=== PATIENT | male | born 1975 | race Native Hawaiian/Other Pacific Islander ===

== ENCOUNTER 2016-12-03 17:57 | Emergency (ER) | payer MEDICARE, OTHER, MEDICAID ==
[~2016-12-03] VITALS: Ht 180.3 cm; Wt 96.0 kg
[~2016-12-03 17:57] MED LIST: TRIL600T PO
[2016-12-03] MEDS ORDERED: METO25TA3 PO (18:08)
[2016-12-03 18:09] VITALS: BP 159/89; PULSE 93; RESP 19; TEMP 97.9; O2SAT 100
[2016-12-03] MEDS ORDERED: SODIUM CHLOR 0.9% 1000 ML INJ 1,000 ML IV ONE (18:21)
--- NOTE | 2016-12-03 18:22 | PD ---
HPI Chief Complaint: Seizure Time Seen by Provider: 18:22 Travel History International Travel<30 days: No Contact w/Intl Traveler<30days: No Traveled to known affect area: No History of Present Illness HPI 41-year-old male with history of seizure disorder, brought in by EMS status post seizure. Patient is currently postictal. Patient normally takes Trileptal for his seizures. Patient had similar seizure in the end of October. She also has a history of renal failure on dialysis. Patient had dialysis this morning. Patient is alert and oriented, and states he did bite his tongue, but denies any other injury. He is allergic to lisinopril. PFSH Past Medical History Heart Rhythm Problems: Yes (PT DENIES) Cancer: No Cardiovascular Problems: Yes (HYPERCHOLESTEROLEMIA) High Cholesterol: Yes Diabetes: No Dialysis: Yes (TUES, THURS, SAT) Diminished Hearing: No Endocrine: No Gastrointestinal Disorders: No Gout: Yes (PT DENIES) Genitourinary: Yes Hepatitis: No Hiatal Hernia: No Hypertension: Yes Immune Disorder: No Kidney Stones: Yes Medical other: Yes (GOUT) Musculoskeletal: No Neurologic: Yes (EPILEPSY) Psychiatric: No Reproductive: No Respiratory: No Renal Failure: Yes Seizures: Yes Thyroid Disease: No Tetanus Vaccination: Unknown Influenza Vaccination: No Past Surgical History Abdominal Surgery: No AICD: No Cardiac Surgery: No Ear Surgery: No Endocrine Surgery: No Eye Surgery: No Genitourinary Surgery: Yes (KIDNEY STONES REMOVAL, NEPHROSTOMY TUBE A CHILD) Gynecologic Surgery: No Joint Replacement: No Neurologic Surgery: Yes (EPILEPSY SPACE ON BRAIN CLOSED 2006) Oral Surgery: Yes (TONSILLECTOMY) Pacemaker: No Thoracic Surgery: No Tonsillectomy: Yes Other Surgery: Yes Social History Alcohol Use: No Tobacco Use: No Substance Use: No Allergies-Medications (Allergen,Severity, Reaction): Coded Allergies: Lisinopril (Verified Adverse Reaction, Severe, 12/03/16) Angioedema Reported Meds & Prescriptions Reported Meds & Active Scripts Active Reported Metoprolol Tartrate 25 Mg Tab 25 Mg PO DAILY Trileptal (Oxcarbazepine) 600 Mg Tab 600 Mg PO TID Review of Systems Except as stated in HPI: all other systems reviewed are Neg General / Constitutional: No: Fever Eyes: No: Visual changes HENT: Positive: Other (patient has superficial laceration to the right anterior tongue), No: Headaches Cardiovascular: No: Chest Pain or Discomfort Respiratory: No: Shortness of Breath Gastrointestinal: No: Abdominal Pain Genitourinary: No: Dysuria Musculoskeletal: No: Pain Skin: No Rash Neurologic: No: Weakness Psychiatric: No: Depression Endocrine: No: Polydipsia Hematologic/Lymphatic: No: Easy Bruising Physical Exam Narrative GENERAL: Patient appears in no acute distress. He appears postictal. SKIN: Warm and dry. Normal color. Normal turgor. HEAD: Atraumatic. Normocephalic. Nontender. EYES: Pupils equal and round. No scleral icterus. No injection or drainage. ENT: No nasal bleeding or discharge. Mucous membranes pink and moist. Patient has small superficial bite laceration to the right lateral anterior tongue. No significant bleeding. No other buccal membrane lacerations noted. No dental injury. Pharynx is clear. Airway is patent. NECK: Trachea midline. No JVD. Supple and nontender. CARDIOVASCULAR: Regular rate and rhythm. RESPIRATORY: No accessory muscle use. Clear to auscultation. Breath sounds equal bilaterally. GASTROINTESTINAL: Abdomen soft, non-tender, nondistended. Hepatic and splenic margins not palpable. MUSCULOSKELETAL: Extremities without clubbing, cyanosis, or edema. No obvious deformities. NEUROLOGICAL: Awake and alert. No obvious cranial nerve deficits. Motor grossly within normal limits. Five out of 5 muscle strength in the arms and legs. Normal speech. PSYCHIATRIC: Appropriate mood and affect; insight and judgment normal. Data Data Last Documented VS Vital Signs Date Time Temp Pulse Resp B/P Pulse Ox O2 Delivery O2 Flow Rate FiO2 12/03/16 19:33 88 12 150/78 99 Room Air 12/03/16 18:09 97.9 Orders Complete Blood Count With Diff (12/03/16 18:21) Basic Metabolic Panel (Bmp) (12/03/16 18:21) Carbamazepine (Tegretol) (12/03/16 18:21) Blood Glucose (12/03/16 18:21) Ecg Monitoring (12/03/16 18:21) Iv Access Insert/Monitor (12/03/16 18:21) Oximetry (12/03/16 18:21) Sodium Chlor 0.9% 1000 Ml Inj (Ns 1000 M (12/03/16 18:21) Sodium Chloride 0.9% Flush (Ns Flush) (12/03/16 18:30) Oxcarbazepine (Trileptal) (12/03/16 18:30) Labs Laboratory Tests Test 12/03/16 18:26 White Blood Count 4.1 TH/MM3 Red Blood Count 3.83 MIL/MM3 Hemoglobin 11.3 GM/DL Hematocrit 35.2 % Mean Corpuscular Volume 91.9 FL Mean Corpuscular Hemoglobin 29.4 PG Mean Corpuscular Hemoglobin 32.0 % Concent Red Cell Distribution Width 14.8 % Platelet Count 219 TH/MM3 Mean Platelet Volume 8.3 FL Neutrophils (%) (Auto) 63.4 % Lymphocytes (%) (Auto) 19.2 % Monocytes (%) (Auto) 13.6 % Eosinophils (%) (Auto) 2.9 % Basophils (%) (Auto) 0.9 % Neutrophils # (Auto) 2.6 TH/MM3 Lymphocytes # (Auto) 0.8 TH/MM3 Monocytes # (Auto) 0.6 TH/MM3 Eosinophils # (Auto) 0.1 TH/MM3 Basophils # (Auto) 0.0 TH/MM3 CBC Comment DIFF FINAL Differential Comment Sodium Level 140 MEQ/L Potassium Level 4.1 MEQ/L Chloride Level 102 MEQ/L Carbon Dioxide Level 29.5 MEQ/L Anion Gap 9 MEQ/L Blood Urea Nitrogen 16 MG/DL Creatinine 4.60 MG/DL Estimat Glomerular Filtration 14 ML/MIN Rate Random Glucose 85 MG/DL Calcium Level 7.7 MG/DL Carbamazepine (Tegretol) Level LESS THAN 0.5 MCG/ML MDM Medical Decision Making Medical Screen Exam Complete: Yes Emergency Medical Condition: Yes Differential Diagnosis Seizure disorder. Postictal. Tongue laceration. Narrative Course Patient is medically stable at time of exam. Labs ordered including CBC, BMP, and carbamazepine level. Patient is given Trileptal 600 mg by mouth. Patient is given 1000 and milligrams normal saline bolus. Patient is awaiting med bed placement from the ambulance [facility]. Patient is moved to [address] At 1935 hrs. the patient is reassessed. He states he is feeling improved. Patient's CBC is unremarkable except for some mild anemia. BMP is stable in terms of electrolytes with normal BUN to creatinine is 4.6 which is consistent with his renal disease. Patient is felt stable to go home. Patient will continue his Trileptal as previously prescribed. Patient is to follow-up with his primary care physician as discussed. Patient can return to emergency Department with worsening symptoms as needed. Diagnosis Primary Impression: Seizure disorder Referrals: Primary Care Physician call for appointment Patient Instructions: General Instructions Additional Instructions: Patient will continue his Trileptal as previously prescribed. Patient is to follow-up with his primary care physician as discussed. Patient can return to emergency Department with worsening symptoms as needed. Med/Other Pt SpecificInfo: No Change to Meds Disposition: 01 DISCHARGE HOME Condition: Stable David An Dec 03, 2016 18:22
[2016-12-03] MEDS ORDERED: SODIUM CHLORIDE 0.9% FLUSH 5 ML FLUSH IVF PRN (18:30)
[2016-12-03] MEDS ORDERED: OXcarbazepine 600 MG TAB PO ONE (18:30)
[2016-12-03 18:53] LABS: AUTOMATED NEUTROPHIL # 2.6 TH/MM3 (1.8-7.7); BASOPHIL % 0.9 % (0.0-2.0); EOSINOPHIL # 0.1 TH/MM3 (0-0.4); EOSINOPHIL % 2.9 % (0.0-4.0); HEMATOCRIT 35.2 % (39.0-51.0); HEMO FLAGS DIFF FINAL; LYMPH % 19.2 % (9.0-44.0); LYMPHOCYTE # 0.8 TH/MM3 (1.0-4.8); MEAN CELL VOLUME 91.9 FL (80.0-100.0); MEAN CORPUSCULAR HEMOGLOBIN 29.4 PG (27.0-34.0); MONO % 13.6 % (0.0-8.0); NEUT % 63.4 % (16.0-70.0); PLATELET COUNT 219 TH/MM3 (150-450); RED BLOOD COUNT 3.83 MIL/MM3 (4.50-5.90); RED CELL DISTRIBUTION WIDTH 14.8 % (11.6-17.2); WHITE BLOOD COUNT 4.1 TH/MM3 (4.0-11.0)
[2016-12-03 19:12] LABS: ANION GAP 9 MEQ/L (5-15); BICARBONATE 29.5 MEQ/L (21.0-32.0); BLOOD UREA NITROGEN 16 MG/DL (7-18); CHLORIDE 102 MEQ/L (98-107); GLOMERULAR FILTRATION RATE 14 ML/MIN (>89); POTASSIUM 4.1 MEQ/L (3.5-5.1); SODIUM (NA) 140 MEQ/L (136-145)
[2016-12-03 19:33] VITALS: BP 150/78; PULSE 88; RESP 11; RESP 12; O2SAT 99
== END 2016-12-03 20:19 | disposition home or self-care (01) ==
LOC: NEPE 17:57
DX: G40.909 Epilepsy, unspecified, not intractable, without status epilepticus (principal)
CPT/HCPCS: 80048; 80156; 85025; 96360; 99284; J7030

== ENCOUNTER 2017-08-21 11:26 | Observation (INO) | payer OTHER, MEDICARE, MEDICAID ==
[2017-08-21] VITALS (7 sets, daily range): BP systolic 111–140; BP diastolic 56–86; PULSE 71–90; RESP 16–20; TEMP 98.1–98.2; O2SAT 98–100
[~2017-08-21 11:26] MED LIST changes: +METO25TA3 PO
[2017-08-21] MEDS ORDERED: SODIUM CHLORIDE 0.9% FLUSH 10 ML FLUSH IVF PRN (11:45)
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
[2017-08-21] MEDS ORDERED: PROT40TA PO (11:58)
[2017-08-21 12:34] LABS: AUTOMATED NEUTROPHIL # 2.6 TH/MM3 (1.8-7.7); BASOPHIL % 0.5 % (0.0-2.0); EOSINOPHIL # 0.1 TH/MM3 (0-0.4); EOSINOPHIL % 1.5 % (0.0-4.0); HEMO FLAGS DIFF FINAL; LYMPH % 17.5 % (9.0-44.0); LYMPHOCYTE # 0.6 TH/MM3 (1.0-4.8); MEAN CELL VOLUME 92.4 FL (80.0-100.0); MEAN CORPUSCULAR HEMOGLOBIN 30.2 PG (27.0-34.0); MEAN CORPUSCULAR HGB CONC 32.7 % (32.0-36.0); MONO % 9.4 % (0.0-8.0); NEUT % 71.1 % (16.0-70.0); PLATELET COUNT 198 TH/MM3 (150-450); RED BLOOD COUNT 3.46 MIL/MM3 (4.50-5.90); RED CELL DISTRIBUTION WIDTH 14.2 % (11.6-17.2); WHITE BLOOD COUNT 3.6 TH/MM3 (4.0-11.0)
[2017-08-21 12:59] LABS: BICARBONATE 30.7 MEQ/L (21.0-32.0); POTASSIUM 3.3 MEQ/L (3.5-5.1); TOTAL BILIRUBIN ADULT 0.3 MG/DL (0.2-1.0)
[2017-08-21 13:01] LABS: CALCIUM-PROTEIN CORRECTED 7.2 MG/DL (8.5-10.1)
--- NOTE | 2017-08-21 13:48 | RADRPT ---
EXAM DATE/TIME: 08/21/2017 12:57 [facility] COMPARISON: CT BRAIN W/O CONTRAST, January 02, 2015, 12:04. INDICATIONS : Seizure today. RADIATION DOSE: 42.59 CTDIvol (mGy) MEDICAL HISTORY : Seizures. Renal failure, chronic. Hypertension. SURGICAL HISTORY : Craniotomy. ENCOUNTER: Initial ACUITY: 1 day PAIN SCALE: 0/10 LOCATION: cranial TECHNIQUE: Multiple contiguous axial images were obtained of the head. Using automated exposure control and adj ustment of the mA and/or kV according to patient size, radiation dose was kept as low as reasonably a chievable to obtain optimal diagnostic quality images. DICOM format image data is available electro nically for review and comparison. FINDINGS: CEREBRUM: The ventricles are normal for age. No evidence of midline shift, mass lesion, hemorrhage or acute in farction. No extra-axial fluid collections are seen. Stable area of encephalomalacia involving the l eft temporal lobe characteristic with a previous left-sided craniotomy. POSTERIOR FOSSA: The cerebellum and brainstem are intact. The 4th ventricle is midline. The cerebellopontine angle i s unremarkable. EXTRACRANIAL: The visualized portion of the orbits is intact. SKULL: The calvaria is intact. No evidence of skull fracture. Good position of a left-sided craniotomy flap . No new or significant changes compared to the previous study from 2014. CONCLUSION: 1. Stable CT scan of the brain compared to 2014. 2. No focal or acute intracranial hemorrhage. Francis Lagos MD on August 21, 2017 at 13:44 Board Certified Radiologist. This report was verified electronically.
[2017-08-21] MEDS ORDERED: CALCIUM GLUCONATE INJ 1 GM in SODIUM CHLORIDE 0.9% INJ 100 ML IV ONE (14:15)
[2017-08-21] MEDS ORDERED: LORazepam 2 MG/ML VIAL ONE (14:43)
[2017-08-21] MEDS ORDERED: LORazepam 2 MG/ML VIAL IV PUSH ONE (14:45)
[2017-08-21] MEDS ORDERED: OXcarbazepine 600 MG TAB PO ONE (14:45)
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
[2017-08-21] MEDS ORDERED: LORazepam 2 MG/ML VIAL IV PRN (18:30)
[2017-08-21] MEDS ORDERED: METOPROLOL TARTRATE 25 MG TAB PO SCH (21:00)
[2017-08-22] VITALS: BP 124/72; PULSE 65; RESP 17; TEMP 97.7; O2SAT 99
[2017-08-22 00:16] VITALS: PULSE 68
[2017-08-22 04:00] VITALS: BP 135/79; PULSE 63; PULSE 69; RESP 16; TEMP 97.5; O2SAT 100
[2017-08-22 08:00] VITALS: BP 138/81; PULSE 67; RESP 18; TEMP 97.7; O2SAT 100
--- NOTE | 2017-08-22 08:46 | HHI.DCPOC ---
Discharge Care Plan Diagnosis: (1) Seizure disorder (2) ESRD (end stage renal disease) on dialysis (3) HTN (hypertension) Goals to Promote Your Health Patient is to followup with Dr. Cassidy in 2 weeks, call for an appt Neurology has recommended that he take an extra dose of his Trileptal after dialysis to try to maintain therapeutic levels of the medication Patient is to followup for his normal dialysis schedule of , follows with Dr. Shin. Patient is to followup with his PCP, Dr. Schrader, in 1 week, call for an appt. Directions to Meet Your Goals Take your medications as prescribed Follow your dietary instruction Follow activity as directed Keep your appointments as scheduled Take your immunizations and boosters as scheduled If your symptoms worsen call your PCP, if no PCP go to Urgent Care Center or Emergency Room Smoking is Dangerous to Your Health. Avoid second hand smoke Call the 24-hour hour crisis hotline for domestic abuse at Bibiana Roberts Aug 22, 2017 08:45
--- NOTE | 2017-08-22 08:52 | HHI.PR ---
Subjective Remarks Pt awake and alert this morning He is anxious to go home because he wants to make it to prayer by 1400 today No further seizure activity since yesterday afternoon He reports that on the days he has dialysis he takes his Trileptal 4 times per day. He typically takes it at 0400, 1200, and 1800. On his dialysis days he takes an extra dose after dialysis around 0900. Objective Vitals Vital Signs Date Time Temp Pulse Resp B/P (MAP) Pulse Ox O2 Delivery O2 Flow Rate FiO2 08/22/17 04:00 63 08/22/17 04:00 97.5 69 16 135/79 (97) 100 08/22/17 00:16 68 08/22/17 00:00 97.7 65 17 124/72 (89) 99 08/21/17 20:59 72 08/21/17 20:36 98.2 71 18 131/76 (94) 08/21/17 18:20 98.1 78 20 140/86 (104) 100 08/21/17 17:18 80 18 140/76 (97) 98 Nasal Cannula 2.00 08/21/17 16:24 80 16 140/76 (97) 100 Nasal Cannula 2.00 08/21/17 14:39 98.1 73 18 111/56 (74) 99 Room Air 08/21/17 11:32 90 18 98 Room Air 08/21/17 11:31 90 18 138/72 (94) 99 Room Air Result Diagram: 08/21/17 1205 08/21/17 1205 Other Results Laboratory Tests Test 08/21/17 12:05 White Blood Count 3.6 TH/MM3 Red Blood Count 3.46 MIL/MM3 Hemoglobin 10.5 GM/DL Hematocrit 32.0 % Mean Corpuscular Volume 92.4 FL Mean Corpuscular Hemoglobin 30.2 PG Mean Corpuscular Hemoglobin Concent 32.7 % Red Cell Distribution Width 14.2 % Platelet Count 198 TH/MM3 Mean Platelet Volume 7.3 FL Neutrophils (%) (Auto) 71.1 % Lymphocytes (%) (Auto) 17.5 % Monocytes (%) (Auto) 9.4 % Eosinophils (%) (Auto) 1.5 % Basophils (%) (Auto) 0.5 % Neutrophils # (Auto) 2.6 TH/MM3 Lymphocytes # (Auto) 0.6 TH/MM3 Monocytes # (Auto) 0.3 TH/MM3 Eosinophils # (Auto) 0.1 TH/MM3 Basophils # (Auto) 0.0 TH/MM3 CBC Comment DIFF FINAL Differential Comment Blood Urea Nitrogen 17 MG/DL Creatinine 3.61 MG/DL Random Glucose 104 MG/DL Total Protein 7.6 GM/DL Albumin 3.4 GM/DL Calcium Level 7.4 MG/DL Alkaline Phosphatase 171 U/L Aspartate Amino Transf (AST/SGOT) 11 U/L Alanine Aminotransferase (ALT/SGPT) 19 U/L Total Bilirubin 0.3 MG/DL Sodium Level 135 MEQ/L Potassium Level 3.3 MEQ/L Chloride Level 98 MEQ/L Carbon Dioxide Level 30.7 MEQ/L Anion Gap 6 MEQ/L Estimat Glomerular Filtration Rate 19 ML/MIN Protein Corrected Calcium 7.2 MG/DL Magnesium Level 2.0 MG/DL Imaging Last Impressions Head CT 08/21/17 0000 Signed Impressions: Service Date/Time: August 12:57 - CONCLUSION: 1. Stable CT scan of the brain compared to 2014. 2. No focal or acute intracranial hemorrhage. Francis Lagos MD Objective Remarks General: NAD, AAox3 Chest: CTA Cardiac: Regular Abd: +BS, soft ND/NT Ext: No edema A/P Problem List: (1) Seizure disorder ICD Codes: G40.909 - Epilepsy, unspecified, not intractable, without status epilepticus Status: Acute Plan: 1. Recurrent breakthrough seizures. There is concern for his Trileptal being dialyzed off - Pt reportedly has been having 2-4 sz's per week. They say it worsened after starting HD and feel his medication is being dialyzed off. - He reports that on the days he has dialysis he takes his Trileptal 4 times per day. He typically takes it at 0400, 1200, and 1800. On his dialysis days he takes an extra dose after dialysis around 0900. - Await Neurology consultation - Await Oxcarbazepine level 2. Mild hypokalemia/hypocalcemia - Await repeat labs for today 3. hx obesity. s/p gastric sleeve. 4. 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 Shin - He has dialysis on 5. HTN - Home meds resumed Assessment and Plan Patient examined. Assessment and plan formulated with Bibiana Roberts PA-C. I agree with the above. recurrent sz's in pt with long hx. worsened after initiation of HD hopefully he can see the neurologist today before leaving to establish care on the outpt basis. plan for d/c home. Bibiana Roberts Aug 22, 2017 08:52 Navneet Fontana MD Aug 22, 2017 12:37
[2017-08-22] MEDS ORDERED: PANTOPRAZOLE SOD 40 MG DELAYED RELEASE TAB PO SCH (09:00)
[2017-08-22] MEDS: OXcarbazepine 600 MG TAB PO SCH ×2 (09:44→13:54)
[2017-08-22 11:35] LABS: POTASSIUM 3.7 MEQ/L (3.5-5.1)
[2017-08-22 12:11] VITALS: BP 144/83; PULSE 70; RESP 18; TEMP 98.2; O2SAT 100
--- NOTE | 2017-08-22 14:17 | MB ---
cc: LINCOLN CARBAJAL MD DATE OF CONSULTATION: 08/22/2017 REASON FOR CONSULTATION Seizures. HISTORY OF PRESENT ILLNESS Mr. Eduardo is a 32-year-old male with past medical history significant for nephropathy on hemodialysis and history of seizure disorder. The patient states that he had a brain defect since and he underwent surgical intervention at [facility]. The patient is uncertain what kind of surgery it was but he states that they made his defect smaller and his seizures were less frequent and intense. In 2014 he was diagnosed with nephropathy and he is on hemodialysis three times week. He is also on Trileptal 600 mg three times daily, but he had seizures after a hemodialysis session. The patient does not follow-up with a neurologist. It was reported that after hemodialysis on the way home he had a seizure. He received Ativan. Neurology is consulted for consulting on the antiseizure medication and his situation. REVIEW OF SYSTEMS A 12-point review of systems is negative except for what is stated in the HPI. PAST MEDICAL HISTORY 1. IgA nephropathy. 2. Hemodialysis. 3. Hypertension. 4. GERD. 5. Congenital defect, status post procedure at [facility]. 6. Hyperlipidemia. 7. Seizure disorder. PAST SURGICAL HISTORY 1. Left arm AVF. 2. Brain surgery. 3. Gastric sleeve MEDICATIONS 1. Metoprolol. 2. Trileptal 600 mg three times daily. 3. Protonix. ALLERGIES LISINOPRIL - ANGIOEDEMA. FAMILY HISTORY Noncontributory. SOCIAL HISTORY No ethanol, illicit drugs or smoking. PHYSICAL EXAMINATION GENERAL: Awake, alert, oriented to time, person and place. Good historian. HEENT: Atraumatic, normocephalic. Scar of craniotomy. Intact hearing. Intact vision. NECK: No carotid bruit. No signs of meningeal irritation. ABDOMEN: Abdomen: Soft, nontender. LUNGS: Clear to auscultation. No wheezes. NEUROLOGIC: Awake, alert, oriented. No dysarthria. No dysphagia. Cranial nerves are grossly intact. Upper and lower extremities have normal motor function. No abnormal movement. Intact sensation throughout. Normal cerebellar function. IMAGING Head CT scan: Stable CT scan. No focal acute intracranial hemorrhage. Stable area of encephalomalacia in the left temporal lobe with previous left-sided craniotomy. LABORATORY White blood cell count 3.6, hemoglobin 10.5. Sodium 134, chloride 97, BUN 29, creatinine 5.1, calcium 7.4, AST 11, alkaline phosphatase 171. DIAGNOSTIC IMPRESSION 1. Breakthrough seizures status post hemodialysis. 2. Nephropathy status post hemodialysis. 3. Hypertension. 4. Hyperlipidemia. CLINICAL ASSESSMENT AND PLAN The patient is on hemodialysis with seizure disorder secondary to brain defect. He is currently on Trileptal 600 mg three times daily. The recommendation is to give the patient an extra dose of Trileptal after hemodialysis to prevent subtherapeutic blood levels, and also may periodically obtain serum levels of the Trileptal. Another recommendation is the patient may change his timing of taking the medication to take it where it fits to after the hemodialysis, but this probably would be less convenient for the patient. Always maintain normal sodium level as Trileptal may cause hyponatremia. I discussed and explained the above recommendations with the patient. He understands well. Thank you for allowing me to participate in the care of your patient. MD REINALDO Fuentes/MARY ANNE /1:36 PM /1:53 PM ELAYNE
[2017-08-22] MEDS ORDERED: TRIL600T PO (14:38)
--- NOTE | 2017-08-22 22:03 | EKG ---
Date Performed: 08/21/2017 Time Performed: 12:05:34 PTAGE: 41 years EKG: Sinus rhythm MODERATE INTRAVENTRICULAR CONDUCTION DELAY BORDERLINE ECG PREVIOUS TRACING : 10/25/2016 16.30 Compared to prior tracing no significant change DOCTOR: Mikhail Stratton Interpretating Date/Time 08/22/2017 21:42:46
== END 2017-08-22 16:14 | disposition home or self-care (01) ==
LOC: NEPE 11:26 → NEDA 14:55 → NEPGCP 18:00
PROVIDERS: ADMIT Hospitalist; ATTEND Hospitalist
DX: G40.909 Epilepsy, unspecified, not intractable, without status epilepticus (principal); E83.51 Hypocalcemia; E87.6 Hypokalemia; N18.6 End stage renal disease; I12.0 Hypertensive chronic kidney disease with stage 5 chronic kidney disease or end stage renal disease; V43.52XA Car driver injured in collision with other type car in traffic accident, initial encounter; Y92.410 Unspecified street and highway as the place of occurrence of the external cause; Z99.2 Dependence on renal dialysis; E78.00 Pure hypercholesterolemia, unspecified; E78.5 Hyperlipidemia, unspecified; K21.9 Gastro-esophageal reflux disease without esophagitis; M10.9 Gout, unspecified; N02.8 Recurrent and persistent hematuria with other morphologic changes; Z98.84 Bariatric surgery status
CPT/HCPCS: 70450; 80048; 80053; 80183; 83735; 85025; 93005; 96365; 96375; 99285; G0378; J0610; J2060

== ENCOUNTER 2017-09-01 13:16 | Inpatient (IN) | payer OTHER, MEDICARE, MEDICAID ==
[~2017-09-01] VITALS: Ht 180.3 cm; Wt 107.5 kg
[~2017-09-01 13:16] MED LIST changes: +PANT20TA2 PO; +PROT40TA PO
[2017-09-01] MEDS ORDERED: SODIUM CHLOR 0.9% 1000 ML INJ 1,000 ML IV ONE (13:39)
[2017-09-01] MEDS ORDERED: SODIUM CHLOR 0.9% IV SCH ×3 (13:45→16:45)
[2017-09-01] MEDS ORDERED: ceFAZolin 2 GM PREMIX 50 ML IV SCH (13:45)
[2017-09-01] MEDS ORDERED: MYCOPHENOLATE MOFETIL 500 MG TAB PO SCH (13:45)
[2017-09-01] MEDS ORDERED: ANTITHYMOCYTE GLOB IV SCH ×3 (13:45→16:45)
[2017-09-01] MEDS ORDERED: methylPREDNISolone SO SUCC INJ 250 MG in SODIUM CHLORIDE 0.9% INJ 100 ML IV ONE (13:45)
--- NOTE | 2017-09-01 13:54 | HHI.HP ---
[facility] Non-Staff Admission Diagnosis Diagnoses: Chief Complaint: Patient with ESRD being admitted for Renal transplant. Travel History International Travel<30 Days: No Contact w/Intl Traveler <30 Da: No Traveled to Known Affected Are: No History of Present Illness Mr. 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 In January 2015, patient came to the hospital with lower extremity edema. Workup indicated IgA nephropathy. Patient was placed on outpatient dialysis after hospital discharge. He has been followed by Dr. Shin (nephrology) in the outpatient setting. At the time of this interview, patient denies any chest pain, shortness of breath, fever or chills. He denies any cough, abdominal pain, diarrhea or constipation. Review of Systems Except as stated in HPI: all other systems reviewed are Neg Past Family Social History Past Medical History Advanced sclerosing IgA nephropathy ESRD currently on dialysis Friday and Friday. History of hypertension, hyperlipidemia, gout - all resolved after losing 140 pounds. GERD Seizure disorder Past Surgical History Left-sided nephrectomy in childhood when patient was 4 years old likely due to congenital reasons. Gastric sleeve surgery June 2016 Fistula placement 2014 Surgery related to epilepsy in [place], [place] 2006 Reported Medications Trileptal 600 mg 3 times a day Omeprazole Metoprolol 25 mg daily at bedtime Allergies: Coded Allergies: lisinopril (Unverified Adverse Reaction, Severe, 08/21/17) Angioedema Family History No family history of heart disease, cancer, Alzheimer's dementia or Parkinson's. Social History Patient denies using tobacco, alcohol, illicit drugs Physical Exam Physical Exam GENERAL: This is a well-nourished, well-developed patient, in no apparent distress. SKIN: No rashes, ecchymoses or lesions. Warm and dry. HEAD: Atraumatic. Normocephalic. No temporal or scalp tenderness. EYES: Pupils equal round and reactive. No injection or drainage. ENT: Nose without bleeding, purulent drainage or septal hematoma. Airway patent. NECK: Trachea midline. No lymphadenopathy. Supple, nontender, no meningeal signs. CARDIOVASCULAR: Regular rate and rhythm without murmurs, gallops, or rubs. No JVD. Left arm fistula bruit appreciated. RESPIRATORY: Clear to auscultation. Breath sounds equal bilaterally. No wheezes , rales, or rhonchi. GASTROINTESTINAL: Abdomen soft, non-tender, nondistended. No guarding. Left abdominal wall scar noted (from nephrectomy). MUSCULOSKELETAL: Extremities without clubbing, cyanosis. Trace edema. NEUROLOGICAL: Awake and alert. Cranial nerves II through XII intact. No focal neurological deficits. Normal speech. Caprini VTE Risk Assessment Caprini VTE Risk Assessment: No/Low Risk (score <= 1) Caprini Risk Assessment Model Point Value = 1 Point Value = 2 Point Value = 3 Point Value = 5 Age 41-60 Minor surgery BMI > 25 kg/m2 Swollen legs Varicose veins or History of unexplained or recurrent spontaneous Oral contraceptives or hormone replacement Sepsis (< 1 month) Serious lung disease, including pneumonia (< 1 month) Abnormal pulmonary function Acute myocardial infarction Congestive heart failure (< 1 month) History of inflammatory bowel disease Medical patient at bed rest Age 61-74 Arthroscopic surgery Major open surgery (> 45 min) Laparoscopic surgery (> 45 min) Malignancy Confined to bed (> 72 hours) Immobilizing plaster cast Central venous access Age >= 75 History of VTE Family history of VTE Factor V Leiden Prothrombin [id number] Lupus anticoagulant Anticardiolipin antibodies Elevated serum homocysteine Heparin-induced thrombocytopenia Other congenital or acquired thrombophilia Stroke (< 1 month) Elective arthroplasty Hip, pelvis, or leg fracture Acute spinal cord injury (< 1 month) Prophylaxis Regimen Total Risk Factor Score Risk Level Prophylaxis Regimen 0-1 Low Early ambulation 2 Moderate Order ONE of the following: *Sequential Compression Device (SCD) *Heparin 5000 units SQ BID 3-4 Higher Order ONE of the following medications: *Heparin 5000 units SQ TID *Enoxaparin/Lovenox 40 mg SQ daily (WT < 150 kg, CrCl > 30 mL/min) *Enoxaparin/Lovenox 30 mg SQ daily (WT < 150 kg, CrCl > 10-29 mL/min) *Enoxaparin/Lovenox 30 mg SQ BID (WT < 150 kg, CrCl > 30 mL/min) AND/OR *Sequential Compression Device (SCD) 5 or more Highest Order ONE of the following medications: *Heparin 5000 units SQ TID (Preferred with Epidurals) *Enoxaparin/Lovenox 40 mg SQ daily (WT < 150 kg, CrCl > 30 mL/min) *Enoxaparin/Lovenox 30 mg SQ daily (WT < 150 kg, CrCl > 10-29 mL/min) *Enoxaparin/Lovenox 30 mg SQ BID (WT < 150 kg, CrCl > 30 mL/min) AND *Sequential Compression Device (SCD) Assessment and Plan Problem List: (1) IgA nephropathy determined by renal biopsy ICD Code: N02.8 - IgA nephropathy determined by renal biopsy Status: Acute (2) ESRD (end stage renal disease) on dialysis ICD Code: N18.6 - ESRD (end stage renal disease) on dialysis; Z99.2 - Dependence on renal dialysis Status: Acute (3) Seizure disorder ICD Code: G40.909 - Epilepsy, unspecified, not intractable, without status epilepticus Status: Acute Assessment and Plan Mr. Eduardo is a pleasant 42-year-old male with a history of IgA nephropathy, ESRD currently on dialysis on Friday and Friday, seizure disorder who presents to the hospital for elective admitted transplant scheduled for . - End-stage renal disease - Advanced sclerosing IgA nephropathy - Patient has been on dialysis since January 2015. - We'll obtain stat labs including CBC, CMP, PT, APTT. - We'll also obtain type and screen as well as 2 units of blood on standby - We'll administer mycophenolate (Cellcept) 1000 mg by mouth once. - Ordered Acute Care Nursing Assistant meds - antithymocyte globulin 1.5mg/kg. - Discussed with Pharmacy since the order set did not calculate dosage. Typical dosage is 1.5mg/kg. - Surgery team / pharmacy to do the final dosing. - Cefazolin and Solumedrol acquisitions editor ordered. - Seizure disorder - Patient takes Trileptal 600mg TID. Will continue. - GERD - Continue Protonix 20mg Qday starting 09/02/2017. - Hypertension - Patient is on Metoprolol tartrate 25mg QHS. Will continue this medication as well. Full code. Ambulation. Pharmacological DVT prophylaxis per surgery team. Discussed with Nephrology and Dr. Waqas Portillo (Surgery). Physician Certification 2 Midnight Certification Type: Admission for Inpatient Services Order for Inpatient Services The services are ordered in accordance with Medicare regulations or non- Medicare payer requirements, as applicable. In the case of services not specified as inpatient-only, they are appropriately provided as inpatient services in accordance with the 2-midnight benchmark. Estimated LOS (days): 3 days is the estimated time the patient will need to remain in the hospital, assuming treatment plan goals are met and no additional complications. Post-Hospital Plan: Home Lay Headley DO Sep 01, 2017 13:54
[2017-09-01 14:14] VITALS: BP 126/82; PULSE 79; RESP 16; TEMP 98; O2SAT 93
[2017-09-01 15:00] VITALS: BP 126/82; PULSE 79; RESP 16; TEMP 98; O2SAT 93
[2017-09-01 15:51] LABS: AUTOMATED NEUTROPHIL # 2.1 TH/MM3 (1.8-7.7); BASOPHIL % 0.7 % (0.0-2.0); EOSINOPHIL # 0.1 TH/MM3 (0-0.4); EOSINOPHIL % 1.8 % (0.0-4.0); HEMOGLOBIN 10.4 GM/DL (13.0-17.0); LYMPH % 26.6 % (9.0-44.0); LYMPHOCYTE # 0.9 TH/MM3 (1.0-4.8); MEAN CELL VOLUME 92.8 FL (80.0-100.0); MEAN CORPUSCULAR HGB CONC 32.4 % (32.0-36.0); MEAN PLATELET VOLUME 7.8 FL (7.0-11.0); MONO % 9.2 % (0.0-8.0); MONOCYTE # 0.3 TH/MM3 (0-0.9); NEUT % 61.7 % (16.0-70.0); PLATELET COUNT 212 TH/MM3 (150-450); RED BLOOD COUNT 3.45 MIL/MM3 (4.50-5.90); RED CELL DISTRIBUTION WIDTH 14.1 % (11.6-17.2); WHITE BLOOD COUNT 3.4 TH/MM3 (4.0-11.0)
[2017-09-01 16:04] LABS: INTERNATIONAL NORMALIZED RATIO 1.1 RATIO; PROTHROMBIN TIME - PATIENT 11.8 SEC (9.8-11.6)
[2017-09-01 16:14] LABS: ALBUMIN 3.5 GM/DL (3.4-5.0); BICARBONATE 26.8 MEQ/L (21.0-32.0); CALCIUM 7.4 MG/DL (8.5-10.1); CREATININE 6.94 MG/DL (0.60-1.30); TOTAL BILIRUBIN ADULT 0.3 MG/DL (0.2-1.0); TOTAL PROTEIN 7.6 GM/DL (6.4-8.2)
[2017-09-01 16:19] LABS: CALCIUM-PROTEIN CORRECTED 7.2 MG/DL (8.5-10.1)
--- NOTE | 2017-09-01 16:35 | RADRPT ---
EXAM DATE/TIME: 09/01/2017 15:20 [place] COMPARISON: No previous studies available for comparison. INDICATIONS : Evaluate for pneumothorax, pneumonia or communicable diseases. Pre-op for kidney transplant surgery. MEDICAL HISTORY : AV fistula. SURGICAL HISTORY : None. ENCOUNTER: Initial ACUITY: 1 day PAIN SCORE: 0/10 LOCATION: Bilateral chest FINDINGS: The cardiac silhouette is enlarged in transverse diameter. The lungs are free of acute parenchymal op acity. No effusions are identified. Osseous structures are intact. CONCLUSION: Cardiomegaly. No acute cardiopulmonary disease. Leonid Montemayor MD on September 01, 2017 at 16:33 Board Certified Radiologist. This report was verified electronically.
[2017-09-01] MEDS ORDERED: HEPARIN SODIUM - SQ 10,000 UNITS/ML VIAL ONE (16:44)
[2017-09-01] MEDS ORDERED: FUROSEMIDE 100 MG/10 ML VIAL ONE (16:44)
[2017-09-01] MEDS ORDERED: methylPREDNISolone SOD SUCC 1000 MG/16 ML VIAL ONE (16:44)
[2017-09-01] MEDS ORDERED: PAPAVERINE INJ 60 MG/2 ML VIAL ONE (16:45)
[2017-09-01] MEDS ORDERED: MANNITOL INJ 50 ML ONE (16:45)
[2017-09-01] MEDS ORDERED: GENTAMICIN SULFATE 80 MG/2 ML VIAL ONE (16:45)
--- NOTE | 2017-09-01 16:58 | PD.CONS ---
HPI Service Nephrology Consult Requested By Dr. Headley Reason for Consult End-stage renal disease Primary Care Physician Non-Staff History of Present Illness Patient is a 42-year-old male history of end-stage renal disease, seizure disorder, IgA nephropathy on hemodialysis on Friday, and Friday last hemodialysis was on Friday, he denies any chest pain shortness of breath or any cough any sputum production or any fever or chills, state that he was planning to go to [place] when he received a kidney transplant offer. Review of Systems Constitutional: DENIES: Diaphoretic episodes, Fatigue, Fever, Weight gain, Weight loss, Chills, Dizziness, Change in appetite, Night Sweats Endocrine: DENIES: Heat/cold intolerance, Polydipsia, Polyuria, Polyphagia Eyes: DENIES: Blurred vision, Diplopia, Eye inflammation, Eye pain, Vision loss , Photosensitivity, Double Vision Ears, nose, mouth, throat: DENIES: Tinnitus, Hearing loss, Vertigo, Nasal discharge, Oral lesions, Throat pain, Hoarseness, Ear Pain, Running Nose, Epistaxis, Sinus Pain, Toothache, Odynophagia Respiratory: DENIES: Apneas, Cough, Snoring, Wheezing, Hemoptysis, Sputum production, Shortness of breath Cardiovascular: DENIES: Chest pain, Palpitations, Syncope, Dyspnea on Exertion , PND, Lower Extremity Edema, Orthopnea, Claudication Gastrointestinal: DENIES: Abdominal pain, Black stools, Bloody stools, Constipation, Diarrhea, Nausea, Vomiting, Difficulty Swallowing, Anorexia Genitourinary: DENIES: Sexual dysfunction, Urinary frequency, Urinary incontinence, Urgency, Hematuria, Dysuria, Nocturia, Penile Discharge, Testicular Pain, Testicular Swelling Musculoskeletal: DENIES: Joint pain, Muscle aches, Stiffness, Joint Swelling, Back pain, Neck pain Integumentary: DENIES: Abnormal pigmentation, Nail changes, Pruritus, Rash Hematologic/lymphatic: DENIES: Bruising, Lymphadenopathy Immunologic/allergic: DENIES: Eczema, Urticaria Neurologic: DENIES: Abnormal gait, Headache, Localized weakness, Paresthesias, Seizures, Speech Problems, Tremor, Poor Balance Psychiatric: DENIES: Anxiety, Confusion, Mood changes, Depression, Hallucinations, Agitation, Suicidal Ideation, Homicidal Ideation, Delusions Past Family Social History Allergies: Coded Allergies: lisinopril (Unverified Adverse Reaction, Severe, 08/21/17) Angioedema Past Medical History Seizure disorder History of syncope Hypertension End-stage renal disease Mildly depressed WBC History of obesity status post gastric bypass surgery Past Surgical History Gastric bypass surgery Left kidney stone removal and nephrectomy History of brain surgery for seizures Reported Medications Reported Meds & Active Scripts Active Trileptal (Oxcarbazepine) 600 Mg Tab 600 Mg PO TID On dialysis days, pt is to take an extra dose after dialysis Reported Protonix (Pantoprazole Sodium) 40 Mg Tab 40 Mg PO DAILY Pantoprazole (Pantoprazole Sodium) 20 Mg Tab 20 Mg PO DAILY Trileptal (Oxcarbazepine) 600 Mg Tab 600 Mg PO TID Metoprolol Tartrate 25 Mg Tab 25 Mg PO HS Active Ordered Medications Current Medications Medications (Trade) Dose Ordered Sig/Gabriella Route Start Time Stop Time Status Last Admin Sodium Chloride 1,000 ml @ 40 mls/hr Q24H ONCE IV 09/01/17 13:39 09/02/17 13:38 Cefazolin Sodium/ Dextrose 50 ml @ 100 mls/hr BABY FORMUL[employer] WORKER IV 09/01/17 13:45 09/05/17 13:44 (Lopressor) 25 mg HS PO 09/01/17 21:00 (Trileptal) 600 mg TID PO 09/01/17 18:00 (Protonix) 20 mg DAILY PO 09/02/17 09:00 Anti-Thymocyte Globulin (Rabbit) 150 mg/Sodium Chloride 500 ml @ 41.667 mls/ hr BABY FOR[employer]UL[employer] WORKER IV 09/01/17 16:45 Family History Noncontributory Social History Denies smoking or alcohol use Physical Exam Vital Signs Vital Signs Date Time Temp Pulse Resp B/P (MAP) Pulse Ox O2 Delivery O2 Flow Rate FiO2 09/01/17 15:00 98.0 79 16 126/82 (97) 93 Physical Exam GENERAL: Well-nourished, well-developed patient. SKIN: Warm and dry. HEAD: Normocephalic. EYES: No scleral icterus. No injection or drainage. NECK: Supple, trachea midline. No JVD or lymphadenopathy. CARDIOVASCULAR: Regular rate and rhythm without murmurs, gallops, or rubs. RESPIRATORY: Breath sounds equal bilaterally. No accessory muscle use. GASTROINTESTINAL: Abdomen soft, non-tender, nondistended. EXTREMITIES: No cyanosis, or edema. AV fistula with positive thrill NEUROLOGICAL: Awake, alert, and oriented x 3. Non-focal. Laboratory Laboratory Tests Test 09/01/17 14:42 White Blood Count 3.4 Red Blood Count 3.45 Hemoglobin 10.4 Hematocrit 32.0 Mean Corpuscular Volume 92.8 Mean Corpuscular Hemoglobin 30.0 Mean Corpuscular Hemoglobin Concent 32.4 Red Cell Distribution Width 14.1 Platelet Count 212 Mean Platelet Volume 7.8 Neutrophils (%) (Auto) 61.7 Lymphocytes (%) (Auto) 26.6 Monocytes (%) (Auto) 9.2 Eosinophils (%) (Auto) 1.8 Basophils (%) (Auto) 0.7 Neutrophils # (Auto) 2.1 Lymphocytes # (Auto) 0.9 Monocytes # (Auto) 0.3 Eosinophils # (Auto) 0.1 Basophils # (Auto) 0.0 CBC Comment DIFF FINAL Differential Comment Prothrombin Time 11.8 Prothromb Time International Ratio 1.1 Activated Partial Thromboplast Time 28.7 Blood Urea Nitrogen 54 Creatinine 6.94 Random Glucose 82 Total Protein 7.6 Albumin 3.5 Calcium Level 7.4 Alkaline Phosphatase 171 Aspartate Amino Transf (AST/SGOT) 12 Alanine Aminotransferase (ALT/SGPT) 18 Total Bilirubin 0.3 Sodium Level 139 Potassium Level 4.4 Chloride Level 104 Carbon Dioxide Level 26.8 Anion Gap 8 Estimat Glomerular Filtration Rate 9 Protein Corrected Calcium 7.2 Result Diagram: 09/01/17 1442 09/01/17 1442 Imaging Last Impressions Chest X-Ray 09/01/17 0000 Signed Impressions: Service Date/Time: Friday, September 01, 2017 15:20 - CONCLUSION: Cardiomegaly. No acute cardiopulmonary disease. Leonid Montemayor MD Assessment and Plan Problem List: (1) ESRD (end stage renal disease) on dialysis ICD Codes: N18.6 - ESRD (end stage renal disease) on dialysis; Z99.2 - Dependence on renal dialysis Status: Acute Plan: I discussed the care with and Dr. Portillo He has been dialyzed on Friday Labs are stable WBC slightly depressed There is no absolute medical contraindication He will proceed with surgery this evening Thymoglobulin will be ordered by surgery (2) Seizure disorder ICD Codes: G40.909 - Epilepsy, unspecified, not intractable, without status epilepticus Status: Acute Plan: Trileptal continue to give it to him (3) HTN (hypertension) ICD Codes: I10 - HTN (hypertension) Status: Chronic Plan: Monitor blood pressure Problem Qualifiers (1) HTN (hypertension): Qualified Codes: I10 - Essential (primary) hypertension Jose Antonio Shin MD Sep 01, 2017 16:58
[2017-09-01] MEDS ORDERED: HEPARIN SODIUM - IV 10,000 UNITS/10 ML VIAL ONE (17:07)
[2017-09-01] MEDS ORDERED: DO NOT ADM ANY ANTICOAGULANT DRUGS PRN ×2 (20:00→21:15)
[2017-09-01] MEDS ORDERED: LABETALOL HCL 100 MG/20 ML VIAL IV PUSH PRN (20:15)
[2017-09-01] MEDS ORDERED: diphenhydrAMINE HCL 25 MG CAP PO PRN (20:15)
[2017-09-01] MEDS ORDERED: NALOXONE HCL 0.4 MG/ML AMP IV PUSH PRN (20:15)
[2017-09-01] MEDS ORDERED: MORPHINE SULFATE 30 MG/30 ML PCA IV SCH (20:15)
[2017-09-01] MEDS ORDERED: diphenhydrAMINE HCL 50 MG/ML VIAL IV PUSH PRN (20:15)
[2017-09-01] MEDS ORDERED: ONDANSETRON INJ 8 MG in DEXTROSE 5% IN WATER INJ 50 ML IV PRN ×2 (20:15)
[2017-09-01] MEDS ORDERED: RESP: ALBUTEROL 2.5 MG/IPRATROPIUM 0.5 MG NEB (PRN) INH (20:15)
[2017-09-01] MEDS ORDERED: ONDANSETRON HCL 4 MG/2 ML VIAL IV PUSH PRN (20:15)
--- NOTE | 2017-09-01 20:22 | PD.OP ---
Operative Report Date of Surgery: Sep 01, 2017 Preoperative Diagnosis: (1) ESRD (end stage renal disease) on dialysis Postoperative Diagnosis: (1) ESRD (end stage renal disease) on dialysis Procedure: 1) cadaveric kidney transplant with ureteroneosyctostomy over a 6.0 Fr dble J ureteral stent 2) backbench preparation of cadaveric kidney. Surgeon: Waqas Portillo Director Of Digital Platforms(s): Conner Barreto MD Operation and Findings: After informed consent was obtained from the patient prior to surgery and the ABO was reviewed via primary source times two for each the recipient and donor prior to surgery today, the recipient was brought into the OR and a surgical time out was performed, reviewing the patient, allergies, antibiotics, operation , immunosuppression medications and ABO of the donor and recipient. All agreed and we proceeded. The ABO verification form was in the room with the patient and the donor organ. The [employer] file was checked and the donor ABO verified X 2 and recorded onto the ABO form with the Candidate ABO verified X 2 and recorded on the ABO verification form. The candidate's name was seen on the match run in [employer]. The donor blood type was A1 and the recipient blood type A. After general anesthesia, a Meredith catheter was placed, the abdomen prepped and draped in the usual sterile fashion and a second debriefing was performed with all participants agreeing to proceed. A right lower quadrant transplant incision was made and carried down through the abdominal wall. The peritoneum was identified and mobilized medially to expose the iliac fossa and it's contents. The iliac vessels were isolated for placement of vascular clamps. After ABO, UNOS donor ID, and recipient verification, the kidney was prepared on the backtable by myself, which included removal of access tissue, preparation of the renal artery and vein for implantation. An IVC extension was created using a TA stapling device. The kidney was brought to the front table for implantation. 2,000 units of intravenous heparin was introduced. A side biting vascular clamp was placed across the iliac vein and an end to side venous anastomosis created using a running 6.0 Prolene suture. A second clamp was placed across the iliac artery and an end to side arterial anastomosis created using a running 6.0 Prolene suture. Vascular clamps were removed with good perfusion of the allograft. Hemostasis was obtained by the use of clips or ties as necessary. Mannitol and Lasix were given to encourage diuresis. Solumedrol and Thymoglobulin were given for immunosuppression. Attention was directed towards the bladder which was filled with irrigant solution. The detrusor muscle on the dome of the bladder was identified and divided to expose the mucosa. A small cystotomy was created. The ureter was cut to appropriate length and spatulated. A uretero-neocystostomy was created over a 6.0 Fr double J ureteral stent using running 5.0 PDS sutures. The detrusor muscle was reapproximated over this anastomosis using interrupted sutures of 5.0 PDS. The kidney [was/was not] making urine at this time. The wound was irrigated with saline solution. The fascia closed in two layers with running #1 PDS suture and the skin closed with surgical clips. DSD dressings applied. Instrument and sponge counts were correct times two. Our warm ischemia time was about approximately 19 minutes. The cold time was approximately 6 1/2 hours. The patient tolerated the procedure well, and was transferred to the PACU extubated and in stable condition. I was present for the entire operation. Waqas Portillo MD Sep 01, 2017 20:22
--- NOTE | 2017-09-01 20:31 | RADRPT ---
EXAM DATE/TIME: 09/01/2017 20:13 [facility] COMPARISON: CHEST SINGLE AP, August 05, 2017, 10:33. INDICATIONS : Evaluate central line placement MEDICAL HISTORY : AV fistula. SURGICAL HISTORY : None. ENCOUNTER: Initial ACUITY: 1 day PAIN SCORE: Non-responsive. LOCATION: chest FINDINGS: A single view of the chest demonstrates the lungs to be symmetrically aerated without evidence of mas s, infiltrate or effusion. The size remains enlarged with no perihilar edema. Osseous structures are intact. There is been interval placement of a right internal jugular central venous line with the ti p projected over the superior vena cava. There is no pneumothorax. The patient is mildly rotated to t he right. CONCLUSION: 1. Interval placement of right internal jugular central venous line with no pneumothorax. 2. Cardiomegaly again noted. Fritz Nagy MD on September 01, 2017 at 20:29 Board Certified Radiologist. This report was verified electronically.
[2017-09-01] MEDS: DEXT 5%-NACL 0.45% 1000 ML INJ 1,000 ML IV SCH ×2 (20:40→22:31)
[2017-09-01] MEDS ORDERED: SODIUM CHLORID 0.9% 500 ML INJ 500 ML IV SCH (20:40)
[2017-09-01] MEDS ORDERED: *morphine SULFATE 8 MG/ML PERIprocedure ONLY ONE (21:28)
[2017-09-01] MEDS: SODIUM CHLOR 0.45% 1000 ML INJ 1,000 ML IV SCH (21:34)
[2017-09-01] MEDS ORDERED: FUROSEMIDE 40 MG/4 ML VIAL IV PUSH SCH (21:40)
[2017-09-01 21:43] LABS: AUTOMATED NEUTROPHIL # 3.4 TH/MM3 (1.8-7.7); BASOPHIL % 0.3 % (0.0-2.0); EOSINOPHIL % 0.3 % (0.0-4.0); HEMATOCRIT 31.5 % (39.0-51.0); HEMOGLOBIN 10.3 GM/DL (13.0-17.0); LYMPH % 1.2 % (9.0-44.0); MEAN CELL VOLUME 93.4 FL (80.0-100.0); MEAN CORPUSCULAR HEMOGLOBIN 30.5 PG (27.0-34.0); MEAN CORPUSCULAR HGB CONC 32.7 % (32.0-36.0); MEAN PLATELET VOLUME 7.7 FL (7.0-11.0); MONO % 0.2 % (0.0-8.0); PLATELET COUNT 158 TH/MM3 (150-450); RED BLOOD COUNT 3.37 MIL/MM3 (4.50-5.90); RED CELL DISTRIBUTION WIDTH 14.3 % (11.6-17.2); WHITE BLOOD COUNT 3.5 TH/MM3 (4.0-11.0)
[2017-09-01] MEDS: PCA - TOTAL MG MORPHINE DELIVERED PER SHIFT SCH (22:00)
[2017-09-01 22:04] LABS: BICARBONATE 23.2 MEQ/L (21.0-32.0); CREATININE 6.82 MG/DL (0.60-1.30); MAGNESIUM 2.2 MG/DL (1.5-2.5); PHOSPHORUS 4.9 MG/DL (2.5-4.9)
[2017-09-01 22:10] VITALS: BP 130/63; PULSE 81; RESP 20; TEMP 98.1; O2SAT 95
[2017-09-01 22:15] VITALS: PULSE 81
--- NOTE | 2017-09-01 22:16 | RADRPT ---
EXAM DATE/TIME: 09/01/2017 21:18 [facility] COMPARISON: No previous studies available for comparison. INDICATIONS : Post renal transplant. MEDICAL HISTORY : Hypercholesterolemia. Hypertension. Gastroesophageal reflux disease. Kidney stones. Renal failure. Ep lilepsy. SURGICAL HISTORY : Tonsillectomy. Renal transplant. Gastric sleeve. ENCOUNTER: Initial ACUITY: 1 day PAIN SCORE: 10/10 LOCATION: Right lower quadrant MEASUREMENTS: TRANSPLANT KIDNEY: 9.5 x 5.5 x 5.0 cm LOCATION: Right lower quadrant. ARCUATE ARTERIES RESISTIVE INDEX: Upper - 0.6 Mid - 0.7 Lower - 0.5 MAIN RENAL ARTERY VELOCITY: (cm/sec): 219 MAIN RENAL VEIN: Patent EXTERNAL ILIAC ARTERY VELOCITY (cm/sec): 78 * NORMAL DOPPLER FINDINGS Arcuate arteries - RI = 0.6 - 0.8 Renal artery = under 200 cm/sec Renal vein = May be monophasic with continuous flow or demonstrate some pulsatility with cardiac cycl e FINDINGS: Visualization is suboptimal due to patient pain as well as postoperative changes in the lower abdomen . The patient terminated the study prematurely. TRANSPLANT KIDNEY: Normal cortical thickness and echotexture. No stone or mass. There is mild prominence of the collec ting system. No peritransplant fluid collection. URINARY BLADDER: Within normal limits given the degree of distension. CONCLUSION: 1. Suboptimal exam secondary to patient pain. The study was terminated prematurely. 2. Elevation of the renal artery velocity. 3. Slight prominence of the collecting system without definite hydronephrosis. Fritz Nagy MD on September 01, 2017 at 22:09 Board Certified Radiologist. This report was verified electronically.
[2017-09-01 22:18] LABS: TOTAL PROTEIN 6.8 GM/DL (6.4-8.2)
[2017-09-01 22:23] LABS: CALCIUM-PROTEIN CORRECTED 7.2 MG/DL (8.5-10.1)
[2017-09-01] MEDS ORDERED: FUROSEMIDE 40 MG/4 ML VIAL IV PUSH PRN (22:45)
[2017-09-01 23:00] VITALS: BP 139/71; PULSE 96
[2017-09-01] MEDS: METOPROLOL TARTRATE 25 MG TAB PO SCH (23:29)
[2017-09-01] MEDS: OXcarbazepine 600 MG TAB PO SCH (23:29)
[2017-09-01] MEDS: DOCUSATE SODIUM 100 MG CAP PO SCH (23:30)
[2017-09-01] MEDS: CLOTRIMAZOLE 10 MG TROCHE BUCCAL SCH (23:30)
[2017-09-01] MEDS ORDERED: CALCIUM CARBONATE 500 MG CHEWABLE TAB CHEW ONE (23:30)
[2017-09-02] VITALS (30 sets, daily range): BP systolic 114–153; BP diastolic 56–84; PULSE 70–104; RESP 16–18; TEMP 98.2–102.6; O2SAT 92–100
[2017-09-02] MEDS: SODIUM CHLOR 0.45% 1000 ML INJ 1,000 ML IV SCH ×3 (04:11→15:19)
[2017-09-02 05:23] LABS: AUTOMATED NEUTROPHIL # 6.5 TH/MM3 (1.8-7.7); BASOPHIL % 0.2 % (0.0-2.0); HEMATOCRIT 31.2 % (39.0-51.0); HEMOGLOBIN 10.2 GM/DL (13.0-17.0); LYMPH % 0.3 % (9.0-44.0); MEAN CELL VOLUME 93.3 FL (80.0-100.0); MEAN CORPUSCULAR HEMOGLOBIN 30.6 PG (27.0-34.0); MEAN CORPUSCULAR HGB CONC 32.7 % (32.0-36.0); MEAN PLATELET VOLUME 8.1 FL (7.0-11.0); MONO % 1.5 % (0.0-8.0); MONOCYTE # 0.1 TH/MM3 (0-0.9); PLATELET COUNT 149 TH/MM3 (150-450); RED BLOOD COUNT 3.34 MIL/MM3 (4.50-5.90); RED CELL DISTRIBUTION WIDTH 13.9 % (11.6-17.2); WHITE BLOOD COUNT 6.6 TH/MM3 (4.0-11.0)
[2017-09-02] MEDS ORDERED: MORPHINE SULFATE 4 MG/ML INJ IV PUSH ONE (05:30)
[2017-09-02] MEDS: MYCOPHENOLATE MOFETIL 500 MG TAB PO SCH ×2 (05:53→17:49)
[2017-09-02] MEDS: TACROLIMUS 1 MG CAP PO SCH ×2 (05:53→17:48)
[2017-09-02] MEDS: PCA - TOTAL MG MORPHINE DELIVERED PER SHIFT SCH ×3 (05:54→22:00)
[2017-09-02] MEDS: MYCOPHENOLATE MOFETIL INJ 1,000 MG in DEXTROSE 5% IN WATE 150 ML INJ 150 ML IV SCH ×4 (05:54→17:49)
[2017-09-02 06:02] LABS: BICARBONATE 21.6 MEQ/L (21.0-32.0); CREATININE 7.06 MG/DL (0.60-1.30); MAGNESIUM 2.1 MG/DL (1.5-2.5); PHOSPHORUS 5.9 MG/DL (2.5-4.9)
[2017-09-02 06:14] LABS: TOTAL PROTEIN 6.5 GM/DL (6.4-8.2)
[2017-09-02] MEDS ORDERED: ACETAMINOPHEN 325 MG TAB PO ONE (06:15)
[2017-09-02 06:18] LABS: CALCIUM-PROTEIN CORRECTED 7.3 MG/DL (8.5-10.1)
[2017-09-02] MEDS ORDERED: ACETAMINOPHEN 1000 MG/100 ML 100 ML IV ONE (07:30)
--- NOTE | 2017-09-02 07:34 | HHI.PR ---
Subjective Remarks doing well POD#! cad kidney transplant. temp overnight to 102. VSS. Good UO. Objective Vital Signs Date Time Temp Pulse Resp B/P (MAP) Pulse Ox O2 Delivery O2 Flow Rate FiO2 09/02/17 06:00 101.6 99 18 153/83 (106) 97 09/02/17 06:00 99 09/02/17 05:54 16 09/02/17 05:00 100.5 96 16 143/78 (99) 97 09/02/17 05:00 96 09/02/17 04:00 98 09/02/17 04:00 99.9 98 16 125/84 (98) 100 09/02/17 03:00 100.7 96 16 126/69 (88) 98 09/02/17 03:00 96 09/02/17 02:00 91 131/68 (89) 09/02/17 02:00 91 09/02/17 01:00 98.5 90 18 125/65 (85) 97 09/02/17 01:00 90 09/02/17 00:31 99 21 09/02/17 00:00 99.1 99 18 142/75 (97) 97 09/02/17 00:00 99 09/01/17 23:00 96 139/71 (93) 09/01/17 23:00 96 09/01/17 22:15 81 09/01/17 22:10 98.1 81 20 130/63 (85) 95 09/01/17 22:00 78 16 99 Room Air 09/01/17 22:00 20 09/01/17 21:45 78 22 145/73 (97) 100 Room Air 09/01/17 21:30 74 18 146/79 (101) 100 Room Air 09/01/17 21:15 70 18 137/73 (94) 100 Room Air 09/01/17 21:00 70 16 132/67 (88) 100 Room Air 09/01/17 20:45 68 14 143/74 (97) 100 Room Air 09/01/17 20:30 68 15 136/76 (96) 100 Room Air 09/01/17 20:15 75 14 127/67 (87) 99 Room Air 09/01/17 20:05 97.5 80 20 142/73 (96) 100 Room Air 09/01/17 17:24 99.5 77 16 136/81 (99) 100 09/01/17 15:00 98.0 79 16 126/82 (97) 93 I/O 09/01/17 09/01/17 09/01/17 09/02/17 09/02/17 09/02/17 07:00 15:00 23:00 07:00 15:00 23:00 Intake Total 2155 ml 2364 ml Output Total 334 ml 1645 ml Balance 1821 ml 719 ml Intake Oral 760 ml IV Total 755 ml 1604 ml Other 1400 ml Output Urine Total 284 ml 1645 ml Other 50 ml Result Diagram: 09/02/17 0415 09/02/17 0415 Imaging US dop with good flows. Objective Remarks Incision clean and dry. no SQ collections. Assessment and Plan Assessment and Plan doing well s/p kidney transplant. Lymphocyte % appropriately down, and with temp, will hold today's thymoglobulin dosing. Good UO, but creatinine and K+ still elevated. will repeat BMP at 2pm today. will decrease UO replacement to 1 /2:1 CC:CC hourly. encourage OOB and clears today. Continue Tac, MMF and Steroids per protocol. antiseizure meds continue. Waqas Portillo MD Sep 02, 2017 07:34
--- NOTE | 2017-09-02 08:39 | HHI.PR ---
Subjective Remarks Follow up for Cadaver kidney transplant. Patient is currently doing well. His urine output is excellent - he had total urine output about 1929 mL. He has been afebrile overnight with highest temperature 102.6F. He also had some pain from the surgical site but currently doing well. No nausea or vomiting. No chest pain or shortness of breath. Objective Vitals Vital Signs Date Time Temp Pulse Resp B/P (MAP) Pulse Ox O2 Delivery O2 Flow Rate FiO2 09/02/17 08:22 92 21 09/02/17 07:00 102.6 104 16 139/75 (96) 99 09/02/17 06:00 101.6 99 18 153/83 (106) 97 09/02/17 06:00 99 09/02/17 05:54 16 09/02/17 05:00 100.5 96 16 143/78 (99) 97 09/02/17 05:00 96 09/02/17 04:00 98 09/02/17 04:00 99.9 98 16 125/84 (98) 100 09/02/17 03:00 100.7 96 16 126/69 (88) 98 09/02/17 03:00 96 09/02/17 02:00 91 131/68 (89) 09/02/17 02:00 91 09/02/17 01:00 98.5 90 18 125/65 (85) 97 09/02/17 01:00 90 09/02/17 00:31 99 21 09/02/17 00:00 99.1 99 18 142/75 (97) 97 09/02/17 00:00 99 09/01/17 23:00 96 139/71 (93) 09/01/17 23:00 96 09/01/17 22:15 81 09/01/17 22:10 98.1 81 20 130/63 (85) 95 09/01/17 22:00 78 16 99 Room Air 09/01/17 22:00 20 09/01/17 21:45 78 22 145/73 (97) 100 Room Air 09/01/17 21:30 74 18 146/79 (101) 100 Room Air 09/01/17 21:15 70 18 137/73 (94) 100 Room Air 09/01/17 21:00 70 16 132/67 (88) 100 Room Air 09/01/17 20:45 68 14 143/74 (97) 100 Room Air 09/01/17 20:30 68 15 136/76 (96) 100 Room Air 09/01/17 20:15 75 14 127/67 (87) 99 Room Air 09/01/17 20:05 97.5 80 20 142/73 (96) 100 Room Air 09/01/17 17:24 99.5 77 16 136/81 (99) 100 09/01/17 15:00 98.0 79 16 126/82 (97) 93 I/O 09/01/17 09/01/17 09/01/17 09/02/17 09/02/17 09/02/17 07:00 15:00 23:00 07:00 15:00 23:00 Intake Total 2155 ml 2714 ml Output Total 334 ml 1965 ml Balance 1821 ml 749 ml Intake Oral 790 ml IV Total 755 ml 1924 ml Other 1400 ml Output Urine Total 284 ml 1965 ml Other 50 ml # Bowel Movements 0 Result Diagram: 09/02/17 0415 09/02/17 0415 Imaging Last Impressions Renal Ultrasound 09/01/17 0000 Signed Impressions: Service Date/Time: Friday, September 01, 2017 21:18 - CONCLUSION: 1. Suboptimal exam secondary to patient pain. The study was terminated prematurely. 2. Elevation of the renal artery velocity. 3. Slight prominence of the collecting system without definite hydronephrosis. Fritz Nagy MD Chest X-Ray 09/01/17 0000 Signed Impressions: Service Date/Time: Friday, September 01, 2017 20:13 - CONCLUSION: 1. Interval placement of right internal jugular central venous line with no pneumothorax. 2. Cardiomegaly again noted. Fritz Nagy MD Objective Remarks GENERAL: Alert, oriented 3, NAD. SKIN: Warm and dry. HEAD: Normocephalic. EYES: No scleral icterus. No injection or drainage. NECK: Supple, trachea midline. No JVD or lymphadenopathy. CARDIOVASCULAR: Regular rate and rhythm without murmurs, gallops, or rubs. RESPIRATORY: Breath sounds equal bilaterally. No accessory muscle use. GASTROINTESTINAL: Abdomen soft, non-tender, nondistended. Right-sided surgical site covered with dressing. MUSCULOSKELETAL: No cyanosis, or edema. BACK: Nontender without obvious deformity. No CVA tenderness. Procedures Cadaveric kidney transplant 09/01/2017. A/P Problem List: (1) IgA nephropathy determined by renal biopsy ICD Code: N02.8 - IgA nephropathy determined by renal biopsy Status: Acute (2) ESRD (end stage renal disease) on dialysis ICD Code: N18.6 - ESRD (end stage renal disease) on dialysis; Z99.2 - Dependence on renal dialysis Status: Acute (3) Seizure disorder ICD Code: G40.909 - Epilepsy, unspecified, not intractable, without status epilepticus Status: Acute Assessment and Plan Mr. Eduardo is a pleasant 42-year-old male with a history of IgA nephropathy, ESRD currently on dialysis on Friday and Friday, seizure disorder who presents to the hospital for elective admitted transplant scheduled for . - End-stage renal disease - Advanced sclerosing IgA nephropathy - Status post cadaveric kidney transplant on 09/01/2017. - Patient is currently on CellCept, Prograf - Also on Bactrim DS 1 tablet by mouth Friday - Antithymocyte globulin discontinued due to fever. May resume tomorrow. - Creatinine 7.06. - Hyperkalemia - Hypocalcemia - Nephrology on board. BMP pending at 2PM. - Seizure disorder - Continue Trileptal 600mg TID. - GERD - Continue Protonix 20mg Qday - Hypertension - continue Metoprolol tartrate 25mg QHS. Full code. Lovenox 30mg Qday. Discussed with Nephrology and Dr. Waqas Portillo (Surgery) and RN on 09/02/2017. Possible discharge on 08/04/2017. Lay Headley DO Sep 02, 2017 8:39 am
[2017-09-02] MEDS ORDERED: PANTOPRAZOLE SOD 20 MG DELAYED RELEASE TAB PO SCH (09:00)
[2017-09-02] MEDS: CLOTRIMAZOLE 10 MG TROCHE BUCCAL SCH ×4 (09:14→20:56)
[2017-09-02] MEDS: PANTOPRAZOLE SOD 40 MG DELAYED RELEASE TAB PO SCH (09:15)
[2017-09-02] MEDS: CALCIUM CARBONATE 500 MG CHEWABLE TAB CHEW SCH ×2 (09:15→17:08)
[2017-09-02] MEDS: OXcarbazepine 600 MG TAB PO SCH ×3 (09:15→17:48)
[2017-09-02] MEDS: DOCUSATE SODIUM 100 MG CAP PO SCH ×2 (09:16→20:56)
[2017-09-02] MEDS: oxyCODONE/ACETAMINOPHEN 5 MG/325 MG TAB PO PRN ×2 (09:21→22:32)
--- NOTE | 2017-09-02 10:47 | HHI.NPPN ---
Subjective History of Present Illness 42 year old male with ESRD received cadaveric kidney transplant yesterday Review of Systems General Constitutional: Fatigue Musculoskeletal MS: Pain/Stiffness Objective Data Data 09/02/17 09/03/17 19:00 07:00 Intake Total 665 ml Output Total 465 ml Balance 200 ml Intake Oral 200 ml IV Total 465 ml Output Urine Total 465 ml # Bowel Movements 0 Vital Signs Date Time Temp Pulse Resp B/P (MAP) Pulse Ox O2 Delivery O2 Flow Rate FiO2 09/02/17 10:00 98.8 99 18 121/60 (80) 98 09/02/17 09:00 99.6 98 18 129/58 (81) 98 09/02/17 09:00 98 09/02/17 08:22 92 21 09/02/17 08:00 09/02/17 08:00 102 16 119/56 (77) 97 09/02/17 08:00 99 09/02/17 07:00 102.6 104 16 139/75 (96) 99 09/02/17 06:00 101.6 99 18 153/83 (106) 97 09/02/17 06:00 99 09/02/17 05:54 16 09/02/17 05:00 100.5 96 16 143/78 (99) 97 09/02/17 05:00 96 09/02/17 04:00 98 09/02/17 04:00 99.9 98 16 125/84 (98) 100 09/02/17 03:00 100.7 96 16 126/69 (88) 98 09/02/17 03:00 96 09/02/17 02:00 91 131/68 (89) 09/02/17 02:00 91 09/02/17 01:00 98.5 90 18 125/65 (85) 97 09/02/17 01:00 90 09/02/17 00:31 99 21 09/02/17 00:00 99.1 99 18 142/75 (97) 97 09/02/17 00:00 99 09/01/17 23:00 96 139/71 (93) 09/01/17 23:00 96 09/01/17 22:15 81 09/01/17 22:10 98.1 81 20 130/63 (85) 95 09/01/17 22:00 78 16 99 Room Air 09/01/17 22:00 20 09/01/17 21:45 78 22 145/73 (97) 100 Room Air 09/01/17 21:30 74 18 146/79 (101) 100 Room Air 09/01/17 21:15 70 18 137/73 (94) 100 Room Air 09/01/17 21:00 70 16 132/67 (88) 100 Room Air 09/01/17 20:45 68 14 143/74 (97) 100 Room Air 09/01/17 20:30 68 15 136/76 (96) 100 Room Air 09/01/17 20:15 75 14 127/67 (87) 99 Room Air 09/01/17 20:05 97.5 80 20 142/73 (96) 100 Room Air 09/01/17 17:24 99.5 77 16 136/81 (99) 100 09/01/17 15:00 98.0 79 16 126/82 (97) 93 -: 09/02/17 0415 09/02/17 0415 Physical Exam General Appearance: Well Developed, Well Nourished Neck Neck Exam: Neck Supple Pulmonary Resp Exam: Clear Bilaterally, Breath Sounds Equal Cardiology CV Exam: Regular, Normal Sinus Rhythm Gastrointestinal/Abdomen GI Exam: Soft GI Remarks incision dressed rt lower abdomen Extremeties Extremities Exam: No Edema Neurologic Neuro Exam: Alert, Awake Assessment/Plan Problem List: (1) ESRD (end stage renal disease) on dialysis ICD Codes: N18.6 - ESRD (end stage renal disease) on dialysis; Z99.2 - Dependence on renal dialysis Status: Acute Plan: I discussed the care with and Dr. Portillo doing well post op day 1 seen by Transplant team on Prograf and Cellcept developed fever post Thymo plan to hold today dose he is otherwise stable passing more urine Cr stable K 5.2 follow CBC,BMP, Tacrolimus level (2) Seizure disorder ICD Codes: G40.909 - Epilepsy, unspecified, not intractable, without status epilepticus Status: Acute Plan: Trileptal continue to give it to him (3) HTN (hypertension) ICD Codes: I10 - HTN (hypertension) Status: Chronic Plan: Monitor blood pressure Problem Qualifiers (1) HTN (hypertension): Qualified Codes: I10 - Essential (primary) hypertension Jose Antonio Shin MD Sep 02, 2017 10:47
[2017-09-02] MEDS ORDERED: methylPREDNISolone SO SUCC INJ 250 MG in SODIUM CHLORIDE 0.9% INJ 100 ML IV ONE (11:00)
[2017-09-02] MEDS ORDERED: ANTITHYMOCYTE GLOB IV-CENTRAL ONE (12:00)
[2017-09-02] MEDS ORDERED: SODIUM CHLOR 0.9% IV-CENTRAL ONE (12:00)
[2017-09-02 15:06] LABS: BICARBONATE 22.1 MEQ/L (21.0-32.0); CREATININE 6.63 MG/DL (0.60-1.30)
[2017-09-02 16:38] LABS: TOTAL PROTEIN 6.8 GM/DL (6.4-8.2)
[2017-09-02] MEDS ORDERED: CALCIUM GLUCONATE INJ 2 GM in SODIUM CHLORIDE 0.9% INJ 100 ML IV ONE (16:45)
[2017-09-02] MEDS ORDERED: FUROSEMIDE 40 MG/4 ML VIAL IV PUSH ONE (16:45)
[2017-09-02 17:01] LABS: CALCIUM-PROTEIN CORRECTED 7.2 MG/DL (8.5-10.1)
--- NOTE | 2017-09-02 18:12 | EKG ---
Date Performed: 09/01/2017 Time Performed: 17:07:16 PTAGE: 42 years EKG: Sinus rhythm . Normal ECG Compared to prior tracing no significant change PREVIOUS TRACING : 08/21/2017 12.05 DOCTOR: Serina Gil Interpretating Date/Time 09/02/2017 18:11:08
[2017-09-02] MEDS: ENOXAPARIN SODIUM 30 MG/0.3 ML SYRINGE SQ SCH (18:37)
[2017-09-02] MEDS ORDERED: SODIUM CHLOR 0.9% 1000 ML INJ 1,000 ML IV SCH (20:03)
[2017-09-02] MEDS: METOPROLOL TARTRATE 25 MG TAB PO SCH (20:56)
[2017-09-02] MEDS: DEXT 5%-NACL 0.45% 1000 ML INJ 1,000 ML IV SCH (22:32)
[2017-09-03] VITALS (31 sets, daily range): BP systolic 97–143; BP diastolic 52–87; PULSE 65–96; RESP 16–18; TEMP 97.2–98.8; O2SAT 95–100
[2017-09-03 05:38] LABS: AUTOMATED NEUTROPHIL # 2.8 TH/MM3 (1.8-7.7); BASOPHIL % 0.2 % (0.0-2.0); EOSINOPHIL % 0.4 % (0.0-4.0); HEMATOCRIT 28.1 % (39.0-51.0); HEMOGLOBIN 9.1 GM/DL (13.0-17.0); LYMPH % 1.4 % (9.0-44.0); MEAN CELL VOLUME 92.9 FL (80.0-100.0); MEAN CORPUSCULAR HEMOGLOBIN 30.1 PG (27.0-34.0); MEAN CORPUSCULAR HGB CONC 32.4 % (32.0-36.0); MEAN PLATELET VOLUME 7.7 FL (7.0-11.0); MONO % 8.2 % (0.0-8.0); MONOCYTE # 0.3 TH/MM3 (0-0.9); NEUT % 89.8 % (16.0-70.0); PLATELET COUNT 142 TH/MM3 (150-450); RED BLOOD COUNT 3.02 MIL/MM3 (4.50-5.90); RED CELL DISTRIBUTION WIDTH 13.8 % (11.6-17.2); WHITE BLOOD COUNT 3.1 TH/MM3 (4.0-11.0)
[2017-09-03] MEDS ORDERED: HYDROCORTISONE SOD SUCCINATE 100 MG VIAL ONE (05:40)
[2017-09-03] MEDS ORDERED: EPINEPHrine HCL (1:10,000) 1 MG/10 ML SYRINGE ONE (05:46)
[2017-09-03 05:52] LABS: BICARBONATE 21.1 MEQ/L (21.0-32.0); CALCIUM 7.6 MG/DL (8.5-10.1); CREATININE 6.48 MG/DL (0.60-1.30); MAGNESIUM 2.1 MG/DL (1.5-2.5)
[2017-09-03 05:58] LABS: PHOSPHORUS 7.3 MG/DL (2.5-4.9)
[2017-09-03] MEDS: MYCOPHENOLATE MOFETIL 500 MG TAB PO SCH ×2 (05:59→18:19)
[2017-09-03] MEDS: TACROLIMUS 1 MG CAP PO SCH ×2 (05:59→18:13)
[2017-09-03] MEDS: PCA - TOTAL MG MORPHINE DELIVERED PER SHIFT SCH ×3 (06:00→22:00)
[2017-09-03] MEDS: MYCOPHENOLATE MOFETIL INJ 1,000 MG in DEXTROSE 5% IN WATE 150 ML INJ 150 ML IV SCH ×4 (06:00→18:00)
[2017-09-03] MEDS ORDERED: ACETAMINOPHEN 325 MG TAB PO ONE (06:30)
[2017-09-03] MEDS ORDERED: diphenhydrAMINE HCL 50 MG CAP PO ONE (06:30)
[2017-09-03] MEDS ORDERED: diphenhydrAMINE HCL 50 MG/ML VIAL IV PUSH ONE (06:30)
[2017-09-03] MEDS ORDERED: SODIUM CHLORID 0.9% 500 ML INJ 500 ML IV ONE (06:30)
[2017-09-03] MEDS ORDERED: methylPREDNISolone SOD SUCC 125 MG/2 ML VIAL IV PUSH ONE (07:00)
[2017-09-03] MEDS ORDERED: ANTITHYMOCYTE GLOB(RABBIT) INJ 100 MG in SODIUM CHLORID 0.9% 500 ML INJ 500 ML IV-CENTRAL ONE (07:30)
--- NOTE | 2017-09-03 07:47 | PD.VS.PN ---
Subjective POD #: 2 Procedure(s): Renal transplant Subjective/Hospital Course Pt c/o itching in incision but no nausea pain controlled Objective Vitals/I&O Date Time Temp Pulse Resp B/P (MAP) Pulse Ox O2 Delivery O2 Flow Rate FiO2 09/03/17 07:20 97.5 65 18 116/69 (85) 100 09/03/17 06:00 65 09/03/17 06:00 16 09/03/17 05:00 69 09/03/17 04:00 74 09/03/17 03:00 97.5 66 16 97/52 (67) 95 09/03/17 03:00 66 09/03/17 02:00 73 09/03/17 01:00 66 09/03/17 00:00 69 09/02/17 23:00 98.2 73 16 134/71 (92) 97 09/02/17 23:00 73 09/02/17 22:00 16 09/02/17 22:00 75 09/02/17 21:00 75 09/02/17 20:00 75 09/02/17 19:00 98.9 77 16 125/83 (97) 100 09/02/17 18:00 98.5 76 18 136/76 (96) 98 09/02/17 18:00 78 09/02/17 17:58 97 21 09/02/17 17:00 98.8 70 16 114/71 (85) 97 09/02/17 17:00 76 09/02/17 16:05 98.6 82 18 120/69 (86) 97 09/02/17 16:00 84 09/02/17 15:30 89 16 117/69 (85) 96 09/02/17 15:30 09/02/17 15:20 16 09/02/17 15:00 98.8 79 18 117/69 (85) 98 09/02/17 15:00 87 09/02/17 14:00 84 09/02/17 14:00 98.8 99 18 121/60 (80) 98 09/02/17 13:00 76 09/02/17 13:00 99.0 99 18 127/72 (90) 98 09/02/17 12:00 99.0 88 18 123/68 (86) 98 09/02/17 11:30 09/02/17 11:30 89 16 123/65 (84) 97 09/02/17 11:00 98.9 89 18 123/66 (85) 98 09/02/17 11:00 82 09/02/17 10:00 98.8 99 18 121/60 (80) 98 09/02/17 10:00 98 09/02/17 09:00 99.6 98 18 129/58 (81) 98 09/02/17 09:00 98 09/02/17 08:22 92 21 09/02/17 08:00 09/02/17 08:00 102 16 119/56 (77) 97 09/02/17 08:00 99 09/03/17 09/03/17 09/03/17 07:00 15:00 23:00 Intake Total 965 ml Output Total 560 ml Balance 405 ml Exam: incision c/d/i no fullness Laboratory Laboratory Tests Test 09/02/17 13:49 09/03/17 05:00 Blood Urea Nitrogen 57 60 Creatinine 6.63 6.48 Random Glucose 119 101 Total Protein 6.8 Calcium Level 7.0 7.6 Sodium Level 135 135 Potassium Level 5.0 4.3 Chloride Level 101 101 Carbon Dioxide Level 22.1 21.1 Anion Gap 12 13 Estimat Glomerular Filtration Rate 9 10 Protein Corrected Calcium 7.2 White Blood Count 3.1 Red Blood Count 3.02 Hemoglobin 9.1 Hematocrit 28.1 Mean Corpuscular Volume 92.9 Mean Corpuscular Hemoglobin 30.1 Mean Corpuscular Hemoglobin Concent 32.4 Red Cell Distribution Width 13.8 Platelet Count 142 Mean Platelet Volume 7.7 Neutrophils (%) (Auto) 89.8 Lymphocytes (%) (Auto) 1.4 Monocytes (%) (Auto) 8.2 Eosinophils (%) (Auto) 0.4 Basophils (%) (Auto) 0.2 Neutrophils # (Auto) 2.8 Lymphocytes # (Auto) 0.0 Monocytes # (Auto) 0.3 Eosinophils # (Auto) 0.0 Basophils # (Auto) 0.0 CBC Comment DIFF FINAL Differential Comment Phosphorus Level 7.3 Magnesium Level 2.1 Assessment and Plan Plan POD#2 s/p renal transplant Renal function stable Good UOP incision ok diet as tolerated Conner Barreto MD Sep 03, 2017 07:47
[2017-09-03] MEDS: OXcarbazepine 600 MG TAB PO SCH ×3 (09:44→18:13)
[2017-09-03] MEDS: DOCUSATE SODIUM 100 MG CAP PO SCH ×2 (09:44→21:05)
[2017-09-03] MEDS: CALCIUM CARBONATE 500 MG CHEWABLE TAB CHEW SCH ×2 (09:45→16:23)
[2017-09-03] MEDS: SULFAMETHOXAZOLE-TRIMETHOPRIM DS 800-160 MG TAB PO SCH (09:45)
[2017-09-03] MEDS: CLOTRIMAZOLE 10 MG TROCHE BUCCAL SCH ×4 (09:45→21:05)
[2017-09-03] MEDS: PANTOPRAZOLE SOD 40 MG DELAYED RELEASE TAB PO SCH (09:45)
--- NOTE | 2017-09-03 10:55 | HHI.PR ---
Subjective Remarks doing well POD#! cad kidney transplant. AVSS. Good UO. Objective Vital Signs Date Time Temp Pulse Resp B/P (MAP) Pulse Ox O2 Delivery O2 Flow Rate FiO2 09/03/17 10:00 75 09/03/17 09:25 18 09/03/17 09:02 70 09/03/17 08:00 97.2 78 16 121/76 (91) 99 09/03/17 08:00 78 09/03/17 07:20 97.5 65 18 116/69 (85) 100 09/03/17 07:00 66 09/03/17 06:00 65 09/03/17 06:00 16 09/03/17 05:00 69 09/03/17 04:00 74 09/03/17 03:00 97.5 66 16 97/52 (67) 95 09/03/17 03:00 66 09/03/17 02:00 73 09/03/17 01:00 66 09/03/17 00:00 69 09/02/17 23:00 98.2 73 16 134/71 (92) 97 09/02/17 23:00 73 09/02/17 22:00 16 09/02/17 22:00 75 09/02/17 21:00 75 09/02/17 20:00 75 09/02/17 19:00 98.9 77 16 125/83 (97) 100 09/02/17 18:00 98.5 76 18 136/76 (96) 98 09/02/17 18:00 78 09/02/17 17:58 97 21 09/02/17 17:00 98.8 70 16 114/71 (85) 97 09/02/17 17:00 76 09/02/17 16:05 98.6 82 18 120/69 (86) 97 09/02/17 16:00 84 09/02/17 15:30 89 16 117/69 (85) 96 09/02/17 15:30 09/02/17 15:20 16 09/02/17 15:00 98.8 79 18 117/69 (85) 98 09/02/17 15:00 87 09/02/17 14:00 84 09/02/17 14:00 98.8 99 18 121/60 (80) 98 09/02/17 13:00 76 09/02/17 13:00 99.0 99 18 127/72 (90) 98 09/02/17 12:00 99.0 88 18 123/68 (86) 98 09/02/17 11:30 09/02/17 11:30 89 16 123/65 (84) 97 09/02/17 11:00 98.9 89 18 123/66 (85) 98 09/02/17 11:00 82 I/O 09/02/17 09/02/17 09/02/17 09/03/17 09/03/17 09/03/17 07:00 15:00 23:00 07:00 15:00 23:00 Intake Total 2714 ml 2185 ml 1581 ml 965 ml Output Total 1965 ml 1160 ml 1260 ml 620 ml 157 ml Balance 749 ml 1025 ml 321 ml 345 ml -157 ml Intake Oral 790 ml 1025 ml 720 ml 480 ml IV Total 1924 ml 1160 ml 861 ml 485 ml Output Urine Total 1965 ml 1160 ml 1260 ml 620 ml 157 ml # Bowel Movements 0 0 0 Result Diagram: 09/03/17 0500 09/03/17 0500 Assessment and Plan Assessment and Plan Chart reviewed remotely, spoke with care nurse. Mr. Melo appears to be doing well s/p kidney transplant. Good UO, and creatinine slowly trending downward. K+ normal. Will encourage OOB and advance diet today. Plan on 2nd dose thymo today and repeat wed and thurs for toatl of 4.5mg.kg. Await Tac level today. Waqas Portillo MD Sep 03, 2017 10:55
[2017-09-03] MEDS ORDERED: THYMOGLOBULIN ANAPYLAXIS KIT MISC XX PRN ×2 (11:00)
--- NOTE | 2017-09-03 13:01 | HHI.PR ---
Subjective Remarks Follow up for Cadaver kidney transplant. Patient is currently doing well. Denies any chest pain, shortness of breath, fever or chills. Good urine output. Objective Vitals Vital Signs Date Time Temp Pulse Resp B/P (MAP) Pulse Ox O2 Delivery O2 Flow Rate FiO2 09/03/17 12:20 97.8 77 18 140/81 (100) 99 09/03/17 12:00 78 09/03/17 11:41 18 09/03/17 11:40 18 09/03/17 11:00 97.7 78 17 143/81 (101) 98 09/03/17 11:00 76 09/03/17 10:00 75 09/03/17 09:25 18 09/03/17 09:15 99 21 09/03/17 09:02 70 09/03/17 08:00 97.2 78 16 121/76 (91) 99 09/03/17 08:00 78 09/03/17 07:20 97.5 65 18 116/69 (85) 100 09/03/17 07:00 66 09/03/17 06:00 65 09/03/17 06:00 16 09/03/17 05:00 69 09/03/17 04:00 74 09/03/17 03:00 97.5 66 16 97/52 (67) 95 09/03/17 03:00 66 09/03/17 02:00 73 09/03/17 01:00 66 09/03/17 00:00 69 09/02/17 23:00 98.2 73 16 134/71 (92) 97 09/02/17 23:00 73 09/02/17 22:00 16 09/02/17 22:00 75 09/02/17 21:00 75 09/02/17 20:00 75 09/02/17 19:00 98.9 77 16 125/83 (97) 100 09/02/17 18:00 98.5 76 18 136/76 (96) 98 09/02/17 18:00 78 09/02/17 17:58 97 21 09/02/17 17:00 98.8 70 16 114/71 (85) 97 09/02/17 17:00 76 09/02/17 16:05 98.6 82 18 120/69 (86) 97 09/02/17 16:00 84 09/02/17 15:30 89 16 117/69 (85) 96 09/02/17 15:30 09/02/17 15:20 16 09/02/17 15:00 98.8 79 18 117/69 (85) 98 09/02/17 15:00 87 09/02/17 14:00 84 09/02/17 14:00 98.8 99 18 121/60 (80) 98 09/02/17 13:00 76 09/02/17 13:00 99.0 99 18 127/72 (90) 98 I/O 09/02/17 09/02/17 09/02/17 09/03/17 09/03/17 09/03/17 07:00 15:00 23:00 07:00 15:00 23:00 Intake Total 2714 ml 2185 ml 1581 ml 965 ml Output Total 1965 ml 1160 ml 1260 ml 620 ml 834 ml Balance 749 ml 1025 ml 321 ml 345 ml -834 ml Intake Oral 790 ml 1025 ml 720 ml 480 ml IV Total 1924 ml 1160 ml 861 ml 485 ml Output Urine Total 1965 ml 1160 ml 1260 ml 620 ml 834 ml # Bowel Movements 0 0 0 Result Diagram: 09/03/17 0500 09/03/17 0500 Imaging Last Impressions Renal Ultrasound 09/01/17 0000 Signed Impressions: Service Date/Time: Friday, September 01, 2017 21:18 - CONCLUSION: 1. Suboptimal exam secondary to patient pain. The study was terminated prematurely. 2. Elevation of the renal artery velocity. 3. Slight prominence of the collecting system without definite hydronephrosis. Fritz Nagy MD Chest X-Ray 09/01/17 0000 Signed Impressions: Service Date/Time: Friday, September 01, 2017 20:13 - CONCLUSION: 1. Interval placement of right internal jugular central venous line with no pneumothorax. 2. Cardiomegaly again noted. Fritz Nagy MD Objective Remarks GENERAL: Alert, oriented 3, NAD. SKIN: Warm and dry. HEAD: Normocephalic. EYES: No scleral icterus. No injection or drainage. NECK: Supple, trachea midline. No JVD or lymphadenopathy. CARDIOVASCULAR: Regular rate and rhythm without murmurs, gallops, or rubs. RESPIRATORY: Breath sounds equal bilaterally. No accessory muscle use. GASTROINTESTINAL: Abdomen soft, non-tender, nondistended. Right-sided surgical site covered with dressing. MUSCULOSKELETAL: No cyanosis, or edema. BACK: Nontender without obvious deformity. No CVA tenderness. Procedures Cadaveric kidney transplant 09/01/2017. A/P Problem List: (1) IgA nephropathy determined by renal biopsy ICD Code: N02.8 - IgA nephropathy determined by renal biopsy Status: Acute (2) ESRD (end stage renal disease) on dialysis ICD Code: N18.6 - ESRD (end stage renal disease) on dialysis; Z99.2 - Dependence on renal dialysis Status: Acute (3) Seizure disorder ICD Code: G40.909 - Epilepsy, unspecified, not intractable, without status epilepticus Status: Acute Assessment and Plan Mr. Eduardo is a pleasant 42-year-old male with a history of IgA nephropathy, ESRD currently on dialysis on Friday and Friday, seizure disorder who presents to the hospital for elective admitted transplant scheduled for . - End-stage renal disease - Advanced sclerosing IgA nephropathy - Status post cadaveric kidney transplant on 09/01/2017. - Patient is currently on CellCept, Prograf - Also on Bactrim DS 1 tablet by mouth Friday, clotrimazole 10 mg 4 times a day - Received antithymocyte globulin today. - Creatinine 7.06 --> 6.48 today (Trending down). - Hyperkalemia - Hypocalcemia -Potassium improved to 4.3, calcium also improved. Magnesium 2.1. - Seizure disorder - Continue Trileptal 600mg TID. - GERD - Continue Protonix 20mg Qday - Hypertension - continue Metoprolol tartrate 25mg QHS. Full code. Lovenox 30mg Qday. Discussed with Nephrology and Dr. Waqas Portillo (Surgery) and RN on 09/02/2017. Possible discharge in the next 1-2 days. Lay Headley DO Sep 03, 2017 1:01 pm
--- NOTE | 2017-09-03 14:30 | HHI.NPPN ---
Subjective History of Present Illness 42 year old male with ESRD received cadaveric kidney transplant yesterday Review of Systems General Constitutional: Fatigue Musculoskeletal MS: Pain/Stiffness Objective Data Data 09/03/17 09/04/17 19:00 07:00 Output Total 834 ml Balance -834 ml Output Urine Total 834 ml Vital Signs Date Time Temp Pulse Resp B/P (MAP) Pulse Ox O2 Delivery O2 Flow Rate FiO2 09/03/17 12:20 97.8 77 18 140/81 (100) 99 09/03/17 12:00 78 09/03/17 11:41 18 09/03/17 11:40 18 09/03/17 11:00 97.7 78 17 143/81 (101) 98 09/03/17 11:00 76 09/03/17 10:00 75 09/03/17 09:25 18 09/03/17 09:15 99 21 09/03/17 09:02 70 09/03/17 08:00 97.2 78 16 121/76 (91) 99 09/03/17 08:00 78 09/03/17 07:20 97.5 65 18 116/69 (85) 100 09/03/17 07:00 66 09/03/17 06:00 65 09/03/17 06:00 16 09/03/17 05:00 69 09/03/17 04:00 74 09/03/17 03:00 97.5 66 16 97/52 (67) 95 09/03/17 03:00 66 09/03/17 02:00 73 09/03/17 01:00 66 09/03/17 00:00 69 09/02/17 23:00 98.2 73 16 134/71 (92) 97 09/02/17 23:00 73 09/02/17 22:00 16 09/02/17 22:00 75 09/02/17 21:00 75 09/02/17 20:00 75 09/02/17 19:00 98.9 77 16 125/83 (97) 100 09/02/17 18:00 98.5 76 18 136/76 (96) 98 09/02/17 18:00 78 09/02/17 17:58 97 21 09/02/17 17:00 98.8 70 16 114/71 (85) 97 10/31/17 17:00 76 09/02/17 16:05 98.6 82 18 120/69 (86) 97 09/02/17 16:00 84 09/02/17 15:30 89 16 117/69 (85) 96 09/02/17 15:30 09/02/17 15:20 16 09/02/17 15:00 98.8 79 18 117/69 (85) 98 09/02/17 15:00 87 -: 09/03/17 0500 09/03/17 0500 Physical Exam General Appearance: Well Developed, Well Nourished Neck Neck Exam: Neck Supple Pulmonary Resp Exam: Clear Bilaterally, Breath Sounds Equal Cardiology CV Exam: Regular, Normal Sinus Rhythm Gastrointestinal/Abdomen GI Exam: Soft GI Remarks incision dressed rt lower abdomen Extremeties Extremities Exam: No Edema Neurologic Neuro Exam: Alert, Awake Assessment/Plan Problem List: (1) ESRD (end stage renal disease) on dialysis ICD Codes: N18.6 - ESRD (end stage renal disease) on dialysis; Z99.2 - Dependence on renal dialysis Status: Acute Plan: checked Tacrolimus 9.5 continue same dose 3 mg q 12 on Cellcept 1000 mg q 12, and get SoluMedrol Thymoglobulin 100 mg started follow CBC,BMP, Tacrolimus level continue with Prograf Cellcept wants to clean himself discuss with nurses, he can wrap central line (2) Seizure disorder ICD Codes: G40.909 - Epilepsy, unspecified, not intractable, without status epilepticus Status: Acute Plan: Trileptal continue to give it to him (3) HTN (hypertension) ICD Codes: I10 - HTN (hypertension) Status: Chronic Plan: Monitor blood pressure Problem Qualifiers (1) HTN (hypertension): Qualified Codes: I10 - Essential (primary) hypertension Jose Antonio Shin MD Sep 03, 2017 14:30
[2017-09-03] MEDS: ENOXAPARIN SODIUM 30 MG/0.3 ML SYRINGE SQ SCH (18:13)
[2017-09-03] MEDS: INSULIN ASPART SUPPLEMENTAL SCALE SQ SCH (21:00)
[2017-09-03] MEDS: METOPROLOL TARTRATE 25 MG TAB PO SCH (21:05)
[2017-09-03] MEDS: oxyCODONE/ACETAMINOPHEN 5 MG/325 MG TAB PO PRN (21:05)
[2017-09-04] VITALS (26 sets, daily range): BP systolic 115–148; BP diastolic 59–89; PULSE 64–82; RESP 12–18; TEMP 97.9–98.5; O2SAT 96–98
[2017-09-04] MEDS: DEXT 5%-NACL 0.45% 1000 ML INJ 1,000 ML IV SCH (01:24)
[2017-09-04] MEDS: oxyCODONE/ACETAMINOPHEN 5 MG/325 MG TAB PO PRN ×3 (03:20→18:19)
[2017-09-04] MEDS: PCA - TOTAL MG MORPHINE DELIVERED PER SHIFT SCH (05:26)
[2017-09-04 05:27] LABS: AUTOMATED NEUTROPHIL # 1.4 TH/MM3 (1.8-7.7); BASOPHIL % 0.4 % (0.0-2.0); EOSINOPHIL % 0.5 % (0.0-4.0); HEMATOCRIT 26.3 % (39.0-51.0); HEMOGLOBIN 8.5 GM/DL (13.0-17.0); LYMPH % 1.6 % (9.0-44.0); MEAN CELL VOLUME 92.8 FL (80.0-100.0); MEAN CORPUSCULAR HGB CONC 32.3 % (32.0-36.0); MEAN PLATELET VOLUME 8.3 FL (7.0-11.0); MONO % 10.6 % (0.0-8.0); MONOCYTE # 0.2 TH/MM3 (0-0.9); NEUT % 86.9 % (16.0-70.0); PLATELET COUNT 135 TH/MM3 (150-450); RED BLOOD COUNT 2.83 MIL/MM3 (4.50-5.90); RED CELL DISTRIBUTION WIDTH 13.7 % (11.6-17.2); WHITE BLOOD COUNT 1.6 TH/MM3 (4.0-11.0)
[2017-09-04] MEDS: MYCOPHENOLATE MOFETIL INJ 1,000 MG in DEXTROSE 5% IN WATE 150 ML INJ 150 ML IV SCH ×2 (05:28)
[2017-09-04 05:54] LABS: BICARBONATE 19.8 MEQ/L (21.0-32.0); CALCIUM 6.6 MG/DL (8.5-10.1); CREATININE 5.7 MG/DL (0.60-1.30); MAGNESIUM 2.1 MG/DL (1.5-2.5); PHOSPHORUS 6.4 MG/DL (2.5-4.9)
[2017-09-04] MEDS: TACROLIMUS 1 MG CAP PO SCH ×2 (06:04→18:19)
[2017-09-04] MEDS: MYCOPHENOLATE MOFETIL 500 MG TAB PO SCH ×2 (06:04→18:20)
[2017-09-04 06:08] LABS: TOTAL PROTEIN 6.1 GM/DL (6.4-8.2)
[2017-09-04 06:25] LABS: CALCIUM-PROTEIN CORRECTED 7.1 MG/DL (8.5-10.1)
[2017-09-04] MEDS ORDERED: ANTITHYMOCYTE GLOB(RABBIT) INJ 150 MG in SODIUM CHLORID 0.9% 500 ML INJ 500 ML IV-CENTRAL ONE (07:30)
[2017-09-04] MEDS: INSULIN ASPART SUPPLEMENTAL SCALE SQ SCH ×4 (07:32→20:39)
[2017-09-04] MEDS ORDERED: methylPREDNISolone SOD SUCC 125 MG/2 ML VIAL IV ONE (07:45)
[2017-09-04] MEDS ORDERED: diphenhydrAMINE HCL 50 MG/ML VIAL IV PUSH ONE (07:45)
[2017-09-04] MEDS ORDERED: ACETAMINOPHEN 325 MG TAB PO ONE (07:45)
[2017-09-04] MEDS ORDERED: CALCIUM GLUCONATE INJ 2 GM in SODIUM CHLORIDE 0.9% INJ 100 ML IV ONE (08:00)
[2017-09-04 08:03] LABS: LYMPHOCYTES 4 % (9-44); MONOCYTES 3 % (0-8); NEUTROPHIL # MANUAL DIFF 1.5 TH/MM3 (1.8-7.7); OVALOCYTES 1+ (NORMAL); POLYS (SEG NEUTROPHILS) 93 % (16-70)
[2017-09-04] MEDS: DOCUSATE SODIUM 100 MG CAP PO SCH (08:30)
[2017-09-04] MEDS: CALCIUM CARBONATE 500 MG CHEWABLE TAB CHEW SCH ×3 (08:30→16:50)
[2017-09-04] MEDS: PANTOPRAZOLE SOD 40 MG DELAYED RELEASE TAB PO SCH (08:31)
[2017-09-04] MEDS: CLOTRIMAZOLE 10 MG TROCHE BUCCAL SCH ×4 (08:31→20:39)
[2017-09-04] MEDS: OXcarbazepine 600 MG TAB PO SCH ×3 (08:31→18:18)
--- NOTE | 2017-09-04 10:26 | PD.VS.PN ---
Subjective POD #: 3 Procedure(s): Renal transplant Subjective/Hospital Course Looks great overall Marlin po Objective Vitals/I&O Date Time Temp Pulse Resp B/P (MAP) Pulse Ox O2 Delivery O2 Flow Rate FiO2 09/04/17 10:00 74 09/04/17 09:00 71 09/04/17 08:41 97 09/04/17 08:00 98.1 69 18 118/62 (80) 97 09/04/17 08:00 68 09/04/17 07:00 69 09/04/17 06:00 70 09/04/17 05:26 16 09/04/17 05:00 68 09/04/17 04:00 68 09/04/17 03:00 69 09/04/17 03:00 98.0 66 12 115/59 (77) 96 09/04/17 02:00 66 09/04/17 01:00 70 09/04/17 00:00 64 09/03/17 23:00 68 09/03/17 23:00 98.0 70 16 132/75 (94) 98 09/03/17 22:00 74 09/03/17 22:00 20 09/03/17 21:00 78 09/03/17 20:00 82 09/03/17 19:15 98.8 75 16 133/84 (100) 98 09/03/17 19:00 90 09/03/17 18:00 78 09/03/17 17:00 96 09/03/17 16:00 76 09/03/17 15:00 78 09/03/17 15:00 97.8 82 16 133/87 (102) 97 09/03/17 14:00 78 09/03/17 14:00 18 09/03/17 13:00 73 09/03/17 12:20 97.8 77 18 140/81 (100) 99 09/03/17 12:00 78 09/03/17 11:41 18 09/03/17 11:40 18 09/03/17 11:00 97.7 78 17 143/81 (101) 98 09/03/17 11:00 76 09/04/17 09/04/17 09/04/17 07:00 15:00 23:00 Intake Total 1751 ml 120 ml Output Total 600 ml 0 ml Balance 1151 ml 120 ml Exam: incision with fran in place mild TTP laterally no fullness Laboratory Laboratory Tests Test 09/04/17 05:00 White Blood Count 1.6 Red Blood Count 2.83 Hemoglobin 8.5 Hematocrit 26.3 Mean Corpuscular Volume 92.8 Mean Corpuscular Hemoglobin 30.0 Mean Corpuscular Hemoglobin Concent 32.3 Red Cell Distribution Width 13.7 Platelet Count 135 Mean Platelet Volume 8.3 Neutrophils (%) (Auto) 86.9 Lymphocytes (%) (Auto) 1.6 Monocytes (%) (Auto) 10.6 Eosinophils (%) (Auto) 0.5 Basophils (%) (Auto) 0.4 Neutrophils # (Auto) 1.4 Lymphocytes # (Auto) 0.0 Monocytes # (Auto) 0.2 Eosinophils # (Auto) 0.0 Basophils # (Auto) 0.0 CBC Comment AUTO DIFF Differential Total Cells Counted 100 Neutrophils % (Manual) 93 Lymphocytes % 4 Monocytes % 3 Neutrophils # (Manual) 1.5 Differential Comment FINAL DIFF MANUAL Platelet Estimate LOW Platelet Morphology Comment NORMAL Ovalocytes 1+ Blood Urea Nitrogen 63 Creatinine 5.70 Random Glucose 97 Total Protein 6.1 Calcium Level 6.6 Phosphorus Level 6.4 Magnesium Level 2.1 Sodium Level 135 Potassium Level 4.3 Chloride Level 103 Carbon Dioxide Level 19.8 Anion Gap 12 Estimat Glomerular Filtration Rate 11 Protein Corrected Calcium 7.1 Assessment and Plan Plan POD#3 s/p renal transplant; Hct drifting down but suspect dilution/drug related , not bleeding as clinically looks great Renal function stable Good UOP incision ok Recheck labs Conner Goodson MD Sep 04, 2017 10:26
[2017-09-04] MEDS ORDERED: predniSONE 20 MG TAB PO ONE (11:00)
--- NOTE | 2017-09-04 12:49 | HHI.NPPN ---
Subjective History of Present Illness 42 year old male with ESRD received cadaveric kidney transplant Review of Systems General Constitutional: Fatigue Musculoskeletal MS: Pain/Stiffness Objective Data Data 09/04/17 09/05/17 19:00 07:00 Intake Total 120 ml Output Total 0 ml Balance 120 ml Intake Oral 0 ml IV Total 120 ml Output Urine Total 0 ml Bladder Scan Volume Amount 256 ml 256 ml # Bowel Movements 0 Vital Signs Date Time Temp Pulse Resp B/P (MAP) Pulse Ox O2 Delivery O2 Flow Rate FiO2 09/04/17 12:00 76 09/04/17 11:51 98.2 69 18 121/64 (83) 97 09/04/17 11:00 79 09/04/17 10:00 74 09/04/17 09:00 71 09/04/17 08:41 97 09/04/17 08:00 98.1 69 18 118/62 (80) 97 09/04/17 08:00 68 09/04/17 07:00 69 09/04/17 06:00 70 09/04/17 05:26 16 09/04/17 05:00 68 09/04/17 04:00 68 09/04/17 03:00 69 09/04/17 03:00 98.0 66 12 115/59 (77) 96 09/04/17 02:00 66 09/04/17 01:00 70 09/04/17 00:00 64 09/03/17 23:00 68 09/03/17 23:00 98.0 70 16 132/75 (94) 98 09/03/17 22:00 74 09/03/17 22:00 20 09/03/17 21:00 78 09/03/17 20:00 82 09/03/17 19:15 98.8 75 16 133/84 (100) 98 09/03/17 19:00 90 09/03/17 18:00 78 09/03/17 17:00 96 09/03/17 16:00 76 09/03/17 15:00 78 09/03/17 15:00 97.8 82 16 133/87 (102) 97 09/03/17 14:00 78 09/03/17 14:00 18 09/03/17 13:00 73 -: 09/04/17 0500 09/04/17 0500 Physical Exam General Appearance: Well Developed, Well Nourished Neck Neck Exam: Neck Supple Pulmonary Resp Exam: Clear Bilaterally, Breath Sounds Equal Cardiology CV Exam: Regular, Normal Sinus Rhythm Gastrointestinal/Abdomen GI Exam: Soft GI Remarks incision dressed rt lower abdomen Extremeties Extremities Exam: No Edema Neurologic Neuro Exam: Alert, Awake Assessment/Plan Problem List: (1) ESRD (end stage renal disease) on dialysis ICD Codes: N18.6 - ESRD (end stage renal disease) on dialysis; Z99.2 - Dependence on renal dialysis Status: Acute Plan: checked Tacrolimus 8 continue same dose 3 mg q 12 on Cellcept 1000 mg q 12, and Prednisone 80 mg today WBC low 1.6 Thymo held for today follow CBC,BMP, Tacrolimus level continue with Prograf Cellcept wants to go home doing well pain control on Percocet d/w Dr. Portillo (2) Seizure disorder ICD Codes: G40.909 - Epilepsy, unspecified, not intractable, without status epilepticus Status: Acute Plan: Trileptal continue to give it to him (3) HTN (hypertension) ICD Codes: I10 - HTN (hypertension) Status: Chronic Plan: Monitor blood pressure decrease Metoprolol 12.5 mg q HS as BP was on lower side Problem Qualifiers (1) HTN (hypertension): Qualified Codes: I10 - Essential (primary) hypertension Jose Antonio Shin MD Sep 04, 2017 12:49
[2017-09-04] MEDS ORDERED: PILL SPLITTER OTHER PRN (13:00)
--- NOTE | 2017-09-04 13:34 | PHATRASOAP ---
Date/Time: 09/04/17 1331 Pharmacist daily assessment of kidney transplant patient: S: Kidney transplant Post op day #3 09/04/17 O: Ht: 5 ft 11in Wt:107.5 kg Allergies: LISINOPRIL A: Vitals: BP =130s/80s, HR = 60s Electrolytes: Na= 135, K=4.3, Ca=6.6, albumin =3.5, Phosphorus=6.4, Mg=2.1 SCR= 8.6 (trending down from 12.86 on 07/09) WBC=1.6 H/H=8.5/26.3 CLKU=801 BG=97 [id number] BM = None Tacrolimus level 09/03=9.5 Hospital Medications: Thymoglobulin 100mg IV on 09/01 AND 09/02 total received = 200mg = 2mg/kg) Cellcept 1000 mg po bid Insulin scale Accuchecks ACHS Clotrimazole 10mg qid Bactrim 800/160 mg TIW Tacrolimus 3mg PO BID Prednisone 80mg PO x 1 on 09/04 and 60 mg on 09/05 Morphine FIELD UNDERWRITER for pain control Docusate 100mg po bid Calcium carbonate 500mg po bid Home medication: Tripletail 600 mg 3 times a day Protonix 40mg daily Metoprolol 25 mg daily at bedtime -Patient had received 2 doses of Thymoglobulin with total dose to date 2mg/kg, might consider a third dose of thymoglobulin to complete the induction phase when WBC adequately recover - Tacrolimus level appropriate -Serum creatinine is adequately trending down -Blood pressure is on low side might consider decreasing Lopressor dose -Patient tolerating po, consider switching morphine FIELD UNDERWRITER to Percocet PO -BG is low might consider discontinue accuchecks - No BM, consider switching docusate to pericolace -Ambulating will assist better graft function and improved UOP P: -Continue induction phase with Thymoglobulin - Continue Tacrolimus at current dose -Consider changing Lopressor to 12.5mg po hs -Consider discontinuing morphine FIELD UNDERWRITER and starting Percocet 5/325mg q6h PRN -Consider discontinue accuchecks. -Consider switching docusate to pericolace -Encourage ambulating Pharmacist: Segun WrightD Signature on file
--- NOTE | 2017-09-04 13:34 | PHATRASOAP ---
Date/Time: 09/04/17 1331 Pharmacist daily assessment of kidney transplant patient: S: Kidney transplant Post op day #3 09/04/17 O: Ht: 5 ft 11in Wt:107.5 kg Allergies: LISINOPRIL A: Vitals: BP =130s/80s, HR = 60s Electrolytes: Na= 135, K=4.3, Ca=6.6, albumin =3.5, Phosphorus=6.4, Mg=2.1 SCR= 8.6 (trending down from 12.86 on 07/09) WBC=1.6 H/H=8.5/26.3 EAQG=434 BG=97 [id number] BM = None Tacrolimus level 09/03=9.5 Hospital Medications: Thymoglobulin 100mg IV on 09/01 AND 09/02 total received = 200mg = 2mg/kg) Cellcept 1000 mg po bid Insulin scale Accuchecks ACHS Clotrimazole 10mg qid Bactrim 800/160 mg TIW Tacrolimus 3mg PO BID Prednisone 80mg PO x 1 on 09/04 and 60 mg on 09/05 Morphine [employer]GER [employer] for pain control Docusate 100mg po bid Calcium carbonate 500mg po bid Home medication: Tripletail 600 mg 3 times a day Protonix 40mg daily Metoprolol 25 mg daily at bedtime -Patient had received 2 doses of Thymoglobulin with total dose to date 2mg/kg, might consider a third dose of thymoglobulin to complete the induction phase when WBC adequately recover - Tacrolimus level appropriate -Serum creatinine is adequately trending down -Blood pressure is on low side might consider decreasing Lopressor dose -Patient tolerating po, consider switching morphine [employer] to Percocet PO -BG is low might consider discontinue accuchecks - No BM, consider switching docusate to pericolace -Ambulating will assist better graft function and improved UOP P: -Continue induction phase with Thymoglobulin - Continue Tacrolimus at current dose -Consider changing Lopressor to 12.5mg po hs -Consider discontinuing morphine [employer] and starting Percocet 5/325mg q6h PRN -Consider discontinue accuchecks. -Consider switching docusate to pericolace -Encourage ambulating Pharmacist: Segun WrightD Signature on file
--- NOTE | 2017-09-04 13:34 | PHATRASOAP ---
Date/Time: 09/04/17 1331 Pharmacist daily assessment of kidney transplant patient: S: Kidney transplant Post op day #3 09/04/17 O: Ht: 5 ft 11in Wt:107.5 kg Allergies: LISINOPRIL A: Vitals: BP =130s/80s, HR = 60s Electrolytes: Na= 135, K=4.3, Ca=6.6, albumin =3.5, Phosphorus=6.4, Mg=2.1 SCR= 8.6 (trending down from 12.86 on 07/09) WBC=1.6 H/H=8.5/26.3 [id number] BG=97 [id number] BM = None Tacrolimus level 09/03=9.5 Hospital Medications: Thymoglobulin 100mg IV on 09/01 AND 09/02 total received = 200mg = 2mg/kg) Cellcept 1000 mg po bid Insulin scale Accuchecks ACHS Clotrimazole 10mg qid Bactrim 800/160 mg TIW Tacrolimus 3mg PO BID Prednisone 80mg PO x 1 on 09/04 and 60 mg on 09/05 Morphine [employer] for pain control Docusate 100mg po bid Calcium carbonate 500mg po bid Home medication: Tripletail 600 mg 3 times a day Protonix 40mg daily Metoprolol 25 mg daily at bedtime -Patient had received 2 doses of Thymoglobulin with total dose to date 2mg/kg, might consider a third dose of thymoglobulin to complete the induction phase when WBC adequately recover - Tacrolimus level appropriate -Serum creatinine is adequately trending down -Blood pressure is on low side might consider decreasing Lopressor dose -Patient tolerating po, consider switching morphine [employer] to Percocet PO -BG is low might consider discontinue accuchecks - No BM, consider switching docusate to pericolace -Ambulating will assist better graft function and improved UOP P: -Continue induction phase with Thymoglobulin - Continue Tacrolimus at current dose -Consider changing Lopressor to 12.5mg po hs -Consider discontinuing morphine [employer] and starting Percocet 5/325mg q6h PRN -Consider discontinue accuchecks. -Consider switching docusate to pericolace -Encourage ambulating Pharmacist: Segun WrightD Signature on file
--- NOTE | 2017-09-04 13:55 | RADRPT ---
EXAM DATE/TIME: 09/04/2017 10:37 [facility] COMPARISON: US KIDNEY / TRANSPLANT, September 01, 2017, 21:18. INDICATIONS : Increased lab values. MEDICAL HISTORY : Hypercholesterolemia. Hypertension. Gastroesophageal reflux disease. Renal failure. Renal calculi. SURGICAL HISTORY : Tonsillectomy. Renal transplant. Gastric sleeve. ENCOUNTER: Subsequent ACUITY: 3 days PAIN SCORE: 3/10 LOCATION: Right lower quadrant MEASUREMENTS: TRANSPLANT KIDNEY: 9.9 x 5.8 x 6.3 cm LOCATION: Right lower quadrant. PREVIOUS ULTRASOUND: Sep 01 2017 RA/EIA Ratio: 2.8Values over 1.8 indicate transplant renal artery stenosis. PREVIOUS ARCUATE ARTERIES INDEX: Upper - 0.6 Mid - 0.7 Lower - 0.5 ARCUATE ARTERIES RESISTIVE INDEX: Upper - 0.6 Mid - 0.6 Lower - 0.6 RA/EIA Ratio: 0.4 MAIN RENAL ARTERY VELOCITY: (cm/sec): 68 MAIN RENAL VEIN: Patent EXTERNAL ILIAC ARTERY VELOCITY (cm/sec): 180 * NORMAL DOPPLER FINDINGS Arcuate arteries - RI = 0.6 - 0.8 Renal artery = under 200 cm/sec Renal vein = May be monophasic with continuous flow or demonstrate some pulsatility with cardiac cycl e FINDINGS: TRANSPLANT KIDNEY: Normal cortical thickness and echotexture. No hydronephrosis, stone, or mass. No peritransplant flu id collection. A stent is in place with minimal hydronephrosis URINARY BLADDER: Within normal limits given the degree of distension. CONCLUSION: 1. Normalization of renal artery velocity without evidence of venous thrombosis Leonid Montemayor MD on September 04, 2017 at 13:50 Board Certified Radiologist. This report was verified electronically.
[2017-09-04] MEDS ORDERED: TAMSULOSIN HCL 0.4 MG CAP PO ONE (15:30)
--- NOTE | 2017-09-04 17:59 | HHI.PR ---
Subjective Remarks Overall pain control. No other concerns at this time. No bowel movement at this time however has passed gas. He is urinating after Meredith removed. Objective Vitals Vital Signs Date Time Temp Pulse Resp B/P (MAP) Pulse Ox O2 Delivery O2 Flow Rate FiO2 09/04/17 17:00 72 09/04/17 16:00 78 09/04/17 15:40 97.9 70 18 116/65 (82) 97 09/04/17 15:00 80 09/04/17 14:00 72 09/04/17 13:28 20 09/04/17 13:00 74 09/04/17 12:00 76 09/04/17 11:51 98.2 69 18 121/64 (83) 97 09/04/17 11:00 79 09/04/17 10:00 74 09/04/17 09:00 71 09/04/17 08:41 97 09/04/17 08:00 98.1 69 18 118/62 (80) 97 09/04/17 08:00 68 09/04/17 07:00 69 09/04/17 06:00 70 09/04/17 05:26 16 09/04/17 05:00 68 09/04/17 04:00 68 09/04/17 03:00 69 09/04/17 03:00 98.0 66 12 115/59 (77) 96 09/04/17 02:00 66 09/04/17 01:00 70 09/04/17 00:00 64 09/03/17 23:00 68 09/03/17 23:00 98.0 70 16 132/75 (94) 98 09/03/17 22:00 74 09/03/17 22:00 20 09/03/17 21:00 78 09/03/17 20:00 82 09/03/17 19:15 98.8 75 16 133/84 (100) 98 09/03/17 19:00 90 09/03/17 18:00 78 I/O 09/03/17 09/03/17 09/03/17 09/04/17 09/04/17 09/04/17 07:00 15:00 23:00 07:00 15:00 23:00 Intake Total 965 ml 2 ml 3105 ml 1751 ml 120 ml 1075 ml Output Total 620 ml 1227 ml 1755 ml 600 ml 0 ml 1280 ml Balance 345 ml -1225 ml 1350 ml 1151 ml 120 ml -205 ml Intake Oral 480 ml 400 ml 600 ml 0 ml 875 ml IV Total 485 ml 2 ml 2705 ml 1151 ml 120 ml 200 ml Output Urine Total 620 ml 1227 ml 1755 ml 600 ml 0 ml 1280 ml Bladder Scan Volume Amount 256 ml 169 ml 256 ml 26 ml 217 ml # Bowel Movements 0 0 0 0 Result Diagram: 09/04/1749909/04/17499 Objective Remarks GENERAL: This is a well-nourished, well-developed patient, in no apparent distress. CARDIOVASCULAR: Regular rate and rhythm RESPIRATORY: Clear to auscultation. Breath sounds equal bilaterally. No wheezes , rales, or rhonchi. GASTROINTESTINAL: Abdomen soft, mild tenderness of the right lower abdomen area , nondistended. Normal active bowel sounds, bandage clean dry intact MUSCULOSKELETAL: Extremities without clubbing, cyanosis, or edema. NEURO: Alert & Oriented x4 to person, place, time, situation. Moves all ext x4 Procedures Cadaveric kidney transplant 09/01/2017. A/P Problem List: (1) IgA nephropathy determined by renal biopsy ICD Code: N02.8 - IgA nephropathy determined by renal biopsy Status: Acute (2) ESRD (end stage renal disease) on dialysis ICD Code: N18.6 - ESRD (end stage renal disease) on dialysis; Z99.2 - Dependence on renal dialysis Status: Acute (3) Seizure disorder ICD Code: G40.909 - Epilepsy, unspecified, not intractable, without status epilepticus Status: Acute Assessment and Plan Mr. Eduardo is a pleasant 42-year-old male with a history of IgA nephropathy, ESRD currently on dialysis on Friday and Friday, seizure disorder who presents to the hospital for elective admitted transplant scheduled for . - End-stage renal disease status post operative day #3 elective renal transplant , continue postoperative care. Continue post op bowel regimen. - Advanced sclerosing IgA nephropathy - Status post cadaveric kidney transplant on 09/01/2017. - Patient is currently on CellCept, Prograf - Also on Bactrim DS 1 tablet by mouth Friday, clotrimazole 10 mg 4 times a day - Received antithymocyte globulin induction dosing 2,- third dose held due to neutropenia, pharmacy note and nephrology note reviewed.. - Creatinine 7.06 --> 6.48 today (Trending down). - Hyperkalemia- resolved Neutropenia, monitor likely due to antithymocyte globulin -third dose held today , monitor levels in the morning. - Seizure disorder - Continue Trileptal 600mg TID. - GERD - Continue Protonix 20mg Qday - Hypertension - continue Metoprolol tartrate 25mg QHS. Overall blood pressure control. Full code. Lovenox 30mg Qday. Discharge Planning Home when stable and cleared by nephrology and renal transplant surgeon, Macy Nava MD Sep 04, 2017 17:58
[2017-09-04] MEDS ORDERED: SENNOSIDES 8.6 MG TAB PO PRN (18:00)
[2017-09-04] MEDS ORDERED: BISACODYL 10 MG SUPP RECTAL PRN ×2 (18:00→20:15)
[2017-09-04] MEDS ORDERED: MAGNESIUM HYDROXIDE SUSP 30 ML CUP PO PRN (18:00)
[2017-09-04] MEDS ORDERED: LACTULOSE SYRUP 20 GM/30 ML CUP PO PRN (18:00)
[2017-09-04] MEDS: ENOXAPARIN SODIUM 30 MG/0.3 ML SYRINGE SQ SCH (18:18)
[2017-09-04] MEDS ORDERED: BISACODYL EC 5 MG TABEC PO PRN (20:15)
[2017-09-04] MEDS: DOCUSATE SODIUM 50 MG/SENNA 8.6 MG TAB PO SCH (20:40)
[2017-09-04] MEDS ORDERED: METOPROLOL TARTRATE 25 MG TAB PO SCH (21:00)
[2017-09-05] VITALS (19 sets, daily range): BP systolic 132–156; BP diastolic 60–86; PULSE 69–93; RESP 16; TEMP 97.4–98.4; O2SAT 98–100
[2017-09-05] MEDS: oxyCODONE/ACETAMINOPHEN 5 MG/325 MG TAB PO PRN ×3 (03:24→18:02)
[2017-09-05 05:06] LABS: AUTOMATED NEUTROPHIL # 1.3 TH/MM3 (1.8-7.7); BASOPHIL % 0.4 % (0.0-2.0); EOSINOPHIL % 0.7 % (0.0-4.0); HEMOGLOBIN 8.8 GM/DL (13.0-17.0); LYMPH % 2.2 % (9.0-44.0); MEAN CELL VOLUME 91.9 FL (80.0-100.0); MEAN CORPUSCULAR HEMOGLOBIN 31.1 PG (27.0-34.0); MEAN CORPUSCULAR HGB CONC 33.8 % (32.0-36.0); MEAN PLATELET VOLUME 8.3 FL (7.0-11.0); MONO % 13.1 % (0.0-8.0); MONOCYTE # 0.2 TH/MM3 (0-0.9); NEUT % 83.6 % (16.0-70.0); PLATELET COUNT 132 TH/MM3 (150-450); RED BLOOD COUNT 2.83 MIL/MM3 (4.50-5.90); RED CELL DISTRIBUTION WIDTH 13.7 % (11.6-17.2); WHITE BLOOD COUNT 1.6 TH/MM3 (4.0-11.0)
[2017-09-05 05:34] LABS: BICARBONATE 21.1 MEQ/L (21.0-32.0); CREATININE 4.96 MG/DL (0.60-1.30); MAGNESIUM 2.4 MG/DL (1.5-2.5); PHOSPHORUS 4.9 MG/DL (2.5-4.9)
[2017-09-05 05:46] LABS: TOTAL PROTEIN 6.5 GM/DL (6.4-8.2)
[2017-09-05 05:50] LABS: CALCIUM-PROTEIN CORRECTED 7.3 MG/DL (8.5-10.1)
[2017-09-05] MEDS: MYCOPHENOLATE MOFETIL 500 MG TAB PO SCH ×2 (06:10→18:02)
[2017-09-05] MEDS: TACROLIMUS 1 MG CAP PO SCH ×2 (06:10→18:03)
[2017-09-05 06:59] LABS: LYMPHOCYTES 1 % (9-44); MONOCYTES 8 % (0-8); NEUTROPHIL # MANUAL DIFF 1.4 TH/MM3 (1.8-7.7); POLYS (SEG NEUTROPHILS) 87 % (16-70)
--- NOTE | 2017-09-05 07:12 | HHI.PR ---
Subjective Remarks doing well POD#4 cad kidney transplant. AVSS. Good UO. voiding on own after Meredith removed. US doppler 11 within normal. HCT stable after Thymo. Tac level low normal 09-04-17. Today's pending. Objective Vital Signs Date Time Temp Pulse Resp B/P (MAP) Pulse Ox O2 Delivery O2 Flow Rate FiO2 09/05/17 06:00 76 09/05/17 05:00 75 09/05/17 04:00 73 09/05/17 03:00 79 09/05/17 03:00 97.8 79 16 147/84 (105) 100 09/05/17 02:00 69 09/05/17 01:00 72 09/05/17 00:00 72 09/04/17 23:00 75 09/04/17 23:00 98.4 75 16 132/68 (89) 98 09/04/17 22:00 81 09/04/17 21:00 82 09/04/17 20:00 80 09/04/17 20:00 98.5 78 16 148/89 (108) 98 09/04/17 19:00 82 09/04/17 17:00 72 09/04/17 16:00 78 09/04/17 15:40 97.9 70 18 116/65 (82) 97 09/04/17 15:00 80 09/04/17 14:00 72 09/04/17 13:28 20 09/04/17 13:00 74 09/04/17 12:00 76 09/04/17 11:51 98.2 69 18 121/64 (83) 97 09/04/17 11:00 79 09/04/17 10:00 74 09/04/17 09:00 71 09/04/17 08:41 97 09/04/17 08:00 98.1 69 18 118/62 (80) 97 09/04/17 08:00 68 I/O 09/04/17 09/04/17 09/04/17 09/05/17 09/05/17 09/05/17 07:00 15:00 23:00 07:00 15:00 23:00 Intake Total 1751 ml 120 ml 1075 ml 480 ml Output Total 600 ml 0 ml 1280 ml 1500 ml Balance 1151 ml 120 ml -205 ml -1020 ml Intake Oral 600 ml 0 ml 875 ml 480 ml IV Total 1151 ml 120 ml 200 ml Output Urine Total 600 ml 0 ml 1280 ml 1500 ml Bladder Scan Volume Amount 256 ml 169 ml 256 ml 26 ml 217 ml # Bowel Movements 0 0 0 0 Result Diagram: 09/05/1744409/05/17444 Assessment and Plan Assessment and Plan Chart reviewed remotely. Mr. Melo appears to be doing well s/p kidney transplant. Good UO, and creatinine slowly trending downward. Plan on discharge today if Nephrology agrees. Follow up in Transplant Clinic next week. Labs Friday. Await Tac level today. Waqas Portillo MD Sep 05, 2017 07:12
[2017-09-05] MEDS ORDERED: CALCIUM GLUCONATE INJ 2 GM in SODIUM CHLORIDE 0.9% INJ 100 ML IV ONE (07:45)
[2017-09-05] MEDS: INSULIN ASPART SUPPLEMENTAL SCALE SQ SCH ×3 (08:00→16:51)
[2017-09-05] MEDS: CALCIUM CARBONATE 500 MG CHEWABLE TAB CHEW SCH ×2 (08:20→16:51)
[2017-09-05] MEDS: CLOTRIMAZOLE 10 MG TROCHE BUCCAL SCH ×3 (08:20→18:02)
[2017-09-05] MEDS: SULFAMETHOXAZOLE-TRIMETHOPRIM DS 800-160 MG TAB PO SCH (08:20)
[2017-09-05] MEDS: OXcarbazepine 600 MG TAB PO SCH ×3 (08:20→18:03)
[2017-09-05] MEDS: DOCUSATE SODIUM 50 MG/SENNA 8.6 MG TAB PO SCH (08:21)
[2017-09-05] MEDS: PANTOPRAZOLE SOD 40 MG DELAYED RELEASE TAB PO SCH (08:21)
[2017-09-05] MEDS ORDERED: OXYC1TAB63 PO (08:54)
[2017-09-05] MEDS ORDERED: TAMSULOSIN HCL 0.4 MG CAP PO SCH (09:00)
[2017-09-05] MEDS ORDERED: predniSONE 20 MG TAB PO ONE (11:00)
--- NOTE | 2017-09-05 11:22 | HHI.NPPN ---
Subjective History of Present Illness 42 year old male with ESRD received cadaveric kidney transplant Review of Systems General Constitutional: Fatigue Musculoskeletal MS: Pain/Stiffness Objective Data Data Vital Signs Date Time Temp Pulse Resp B/P (MAP) Pulse Ox O2 Delivery O2 Flow Rate FiO2 09/05/17 11:00 98.4 72 16 148/86 (106) 100 09/05/17 10:00 77 09/05/17 09:00 76 09/05/17 08:00 98.4 72 16 148/86 (106) 100 09/05/17 08:00 72 09/05/17 07:00 93 09/05/17 06:00 76 09/05/17 05:00 75 09/05/17 04:00 73 09/05/17 03:00 79 09/05/17 03:00 97.8 79 16 147/84 (105) 100 09/05/17 02:00 69 09/05/17 01:00 72 09/05/17 00:00 72 09/04/17 23:00 75 09/04/17 23:00 98.4 75 16 132/68 (89) 98 09/04/17 22:00 81 09/04/17 21:00 82 09/04/17 20:00 80 09/04/17 20:00 98.5 78 16 148/89 (108) 98 09/04/17 19:00 82 09/04/17 17:00 72 09/04/17 16:00 78 09/04/17 15:40 97.9 70 18 116/65 (82) 97 09/04/17 15:00 80 09/04/17 14:00 72 09/04/17 13:28 20 09/04/17 13:00 74 09/04/17 12:00 76 09/04/17 11:51 98.2 69 18 121/64 (83) 97 -: 09/05/17 0445 09/05/17444 Physical Exam General Appearance: Well Developed, Well Nourished Neck Neck Exam: Neck Supple Pulmonary Resp Exam: Clear Bilaterally, Breath Sounds Equal Cardiology CV Exam: Regular, Normal Sinus Rhythm Gastrointestinal/Abdomen GI Exam: Soft GI Remarks incision dressed rt lower abdomen Extremeties Extremities Exam: No Edema Neurologic Neuro Exam: Alert, Awake Assessment/Plan Problem List: (1) ESRD (end stage renal disease) on dialysis ICD Codes: N18.6 - ESRD (end stage renal disease) on dialysis; Z99.2 - Dependence on renal dialysis Status: Acute Plan: last Tacrolimus level 8 continue same dose 3 mg q 12 on Cellcept 1000 mg q 12, and Prednisone 60 mg today WBC low 1.6 Thymo held for today as well, he received 2 doses total and is sensitive to Prograf/MMF ANC 1.3 d/w pt universal precaution low wbc stay home wash hands follow CBC,BMP, Tacrolimus level continue with Prograf Cellcept wants to go home doing well pain control on Percocet no BM needs to take Metamucil d/w Dr. Portillo (2) Seizure disorder ICD Codes: G40.909 - Epilepsy, unspecified, not intractable, without status epilepticus Status: Acute Plan: Trileptal continue to give it to him (3) HTN (hypertension) ICD Codes: I10 - HTN (hypertension) Status: Chronic Plan: Monitor blood pressure Metoprolol 12.5 mg q HS as BP stable Problem Qualifiers (1) HTN (hypertension): Qualified Codes: I10 - Essential (primary) hypertension Jose Antonio Shin MD Sep 05, 2017 11:22
--- NOTE | 2017-09-05 13:01 | HHI.DCPOC ---
Discharge Care Plan Diagnosis: (1) Renal transplant, status post Goals to Promote Your Health * To prevent worsening of your condition and complications * To maintain your health at the optimal level Directions to Meet Your Goals Take your medications as prescribed Follow your dietary instruction Follow activity as directed Stay home post discharge until seen again by Dr. Portillo. Wash hands and use universal precautions to prevent infections. Keep your appointments as scheduled Take your immunizations and boosters as scheduled If your symptoms worsen call your PCP, if no PCP go to Urgent Care Center or Emergency Room Smoking is Dangerous to Your Health. Avoid second hand smoke Call the 24-hour hour crisis hotline for domestic abuse at Macy Barahona MD Sep 05, 2017 13:01
--- NOTE | 2017-09-05 13:01 | HHI.DCPOC ---
Discharge Care Plan Diagnosis: (1) Renal transplant, status post Goals to Promote Your Health * To prevent worsening of your condition and complications * To maintain your health at the optimal level Directions to Meet Your Goals Take your medications as prescribed Follow your dietary instruction Follow activity as directed Stay home post discharge until seen again by Dr. Portillo. Wash hands and use universal precautions to prevent infections. Keep your appointments as scheduled Take your immunizations and boosters as scheduled If your symptoms worsen call your PCP, if no PCP go to Urgent Care Center or Emergency Room Smoking is Dangerous to Your Health. Avoid second hand smoke Call the 24-hour hour crisis hotline for domestic abuse at Macy Barahona MD Sep 05, 2017 13:01
--- NOTE | 2017-09-05 13:01 | HHI.DCPOC ---
Discharge Care Plan Diagnosis: (1) Renal transplant, status post Goals to Promote Your Health * To prevent worsening of your condition and complications * To maintain your health at the optimal level Directions to Meet Your Goals Take your medications as prescribed Follow your dietary instruction Follow activity as directed Stay home post discharge until seen again by Dr. Portillo. Wash hands and use universal precautions to prevent infections. Keep your appointments as scheduled Take your immunizations and boosters as scheduled If your symptoms worsen call your PCP, if no PCP go to Urgent Care Center or Emergency Room Smoking is Dangerous to Your Health. Avoid second hand smoke Call the 24-hour hour crisis hotline for domestic abuse at Macy Barahona MD Sep 05, 2017 13:01
--- NOTE | 2017-09-05 13:16 | HHI.PR ---
Subjective Remarks Pain control. Urinating well. Passing gas very tolerating diet. Wants to go home. Objective Vitals Vital Signs Date Time Temp Pulse Resp B/P (MAP) Pulse Ox O2 Delivery O2 Flow Rate FiO2 09/05/17 11:00 97.4 73 16 132/76 (94) 98 09/05/17 10:30 16 09/05/17 10:00 77 09/05/17 09:00 76 09/05/17 08:00 98.4 72 16 148/86 (106) 100 09/05/17 08:00 72 09/05/17 07:00 93 09/05/17 06:00 76 09/05/17 05:00 75 09/05/17 04:00 73 09/05/17 03:00 79 09/05/17 03:00 97.8 79 16 147/84 (105) 100 09/05/17 02:00 69 09/05/17 01:00 72 09/05/17 00:00 72 09/04/17 23:00 75 09/04/17 23:00 98.4 75 16 132/68 (89) 98 09/04/17 22:00 81 09/04/17 21:00 82 09/04/17 20:00 80 09/04/17 20:00 98.5 78 16 148/89 (108) 98 09/04/17 19:00 82 09/04/17 17:00 72 09/04/17 16:00 78 09/04/17 15:40 97.9 70 18 116/65 (82) 97 09/04/17 15:00 80 09/04/17 14:00 72 I/O 09/04/17 09/04/17 09/04/17 09/05/17 09/05/17 09/05/17 07:00 15:00 23:00 07:00 15:00 23:00 Intake Total 1751 ml 120 ml 1075 ml 480 ml Output Total 600 ml 0 ml 1280 ml 1500 ml Balance 1151 ml 120 ml -205 ml -1020 ml Intake Oral 600 ml 0 ml 875 ml 480 ml IV Total 1151 ml 120 ml 200 ml Output Urine Total 600 ml 0 ml 1280 ml 1500 ml Bladder Scan Volume Amount 256 ml 169 ml 256 ml 26 ml 217 ml # Bowel Movements 0 0 0 0 Result Diagram: 09/05/17 0445 09/05/17 0445 Objective Remarks GENERAL: This is a well-nourished, well-developed patient, in no apparent distress. CARDIOVASCULAR: Regular rate and rhythm RESPIRATORY: Clear to auscultation. Breath sounds equal bilaterally. No wheezes , rales, or rhonchi. GASTROINTESTINAL: Abdomen soft, mild tenderness of the right lower abdomen area , nondistended. Normal active bowel sounds, bandage clean dry intact MUSCULOSKELETAL: Extremities without clubbing, cyanosis, or edema. NEURO: Alert & Oriented x4 to person, place, time, situation. Moves all ext x4 Procedures Cadaveric kidney transplant 09/01/2017. A/P Problem List: (1) IgA nephropathy determined by renal biopsy ICD Code: N02.8 - IgA nephropathy determined by renal biopsy Status: Acute (2) ESRD (end stage renal disease) on dialysis ICD Code: N18.6 - ESRD (end stage renal disease) on dialysis; Z99.2 - Dependence on renal dialysis Status: Acute (3) Seizure disorder ICD Code: G40.909 - Epilepsy, unspecified, not intractable, without status epilepticus Status: Acute Assessment and Plan Mr. Eduardo is a pleasant 42-year-old male with a history of IgA nephropathy, ESRD currently on dialysis on Friday and Friday, seizure disorder who presents to the hospital for elective admitted transplant scheduled for . - End-stage renal disease status post operative day #4 elective renal transplant , continue postoperative care. Continue post op bowel regimen. - Advanced sclerosing IgA nephropathy - Status post cadaveric kidney transplant on 09/01/2017. - Patient is currently on CellCept, Prograf - Also on Bactrim DS 1 tablet by mouth Friday, clotrimazole 10 mg 4 times a day - Received antithymocyte globulin induction dosing 2,- third dose held due to neutropenia, pharmacy note and nephrology note reviewed.. - Creatinine 7.06 --> 6.48 today (Trending down). - Hyperkalemia- resolved Neutropenia, monitor likely due to antithymocyte globulin -third dose held again today, levels are not worse. [place] precautions when going home. Patient counseled by Dr. Shin to stay home until seen by transplant surgeon in 1 week and repeat CBC. - Seizure disorder - Continue Trileptal 600mg TID. - GERD - Continue Protonix 20mg Qday - Hypertension - continue Metoprolol tartrate 25mg QHS. Overall blood pressure control. Full code. Lovenox 30mg Qday. Discharge Planning Discharge to home Home today in follow-up with renal transplant surgeon, Macy Nava MD Sep 05, 2017 13:16
--- NOTE | 2017-09-05 15:09 | PHATRANEDU ---
Date/Time: 09/05/17 3002 Pharmacist Patient education: * Education on medication compliance: Counseled patient on the crucial importance of compliance with all his medication especially his anti-rejection medication. Educated patient on the different frequency of his different medication and how to take his medication in regards to meals to minimize side effects and maximize benefits. * Education on medication side effects: Counseled on various side effects of his anti rejection and anti infective medications: Educated patient on the tendency of anti rejection medications to increase his blood pressure and blood sugars, educated patient to continue to monitor blood pressure and notify physician if he noticed increase in blood pressure above his normal value. Educated patients on side effects associated with Tacrolimus, Mycophenolate Mofetil and Prednisone. Moreover educated patient of side effects of Bactrim, and clotrimazole. Educated patient on the action plan needed when any side effects occurs. * Education on signs and symptoms of rejection: Educated patient on different signs and symptoms of rejection that include: -Decreased urine output. -A temperature above 100* F (37.8* C). -Tenderness in the area of your new kidney. -Bloody or foul smelling urine. -Flu-like feelings. -Weight gain (more than 5 pounds in two days). Educated patient on signs and symptoms of infection that include: -A fever above 100* F (37.8* C). -Drainage or bad odor of drainage from your surgical scar. -Burning when you pass your urine. -A cold or cough that will not go away. -Flu-like feelings. * Action plan needed in situation of rejection, infection or medications side effects: Educated patient on need to contact his physician if he noticed any of the above symptoms. Educated patient to follow with his physician on time for labs and follow ups. Pharmacist: Segun Smith PharmD Signature on file
[2017-09-05] MEDS ORDERED: MYCO250 PO (15:38)
[2017-09-05] MEDS ORDERED: TACR1 PO (15:38)
[2017-09-05] MEDS ORDERED: PRED20 PO (15:39)
[2017-09-05] MEDS ORDERED: BACT800T5 PO (15:40)
[2017-09-05] MEDS ORDERED: NYST1000 SWISH-SWAL (15:41)
[2017-09-05] MEDS ORDERED: TUMS500C CHEW (15:42)
--- NOTE | 2017-09-08 11:26 | HHI.NPPN ---
Subjective History of Present Illness 42 year old male with ESRD received cadaveric kidney transplant Additional Remarks no BM but not eating well Review of Systems General Constitutional: Fatigue Musculoskeletal MS: Pain/Stiffness Objective Data Data BP 158/98 P 78 T 98.2 WT 102.7 KG BMI 31.6 -: 09/05/1744409/05/17444 Physical Exam General Appearance: Well Developed, Well Nourished Neck Neck Exam: Neck Supple Pulmonary Resp Exam: Clear Bilaterally, Breath Sounds Equal Cardiology CV Exam: Regular, Normal Sinus Rhythm Gastrointestinal/Abdomen GI Exam: Soft GI Remarks incision rt lower abdomen Extremeties Extremities Exam: No Edema Neurologic Neuro Exam: Alert, Awake Assessment/Plan Problem List: (1) ESRD (end stage renal disease) on dialysis ICD Codes: N18.6 - ESRD (end stage renal disease) on dialysis; Z99.2 - Dependence on renal dialysis Status: Acute Plan: last Tacrolimus level 3.7 continue TO ADJUST DOSE 35 mg q 12 on Cellcept 1000 mg q 12, and Prednisone 20 mg today WBC low 3.4 d/w pt universal precaution low wbc stay home wash hands follow CBC,BMP, Tacrolimus level continue with Prograf Cellcept (2) Seizure disorder ICD Codes: G40.909 - Epilepsy, unspecified, not intractable, without status epilepticus Status: Acute Plan: Trileptal continue to give it to him (3) HTN (hypertension) ICD Codes: I10 - HTN (hypertension) Status: Chronic Plan: Monitor blood pressure Metoprolol 12.5 mg q HS as BP stable Problem Qualifiers (1) HTN (hypertension): Qualified Codes: I10 - Essential (primary) hypertension Jose Antonio Shin MD Sep 08, 2017 11:26
== END 2017-09-05 19:00 | disposition home or self-care (01) | DRG 652 ==
LOC: HCPC 13:16
PROVIDERS: ADMIT Family Medicine; ATTEND Family Medicine
PROC: 0T160ZB Bypass Right Ureter to Bladder, Open Approach (ICD-10-PCS; 2017-09-01)
PROC: 0TY00Z0 Transplantation of Right Kidney, Allogeneic, Open Approach (ICD-10-PCS; principal; 2017-09-01 18:00)
DX: N18.6 End stage renal disease (principal); D70.9 Neutropenia, unspecified; E83.51 Hypocalcemia; E87.5 Hyperkalemia; I10 Essential (primary) hypertension; N02.8 Recurrent and persistent hematuria with other morphologic changes; Z99.2 Dependence on renal dialysis; Z90.5 Acquired absence of kidney; G40.909 Epilepsy, unspecified, not intractable, without status epilepticus; K21.9 Gastro-esophageal reflux disease without esophagitis; Z98.84 Bariatric surgery status
CPT/HCPCS: 71010; 71020; 76776; 80048; 80053; 80197; 82948; 83735; 84100; 84155; 85007; 85025; 85027; 85610; 85730; 86850; 86900; 86901; 86920; 93005; 94150; J0131; J0171; J0610; J0690; J1580; J1644; J1650; J1720; J1940; J2150; J2270; J2440; J2930; J7030; J7040; J7050; J7507; J7511; J7512; J7517; Q0163

== ENCOUNTER 2017-09-11 22:21 | Emergency (ER) | payer OTHER, MEDICARE, MEDICAID ==
[~2017-09-11] VITALS: Ht 180.3 cm; Wt 100.0 kg
[~2017-09-11 22:21] MED LIST changes: +BACT800T5 PO; +MYCO250 PO; +NYST1000 SWISH-SWAL; +OXYC1TAB63 PO; +PRED20 PO; -PROT40TA PO; +TACR1 PO; +TUMS500C CHEW
[2017-09-11 22:23] VITALS: BP 175/85; PULSE 79; RESP 16; TEMP 98.4; O2SAT 100
[2017-09-11] MEDS ORDERED: TAMS5CAP PO (22:39)
[2017-09-11] MEDS ORDERED: COLA100C5 PO (22:39)
[2017-09-11] MEDS ORDERED: METO25TA3 PO (22:39)
[2017-09-11] MEDS ORDERED: MULTIVITAMIN PO (22:39)
--- NOTE | 2017-09-11 23:33 | PD ---
HPI Chief Complaint: Wound/Suture/Staple Re-Check Time Seen by Provider: 22:52 Travel History International Travel<30 days: No Contact w/Intl Traveler<30days: No Traveled to known affect area: No History of Present Illness HPI Patient had a renal transplant 4 days ago done here and he was followed postoperatively on Friday as well as labs wound inspection all seems to be fine patient is on Prograf CellCept and other immunosuppressants due to the transplant he had lost a kidney as a 4-year-old and then his other kidney slowly over time became more less and less functional due to hypertension he had morbidly obese he had a gastric sleeve help reduce his weight brought his pressure down but his kidney felt he had a transplant on Friday 4 days ago now he is coming into the ER worried that he has having sanguinous colored fluid on the paper there was oozing from the wound comes in mainly for the oozing not for any new pain or change no fever no nausea no vomit he did not take anything there is no new pain he put a paper towel which he has there which has minimal amount of serous sanguinous fluid no purulence PFSH Past Medical History Anemia: Yes Blood Disorders: No Heart Rhythm Problems: Yes (PT DENIES) Cancer: No Cardiovascular Problems: Yes (HYPERCHOLESTEROLEMIA) High Cholesterol: Yes Diabetes: No Dialysis: Yes (, , [facility]) Diminished Hearing: No Endocrine: No Gastrointestinal Disorders: No GERD: Yes Gout: Yes (PT DENIES) Genitourinary: Yes Hepatitis: No Hiatal Hernia: No Hypertension: Yes Immune Disorder: No Kidney Stones: Yes Medical other: Yes (GOUT) Musculoskeletal: No Neurologic: Yes (EPILEPSY) Psychiatric: No Reproductive: No Respiratory: No Immunizations Current: Yes Renal Failure: Yes Seizures: Yes Thyroid Disease: No Past Surgical History Abdominal Surgery: Yes (GASTRIC SLEEVE ) AICD: No Cardiac Surgery: No Ear Surgery: No Endocrine Surgery: No Eye Surgery: No Genitourinary Surgery: Yes (KIDNEY STONES REMOVAL, NEPHROSTOMY TUBE A CHILD , KIDNEY TRANSPLANT) Gynecologic Surgery: No Joint Replacement: No Neurologic Surgery: Yes (EPILEPSY SPACE ON BRAIN CLOSED 2006) Oral Surgery: Yes (TONSILLECTOMY) Pacemaker: No Thoracic Surgery: No Tonsillectomy: Yes Other Surgery: Yes (gastric sleeve, fistula) Social History Alcohol Use: No Tobacco Use: No Substance Use: No Allergies-Medications (Allergen,Severity, Reaction): Coded Allergies: lisinopril (Unverified Adverse Reaction, Severe, 09/11/17) Angioedema Reported Meds & Prescriptions Reported Meds & Active Scripts Active Oxycodone-Acetaminophen 5-325 mg Tab 1 Tab PO Q6H PRN Trileptal (Oxcarbazepine) 600 Mg Tab 600 Mg PO TID On dialysis days, pt is to take an extra dose after dialysis Reported Colace (Docusate Sodium) 100 Mg Capsule 100 Mg PO DAILY Flomax (Tamsulosin HCl) 0.4 Mg Cap 0.4 Mg PO DAILY [Multivitamin] Unknown Dose PO DAILY Metoprolol Tartrate 25 Mg Tab 12.5 Mg PO DAILY Tums (Calcium Carbonate (Antacid)) 500 Mg Chew 500 Mg CHEW BID take it at 9am and 4pm Nystatin Liq 100,000 unit/ml Susp 5 Ml SWISH-SWAL TID Bactrim DS (Sulfamethoxazole-Trimethoprim) 800-160 Mg Tab 1 Tab PO MOWEFR Prednisone 20 Mg Tab 20 Mg PO DAILY Cellcept (Mycophenolate Mofetil) 250 Mg Cap 1,000 Mg PO BID Prograf (Tacrolimus) 1 Mg Cap 3 Mg PO BID Pantoprazole (Pantoprazole Sodium) 20 Mg Tab 20 Mg PO DAILY Physical Exam Narrative GENERAL: Patient is nontoxic appearing no apparent distress stress wearing a reverse isolation mask SKIN: Warm and dry. HEAD: Atraumatic. Normocephalic. EYES: Pupils equal and round. No scleral icterus. No injection or drainage. ENT: No nasal bleeding or discharge. Mucous membranes pink and moist. NECK: Trachea midline. No JVD. CARDIOVASCULAR: Regular rate and rhythm. RESPIRATORY: No accessory muscle use. Clear to auscultation. Breath sounds equal bilaterally. GASTROINTESTINAL: Abdomen soft, there are 20 fran along a right lower quadrant incision which is clean no purulence no dishesion ...non-tender, nondistended. Hepatic and splenic margins not palpable. MUSCULOSKELETAL: Extremities without clubbing, cyanosis, or edema. No obvious deformities. NEUROLOGICAL: Awake and alert. No obvious cranial nerve deficits. Motor grossly within normal limits. Five out of 5 muscle strength in the arms and legs. Normal speech. PSYCHIATRIC: Appropriate mood and affect; insight and judgment normal. Data Data Last Documented VS Vital Signs Date Time Temp Pulse Resp B/P (MAP) Pulse Ox O2 Delivery O2 Flow Rate FiO2 09/11/17 23:49 09/11/17 22:23 98.4 79 16 100 Room Air Orders Orders Ed Discharge Order (09/11/17 23:38) MDM Medical Decision Making Medical Screen Exam Complete: Yes Emergency Medical Condition: Yes Differential Diagnosis Wound infection versus suture decision versus normal serosanguineous postoperative leakage Narrative Course Physical exam there is minimal serosanguineous fluid on the paper towel over a wound that is intact fran are in place no decision of wound there is no smell of purulence or pus at all from the site I try to express fluid there is no expression of any fluid from the wound safety discharged for close follow-up tomorrow a beef had been tapered over the injury and discharged home Diagnosis Primary Impression: Encounter for postoperative wound check Patient Instructions: General Instructions, Postoperative Bleeding (ED) Additional Instructions: : Follow up with the transplant Center tomorrow. Follow-up with them. Keep the pad over the wound until they can inspect any drainage into the pad . If you develop a fever severe pain bleeding from the wound return to the ER otherwise follow up tomorrow Disposition: 01 DISCHARGE HOME Condition: Good Yvon Abdi MD Sep 11, 2017 23:33
== END 2017-09-11 23:51 | disposition home or self-care (01) ==
LOC: NEPC 22:21
DX: Z48.22 Encounter for aftercare following kidney transplant (principal); I10 Essential (primary) hypertension; E66.01 Morbid (severe) obesity due to excess calories; D64.9 Anemia, unspecified; E78.00 Pure hypercholesterolemia, unspecified; K21.9 Gastro-esophageal reflux disease without esophagitis; M10.9 Gout, unspecified; G40.909 Epilepsy, unspecified, not intractable, without status epilepticus; Z94.0 Kidney transplant status
CPT/HCPCS: 99281

== ENCOUNTER 2017-09-12 09:50 | Inpatient (IN) | payer OTHER, MEDICARE, MEDICAID ==
[2017-09-12] VITALS (11 sets, daily range): BP systolic 140–159; BP diastolic 85–93; PULSE 60–82; RESP 16–18; TEMP 98–98.7; O2SAT 96–100
[~2017-09-12 09:50] MED LIST changes: +COLA100C5 PO; +MULTIVITAMIN PO; +TAMS5CAP PO
[2017-09-12] MEDS ORDERED: ACETAMINOPHEN 325 MG TAB PO PRN (13:45)
[2017-09-12] MEDS ORDERED: HEPARIN SODIUM - SQ 10,000 UNITS/ML VIAL SQ SCH (13:45)
[2017-09-12] MEDS ORDERED: SODIUM CHLORIDE 0.9% FLUSH 10 ML FLUSH IV FLUSH PRN (13:45)
[2017-09-12] MEDS ORDERED: ONDANSETRON HCL 4 MG/2 ML VIAL IVP PRN (13:45)
[2017-09-12] MEDS ORDERED: NALOXONE HCL 0.4 MG/ML AMP IV PUSH PRN (13:45)
[2017-09-12] MEDS ORDERED: BISACODYL 10 MG SUPP RECTAL PRN (13:45)
[2017-09-12] MEDS ORDERED: MAGNESIUM HYDROXIDE SUSP 30 ML CUP PO PRN (13:45)
[2017-09-12] MEDS ORDERED: SODIUM CHLOR 0.9% 1000 ML INJ 1,000 ML IV SCH (14:00)
--- NOTE | 2017-09-12 14:02 | HHI.HP ---
HPI Service Transplant Medicine Primary Care Physician Non-Staff Admission Diagnosis [facility] Post Kidney transplant Diagnoses: (1) Acute renal failure Diagnosis: Principal (2) Renal transplant, status post Diagnosis: Principal (3) Epilepsy Diagnosis: Secondary (4) HTN (hypertension) Chief Complaint: came for blood work noted elevated creatinine International Travel<30 Days: No Contact w/Intl Traveler<30days: No Known Affected Area: No History of Present Illness Patient is a 42-year-old male who has received cadaveric kidney transplant on 09/01/17, postoperative course was unremarkable and he made recovery he was discharged over the weekend was doing well however he had constipation and took magnesium citrate, he stated that he did a lot of training passed stools creatinine yesterday went up to 3.7 and draped to 4.26, he has to come to emergency last night as he notices blood stained secretions on his shirt and he placed a dressing over his surgical wound and it got soaked , in the emergency he was examined by the ER physician and he notices little serosanguineous secretion and stated to follow up with the transplant team in the morning, he denies any abdominal pain he is still passing urine, he has BK virus in the urine. Tacrolimus levels were decreasing to 6.5 from 7.7 yesterday. Review of Systems Constitutional: COMPLAINS OF: Fatigue Gastrointestinal: COMPLAINS OF: Abdominal pain (physical pain of surgery) Psychiatric: COMPLAINS OF: Anxiety Past Family Social History Past Medical History Seizure disorder Hypertension IgA nephropathy ESRD Kidney History of previous nephrolithotomy? left kidney stone removal Arthritis ?gout Past Surgical History Gastric bypass surgery Left kidney stone removal and nephrolithotomy? History of brain surgery for seizures Tonsillectomy Reported Medications Reported Meds & Active Scripts Active Oxycodone-Acetaminophen 5-325 mg Tab 1 Tab PO Q6H PRN Trileptal (Oxcarbazepine) 600 Mg Tab 600 Mg PO TID On dialysis days, pt is to take an extra dose after dialysis Reported Colace (Docusate Sodium) 100 Mg Capsule 100 Mg PO DAILY Flomax (Tamsulosin HCl) 0.4 Mg Cap 0.4 Mg PO DAILY [Multivitamin] Unknown Dose PO DAILY Metoprolol Tartrate 25 Mg Tab 12.5 Mg PO DAILY Tums (Calcium Carbonate (Antacid)) 500 Mg Chew 500 Mg CHEW BID take it at 9am and 4pm Nystatin Liq 100,000 unit/ml Susp 5 Ml SWISH-SWAL TID Bactrim DS (Sulfamethoxazole-Trimethoprim) 800-160 Mg Tab 1 Tab PO MOWEFR Prednisone 20 Mg Tab 20 Mg PO DAILY Cellcept (Mycophenolate Mofetil) 250 Mg Cap 1,000 Mg PO BID Prograf (Tacrolimus) 1 Mg Cap 3 Mg PO BID Pantoprazole (Pantoprazole Sodium) 20 Mg Tab 20 Mg PO DAILY Allergies: Coded Allergies: lisinopril (Unverified Adverse Reaction, Severe, 09/11/17) Angioedema Active Ordered Medications Current Medications Medications (Trade) Dose Ordered Sig/Gabriella Route Start Time Stop Time Status Last Admin Sodium Chloride 1,000 ml @ 30 mls/hr Q24H IV 09/12/17 14:00 (Tums Chew) 500 mg BID CHEW 09/12/17 21:00 UNV (Colace) 100 mg DAILY PO 09/13/17 09:00 UNV (Lopressor) 12.5 mg DAILY PO 09/13/17 09:00 UNV (Cellcept) 1,000 mg BID PO 09/12/17 21:00 UNV (Mycostatin Liq) 5 ml TID SWISH-SWAL 09/12/17 18:00 UNV (Trileptal) 600 mg TID PO 09/12/17 18:00 UNV (Percocet 5-325 Mg) 1 tab Q6H PRN PO 09/12/17 13:45 UNV (Protonix) 20 mg DAILY PO 09/13/17 09:00 UNV (Deltasone) 20 mg DAILY PO 09/13/17 09:00 UNV (Bactrim Ds 800-160 Mg) 1 tab MoWeFr PO 09/12/17 13:45 UNV (Prograf) 3 mg BID PO 09/12/17 21:00 UNV (Flomax) 0.4 mg DAILY PO 09/13/17 09:00 UNV Sodium Chloride 1,000 ml @ 100 mls/hr Q10H IV 09/12/17 13:44 UNV (NS Flush) 2 ml UNSCH PRN IV FLUSH 09/12/17 13:45 UNV (NS Flush) 2 ml BID IV FLUSH 09/12/17 21:00 UNV (Tylenol) 650 mg Q4H PRN PO 09/12/17 13:45 UNV (Zofran Inj) 4 mg Q6H PRN IVP 09/12/17 13:45 UNV (Ambien) 5 mg HS PRN PO 09/12/17 13:45 UNV (Heparin Inj) 5,000 units Q12H SQ 09/12/17 13:45 UNV (Narcan Inj) 0.4 mg UNSCH PRN IV PUSH 09/12/17 13:45 UNV (Ruth-Colace) 1 tab BID PO 09/12/17 21:00 UNV (Milk Of Magnesia Liq) 30 ml Q12H PRN PO 09/12/17 13:45 UNV (Dulcolax Supp) 10 mg DAILY PRN RECTAL 09/12/17 13:45 UNV Family History Noncontributory Social History Denies smoking or alcohol use Physical Exam Vital Signs Vital Signs Date Time Temp Pulse Resp B/P (MAP) Pulse Ox O2 Delivery O2 Flow Rate FiO2 09/12/17 13:39 98.2 72 18 142/88 (106) 100 Physical Exam GENERAL: This is a well-nourished, well-developed patient, in no apparent distress. SKIN: No rashes, ecchymoses or lesions. Cool and dry. HEAD: Atraumatic. Normocephalic. No temporal or scalp tenderness. EYES: Pupils equal round and reactive. Extraocular motions intact. No scleral icterus. No injection or drainage. ENT: Nose without bleeding, purulent drainage or septal hematoma. Throat without erythema, tonsillar hypertrophy or exudate. Uvula midline. Airway patent. NECK: Trachea midline. No JVD or lymphadenopathy. Supple, nontender, no meningeal signs. CARDIOVASCULAR: Regular rate and rhythm without murmurs, gallops, or rubs. RESPIRATORY: Clear to auscultation. Breath sounds equal bilaterally. No wheezes , rales, or rhonchi. GASTROINTESTINAL: Abdomen soft, non-tender, nondistended. No hepato-splenomegaly , or palpable masses. No guarding. Incision looked clean on the right lower abdominal MUSCULOSKELETAL: Extremities without clubbing, cyanosis, or edema. No joint tenderness, effusion, or edema noted. No calf tenderness. Negative Homans sign bilaterally. NEUROLOGICAL: Awake and alert. Cranial nerves II through XII intact. Motor and sensory grossly within normal limits. Five out of 5 muscle strength in all muscle groups. Normal speech. Caprini VTE Risk Assessment Caprini VTE Risk Assessment: No/Low Risk (score <= 1) Caprini Risk Assessment Model Point Value = 1 Point Value = 2 Point Value = 3 Point Value = 5 Age 41-60 Minor surgery BMI > 25 kg/m2 Swollen legs Varicose veins or History of unexplained or recurrent spontaneous Oral contraceptives or hormone replacement Sepsis (< 1 month) Serious lung disease, including pneumonia (< 1 month) Abnormal pulmonary function Acute myocardial infarction Congestive heart failure (< 1 month) History of inflammatory bowel disease Medical patient at bed rest Age 61-74 Arthroscopic surgery Major open surgery (> 45 min) Laparoscopic surgery (> 45 min) Malignancy Confined to bed (> 72 hours) Immobilizing plaster cast Central venous access Age >= 75 History of VTE Family history of VTE Factor V Leiden Prothrombin 56194H Lupus anticoagulant Anticardiolipin antibodies Elevated serum homocysteine Heparin-induced thrombocytopenia Other congenital or acquired thrombophilia Stroke (< 1 month) Elective arthroplasty Hip, pelvis, or leg fracture Acute spinal cord injury (< 1 month) Prophylaxis Regimen Total Risk Factor Score Risk Level Prophylaxis Regimen 0-1 Low Early ambulation 2 Moderate Order ONE of the following: *Sequential Compression Device (SCD) *Heparin 5000 units SQ BID 3-4 Higher Order ONE of the following medications: *Heparin 5000 units SQ TID *Enoxaparin/Lovenox 40 mg SQ daily (WT < 150 kg, CrCl > 30 mL/min) *Enoxaparin/Lovenox 30 mg SQ daily (WT < 150 kg, CrCl > 10-29 mL/min) *Enoxaparin/Lovenox 30 mg SQ BID (WT < 150 kg, CrCl > 30 mL/min) AND/OR *Sequential Compression Device (SCD) 5 or more Highest Order ONE of the following medications: *Heparin 5000 units SQ TID (Preferred with Epidurals) *Enoxaparin/Lovenox 40 mg SQ daily (WT < 150 kg, CrCl > 30 mL/min) *Enoxaparin/Lovenox 30 mg SQ daily (WT < 150 kg, CrCl > 10-29 mL/min) *Enoxaparin/Lovenox 30 mg SQ BID (WT < 150 kg, CrCl > 30 mL/min) AND *Sequential Compression Device (SCD) Assessment and Plan Problem List: (1) Acute renal failure ICD Codes: N17.9 - Acute renal failure Status: Acute Plan: To get kidney ultrasound, hydration, BK virus PCR, consult surgery And kidney biopsy planned for tomorrow Patient explaining the procedure Continue to hydrate Continue with Prograf, prednisone and CellCept Discussed with Dr. Portillo give Solu-Medrol 250 mg IV 1 Adjust tacrolimus 2 mg every 12 HR (2) Renal transplant, status post ICD Codes: Z94.0 - Kidney transplant status Plan: Ultrasound and kidney biopsy requested (3) HTN (hypertension) ICD Codes: I10 - HTN (hypertension) Status: Chronic Plan: Continue to monitor Physician Certification 2 Midnight Certification Type: Admission for Inpatient Services Order for Inpatient Services The services are ordered in accordance with Medicare regulations or non- Medicare payer requirements, as applicable. In the case of services not specified as inpatient-only, they are appropriately provided as inpatient services in accordance with the 2-midnight benchmark. Estimated LOS (days): 5 5 days is the estimated time the patient will need to remain in the hospital, assuming treatment plan goals are met and no additional complications. Post-Hospital Plan: Home Problem Qualifiers (1) Acute renal failure: Qualified Codes: N17.9 - Acute kidney failure, unspecified (2) HTN (hypertension): Qualified Codes: I10 - Essential (primary) hypertension Jose Antonio Shin MD Sep 12, 2017 14:02
[2017-09-12] MEDS ORDERED: PILL SPLITTER OTHER PRN (14:15)
[2017-09-12 14:20] LABS: APTT (PATIENT) 30.9 SEC (24.3-30.1)
[2017-09-12] MEDS ORDERED: methylPREDNISolone SOD SUCC 125 MG/2 ML VIAL IV ONE (15:00)
--- NOTE | 2017-09-12 15:21 | RADRPT ---
EXAM DATE/TIME: 09/12/2017 14:44 [facility] COMPARISON: US KIDNEY / TRANSPLANT, September 04, 2017, 10:37. INDICATIONS : Elevated labs. MEDICAL HISTORY : Hypercholesterolemia. Hypertension. Gastroesophageal reflux disease. Epilepsy. Chronic remal failure. Dialysis. Kidney stone removal. Gout. Anemia. SURGICAL HISTORY : Tonsillectomy. Gastric sleeve. Transplant kidney. Fistula surgery. ENCOUNTER: Subsequent ACUITY: 1 day PAIN SCORE: 0/10 LOCATION: Right lower quadrant MEASUREMENTS: TRANSPLANT KIDNEY: 9.7 x 7.3 x 5.6 cm LOCATION: Right lower quadrant. PREVIOUS ULTRASOUND: Sep 04 2017 RA/EIA Ratio: 2.8Values over 1.8 indicate transplant renal artery stenosis. PREVIOUS ARCUATE ARTERIES INDEX: Upper - 0.6 Mid - 0.7 Lower - 0.5 ARCUATE ARTERIES RESISTIVE INDEX: Upper - 0.6 Mid - 0.6 Lower - 0.6 RA/EIA Ratio: 0.5 MAIN RENAL ARTERY VELOCITY: (cm/sec): 88 MAIN RENAL VEIN: Patent EXTERNAL ILIAC ARTERY VELOCITY (cm/sec): 172 * NORMAL DOPPLER FINDINGS Arcuate arteries - RI = 0.6 - 0.8 Renal artery = under 200 cm/sec Renal vein = May be monophasic with continuous flow or demonstrate some pulsatility with cardiac cycl e FINDINGS: TRANSPLANT KIDNEY: Normal cortical thickness and echotexture. No hydronephrosis, stone, or mass. No peritransplant flu id collection. URINARY BLADDER: Within normal limits given the degree of distension. CONCLUSION: 1. Unremarkable transplant renal ultrasound examination. Normal renal artery velocities with patent r enal vein. Sarabjit Perez MD on September 12, 2017 at 15:17 Board Certified Radiologist. This report was verified electronically.
[2017-09-12 16:28] LABS: BLOOD, URINE MOD (NEG); COMMENT (UR) CULTURE INDICATED; CULTURE IF INDICATED CULTURE INDICATED; GLUCOSE,URINE NEG (NEG); KETONE, URINE NEG (NEG); NITRITE,URINE NEG (NEG); PH, URINE 5.5 (5.0-8.5); SQUAMOUS EPITHELIAL CELL URINE <1 /hpf (0-5); URINE COLOR LIGHT-YELLOW (YELLW/STRAW)
[2017-09-12] MEDS: NYSTATIN SUSP 500,000 U/5 ML CUP SWISH-SWAL SCH (18:01)
[2017-09-12] MEDS: TACROLIMUS 1 MG CAP PO SCH (18:02)
[2017-09-12] MEDS: SULFAMETHOXAZOLE-TRIMETHOPRIM DS 800-160 MG TAB PO SCH (18:03)
[2017-09-12] MEDS: OXcarbazepine 600 MG TAB PO SCH (18:03)
[2017-09-12] MEDS: SODIUM CHLOR 0.9% 1000 ML INJ 1,000 ML IV SCH (18:04)
[2017-09-12] MEDS ORDERED: ZOLPIDEM TARTRATE 5 MG TAB PO PRN (21:00)
[2017-09-12] MEDS: SODIUM CHLORIDE 0.9% FLUSH 10 ML FLUSH IV FLUSH SCH (21:00)
[2017-09-12] MEDS ORDERED: TACROLIMUS 1 MG CAP PO SCH (21:00)
[2017-09-12] MEDS: MYCOPHENOLATE MOFETIL 250 MG CAP PO SCH (21:27)
[2017-09-12] MEDS: CALCIUM CARBONATE 500 MG CHEWABLE TAB CHEW SCH (21:27)
[2017-09-12] MEDS: DOCUSATE SODIUM 50 MG/SENNA 8.6 MG TAB PO SCH (21:27)
[2017-09-12] MEDS: oxyCODONE/ACETAMINOPHEN 5 MG/325 MG TAB PO PRN (23:32)
[2017-09-13] VITALS (28 sets, daily range): BP systolic 132–146; BP diastolic 62–91; PULSE 61–88; RESP 16–18; TEMP 97.1–98.2; O2SAT 96–100
[2017-09-13 05:01] LABS: AUTOMATED NEUTROPHIL # 4.4 TH/MM3 (1.8-7.7); BASOPHIL % 0.9 % (0.0-2.0); EOSINOPHIL % 0.3 % (0.0-4.0); HEMATOCRIT 25.8 % (39.0-51.0); HEMO FLAGS DIFF FINAL; LYMPHOCYTE # 0.1 TH/MM3 (1.0-4.8); MEAN CELL VOLUME 91.5 FL (80.0-100.0); MEAN CORPUSCULAR HEMOGLOBIN 30.7 PG (27.0-34.0); MEAN CORPUSCULAR HGB CONC 33.6 % (32.0-36.0); MONO % 5.5 % (0.0-8.0); NEUT % 90.3 % (16.0-70.0); PLATELET COUNT 266 TH/MM3 (150-450); RED BLOOD COUNT 2.82 MIL/MM3 (4.50-5.90); RED CELL DISTRIBUTION WIDTH 13.2 % (11.6-17.2); WHITE BLOOD COUNT 4.9 TH/MM3 (4.0-11.0)
[2017-09-13 05:17] LABS: ALKALINE PHOSPHATASE 151 U/L (45-117); ALT (GPT) 19 U/L (12-78); ANION GAP 10 MEQ/L (5-15); AST (GOT) 9 U/L (15-37); BICARBONATE 21.5 MEQ/L (21.0-32.0); BLOOD UREA NITROGEN 65 MG/DL (7-18); CHLORIDE 108 MEQ/L (98-107); GLOMERULAR FILTRATION RATE 16 ML/MIN (>89); MAGNESIUM 3.1 MG/DL (1.5-2.5); POTASSIUM 5.3 MEQ/L (3.5-5.1); SODIUM (NA) 139 MEQ/L (136-145); TOTAL BILIRUBIN ADULT 0.2 MG/DL (0.2-1.0)
[2017-09-13] MEDS: TACROLIMUS 1 MG CAP PO SCH (06:04)
[2017-09-13] MEDS: MYCOPHENOLATE MOFETIL 250 MG CAP PO SCH ×2 (06:04→18:20)
[2017-09-13] MEDS: SODIUM CHLORIDE 0.9% FLUSH 10 ML FLUSH IV FLUSH SCH ×2 (09:00→21:00)
[2017-09-13] MEDS ORDERED: DOCUSATE SODIUM 100 MG CAP PO SCH (09:00)
[2017-09-13] MEDS: OXcarbazepine 600 MG TAB PO SCH ×3 (09:02→18:12)
[2017-09-13] MEDS: DOCUSATE SODIUM 50 MG/SENNA 8.6 MG TAB PO SCH ×2 (09:02→21:34)
[2017-09-13] MEDS: predniSONE 20 MG TAB PO SCH (09:03)
[2017-09-13] MEDS: PANTOPRAZOLE SOD 20 MG DELAYED RELEASE TAB PO SCH (09:03)
[2017-09-13] MEDS: TAMSULOSIN HCL 0.4 MG CAP PO SCH (09:03)
[2017-09-13] MEDS: NYSTATIN SUSP 500,000 U/5 ML CUP SWISH-SWAL SCH ×3 (09:03→18:12)
[2017-09-13] MEDS: METOPROLOL TARTRATE 25 MG TAB PO SCH (09:03)
[2017-09-13] MEDS: CALCIUM CARBONATE 500 MG CHEWABLE TAB CHEW SCH ×2 (09:03→21:34)
--- NOTE | 2017-09-13 09:39 | HHI.NPPN ---
Subjective History of Present Illness Hx of Cadaveric Kidney Transplant on 09/01/17 Additional Remarks passing urine denies complaints Objective Data Data Vital Signs Date Time Temp Pulse Resp B/P (MAP) Pulse Ox O2 Delivery O2 Flow Rate FiO2 09/13/17 08:51 97.1 67 16 146/91 (109) 100 09/13/17 06:00 62 09/13/17 05:00 64 09/13/17 04:00 66 09/13/17 03:00 98.0 69 16 133/77 (95) 97 09/13/17 03:00 69 09/13/17 02:00 68 09/13/17 01:00 66 09/13/17 00:00 68 09/12/17 23:00 98.4 70 18 149/85 (106) 96 09/12/17 23:00 70 09/12/17 22:00 82 09/12/17 21:00 76 09/12/17 20:00 74 09/12/17 19:00 78 09/12/17 19:00 98.7 74 16 159/93 (115) 98 09/12/17 18:00 78 09/12/17 17:00 68 09/12/17 16:00 98.0 60 18 140/86 (104) 100 09/12/17 16:00 74 09/12/17 15:00 68 09/12/17 13:39 98.2 72 18 142/88 (106) 100 09/12/17 13:15 98.2 72 18 142/88 (106) 100 -: 09/13/17 0425 09/13/17 0425 Microbiology 09/12/17 Urine Culture, Received Pending Physical Exam General Appearance: Well Developed, Well Nourished Neck Neck Exam: Neck Supple Pulmonary Resp Exam: Clear Bilaterally, Breath Sounds Equal Cardiology CV Exam: Regular, Normal Sinus Rhythm Gastrointestinal/Abdomen GI Exam: Soft, Bowel Sounds Present GI Remarks incision clean Extremeties Extremities Exam: No Edema Neurologic Neuro Exam: Alert, Awake Assessment/Plan Problem List: (1) Renal transplant, status post ICD Codes: Z94.0 - Kidney transplant status Plan: doing well cr declined slightly, possible prolong ATN/rejection or BK virus infection suspected had a Kidney Biopsy continue to hydrate give 2nd dose of SoluMedrol monitor I/O BMP follow FK levels 1339 FK low 2.5 ? dropped despite getting higher dose, his Tacrolimus level are not following any pattern he may be high some days and then drops low with out a reason, no diarrhea he has increased dose of Tacrolimus will up it to 5 mg q 12. suspect drug to drug interaction between Trileptal and Tacrolimus (2) HTN (hypertension) ICD Codes: I10 - HTN (hypertension) Status: Chronic Plan: stable (3) Seizure disorder ICD Codes: G40.909 - Epilepsy, unspecified, not intractable, without status epilepticus Status: Acute Plan: on Trileptal Problem Qualifiers (1) HTN (hypertension): Qualified Codes: I10 - Essential (primary) hypertension Jose Antonio Shin MD Sep 13, 2017 09:39
[2017-09-13] MEDS: SODIUM CHLOR 0.9% 1000 ML INJ 1,000 ML IV SCH ×2 (10:49→21:33)
[2017-09-13] MEDS ORDERED: MIDAZOLAM HCL 2 MG/2 ML VIAL ONE (11:15)
[2017-09-13] MEDS ORDERED: SODIUM BICARBONATE 8.4% INJ 50 ML ONE (12:21)
[2017-09-13] MEDS ORDERED: LIDOCAINE HCL 1% PF 30 ML VIAL ONE (12:21)
--- NOTE | 2017-09-13 12:55 | RADRPT ---
EXAM DATE/TIME: 09/13/2017 11:02 [facility] COMPARISON: No previous studies available for comparison. INDICATIONS : Increased labs. Renal transplant rejection. Vancomycin within 2 hrs of procedure, Ancef (or alternative) within 1 hr of procedure start. MEDICAL HISTORY : Hypertension. Gastroesophageal reflux disease. Hypercholesterolemia. Epilepsy. Chronic remal failure. Dialysis. Kidney stone removal. Gout. Anemia. SURGICAL HISTORY : Tonsillectomy. Gastric sleeve. Transplant kidney. Fistula surgery. ENCOUNTER: Initial ACUITY: 2 days PAIN SCORE: 0/10 LOCATION: Right lower quadrant ORGAN: Right transplanted kidney lower quadrant. SPECIMENS: Two core specimen(s) submitted for pathologic evaluation. DEVICE: 18 gauge Temno needle Post procedure scanning reveals no hematoma or other complication. The possibility does exist that the tissue obtained will be non-diagnostic. If the sample is non-wilder gnostic a repeat biopsy or surgical biopsy may need to be performed. TECHNIQUE: 1. Ultrasound guidance for needle biopsy. 2. Needle biopsy. The risks, benefits and alternatives to the procedure were explained and verbal and written consent w as obtained. The site was prepped in sterile fashion. Full sterile technique was used, including ca p, mask, sterile gloves and gown and a large sterile sheet. Hand hygiene and 2% chlorhexidine and/or betadine/alcohol prep was utilized per protocol for cutaneous antisepsis. The skin and subcutaneous tissues were infiltrated with local anesthetic solution. Sterile gel and sterile probe cover were u tilized for ultrasound guidance. With the patient on the ultrasound table, images were obtained. A needle was advanced into the identified target and the number of specimens as above obtained and stout bmitted for pathologic evaluation. The patient tolerated the procedure well and left the ultrasound suite in stable condition. CONCLUSION: Uncomplicated ultrasound guided needle biopsy. Jose Ramon Aguilar MD on September 13, 2017 at 12:53 Board Certified Radiologist. This report was verified electronically.
[2017-09-13] MEDS ORDERED: methylPREDNISolone SOD SUCC 125 MG/2 ML VIAL IV PUSH ONE (15:30)
[2017-09-13] MEDS: oxyCODONE/ACETAMINOPHEN 5 MG/325 MG TAB PO PRN ×2 (15:40→22:53)
[2017-09-13] MEDS: TACROLIMUS 5 MG CAP PO SCH (18:13)
[2017-09-14] VITALS (26 sets, daily range): BP systolic 131–148; BP diastolic 81–91; PULSE 62–82; RESP 14–16; TEMP 97.4–97.9; O2SAT 99–100
[2017-09-14] MEDS: TACROLIMUS 5 MG CAP PO SCH ×2 (06:04→17:54)
[2017-09-14] MEDS: MYCOPHENOLATE MOFETIL 250 MG CAP PO SCH ×2 (06:05→17:54)
[2017-09-14] MEDS: SODIUM CHLOR 0.9% 1000 ML INJ 1,000 ML IV SCH ×2 (07:28→16:30)
[2017-09-14 07:53] LABS: AUTOMATED NEUTROPHIL # 5.4 TH/MM3 (1.8-7.7); BASOPHIL % 0.5 % (0.0-2.0); EOSINOPHIL % 0.3 % (0.0-4.0); HEMATOCRIT 28.1 % (39.0-51.0); HEMO FLAGS DIFF FINAL; LYMPH % 3.1 % (9.0-44.0); LYMPHOCYTE # 0.2 TH/MM3 (1.0-4.8); MEAN CELL VOLUME 92.2 FL (80.0-100.0); MEAN CORPUSCULAR HGB CONC 32.5 % (32.0-36.0); MONO % 5.2 % (0.0-8.0); NEUT % 90.9 % (16.0-70.0); PLATELET COUNT 311 TH/MM3 (150-450); RED BLOOD COUNT 3.05 MIL/MM3 (4.50-5.90); RED CELL DISTRIBUTION WIDTH 13.5 % (11.6-17.2); WHITE BLOOD COUNT 5.9 TH/MM3 (4.0-11.0)
[2017-09-14 08:16] LABS: ALT (GPT) 20 U/L (12-78); ANION GAP 10 MEQ/L (5-15); AST (GOT) 7 U/L (15-37); BICARBONATE 19.5 MEQ/L (21.0-32.0); BLOOD UREA NITROGEN 63 MG/DL (7-18); CHLORIDE 110 MEQ/L (98-107); GLOMERULAR FILTRATION RATE 16 ML/MIN (>89); POTASSIUM 4.9 MEQ/L (3.5-5.1); SODIUM (NA) 139 MEQ/L (136-145)
[2017-09-14 08:18] LABS: ALKALINE PHOSPHATASE 157 U/L (45-117); TOTAL BILIRUBIN ADULT 0.2 MG/DL (0.2-1.0)
[2017-09-14] MEDS: SODIUM CHLORIDE 0.9% FLUSH 10 ML FLUSH IV FLUSH SCH ×2 (09:00→21:00)
[2017-09-14] MEDS: NYSTATIN SUSP 500,000 U/5 ML CUP SWISH-SWAL SCH ×3 (09:43→17:54)
[2017-09-14] MEDS: CALCIUM CARBONATE 500 MG CHEWABLE TAB CHEW SCH ×2 (09:43→21:12)
[2017-09-14] MEDS: TAMSULOSIN HCL 0.4 MG CAP PO SCH (09:43)
[2017-09-14] MEDS: PANTOPRAZOLE SOD 20 MG DELAYED RELEASE TAB PO SCH (09:44)
[2017-09-14] MEDS: OXcarbazepine 600 MG TAB PO SCH ×3 (09:44→17:54)
[2017-09-14] MEDS: DOCUSATE SODIUM 50 MG/SENNA 8.6 MG TAB PO SCH ×2 (09:44→21:12)
[2017-09-14] MEDS: predniSONE 20 MG TAB PO SCH (09:44)
[2017-09-14] MEDS: METOPROLOL TARTRATE 25 MG TAB PO SCH (09:44)
--- NOTE | 2017-09-14 16:06 | HHI.NPPN ---
Subjective History of Present Illness Hx of Cadaveric Kidney Transplant on 09/01/17 Additional Remarks passing urine denies complaints Objective Data Data Vital Signs Date Time Temp Pulse Resp B/P (MAP) Pulse Ox O2 Delivery O2 Flow Rate FiO2 09/14/17 15:25 97.7 72 16 144/81 (102) 100 09/14/17 14:00 66 09/14/17 13:00 82 09/14/17 12:00 66 09/14/17 11:42 97.7 66 16 131/81 (98) 100 09/14/17 11:21 62 09/14/17 10:00 74 09/14/17 09:00 76 09/14/17 08:00 64 09/14/17 07:29 97.7 65 16 148/91 (110) 100 09/14/17 07:00 66 09/14/17 06:00 64 09/14/17 05:00 66 09/14/17 04:00 68 09/14/17 03:00 97.8 62 14 134/81 (98) 99 09/14/17 03:00 70 09/14/17 02:00 78 09/14/17 01:00 68 09/14/17 00:00 72 09/13/17 23:09 73 09/13/17 23:00 98.1 78 18 145/81 (102) 96 09/13/17 22:00 78 09/13/17 21:00 86 09/13/17 20:00 74 09/13/17 19:10 66 09/13/17 19:00 98.2 70 143/84 (103) 98 09/13/17 18:03 66 09/13/17 17:01 70 -: 09/14/17 0625 09/14/17 0625 Physical Exam General Appearance: Well Developed, Well Nourished Neck Neck Exam: Neck Supple Pulmonary Resp Exam: Clear Bilaterally, Breath Sounds Equal Cardiology CV Exam: Regular, Normal Sinus Rhythm Gastrointestinal/Abdomen GI Exam: Soft, Bowel Sounds Present GI Remarks incision clean Extremeties Extremities Exam: No Edema Neurologic Neuro Exam: Alert, Awake Assessment/Plan Problem List: (1) Renal transplant, status post ICD Codes: Z94.0 - Kidney transplant status Plan: doing well cr declined slightly, possible prolong ATN/rejection or BK virus infection suspected Kidney Biopsy done continue to hydrate monitor I/O BMP follow FK levels FK low 5.5 ? dropped despite getting higher dose, his Tacrolimus level are not following any pattern he may be high some days and then drops low with out a reason, no diarrhea he has increased dose of Tacrolimus will up it to 6 mg q 12. suspect drug to drug interaction between Trileptal and Tacrolimus need Neurology consult to get him off Trileptal (2) HTN (hypertension) ICD Codes: I10 - HTN (hypertension) Status: Chronic Plan: stable (3) Seizure disorder ICD Codes: G40.909 - Epilepsy, unspecified, not intractable, without status epilepticus Status: Acute Plan: on Trileptal Problem Qualifiers (1) HTN (hypertension): Qualified Codes: I10 - Essential (primary) hypertension Jose Antonio Shin MD Sep 14, 2017 16:06
[2017-09-14] MEDS: TACROLIMUS 1 MG CAP PO SCH (17:54)
[2017-09-14] MEDS: oxyCODONE/ACETAMINOPHEN 5 MG/325 MG TAB PO PRN (21:16)
[2017-09-15] VITALS (28 sets, daily range): BP systolic 144–158; BP diastolic 81–91; PULSE 58–80; RESP 16–18; TEMP 97.4–98.2; O2SAT 97–100
[2017-09-15] MEDS: SODIUM CHLOR 0.9% 1000 ML INJ 1,000 ML IV SCH (02:30)
[2017-09-15] MEDS: oxyCODONE/ACETAMINOPHEN 5 MG/325 MG TAB PO PRN ×2 (03:35→22:36)
[2017-09-15] MEDS: TACROLIMUS 1 MG CAP PO SCH ×2 (05:51→17:31)
[2017-09-15] MEDS: TACROLIMUS 5 MG CAP PO SCH ×2 (05:51→17:32)
[2017-09-15] MEDS: MYCOPHENOLATE MOFETIL 250 MG CAP PO SCH ×2 (05:52→17:33)
[2017-09-15 06:40] LABS: AUTOMATED NEUTROPHIL # 4.1 TH/MM3 (1.8-7.7); BASOPHIL # 0.1 TH/MM3 (0-0.2); BASOPHIL % 1.5 % (0.0-2.0); EOSINOPHIL # 0.1 TH/MM3 (0-0.4); HEMATOCRIT 30.3 % (39.0-51.0); HEMO FLAGS DIFF FINAL; LYMPH % 5.3 % (9.0-44.0); LYMPHOCYTE # 0.3 TH/MM3 (1.0-4.8); MEAN CELL VOLUME 93.2 FL (80.0-100.0); MEAN CORPUSCULAR HEMOGLOBIN 29.9 PG (27.0-34.0); MONO % 8.6 % (0.0-8.0); NEUT % 81.6 % (16.0-70.0); PLATELET COUNT 290 TH/MM3 (150-450); RED BLOOD COUNT 3.25 MIL/MM3 (4.50-5.90); RED CELL DISTRIBUTION WIDTH 13.6 % (11.6-17.2)
[2017-09-15 07:01] LABS: ANION GAP 10 MEQ/L (5-15); AST (GOT) 5 U/L (15-37); BICARBONATE 22.2 MEQ/L (21.0-32.0); BLOOD UREA NITROGEN 66 MG/DL (7-18); CHLORIDE 109 MEQ/L (98-107); GLOMERULAR FILTRATION RATE 16 ML/MIN (>89); MAGNESIUM 2.9 MG/DL (1.5-2.5); POTASSIUM 4.3 MEQ/L (3.5-5.1); SODIUM (NA) 141 MEQ/L (136-145)
[2017-09-15 07:02] LABS: ALT (GPT) 19 U/L (12-78)
[2017-09-15 07:04] LABS: ALKALINE PHOSPHATASE 158 U/L (45-117); TOTAL BILIRUBIN ADULT 0.3 MG/DL (0.2-1.0)
--- NOTE | 2017-09-15 08:38 | MB ---
cc: BROOKE JOLLEY DATE OF CONSULTATION: 09/15/2017 REASON FOR CONSULTATION Alternative anticonvulsant therapy. HISTORY OF PRESENT ILLNESS Mr. Eduardo is a very nice 42-year-old man who has a history of generalized seizure disorder since age 14. He states he had some type of neurosurgical procedure to close a "gap" in his brain. In the past he was on Depakote, Tegretol and Keppra but these apparently did not control his seizures. He more recently has been on Trileptal with good control. He states that if he misses a dose, however, he will have a breakthrough seizure. The patient also has a cadaveric kidney transplant which was done September 01, 2017. He has been on tacrolimus and the levels have been fluctuating without reason and there is concern of interaction between the Trileptal and tacrolimus and alternative anticonvulsants are being sought. NEUROLOGIC EXAMINATION He is alert, oriented, no asymmetries, on motor examination, no cranial nerve deficits. IMPRESSION Seizure disorder. I would recommend tapering off of the Trileptal. Alternative agents which could be considered include Lamictal or Vimpat, neither of which have any known interactions with tacrolimus. Starting the patient on Vimpat and will adjust the dose accordingly for renal impairment. With the maximum dose being 300 mg daily and will follow levels. MD AFTAB Cornell/DOTTIEL /8:18 AM /8:26 AM
[2017-09-15] MEDS: predniSONE 20 MG TAB PO SCH (08:41)
[2017-09-15] MEDS: CALCIUM CARBONATE 500 MG CHEWABLE TAB CHEW SCH ×2 (08:41→20:58)
[2017-09-15] MEDS: OXcarbazepine 600 MG TAB PO SCH ×3 (08:41→17:32)
[2017-09-15] MEDS: METOPROLOL TARTRATE 25 MG TAB PO SCH (08:41)
[2017-09-15] MEDS: DOCUSATE SODIUM 50 MG/SENNA 8.6 MG TAB PO SCH ×2 (08:41→20:58)
[2017-09-15] MEDS: TAMSULOSIN HCL 0.4 MG CAP PO SCH (08:41)
[2017-09-15] MEDS: PANTOPRAZOLE SOD 20 MG DELAYED RELEASE TAB PO SCH (08:41)
[2017-09-15] MEDS: SODIUM CHLORIDE 0.9% FLUSH 10 ML FLUSH IV FLUSH SCH ×2 (08:42→20:57)
[2017-09-15] MEDS: NYSTATIN SUSP 500,000 U/5 ML CUP SWISH-SWAL SCH ×3 (08:42→17:32)
[2017-09-15] MEDS: LACOSAMIDE 100 MG TAB PO SCH ×2 (10:10→20:58)
--- NOTE | 2017-09-15 11:16 | HHI.NPPN ---
Subjective History of Present Illness Hx of Cadaveric Kidney Transplant on 09/01/17 Additional Remarks passing urine denies complaints Objective Data Data Vital Signs Date Time Temp Pulse Resp B/P (MAP) Pulse Ox O2 Delivery O2 Flow Rate FiO2 09/15/17 08:30 97.8 63 18 158/91 (113) 100 09/15/17 07:01 59 09/15/17 06:00 62 09/15/17 05:00 80 09/15/17 04:26 66 09/15/17 04:00 64 09/15/17 03:00 97.4 62 144/87 (106) 99 09/15/17 03:00 64 09/15/17 02:00 58 09/15/17 01:00 58 09/15/17 00:00 58 09/14/17 23:00 63 09/14/17 23:00 97.4 63 16 135/81 (99) 99 09/14/17 22:00 62 09/14/17 21:00 64 09/14/17 19:00 97.9 66 16 142/86 (104) 99 09/14/17 19:00 64 09/14/17 18:00 68 09/14/17 17:00 66 09/14/17 16:00 69 09/14/17 15:25 97.7 72 16 144/81 (102) 100 09/14/17 15:00 70 09/14/17 14:00 66 09/14/17 13:00 82 09/14/17 12:00 66 09/14/17 11:42 97.7 66 16 131/81 (98) 100 09/14/17 11:21 62 -: 09/15/17 0527 09/15/17 0527 Physical Exam General Appearance: Well Developed, Well Nourished Neck Neck Exam: Neck Supple Pulmonary Resp Exam: Clear Bilaterally, Breath Sounds Equal Cardiology CV Exam: Regular, Normal Sinus Rhythm Gastrointestinal/Abdomen GI Exam: Soft, Bowel Sounds Present GI Remarks incision clean Extremeties Extremities Exam: No Edema Neurologic Neuro Exam: Alert, Awake Assessment/Plan Problem List: (1) Renal transplant, status post ICD Codes: Z94.0 - Kidney transplant status Plan: doing well cr declined slightly, possible prolong ATN/rejection or BK virus infection suspected had a Kidney Biopsy doing well Cr declined slightly monitor I/O BMP follow FK 3.5 adjust Tacrolimus 7 mg q 12 appreciate Neurology help suspect drug to drug interaction between Trileptal and Tacrolimus on Vimpat taper off Trileptal (2) HTN (hypertension) ICD Codes: I10 - HTN (hypertension) Status: Chronic Plan: stable (3) Seizure disorder ICD Codes: G40.909 - Epilepsy, unspecified, not intractable, without status epilepticus Status: Acute Plan: on Trileptal Problem Qualifiers (1) HTN (hypertension): Qualified Codes: I10 - Essential (primary) hypertension Jose Antonio Shin MD Sep 15, 2017 11:16
[2017-09-15] MEDS: SULFAMETHOXAZOLE-TRIMETHOPRIM DS 800-160 MG TAB PO SCH (16:25)
[2017-09-15] MEDS ORDERED: TACROLIMUS 1 MG CAP PO ONE (21:45)
[2017-09-16] VITALS (23 sets, daily range): BP systolic 130–144; BP diastolic 74–90; PULSE 62–89; RESP 16–18; TEMP 97.4–98.9; O2SAT 95–99
[2017-09-16] MEDS: TACROLIMUS 5 MG CAP PO SCH ×2 (06:13→18:26)
[2017-09-16] MEDS: MYCOPHENOLATE MOFETIL 250 MG CAP PO SCH ×2 (06:13→18:29)
[2017-09-16] MEDS: TACROLIMUS 1 MG CAP PO SCH ×2 (06:13→18:26)
[2017-09-16 07:03] LABS: AUTOMATED NEUTROPHIL # 2.8 TH/MM3 (1.8-7.7); BASOPHIL # 0.1 TH/MM3 (0-0.2); EOSINOPHIL # 0.1 TH/MM3 (0-0.4); EOSINOPHIL % 3.9 % (0.0-4.0); HEMATOCRIT 26.9 % (39.0-51.0); HEMO FLAGS DIFF FINAL; LYMPH % 7.6 % (9.0-44.0); LYMPHOCYTE # 0.3 TH/MM3 (1.0-4.8); MEAN CELL VOLUME 91.9 FL (80.0-100.0); MEAN CORPUSCULAR HEMOGLOBIN 29.7 PG (27.0-34.0); MEAN CORPUSCULAR HGB CONC 32.3 % (32.0-36.0); MONO % 12.2 % (0.0-8.0); NEUT % 73.3 % (16.0-70.0); PLATELET COUNT 247 TH/MM3 (150-450); RED BLOOD COUNT 2.92 MIL/MM3 (4.50-5.90); RED CELL DISTRIBUTION WIDTH 13.6 % (11.6-17.2); WHITE BLOOD COUNT 3.8 TH/MM3 (4.0-11.0)
[2017-09-16 07:17] LABS: BICARBONATE 20.5 MEQ/L (21.0-32.0); MAGNESIUM 2.6 MG/DL (1.5-2.5); POTASSIUM 4.7 MEQ/L (3.5-5.1)
[2017-09-16] MEDS: LACOSAMIDE 100 MG TAB PO SCH ×2 (09:51→21:21)
[2017-09-16] MEDS: TAMSULOSIN HCL 0.4 MG CAP PO SCH (09:51)
[2017-09-16] MEDS: CALCIUM CARBONATE 500 MG CHEWABLE TAB CHEW SCH ×2 (09:51→21:21)
[2017-09-16] MEDS: DOCUSATE SODIUM 50 MG/SENNA 8.6 MG TAB PO SCH ×2 (09:51→21:21)
[2017-09-16] MEDS: OXcarbazepine 600 MG TAB PO SCH ×3 (09:51→18:25)
[2017-09-16] MEDS: PANTOPRAZOLE SOD 20 MG DELAYED RELEASE TAB PO SCH (09:51)
[2017-09-16] MEDS: predniSONE 20 MG TAB PO SCH (09:52)
[2017-09-16] MEDS: NYSTATIN SUSP 500,000 U/5 ML CUP SWISH-SWAL SCH ×3 (09:52→18:25)
[2017-09-16] MEDS: METOPROLOL TARTRATE 25 MG TAB PO SCH (09:52)
[2017-09-16] MEDS: SODIUM CHLORIDE 0.9% FLUSH 10 ML FLUSH IV FLUSH SCH ×2 (09:53→21:22)
--- NOTE | 2017-09-16 11:39 | HHI.NPPN ---
Subjective History of Present Illness Hx of Cadaveric Kidney Transplant on 09/01/17 Additional Remarks passing urine denies complaints Objective Data Data Vital Signs Date Time Temp Pulse Resp B/P (MAP) Pulse Ox O2 Delivery O2 Flow Rate FiO2 09/16/17 10:00 84 09/16/17 09:00 77 09/16/17 08:00 79 09/16/17 07:00 70 09/16/17 07:00 98.4 82 16 143/85 (104) 98 09/16/17 06:04 84 09/16/17 05:00 68 09/16/17 04:00 65 09/16/17 03:00 65 09/16/17 03:00 97.6 75 16 144/90 (108) 99 09/16/17 02:13 68 09/16/17 01:00 68 09/16/17 00:00 64 09/15/17 23:59 16 09/15/17 23:00 98.1 65 16 154/86 (108) 97 09/15/17 23:00 60 09/15/17 22:00 66 09/15/17 21:00 68 09/15/17 20:00 70 09/15/17 19:00 98.0 73 18 146/83 (104) 100 09/15/17 19:00 80 09/15/17 18:01 72 09/15/17 17:00 70 09/15/17 16:01 70 09/15/17 15:01 98.2 74 18 152/84 (106) 100 09/15/17 15:00 73 09/15/17 14:00 76 09/15/17 13:01 70 09/15/17 12:00 68 -: 09/16/17 0502 09/16/17 0502 Physical Exam General Appearance: Well Developed, Well Nourished Neck Neck Exam: Neck Supple Pulmonary Resp Exam: Clear Bilaterally, Breath Sounds Equal Cardiology CV Exam: Regular, Normal Sinus Rhythm Gastrointestinal/Abdomen GI Exam: Soft, Bowel Sounds Present GI Remarks incision clean Extremeties Extremities Exam: No Edema Neurologic Neuro Exam: Alert, Awake Assessment/Plan Problem List: (1) Renal transplant, status post ICD Codes: Z94.0 - Kidney transplant status Plan: doing well cr declined slightly, possible prolong ATN/rejection or BK virus infection suspected had a Kidney Biopsy doing well Cr declined slightly monitor I/O BMP follow FK levels appreciate Neurology help suspect drug to drug interaction between Trileptal and Tacrolimus on Vimpat taper off Trileptal Neuro to follow 315 pm biopsy showed borderline Acute rejection/ATN SoluMedrol ordered D/w team Dr. Portillo await Dr. Albright to address stopping Trileptal we are having difficulty in maintaining Tacrolimus in therapeutic range (2) HTN (hypertension) ICD Codes: I10 - HTN (hypertension) Status: Chronic Plan: stable (3) Seizure disorder ICD Codes: G40.909 - Epilepsy, unspecified, not intractable, without status epilepticus Status: Acute Plan: on Trileptal Problem Qualifiers (1) HTN (hypertension): Qualified Codes: I10 - Essential (primary) hypertension Jose Antonio Shin MD Sep 16, 2017 11:39
[2017-09-16] MEDS ORDERED: methylPREDNISolone SOD SUCC 125 MG/2 ML VIAL IV PUSH ONE (15:30)
[2017-09-16] MEDS ORDERED: methylPREDNISolone SO SUCC INJ 500 MG in DEXTROSE 5% IN WATER 100ML INJ 100 ML IV ONE ×2 (16:00)
[2017-09-16] MEDS: oxyCODONE/ACETAMINOPHEN 5 MG/325 MG TAB PO PRN (21:37)
[2017-09-17] VITALS (24 sets, daily range): BP systolic 131–149; BP diastolic 79–86; PULSE 61–83; RESP 14–18; TEMP 97.3–98; O2SAT 98–100
[2017-09-17] MEDS: MYCOPHENOLATE MOFETIL 250 MG CAP PO SCH ×2 (06:19→17:37)
[2017-09-17] MEDS: TACROLIMUS 5 MG CAP PO SCH ×2 (06:19→17:30)
[2017-09-17] MEDS: TACROLIMUS 1 MG CAP PO SCH ×2 (06:20→17:30)
[2017-09-17 06:25] LABS: AUTOMATED NEUTROPHIL # 2.8 TH/MM3 (1.8-7.7); BASOPHIL % 0.7 % (0.0-2.0); HEMATOCRIT 28.1 % (39.0-51.0); HEMO FLAGS DIFF FINAL; LYMPH % 3.2 % (9.0-44.0); LYMPHOCYTE # 0.1 TH/MM3 (1.0-4.8); MEAN CELL VOLUME 91.9 FL (80.0-100.0); MEAN CORPUSCULAR HEMOGLOBIN 29.5 PG (27.0-34.0); MEAN CORPUSCULAR HGB CONC 32.1 % (32.0-36.0); MONO % 3.7 % (0.0-8.0); NEUT % 92.4 % (16.0-70.0); PLATELET COUNT 274 TH/MM3 (150-450); RED BLOOD COUNT 3.06 MIL/MM3 (4.50-5.90); RED CELL DISTRIBUTION WIDTH 13.5 % (11.6-17.2)
[2017-09-17 06:53] LABS: ANION GAP 9 MEQ/L (5-15); AST (GOT) 9 U/L (15-37); BLOOD UREA NITROGEN 71 MG/DL (7-18); CHLORIDE 109 MEQ/L (98-107); GLOMERULAR FILTRATION RATE 16 ML/MIN (>89); MAGNESIUM 2.6 MG/DL (1.5-2.5); POTASSIUM 5.5 MEQ/L (3.5-5.1); SODIUM (NA) 138 MEQ/L (136-145)
[2017-09-17 07:09] LABS: ALKALINE PHOSPHATASE 164 U/L (45-117); ALT (GPT) 20 U/L (12-78); TOTAL BILIRUBIN ADULT 0.4 MG/DL (0.2-1.0)
[2017-09-17] MEDS: METOPROLOL TARTRATE 25 MG TAB PO SCH (08:40)
[2017-09-17] MEDS: LACOSAMIDE 100 MG TAB PO SCH ×2 (08:40→17:30)
[2017-09-17] MEDS: NYSTATIN SUSP 500,000 U/5 ML CUP SWISH-SWAL SCH ×3 (08:40→17:31)
[2017-09-17] MEDS: predniSONE 20 MG TAB PO SCH (08:40)
[2017-09-17] MEDS: CALCIUM CARBONATE 500 MG CHEWABLE TAB CHEW SCH ×2 (08:40→22:05)
[2017-09-17] MEDS: TAMSULOSIN HCL 0.4 MG CAP PO SCH (08:40)
[2017-09-17] MEDS: PANTOPRAZOLE SOD 20 MG DELAYED RELEASE TAB PO SCH (08:41)
[2017-09-17] MEDS: OXcarbazepine 600 MG TAB PO SCH ×3 (08:41→22:05)
[2017-09-17] MEDS: DOCUSATE SODIUM 50 MG/SENNA 8.6 MG TAB PO SCH ×2 (08:41→22:05)
[2017-09-17] MEDS: SODIUM CHLORIDE 0.9% FLUSH 10 ML FLUSH IV FLUSH SCH ×2 (08:43→21:00)
[2017-09-17] MEDS ORDERED: LACTATED RINGER'S 1000 ML INJ 1,000 ML IV SCH (10:00)
--- NOTE | 2017-09-17 13:22 | HHI.PR ---
Review/Management Diagnosis history of sz---stable Plan start to taper the trileptal---600 mg bid for one week, then 600 mg daily for one week then stop increase vimpat to 100 mg tid. Diagnosis/Plan: Subjective Subjective Comments No acute events reported tolerating vimpat well Active Medications Current Medications Medications (Trade) Dose Ordered Sig/Gabriella Route Start Time Stop Time Status Last Admin (Tums Chew) 500 mg BID CHEW 09/12/17 21:00 09/17/17 08:40 (Lopressor) 12.5 mg DAILY PO 09/13/17 09:00 09/17/17 08:40 (Cellcept) 1,000 mg BID@0600,1800 PO 09/12/17 18:00 09/17/17 06:19 (Mycostatin Liq) 5 ml TID SWISH-SWAL 09/12/17 18:00 09/17/17 13:00 (Trileptal) 600 mg TID PO 09/12/17 18:00 09/17/17 13:00 (Percocet 5-325 Mg) 1 tab Q6H PRN PO 09/12/17 13:45 09/16/17 21:37 (Protonix) 20 mg DAILY PO 09/13/17 09:00 09/17/17 08:41 (Deltasone) 20 mg DAILY PO 09/13/17 09:00 09/17/17 08:40 (Bactrim Ds 800-160 Mg) 1 tab MoWeFr PO 09/12/17 15:00 09/15/17 16:25 (Flomax) 0.4 mg DAILY PO 09/13/17 09:00 09/17/17 08:40 (NS Flush) 2 ml UNSCH PRN IV FLUSH 09/12/17 13:45 (NS Flush) 2 ml BID IV FLUSH 09/12/17 21:00 09/17/17 08:43 (Tylenol) 650 mg Q4H PRN PO 09/12/17 13:45 (Zofran Inj) 4 mg Q6H PRN IVP 09/12/17 13:45 (Ambien) 5 mg HS PRN PO 09/12/17 21:00 (Narcan Inj) 0.4 mg UNSCH PRN IV PUSH 09/12/17 13:45 (Ruth-Colace) 1 tab BID PO 09/12/17 21:00 09/17/17 08:41 (Dulcolax Supp) 10 mg DAILY PRN RECTAL 09/12/17 13:45 (Pill Splitter) 1 ea UNSCH PRN OTHER 09/12/17 14:15 (Prograf) 5 mg DAILY@06,18 PO 09/14/17 18:00 09/17/17 06:19 (Vimpat) 100 mg BID PO 09/15/17 09:00 09/17/17 08:40 (Prograf) 3 mg DAILY@06,18 PO 09/17/17 06:00 09/17/17 06:20 Lactated Ringer's 1,000 ml @ 100 mls/hr Q10H IV 09/17/17 10:00 09/17/17 10:00 Allergies Allergies Coded Allergies lisinopril (Unverified Adverse Reaction, Severe, 09/11/17) Exam I&O / VS Vital Signs Date Time Temp Pulse Resp B/P (MAP) Pulse Ox O2 Delivery O2 Flow Rate FiO2 09/17/17 12:00 75 09/17/17 11:00 97.3 61 18 131/79 (96) 100 09/17/17 11:00 66 09/17/17 10:00 68 09/17/17 09:00 66 09/17/17 08:00 68 09/17/17 07:00 97.7 71 18 138/82 (100) 100 09/17/17 07:00 71 09/17/17 06:00 79 09/17/17 05:00 80 09/17/17 04:00 80 09/17/17 03:00 66 09/17/17 03:00 97.8 83 14 138/81 (100) 98 09/17/17 02:00 66 09/17/17 01:00 72 09/17/17 00:00 68 09/16/17 23:02 16 09/16/17 23:00 64 09/16/17 23:00 97.8 64 16 141/80 (100) 95 09/16/17 22:00 66 09/16/17 21:00 72 09/16/17 20:00 82 09/16/17 19:00 70 09/16/17 19:00 97.8 66 18 130/80 (97) 97 09/16/17 18:35 78 09/16/17 16:00 89 09/16/17 15:00 98.9 74 16 138/74 (95) 96 09/16/17 15:00 77 09/16/17 14:00 76 Exam Comments alert speech normal cn intact motor--5/5 BUE and BLE Objective Micro and Labs Laboratory Tests Test 09/17/17 04:53 White Blood Count 3.0 Red Blood Count 3.06 Hemoglobin 9.0 Hematocrit 28.1 Mean Corpuscular Volume 91.9 Mean Corpuscular Hemoglobin 29.5 Mean Corpuscular Hemoglobin Concent 32.1 Red Cell Distribution Width 13.5 Platelet Count 274 Mean Platelet Volume 7.6 Neutrophils (%) (Auto) 92.4 Lymphocytes (%) (Auto) 3.2 Monocytes (%) (Auto) 3.7 Eosinophils (%) (Auto) 0.0 Basophils (%) (Auto) 0.7 Neutrophils # (Auto) 2.8 Lymphocytes # (Auto) 0.1 Monocytes # (Auto) 0.1 Eosinophils # (Auto) 0.0 Basophils # (Auto) 0.0 CBC Comment DIFF FINAL Differential Comment Blood Urea Nitrogen 71 Creatinine 4.20 Random Glucose 102 Total Protein 7.1 Albumin 3.3 Calcium Level 8.5 Phosphorus Level 5.4 Magnesium Level 2.6 Alkaline Phosphatase 164 Aspartate Amino Transf (AST/SGOT) 9 Alanine Aminotransferase (ALT/SGPT) 20 Total Bilirubin 0.4 Sodium Level 138 Potassium Level 5.5 Chloride Level 109 Carbon Dioxide Level 20.0 Anion Gap 9 Estimat Glomerular Filtration Rate 16 Tacrolimus (Prograf) Level 6.3 Date/Time Source Procedure Growth Status 09/12/17 15:48 Urine Clean Catch Urine Culture - Final NO GROWTH IN 48 HOURS. Complete Bhavesh Albright PhD MD Sep 17, 2017 13:22
--- NOTE | 2017-09-17 13:57 | HHI.NPPN ---
Subjective History of Present Illness Hx of Cadaveric Kidney Transplant on 09/01/17 Additional Remarks passing urine denies complaints Objective Data Data Vital Signs Date Time Temp Pulse Resp B/P (MAP) Pulse Ox O2 Delivery O2 Flow Rate FiO2 09/17/17 12:00 75 09/17/17 11:00 97.3 61 18 131/79 (96) 100 09/17/17 11:00 66 09/17/17 10:00 68 09/17/17 09:00 66 09/17/17 08:00 68 09/17/17 07:00 97.7 71 18 138/82 (100) 100 09/17/17 07:00 71 09/17/17 06:00 79 09/17/17 05:00 80 09/17/17 04:00 80 09/17/17 03:00 66 09/17/17 03:00 97.8 83 14 138/81 (100) 98 09/17/17 02:00 66 09/17/17 01:00 72 09/17/17 00:00 68 09/16/17 23:02 16 09/16/17 23:00 64 09/16/17 23:00 97.8 64 16 141/80 (100) 95 09/16/17 22:00 66 09/16/17 21:00 72 09/16/17 20:00 82 09/16/17 19:00 70 09/16/17 19:00 97.8 66 18 130/80 (97) 97 09/16/17 18:35 78 09/16/17 16:00 89 09/16/17 15:00 98.9 74 16 138/74 (95) 96 09/16/17 15:00 77 09/16/17 14:00 76 -: 09/17/17 0453 09/17/17 0453 Physical Exam General Appearance: Well Developed, Well Nourished Neck Neck Exam: Neck Supple Pulmonary Resp Exam: Clear Bilaterally, Breath Sounds Equal Cardiology CV Exam: Regular, Normal Sinus Rhythm Gastrointestinal/Abdomen GI Exam: Soft, Bowel Sounds Present GI Remarks incision clean Extremeties Extremities Exam: No Edema Neurologic Neuro Exam: Alert, Awake Assessment/Plan Problem List: (1) Renal transplant, status post ICD Codes: Z94.0 - Kidney transplant status Plan: Discussed with Dr. Portillo Creatinine went up possible dehydration as he has lost weight and increased urine output I will switch to NS at 100 cc/hr Follow BMP follow FK levels 6.3 appreciate Neurology help suspect drug to drug interaction between Trileptal and Tacrolimus on Vimpat taper off Trileptal Neuro to follow, discussed with Dr. Albright he has lowered Trileptal 600 mg twice a day biopsy showed borderline Acute rejection/ATN SoluMedrol given yesterday 3 pulse Patient is maintained on prednisone 20 mg, Prograf 8 mg twice a day and CellCept 1000 mg twice a day (2) HTN (hypertension) ICD Codes: I10 - HTN (hypertension) Status: Chronic Plan: stable (3) Seizure disorder ICD Codes: G40.909 - Epilepsy, unspecified, not intractable, without status epilepticus Status: Acute Plan: on Trileptal taper Vimpat added Problem Qualifiers (1) HTN (hypertension): Qualified Codes: I10 - Essential (primary) hypertension Jose Antonio Shin MD Sep 17, 2017 13:56
[2017-09-17] MEDS: SODIUM CHLOR 0.9% 1000 ML INJ 1,000 ML IV SCH (14:00)
[2017-09-17] MEDS: SULFAMETHOXAZOLE-TRIMETHOPRIM DS 800-160 MG TAB PO SCH (15:00)
[2017-09-17] MEDS: oxyCODONE/ACETAMINOPHEN 5 MG/325 MG TAB PO PRN (22:09)
[2017-09-18] VITALS (15 sets, daily range): BP systolic 127–152; BP diastolic 74–91; PULSE 57–73; RESP 16–18; TEMP 97.8–98; O2SAT 98–100
[2017-09-18] MEDS: TACROLIMUS 1 MG CAP PO SCH (06:27)
[2017-09-18] MEDS: TACROLIMUS 5 MG CAP PO SCH (06:27)
[2017-09-18] MEDS: MYCOPHENOLATE MOFETIL 250 MG CAP PO SCH (06:28)
[2017-09-18 07:10] LABS: AUTOMATED NEUTROPHIL # 2.2 TH/MM3 (1.8-7.7); BASOPHIL # 0.1 TH/MM3 (0-0.2); BASOPHIL % 3.1 % (0.0-2.0); EOSINOPHIL # 0.1 TH/MM3 (0-0.4); EOSINOPHIL % 3.2 % (0.0-4.0); HEMATOCRIT 26.9 % (39.0-51.0); HEMO FLAGS DIFF FINAL; LYMPH % 8.8 % (9.0-44.0); LYMPHOCYTE # 0.3 TH/MM3 (1.0-4.8); MEAN CELL VOLUME 91.1 FL (80.0-100.0); MEAN CORPUSCULAR HEMOGLOBIN 30.1 PG (27.0-34.0); MONO % 13.2 % (0.0-8.0); NEUT % 71.7 % (16.0-70.0); PLATELET COUNT 239 TH/MM3 (150-450); RED BLOOD COUNT 2.96 MIL/MM3 (4.50-5.90); RED CELL DISTRIBUTION WIDTH 13.4 % (11.6-17.2)
[2017-09-18 07:39] LABS: BICARBONATE 20.3 MEQ/L (21.0-32.0); MAGNESIUM 2.5 MG/DL (1.5-2.5); POTASSIUM 4.6 MEQ/L (3.5-5.1)
[2017-09-18] MEDS: CALCIUM CARBONATE 500 MG CHEWABLE TAB CHEW SCH (08:51)
[2017-09-18] MEDS: METOPROLOL TARTRATE 25 MG TAB PO SCH (08:51)
[2017-09-18] MEDS: DOCUSATE SODIUM 50 MG/SENNA 8.6 MG TAB PO SCH (08:52)
[2017-09-18] MEDS: LACOSAMIDE 100 MG TAB PO SCH ×2 (08:52→13:26)
[2017-09-18] MEDS: OXcarbazepine 600 MG TAB PO SCH (08:52)
[2017-09-18] MEDS: TAMSULOSIN HCL 0.4 MG CAP PO SCH (08:52)
[2017-09-18] MEDS: predniSONE 20 MG TAB PO SCH (08:52)
[2017-09-18] MEDS: NYSTATIN SUSP 500,000 U/5 ML CUP SWISH-SWAL SCH ×2 (08:52→13:26)
[2017-09-18] MEDS: SODIUM CHLORIDE 0.9% FLUSH 10 ML FLUSH IV FLUSH SCH (08:55)
[2017-09-18] MEDS: PANTOPRAZOLE SOD 20 MG DELAYED RELEASE TAB PO SCH (08:58)
[2017-09-18] MEDS: SODIUM CHLOR 0.9% 1000 ML INJ 1,000 ML IV SCH ×2 (10:47)
--- NOTE | 2017-09-18 14:48 | HHI.DS ---
Discharge Summary Admission Date Sep 12, 2017 at 12:53 Admitting Diagnosis ARF Post Kidney transplant (1) Acute renal failure Plan: To get kidney ultrasound, hydration, BK virus PCR, consult surgery And kidney biopsy planned for tomorrow Patient explaining the procedure Continue to hydrate Continue with Prograf, prednisone and CellCept Discussed with Dr. Portillo give Solu-Medrol 250 mg IV 1 Adjust tacrolimus 2 mg every 12 HR ICD Codes: N17.9 - Acute renal failure Status: Acute (2) Renal transplant, status post Plan: Ultrasound and kidney biopsy requested ICD Codes: Z94.0 - Kidney transplant status (3) HTN (hypertension) Plan: Continue to monitor ICD Codes: I10 - HTN (hypertension) Status: Chronic Brief History Patient is a 42-year-old male who has received cadaveric kidney transplant on 09/01/17, postoperative course was unremarkable and he made recovery he was discharged over the weekend was doing well however he had constipation and took magnesium citrate, he stated that he did a lot of training passed stools creatinine yesterday went up to 3.7 and draped to 4.26, he has to come to emergency last night as he notices blood stained secretions on his shirt and he placed a dressing over his surgical wound and it got soaked , in the emergency he was examined by the ER physician and he notices little serosanguineous secretion and stated to follow up with the transplant team in the morning, he denies any abdominal pain he is still passing urine, he has BK virus in the urine. Tacrolimus levels were decreasing to 6.5 from 7.7 yesterday. CBC/BMP: 09/18/17 0523 09/18/17 0523 Significant Findings Laboratory Tests Test 09/16/17 05:02 09/17/17 04:53 09/18/17 05:23 White Blood Count 3.8 TH/MM3 (4.0-11.0) 3.0 TH/MM3 (4.0-11.0) 3.0 TH/MM3 (4.0-11.0) Red Blood Count 2.92 MIL/MM3 (4.50-5.90) 3.06 MIL/MM3 (4.50-5.90) 2.96 MIL/MM3 (4.50-5.90) Hemoglobin 8.7 GM/DL (13.0-17.0) 9.0 GM/DL (13.0-17.0) 8.9 GM/DL (13.0-17.0) Hematocrit 26.9 % (39.0-51.0) 28.1 % (39.0-51.0) 26.9 % (39.0-51.0) Neutrophils (%) (Auto) 73.3 % (16.0-70.0) 92.4 % (16.0-70.0) 71.7 % (16.0-70.0) Lymphocytes (%) (Auto) 7.6 % (9.0-44.0) 3.2 % (9.0-44.0) 8.8 % (9.0-44.0) Monocytes (%) (Auto) 12.2 % (0.0-8.0) 13.2 % (0.0-8.0) Basophils (%) (Auto) 3.0 % (0.0-2.0) 3.1 % (0.0-2.0) Lymphocytes # (Auto) 0.3 TH/MM3 (1.0-4.8) 0.1 TH/MM3 (1.0-4.8) 0.3 TH/MM3 (1.0-4.8) Blood Urea Nitrogen 65 MG/DL (7-18) 71 MG/DL (7-18) 67 MG/DL (7-18) Creatinine 3.96 MG/DL (0.60-1.30) 4.20 MG/DL (0.60-1.30) 3.96 MG/DL (0.60-1.30) Calcium Level 8.4 MG/DL (8.5-10.1) 8.2 MG/DL (8.5-10.1) Magnesium Level 2.6 MG/DL (1.5-2.5) 2.6 MG/DL (1.5-2.5) Chloride Level 111 MEQ/L (98-107) 109 MEQ/L (98-107) 110 MEQ/L (98-107) Carbon Dioxide Level 20.5 MEQ/L (21.0-32.0) 20.0 MEQ/L (21.0-32.0) 20.3 MEQ/L (21.0-32.0) Estimat Glomerular Filtration Rate 17 ML/MIN (>89) 16 ML/MIN (>89) 17 ML/MIN (>89) Tacrolimus (Prograf) Level 4.7 NG/ML (5.0-20.0) Albumin 3.3 GM/DL (3.4-5.0) Phosphorus Level 5.4 MG/DL (2.5-4.9) Alkaline Phosphatase 164 U/L (45-117) Aspartate Amino Transf (AST/SGOT) 9 U/L (15-37) Potassium Level 5.5 MEQ/L (3.5-5.1) PE at Discharge GENERAL: Well-nourished, well-developed patient. SKIN: Warm and dry. HEAD: Normocephalic. EYES: No scleral icterus. No injection or drainage. NECK: Supple, trachea midline. No JVD or lymphadenopathy. CARDIOVASCULAR: Regular rate and rhythm without murmurs, gallops, or rubs. RESPIRATORY: Breath sounds equal bilaterally. No accessory muscle use. GASTROINTESTINAL: Abdomen soft, non-tender, nondistended. Staple in place right lower abdomen incision EXTREMITIES: No cyanosis, or edema. NEUROLOGICAL: Awake, alert, and oriented x 3. Non-focal. Hospital Course Patient had a kidney biopsy and given hydration and his creatinine was fluctuating the biopsy results showed borderline cellular rejection, ATN, patient did receive Solu-Medrol to 50 mg 2 doses and 500 mg final dose he was maintained on Prograf which was increased to 9 mg twice a day, prednisone 20 mg daily, mycophenolate 1000 twice a day, he did have dehydration and that he was given IV fluids his creatinine remained stable at 3.9 he was instructed to drink water and do blood tests in the morning Pt Condition on Discharge: Good Discharge Disposition: Discharge Home Discharge Instructions DIET: Follow Instructions for: As Tolerated, No Restrictions Activities you can perform: Regular-No Restrictions, Shower Only-No Bath Jose Antonio Shin MD Sep 18, 2017 14:48
--- NOTE | 2017-09-18 14:55 | PHATRASOAP ---
Date/Time: 09/18/17 5962 Pharmacist assessment of kidney transplant patient: Reviewed patient active medication list and noted no drug interaction. Pharmacist: Segun Smith PharmD Signature on file
[2017-09-18] MEDS ORDERED: TACR1 PO (15:02)
[2017-09-18] MEDS ORDERED: TACR5 PO (15:02)
[2017-09-18] MEDS ORDERED: LACO100 PO (15:02)
[2017-09-18] MEDS ORDERED: OXCA600T PO (15:02)
[2017-09-18] MEDS ORDERED: TACROLIMUS 1 MG CAP PO SCH (18:00)
== END 2017-09-18 15:33 | disposition home or self-care (01) | DRG 683 ==
LOC: HCIS 12:53
PROVIDERS: ADMIT Internal Medicine Nephrology; ATTEND Internal Medicine Nephrology
PROC: 0TB03ZX Excision of Right Kidney, Percutaneous Approach, Diagnostic (ICD-10-PCS; principal; 2017-09-13)
DX: N17.0 Acute kidney failure with tubular necrosis (principal); I12.0 Hypertensive chronic kidney disease with stage 5 chronic kidney disease or end stage renal disease; Z94.0 Kidney transplant status; N18.6 End stage renal disease; E86.0 Dehydration; M10.9 Gout, unspecified; G40.409 Other generalized epilepsy and epileptic syndromes, not intractable, without status epilepticus; K59.00 Constipation, unspecified; Z79.52 Long term (current) use of systemic steroids; Z87.442 Personal history of urinary calculi; Z98.84 Bariatric surgery status
CPT/HCPCS: 50200; 76776; 76937; 76942; 80048; 80053; 80197; 81001; 83735; 84100; 85025; 85610; 85730; 87086; 99152; 99153; J2250; J2930; J3010; J7030; J7120; J7507; J7512; J7517

== ENCOUNTER 2017-11-10 12:26 | Inpatient (IN) | payer MEDICARE, MEDICAID ==
[2017-11-10] VITALS (11 sets, daily range): BP systolic 116–135; BP diastolic 70–82; PULSE 55–76; RESP 16–18; TEMP 98.4–98.5; O2SAT 100
[~2017-11-10 12:26] MED LIST changes: +LACO100 PO; -NYST1000 SWISH-SWAL; -OXYC1TAB63 PO; +TACR5 PO; -TRIL600T PO
[2017-11-10] MEDS ORDERED: MULT-65 PO (13:50)
[2017-11-10] MEDS ORDERED: REGL5TAB PO (13:50)
[2017-11-10] MEDS ORDERED: MIRA3350 PO (13:50)
[2017-11-10] MEDS ORDERED: METOCLOPRAMIDE HCL 10 MG/2 ML VIAL IV PUSH PRN (14:00)
[2017-11-10] MEDS ORDERED: BISACODYL 10 MG SUPP RECTAL PRN (14:00)
[2017-11-10] MEDS: SODIUM CHLORIDE 0.9% FLUSH 10 ML FLUSH IV FLUSH SCH ×2 (14:00→21:00)
[2017-11-10] MEDS ORDERED: LACTULOSE SYRUP 20 GM/30 ML CUP PO PRN (14:00)
[2017-11-10] MEDS ORDERED: NALOXONE HCL 0.4 MG/ML AMP IV PUSH PRN (14:00)
[2017-11-10] MEDS ORDERED: SODIUM CHLORIDE 0.9% FLUSH 10 ML FLUSH IV FLUSH PRN (14:00)
[2017-11-10] MEDS ORDERED: SENNOSIDES 8.6 MG TAB PO PRN (14:00)
[2017-11-10] MEDS ORDERED: ACETAMINOPHEN 325 MG TAB PO PRN (14:00)
[2017-11-10] MEDS ORDERED: PILL SPLITTER OTHER PRN (14:30)
[2017-11-10] MEDS: SODIUM CHLOR 0.9% 1000 ML INJ 1,000 ML IV SCH (14:30)
--- NOTE | 2017-11-10 14:31 | HHI.HP ---
HPI Service Family Medicine Primary Care Physician Non-Staff Admission Diagnosis Acute renal failure Diagnoses: (1) Kidney transplant status, cadaveric Diagnosis: Principal (2) Acute renal failure Diagnosis: Principal Chief Complaint: Had elevated creatinine in the office International Travel<30 Days: No Contact w/Intl Traveler<30days: No Known Affected Area: No History of Present Illness Patient is a 42-year-old male with history of cadaveric kidney transplant 2 months ago at [facility] who was coming in for routine visit he has been working long hours keeping up with fluids he states that his appetite is not too good status post gastric bypass surgery and his creatinine gradually climbing up is 3.3, his BK titers were positive CellCept will decrease remains on prednisone 5 mg and Prograf 9 mg twice a day, he denies any other complaints he said he has been passing urine in did not notice any pain is any dysuria burning any fever or chills. He has history of ARF Biopsy showed mild early Rejection and ATN. Review of Systems Constitutional: COMPLAINS OF: Fatigue Gastrointestinal: COMPLAINS OF: Constipation 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 titer Gastric bypass seizure disorder Past Surgical History Cadaveric kidney transplant and 32,017 'Seizures brain surgery procedures Kidney stone surgery Kidney biopsy Reported Medications Reported Meds & Active Scripts Active Vimpat (Lacosamide) 100 Mg Tab 100 Mg PO TID 30 Days Prograf (Tacrolimus) 5 Mg Cap 5 Mg PO DAILY@06,18 30 Days Prograf (Tacrolimus) 1 Mg Cap 4 Mg PO DAILY@06,18 30 Days Reported Multi-Vitamin Daily (Multiple Vitamin) 1 Tab Tab 1 Tab PO DAILY Miralax Powder (Polyethylene Glycol 3350 Powder) 17 Gm Powd 17 Gm PO BID Mix and dissolve one measuring cap-ful (17 grams) in water or juice. Reglan (Metoclopramide HCl) 5 Mg Tab 5 Mg PO TIDAC Colace (Docusate Sodium) 100 Mg Capsule 100 Mg PO BID Flomax (Tamsulosin HCl) 0.4 Mg Cap 0.4 Mg PO DAILY Metoprolol Tartrate 25 Mg Tab 12.5 Mg PO DAILY 2000 Tums (Calcium Carbonate (Antacid)) 500 Mg Chew 500 Mg CHEW BID take at 1300 and 1800 Bactrim DS (Sulfamethoxazole-Trimethoprim) 800-160 Mg Tab 1 Tab PO MOWEFR Prednisone 20 Mg Tab 5 Mg PO DAILY Cellcept (Mycophenolate Mofetil) 250 Mg Cap 500 Mg PO BID 0500 and 1800 Pantoprazole (Pantoprazole Sodium) 20 Mg Tab 20 Mg PO DAILY Allergies: Coded Allergies: lisinopril (Unverified Adverse Reaction, Severe, 10/16/17) Angioedema Active Ordered Medications Current Medications Medications (Trade) Dose Ordered Sig/Gabriella Route Start Time Stop Time Status Last Admin Sodium Chloride 1,000 ml @ 100 mls/hr Q10H IV 11/10/17 14:30 (NS Flush) 2 ml UNSCH PRN IV FLUSH 11/10/17 14:00 (NS Flush) 2 ml BID IV FLUSH 11/10/17 14:00 11/10/17 14:00 (Tylenol) 650 mg Q4H PRN PO 11/10/17 14:00 (Reglan Inj) 5 mg Q6H PRN IV PUSH 11/10/17 14:00 UNV (Ambien) 5 mg HS PRN PO 11/10/17 21:00 (Narcan Inj) 0.4 mg UNSCH PRN IV PUSH 11/10/17 14:00 (Ruth-Colace) 1 tab BID PO 11/10/17 21:00 (Senokot) 17.2 mg Q12H PRN PO 11/10/17 14:00 (Dulcolax Supp) 10 mg DAILY PRN RECTAL 11/10/17 14:00 (Lactulose Liq) 30 ml DAILY PRN PO 11/10/17 14:00 (Tums Chew) 500 mg BID CHEW 11/10/17 21:00 (Vimpat) 100 mg TID PO 11/10/17 18:00 (Lopressor) 12.5 mg DAILY PO 11/11/17 09:00 (Cellcept) 500 mg BID PO 11/10/17 21:00 UNV (Protonix) 20 mg DAILY PO 11/11/17 09:00 (Deltasone) 5 mg DAILY PO 11/11/17 09:00 (Bactrim Ds 800-160 Mg) 1 tab MoWeFr PO 11/10/17 15:00 (Prograf) 4 mg DAILY@,18 PO 11/10/17 18:00 UNV (Prograf) 5 mg DAILY@,18 PO 11/10/17 18:00 UNV (Flomax) 0.4 mg DAILY PO 11/11/17 09:00 (Reglan) 5 mg TIDAC PO 11/10/17 17:00 (Theragran) 1 tab DAILY PO 11/11/17 09:00 (Pill Splitter) 1 ea UNSCH PRN OTHER 11/10/17 14:30 Family History Noncontributory Social History Denies smoking or alcohol Physical Exam Vital Signs GENERAL: Well-nourished, well-developed patient. SKIN: Warm and dry. HEAD: Normocephalic. EYES: No scleral icterus. No injection or drainage. NECK: Supple, trachea midline. No JVD or lymphadenopathy. CARDIOVASCULAR: Regular rate and rhythm without murmurs, gallops, or rubs. RESPIRATORY: Breath sounds equal bilaterally. No accessory muscle use. GASTROINTESTINAL: Abdomen soft, non-tender, nondistended. Incision is well- healed on the right lower abdominal EXTREMITIES: No cyanosis, or edema. NEUROLOGICAL: Awake, alert, and oriented x 3. Non-focal. Physical Exam GENERAL: This is a well-nourished, well-developed patient, in no apparent distress. SKIN: No rashes, ecchymoses or lesions. Cool and dry. HEAD: Atraumatic. Normocephalic. No temporal or scalp tenderness. EYES: Pupils equal round and reactive. Extraocular motions intact. No scleral icterus. No injection or drainage. ENT: Nose without bleeding, purulent drainage or septal hematoma. Throat without erythema, tonsillar hypertrophy or exudate. Uvula midline. Airway patent. NECK: Trachea midline. No JVD or lymphadenopathy. Supple, nontender, no meningeal signs. CARDIOVASCULAR: Regular rate and rhythm without murmurs, gallops, or rubs. RESPIRATORY: Clear to auscultation. Breath sounds equal bilaterally. No wheezes , rales, or rhonchi. GASTROINTESTINAL: Abdomen soft, non-tender, nondistended. No hepato-splenomegaly , or palpable masses. No guarding. MUSCULOSKELETAL: Extremities without clubbing, cyanosis, or edema. No joint tenderness, effusion, or edema noted. No calf tenderness. Negative Homans sign bilaterally. NEUROLOGICAL: Awake and alert. Cranial nerves II through XII intact. Motor and sensory grossly within normal limits. Five out of 5 muscle strength in all muscle groups. Normal speech. Caprini VTE Risk Assessment Caprini VTE Risk Assessment: No/Low Risk (score <= 1) Caprini Risk Assessment Model Point Value = 1 Point Value = 2 Point Value = 3 Point Value = 5 Age 41-60 Minor surgery BMI > 25 kg/m2 Swollen legs Varicose veins or History of unexplained or recurrent spontaneous Oral contraceptives or hormone replacement Sepsis (< 1 month) Serious lung disease, including pneumonia (< 1 month) Abnormal pulmonary function Acute myocardial infarction Congestive heart failure (< 1 month) History of inflammatory bowel disease Medical patient at bed rest Age 61-74 Arthroscopic surgery Major open surgery (> 45 min) Laparoscopic surgery (> 45 min) Malignancy Confined to bed (> 72 hours) Immobilizing plaster cast Central venous access Age >= 75 History of VTE Family history of VTE Factor V Leiden Prothrombin [id number] Lupus anticoagulant Anticardiolipin antibodies Elevated serum homocysteine Heparin-induced thrombocytopenia Other congenital or acquired thrombophilia Stroke (< 1 month) Elective arthroplasty Hip, pelvis, or leg fracture Acute spinal cord injury (< 1 month) Prophylaxis Regimen Total Risk Factor Score Risk Level Prophylaxis Regimen 0-1 Low Early ambulation 2 Moderate Order ONE of the following: *Sequential Compression Device (SCD) *Heparin 5000 units SQ BID 3-4 Higher Order ONE of the following medications: *Heparin 5000 units SQ TID *Enoxaparin/Lovenox 40 mg SQ daily (WT < 150 kg, CrCl > 30 mL/min) *Enoxaparin/Lovenox 30 mg SQ daily (WT < 150 kg, CrCl > 10-29 mL/min) *Enoxaparin/Lovenox 30 mg SQ BID (WT < 150 kg, CrCl > 30 mL/min) AND/OR *Sequential Compression Device (SCD) 5 or more Highest Order ONE of the following medications: *Heparin 5000 units SQ TID (Preferred with Epidurals) *Enoxaparin/Lovenox 40 mg SQ daily (WT < 150 kg, CrCl > 30 mL/min) *Enoxaparin/Lovenox 30 mg SQ daily (WT < 150 kg, CrCl > 10-29 mL/min) *Enoxaparin/Lovenox 30 mg SQ BID (WT < 150 kg, CrCl > 30 mL/min) AND *Sequential Compression Device (SCD) Assessment and Plan Problem List: (1) Acute renal failure ICD Codes: N17.9 - Acute renal failure Status: Acute Plan: I will hydrate him and repeat labs in the morning and continue with Prograf and prednisone and CellCept Differential includes acute renal failure due to rejection versus BK virus versus acute tubular necrosis rule out mechanical obstruction Follow ultrasound of the kidney results (2) Kidney transplant status, cadaveric ICD Codes: Z94.0 - Kidney transplant status Status: Acute Plan: Ultrasound of the kidney ordered biopsy ordered for tomorrow Physician Certification 2 Midnight Certification Type: Admission for Inpatient Services Order for Inpatient Services The services are ordered in accordance with Medicare regulations or non- Medicare payer requirements, as applicable. In the case of services not specified as inpatient-only, they are appropriately provided as inpatient services in accordance with the 2-midnight benchmark. Estimated LOS (days): 5 5 days is the estimated time the patient will need to remain in the hospital, assuming treatment plan goals are met and no additional complications. Post-Hospital Plan: Home Jose Antonio Shin MD Nov 10, 2017 14:31
[2017-11-10] MEDS: SULFAMETHOXAZOLE-TRIMETHOPRIM DS 800-160 MG TAB PO SCH (15:00)
--- NOTE | 2017-11-10 15:33 | RADRPT ---
EXAM DATE/TIME: 11/10/2017 14:04 [facility] COMPARISON: No previous studies available for comparison. INDICATIONS : Rejection, abnormal labs. MEDICAL HISTORY : Hypercholesterolemia. Hypertension. Gastroesophageal reflux disease. Epilepsy. Chronic remal failure . Dialysis. Kidney stone removal. Gout. Anemia. SURGICAL HISTORY : Tonsillectomy. Gastric sleeve. Transplant kidney. Fistula surgery. ENCOUNTER: Subsequent ACUITY: 2 months PAIN SCORE: 0/10 LOCATION: Right lower quadrant MEASUREMENTS: TRANSPLANT KIDNEY: 10.5 x 4.7 x 4.8 cm LOCATION: Right lower quadrant. PREVIOUS ULTRASOUND: Sep 12 2017 PREVIOUS ARCUATE ARTERIES INDEX: Upper - 0.6 Mid - 0.6 Lower - 0.6 ARCUATE ARTERIES RESISTIVE INDEX: Upper - 0.7 Mid - 0.6 Lower - 0.6 RA/EIA Ratio: 0.68 MAIN RENAL ARTERY VELOCITY: (cm/sec): 94.2 MAIN RENAL VEIN: Patent EXTERNAL ILIAC ARTERY VELOCITY (cm/sec): 88.7 * NORMAL DOPPLER FINDINGS Arcuate arteries - RI = 0.6 - 0.8 Renal artery = under 200 cm/sec Renal vein = May be monophasic with continuous flow or demonstrate some pulsatility with cardiac cycl e FINDINGS: Mild hydronephrosis in the transplant kidney in the right lower quadrant. Resistive indices are withi n normal limits. CONCLUSION: 1. Mild right hydronephrosis. Resistive indices are unchanged and within normal limits. Eugene Lewis MD on November 10, 2017 at 15:31 Board Certified Radiologist. This report was verified electronically.
[2017-11-10] MEDS: METOCLOPRAMIDE HCL 10 MG TAB PO SCH (16:30)
[2017-11-10] MEDS: METOPROLOL TARTRATE 25 MG TAB PO SCH (17:44)
[2017-11-10 17:48] LABS: BILIRUBIN, URINE NEG (NEG); BLOOD, URINE NEG (NEG); GLUCOSE,URINE NEG (NEG); KETONE, URINE NEG (NEG); MUCUS URINE FEW /lpf (OCC); NITRITE,URINE NEG (NEG); PH, URINE 5.5 (5.0-8.5); URINE COLOR YELLOW (YELLW/STRAW); URINE LEUKOCYTE ESTERASE LARGE (NEG)
[2017-11-10] MEDS: TACROLIMUS 1 MG CAP PO SCH (20:32)
[2017-11-10] MEDS: LACOSAMIDE 100 MG TAB PO SCH (20:58)
[2017-11-10] MEDS: TACROLIMUS 5 MG CAP PO SCH (20:58)
[2017-11-10] MEDS ORDERED: ZOLPIDEM TARTRATE 5 MG TAB PO PRN (21:00)
[2017-11-10] MEDS: DOCUSATE SODIUM 50 MG/SENNA 8.6 MG TAB PO SCH (21:00)
[2017-11-10] MEDS: MYCOPHENOLATE MOFETIL 250 MG CAP PO SCH (21:11)
[2017-11-10] MEDS: ONDANSETRON HCL 4 MG/2 ML VIAL IV PUSH PRN (21:43)
[2017-11-10] MEDS: CALCIUM CARBONATE 500 MG CHEWABLE TAB CHEW SCH (23:08)
[2017-11-11] VITALS (26 sets, daily range): BP systolic 124–144; BP diastolic 65–77; PULSE 54–86; RESP 16–18; TEMP 97.7–98.4; O2SAT 97–100
[2017-11-11] MEDS: SODIUM CHLOR 0.9% 1000 ML INJ 1,000 ML IV SCH ×2 (01:06→20:30)
[2017-11-11 05:06] LABS: AUTOMATED NEUTROPHIL # 2.1 TH/MM3 (1.8-7.7); BASOPHIL % 1.1 % (0.0-2.0); EOSINOPHIL # 0.2 TH/MM3 (0-0.4); HEMOGLOBIN 9.3 GM/DL (13.0-17.0); LYMPH % 14.4 % (9.0-44.0); LYMPHOCYTE # 0.5 TH/MM3 (1.0-4.8); MEAN CELL VOLUME 85.4 FL (80.0-100.0); MEAN CORPUSCULAR HEMOGLOBIN 27.5 PG (27.0-34.0); MEAN CORPUSCULAR HGB CONC 32.2 % (32.0-36.0); MEAN PLATELET VOLUME 8.6 FL (7.0-11.0); MONO % 12.4 % (0.0-8.0); MONOCYTE # 0.4 TH/MM3 (0-0.9); NEUT % 67.1 % (16.0-70.0); PLATELET COUNT 232 TH/MM3 (150-450); RED CELL DISTRIBUTION WIDTH 13.4 % (11.6-17.2); WHITE BLOOD COUNT 3.2 TH/MM3 (4.0-11.0)
[2017-11-11 05:13] LABS: INTERNATIONAL NORMALIZED RATIO 1.1 RATIO; PROTHROMBIN TIME - PATIENT 11.1 SEC (9.8-11.6)
[2017-11-11 05:23] LABS: ALBUMIN 3.2 GM/DL (3.4-5.0); ALT (GPT) 17 U/L (12-78); AST (GOT) 6 U/L (15-37); BICARBONATE 22.3 MEQ/L (21.0-32.0); BLOOD UREA NITROGEN 33 MG/DL (7-18); CALCIUM 8.9 MG/DL (8.5-10.1); CHLORIDE 112 MEQ/L (98-107); CREATININE 2.99 MG/DL (0.60-1.30); GLOMERULAR FILTRATION RATE 23 ML/MIN (>89); GLUCOSE,RANDOM 82 MG/DL (74-106); LIPASE 234 U/L (73-393); MAGNESIUM 2.2 MG/DL (1.5-2.5); PHOSPHORUS 3.6 MG/DL (2.5-4.9); SODIUM (NA) 142 MEQ/L (136-145)
[2017-11-11 05:25] LABS: ALKALINE PHOSPHATASE 129 U/L (45-117); TOTAL BILIRUBIN ADULT 0.3 MG/DL (0.2-1.0); TOTAL PROTEIN 6.3 GM/DL (6.4-8.2)
[2017-11-11] MEDS: LACOSAMIDE 100 MG TAB PO SCH ×3 (06:33→20:50)
[2017-11-11] MEDS: TAMSULOSIN HCL 0.4 MG CAP PO SCH (08:11)
[2017-11-11] MEDS: SODIUM CHLORIDE 0.9% FLUSH 10 ML FLUSH IV FLUSH SCH ×2 (08:11→20:43)
[2017-11-11] MEDS: MULTIVITAMIN TAB PO SCH (08:11)
[2017-11-11] MEDS: CALCIUM CARBONATE 500 MG CHEWABLE TAB CHEW SCH ×2 (08:11→20:38)
[2017-11-11] MEDS: DOCUSATE SODIUM 50 MG/SENNA 8.6 MG TAB PO SCH ×2 (08:12→20:43)
[2017-11-11] MEDS: PANTOPRAZOLE SOD 20 MG DELAYED RELEASE TAB PO SCH (08:12)
[2017-11-11] MEDS: MYCOPHENOLATE MOFETIL 250 MG CAP PO SCH ×2 (08:12→20:38)
[2017-11-11] MEDS: METOCLOPRAMIDE HCL 10 MG TAB PO SCH ×3 (08:12→17:43)
[2017-11-11] MEDS: TACROLIMUS 5 MG CAP PO SCH ×2 (08:15→20:38)
[2017-11-11] MEDS: TACROLIMUS 1 MG CAP PO SCH ×2 (08:17→20:38)
[2017-11-11] MEDS: predniSONE 5 MG TAB PO SCH (09:23)
--- NOTE | 2017-11-11 10:05 | PD.CONS ---
History of Present Illness Service Transplant Surgery Consult Requested By Dr Shin Reason for Consult Elevated creatinine post transplant Primary Care Physician Non-Staff Diagnoses: (1) Kidney transplant status, cadaveric (2) Acute renal failure History of Present Illness 42 yom s/p cadaveric renal transplant to [facility] approx 2 months ago. Has had persistent elevation of creatinine post transplant. Had a renal biopsy a few weeks ago. No rejection noted. Then had acute increase in creatinine noted yesterday. in speaking with patient, he admitted that he has had persistent issues with emesis even with small quantities fo food. Says that ths has been going on "since his surgery", althoughh in speaking with him, it seems that it has at least been going on for a few months. He last saw the bariatric group that did his sleeve procedure, about February or March of last year. He also admits to having trouble drinking water (even less than 64 ounces due to the above mentioned issue, including saying that he is not "thirsty"). Review of Systems Constitutional: COMPLAINS OF: Fatigue (Current energy level is about 8/10, compared to his usual energy level), Change in appetite (Not usually very hungry ) Gastrointestinal: COMPLAINS OF: Vomiting (When he eats. it makes him "full" , then he vomits. Water makes him full, but he doesn't vomit.) Except as stated in HPI: all other systems reviewed are Neg Past Family Social History Allergies: Coded Allergies: lisinopril (Unverified Adverse Reaction, Severe, 10/16/17) Angioedema Past Medical History Includes: advance sclerosing IgA nephropathy, ESRD (CKD-5), epilepsy, hypercholesterolemia, gout, hypertension, GERD Past Surgical History Includes: right cadaveric renal transplant 09/01/2017, left open nephrectomy at age 4 for renolithiiasis, tonsillectomy, LUE fistula 2014, epilepsy surgery 2004 (? cerebral biopsy) Reported Medications As per med list. reviewed Active Ordered Medications As per med list. reviewed Family History No history of renal disease Social History Denies etoh, tobacco, illicit drugs Physical Exam Vital Signs Vital Signs Date Time Temp Pulse Resp B/P (MAP) Pulse Ox O2 Delivery O2 Flow Rate FiO2 11/11/17 08:00 60 11/11/17 08:00 97.7 59 18 135/69 (91) 100 11/11/17 07:00 58 11/11/17 06:00 61 11/11/17 05:00 54 11/11/17 04:00 98.4 70 18 124/69 (87) 100 11/11/17 04:00 61 11/11/17 02:00 63 11/11/17 01:03 57 11/11/17 00:00 62 11/10/17 23:09 98.4 59 18 135/82 (99) 100 11/10/17 23:00 58 11/10/17 22:00 64 11/10/17 21:00 76 11/10/17 20:00 60 11/10/17 20:00 98.5 69 18 134/78 (96) 100 11/10/17 19:00 62 11/10/17 18:00 55 11/10/17 17:00 66 11/10/17 16:00 67 11/10/17 16:00 98.4 69 16 116/70 (85) 100 11/10/17 15:00 62 11/10/17 14:00 70 Physical Exam GENERAL: This is a well-nourished, well-developed patient, in no apparent distress. SKIN: No rashes, ecchymoses or lesions. Cool and dry. HEAD: Atraumatic. Normocephalic. No temporal or scalp tenderness. EYES: Pupils equal round and reactive. Extraocular motions intact. No scleral icterus. No injection or drainage. ENT: Nose without bleeding, purulent drainage or septal hematoma. Throat without erythema, tonsillar hypertrophy or exudate. Uvula midline. Airway patent. NECK: Trachea midline. No JVD or lymphadenopathy. Supple, nontender, no meningeal signs. CARDIOVASCULAR: Regular rate and rhythm without murmurs, gallops, or rubs. RESPIRATORY: Clear to auscultation. Breath sounds equal bilaterally. No wheezes , rales, or rhonchi. GASTROINTESTINAL: Abdomen soft, non-tender, nondistended. No hepato-splenomegaly , or palpable masses. No guarding.. RLQ scar well healed. No obvious incisional hernia noted. No bruit noted at graft site. MUSCULOSKELETAL: Extremities without clubbing, cyanosis, or edema. No joint tenderness, effusion, or edema noted. No calf tenderness. Negative Homans sign bilaterally. NEUROLOGICAL: Awake and alert. Cranial nerves II through XII intact. Motor and sensory grossly within normal limits. Five out of 5 muscle strength in all muscle groups. Normal speech. Laboratory Laboratory Tests Test 11/10/17 16:40 11/11/17 04:24 Urine Color YELLOW Urine Turbidity CLEAR Urine pH 5.5 Urine Specific [place] 1.012 Urine Protein 30 Urine Glucose (UA) NEG Urine Ketones NEG Urine Occult Blood NEG Urine Nitrite NEG Urine Bilirubin NEG Urine Urobilinogen LESS THAN 2.0 Urine Leukocyte Esterase LARGE Urine RBC 1 Urine WBC 16 Urine Mucus FEW Microscopic Urinalysis Comment CULTURE INDICATED White Blood Count 3.2 Red Blood Count 3.40 Hemoglobin 9.3 Hematocrit 29.0 Mean Corpuscular Volume 85.4 Mean Corpuscular Hemoglobin 27.5 Mean Corpuscular Hemoglobin Concent 32.2 Red Cell Distribution Width 13.4 Platelet Count 232 Mean Platelet Volume 8.6 Neutrophils (%) (Auto) 67.1 Lymphocytes (%) (Auto) 14.4 Monocytes (%) (Auto) 12.4 Eosinophils (%) (Auto) 5.0 Basophils (%) (Auto) 1.1 Neutrophils # (Auto) 2.1 Lymphocytes # (Auto) 0.5 Monocytes # (Auto) 0.4 Eosinophils # (Auto) 0.2 Basophils # (Auto) 0.0 CBC Comment DIFF FINAL Differential Comment Prothrombin Time 11.1 Prothromb Time International Ratio 1.1 Blood Urea Nitrogen 33 Creatinine 2.99 Random Glucose 82 Total Protein 6.3 Albumin 3.2 Calcium Level 8.9 Phosphorus Level 3.6 Magnesium Level 2.2 Alkaline Phosphatase 129 Aspartate Amino Transf (AST/SGOT) 6 Alanine Aminotransferase (ALT/SGPT) 17 Total Bilirubin 0.3 Sodium Level 142 Potassium Level 4.8 Chloride Level 112 Carbon Dioxide Level 22.3 Anion Gap 8 Estimat Glomerular Filtration Rate 23 Lipase 234 Date/Time Source Procedure Growth Status 11/10/17 16:40 Urine Clean Catch Urine Culture Pending Received Result Diagram: 11/11/17 0424 11/11/17 0424 Assessment and Plan Assessment and Plan Patient s/p RLQ cadaveric renal transplant 09/01/2017. Underwent renal biopsy due to elevated creatinine on 09/15/2017- was C4D negative, but with some tubulitis, inflammation and other changes noted, deemed borderline for acute cellular rejection. 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 Has had persistent issues with elevated creatinine, readmitted with same issue. In speaking with him today, he admits to not drinking or eating much, in part, because the water fills him up and he ususally isn't thirsty. In addition, he admits to have frequent episodes of emesis after each meal, even with small meals. Will have bariatric surgery assess him to see if they think imaging or endoscopy is warranted. His creatinine is slightly improved with overnight hydration, making me wonder if his kidney function is at least in part due to ongoing poor hydration post renal transplant. Is scheduled for biopsy today. Will await result of biopsy, to determine if treatment warranted. Will also check for donor specific antibody (DSA). US reviewed and no obvious anatomic issue identified. Alvaro Villavicencio Jr., MD Nov 11, 2017 10:05
[2017-11-11] MEDS ORDERED: LIDOCAINE HCL 1% 20 ML VIAL ONE (12:07)
--- NOTE | 2017-11-11 12:13 | PD.RAD ---
Post US Procedure Prog Note Pre Procedure Diagnosis: (1) Acute renal failure (2) Renal transplant, status post Post Procedure Diagnosis: (1) Acute renal failure (2) Renal transplant, status post Procedure Date: Nov 11, 2017 Supervising Radiologist: Howard Escamilla Proceduralist/Assist: Serina Castillo RDMS Anesthesia: Local Plan of Activity Patient to Unit: ROPU Patient Condition: Good See PACS Report for procedural detail/treatment Biopsy Imaging Guidance: Ultrasound Side: Right Biopsy Procedure: Kidney Site: pelvic transplant kidney Additional Detail: 18 Ga core x2 Howard Escamilla MD Nov 11, 2017 12:13
--- NOTE | 2017-11-11 13:24 | HHI.HP ---
HPI Service Family Medicine Primary Care Physician Non-Staff Admission Diagnosis Acute renal failure Diagnoses: (1) Acute renal failure (2) Kidney transplant status, cadaveric International Travel<30 Days: No Contact w/Intl Traveler<30days: No Known Affected Area: No History of Present Illness Patient is a 42-year-old male with history of cadaveric kidney transplant 2 months ago at [facility] who was covering for routine visit the he has been working long hours keeping up with fluids he states the appetite is not too good status post gastric bypass surgery and his creatinine gradually climbing up is 3.3, his BK titers were positive CellCept will decrease remains on prednisone 5 mg and Prograf 9 mg twice a day, he denies any other complaints he said he has been passing urine mary did not notice any pain is any dysuria burning any fever or chills. 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 titer Gastric bypass seizure disorder Past Surgical History Cadaveric kidney transplant and 32,017 'Seizures brain surgery procedures Kidney stone surgery Kidney biopsy Allergies: Coded Allergies: lisinopril (Unverified Adverse Reaction, Severe, 10/16/17) Angioedema Family History Noncontributory Social History Denies smoking or alcohol Physical Exam Vital Signs Vital Signs Date Time Temp Pulse Resp B/P (MAP) Pulse Ox O2 Delivery O2 Flow Rate FiO2 11/11/17 12:30 98.0 66 18 144/74 (97) 100 11/11/17 12:30 64 11/11/17 11:17 97.7 62 18 136/77 (96) 97 11/11/17 11:00 97.9 66 18 128/68 (88) 100 11/11/17 11:00 66 11/11/17 10:00 61 11/11/17 09:00 63 11/11/17 08:00 60 11/11/17 08:00 97.7 59 18 135/69 (91) 100 11/11/17 07:00 58 11/11/17 06:00 61 11/11/17 05:00 54 11/11/17 04:00 98.4 70 18 124/69 (87) 100 11/11/17 04:00 61 11/11/17 02:00 63 11/11/17 01:03 57 11/11/17 00:00 62 11/10/17 23:09 98.4 59 18 135/82 (99) 100 11/10/17 23:00 58 11/10/17 22:00 64 11/10/17 21:00 76 11/10/17 20:00 60 11/10/17 20:00 98.5 69 18 134/78 (96) 100 11/10/17 19:00 62 11/10/17 18:00 55 11/10/17 17:00 66 11/10/17 16:00 67 11/10/17 16:00 98.4 69 16 116/70 (85) 100 11/10/17 15:00 62 11/10/17 14:00 70 Physical Exam GENERAL: This is a well-nourished, well-developed patient, in no apparent distress. SKIN: No rashes, ecchymoses or lesions. Cool and dry. HEAD: Atraumatic. Normocephalic. No temporal or scalp tenderness. EYES: Pupils equal round and reactive. Extraocular motions intact. No scleral icterus. No injection or drainage. ENT: Nose without bleeding, purulent drainage or septal hematoma. Throat without erythema, tonsillar hypertrophy or exudate. Uvula midline. Airway patent. NECK: Trachea midline. No JVD or lymphadenopathy. Supple, nontender, no meningeal signs. CARDIOVASCULAR: Regular rate and rhythm without murmurs, gallops, or rubs. RESPIRATORY: Clear to auscultation. Breath sounds equal bilaterally. No wheezes , rales, or rhonchi. GASTROINTESTINAL: Abdomen soft, non-tender, nondistended. No hepato-splenomegaly , or palpable masses. No guarding. MUSCULOSKELETAL: Extremities without clubbing, cyanosis, or edema. No joint tenderness, effusion, or edema noted. No calf tenderness. Negative Homans sign bilaterally. NEUROLOGICAL: Awake and alert. Cranial nerves II through XII intact. Motor and sensory grossly within normal limits. Five out of 5 muscle strength in all muscle groups. Normal speech. Laboratory Laboratory Tests Test 11/10/17 16:40 11/11/17 04:24 11/11/17 12:38 Urine Color YELLOW Urine Turbidity CLEAR Urine pH 5.5 Urine Specific [place] 1.012 Urine Protein 30 Urine Glucose (UA) NEG Urine Ketones NEG Urine Occult Blood NEG Urine Nitrite NEG Urine Bilirubin NEG Urine Urobilinogen LESS THAN 2.0 Urine Leukocyte Esterase LARGE Urine RBC 1 Urine WBC 16 Urine Mucus FEW Microscopic Urinalysis Comment CULTURE INDICATED White Blood Count 3.2 Red Blood Count 3.40 Hemoglobin 9.3 Hematocrit 29.0 Mean Corpuscular Volume 85.4 Mean Corpuscular Hemoglobin 27.5 Mean Corpuscular Hemoglobin Concent 32.2 Red Cell Distribution Width 13.4 Platelet Count 232 Mean Platelet Volume 8.6 Neutrophils (%) (Auto) 67.1 Lymphocytes (%) (Auto) 14.4 Monocytes (%) (Auto) 12.4 Eosinophils (%) (Auto) 5.0 Basophils (%) (Auto) 1.1 Neutrophils # (Auto) 2.1 Lymphocytes # (Auto) 0.5 Monocytes # (Auto) 0.4 Eosinophils # (Auto) 0.2 Basophils # (Auto) 0.0 CBC Comment DIFF FINAL Differential Comment Prothrombin Time 11.1 Prothromb Time International Ratio 1.1 Blood Urea Nitrogen 33 Creatinine 2.99 Random Glucose 82 Total Protein 6.3 Albumin 3.2 Calcium Level 8.9 Phosphorus Level 3.6 Magnesium Level 2.2 Alkaline Phosphatase 129 Aspartate Amino Transf (AST/SGOT) 6 Alanine Aminotransferase (ALT/SGPT) 17 Total Bilirubin 0.3 Sodium Level 142 Potassium Level 4.8 Chloride Level 112 Carbon Dioxide Level 22.3 Anion Gap 8 Estimat Glomerular Filtration Rate 23 Lipase 234 Tacrolimus (Prograf) Level 8.5 Date/Time Source Procedure Growth Status 11/10/17 16:40 Urine Clean Catch Urine Culture Pending Received Result Diagram: 11/11/17 0424 11/11/17 0424 Caprini VTE Risk Assessment Caprini VTE Risk Assessment: No/Low Risk (score <= 1) Caprini Risk Assessment Model Point Value = 1 Point Value = 2 Point Value = 3 Point Value = 5 Age 41-60 Minor surgery BMI > 25 kg/m2 Swollen legs Varicose veins or History of unexplained or recurrent spontaneous Oral contraceptives or hormone replacement Sepsis (< 1 month) Serious lung disease, including pneumonia (< 1 month) Abnormal pulmonary function Acute myocardial infarction Congestive heart failure (< 1 month) History of inflammatory bowel disease Medical patient at bed rest Age 61-74 Arthroscopic surgery Major open surgery (> 45 min) Laparoscopic surgery (> 45 min) Malignancy Confined to bed (> 72 hours) Immobilizing plaster cast Central venous access Age >= 75 History of VTE Family history of VTE Factor V Leiden Prothrombin [id number] Lupus anticoagulant Anticardiolipin antibodies Elevated serum homocysteine Heparin-induced thrombocytopenia Other congenital or acquired thrombophilia Stroke (< 1 month) Elective arthroplasty Hip, pelvis, or leg fracture Acute spinal cord injury (< 1 month) Prophylaxis Regimen Total Risk Factor Score Risk Level Prophylaxis Regimen 0-1 Low Early ambulation 2 Moderate Order ONE of the following: *Sequential Compression Device (SCD) *Heparin 5000 units SQ BID 3-4 Higher Order ONE of the following medications: *Heparin 5000 units SQ TID *Enoxaparin/Lovenox 40 mg SQ daily (WT < 150 kg, CrCl > 30 mL/min) *Enoxaparin/Lovenox 30 mg SQ daily (WT < 150 kg, CrCl > 10-29 mL/min) *Enoxaparin/Lovenox 30 mg SQ BID (WT < 150 kg, CrCl > 30 mL/min) AND/OR *Sequential Compression Device (SCD) 5 or more Highest Order ONE of the following medications: *Heparin 5000 units SQ TID (Preferred with Epidurals) *Enoxaparin/Lovenox 40 mg SQ daily (WT < 150 kg, CrCl > 30 mL/min) *Enoxaparin/Lovenox 30 mg SQ daily (WT < 150 kg, CrCl > 10-29 mL/min) *Enoxaparin/Lovenox 30 mg SQ BID (WT < 150 kg, CrCl > 30 mL/min) AND *Sequential Compression Device (SCD) Assessment and Plan Problem List: (1) Acute renal failure ICD Codes: N17.9 - Acute renal failure Status: Acute Plan: I will hydrate him and repeat labs in the morning and continue with Prograf and prednisone and CellCept Differential includes acute renal failure due to rejection versus BK virus versus acute tubular necrosis rule out mechanical obstruction Follow ultrasound of the kidney results (2) Kidney transplant status, cadaveric ICD Codes: Z94.0 - Kidney transplant status Status: Acute Plan: Ultrasound of the kidney ordered biopsy ordered for tomorrow Physician Certification Order for Inpatient Services The services are ordered in accordance with Medicare regulations or non- Medicare payer requirements, as applicable. In the case of services not specified as inpatient-only, they are appropriately provided as inpatient services in accordance with the 2-midnight benchmark. days is the estimated time the patient will need to remain in the hospital, assuming treatment plan goals are met and no additional complications. Kip,Sajid MD Nov 11, 2017 13:24
--- NOTE | 2017-11-11 13:30 | HHI.NPPN ---
Subjective History of Present Illness 42 year old with kidney transplant with ARF it did improve with hydration Cr 2.99 s/p kidney biopsy Additional Remarks had nausea/vomiting yesterday Review of Systems General Constitutional: Fatigue Gastrointestinal Gastrointestinal: Nausea & Vomiting Objective Data Data Vital Signs Date Time Temp Pulse Resp B/P (MAP) Pulse Ox O2 Delivery O2 Flow Rate FiO2 11/11/17 12:30 98.0 66 18 144/74 (97) 100 11/11/17 12:30 64 11/11/17 11:17 97.7 62 18 136/77 (96) 97 11/11/17 11:00 97.9 66 18 128/68 (88) 100 11/11/17 11:00 66 11/11/17 10:00 61 11/11/17 09:00 63 11/11/17 08:00 60 11/11/17 08:00 97.7 59 18 135/69 (91) 100 11/11/17 07:00 58 11/11/17 06:00 61 11/11/17 05:00 54 11/11/17 04:00 98.4 70 18 124/69 (87) 100 11/11/17 04:00 61 11/11/17 02:00 63 11/11/17 01:03 57 11/11/17 00:00 62 11/10/17 23:09 98.4 59 18 135/82 (99) 100 11/10/17 23:00 58 11/10/17 22:00 64 11/10/17 21:00 76 11/10/17 20:00 60 11/10/17 20:00 98.5 69 18 134/78 (96) 100 11/10/17 19:00 62 11/10/17 18:00 55 11/10/17 17:00 66 11/10/17 16:00 67 11/10/17 16:00 98.4 69 16 116/70 (85) 100 11/10/17 15:00 62 11/10/17 14:00 70 -: 11/11/17 0424 11/11/17 0424 Microbiology 11/10/17 Urine Culture, Received Pending Physical Exam General Appearance: Well Developed, Well Nourished Neck Neck Exam: Neck Supple Pulmonary Resp Exam: Clear Bilaterally, Breath Sounds Equal Cardiology CV Exam: Regular, Normal Sinus Rhythm Gastrointestinal/Abdomen GI Exam: Soft, Non-Tender, Bowel Sounds Present Extremeties Extremities Exam: No Edema Neurologic Neuro Exam: Alert, Awake Assessment/Plan Problem List: (1) Kidney transplant status, cadaveric ICD Codes: Z94.0 - Kidney transplant status Status: Acute Plan: await kidney biopsy result pending cr declined with hydration he is unable to eat need GI consult for N/V, feels full early with water only can take protein bars may need EGD Jose Antonio Shin MD Nov 11, 2017 13:30
--- NOTE | 2017-11-11 13:48 | RADRPT ---
EXAM DATE/TIME: 11/11/2017 10:27 [facility] COMPARISON: No previous studies available for comparison. EXTERNAL COMPARISON: [facility], MRI ABDOMEN WITHOUT CONTRAST, Aug 11 2017. INDICATIONS : Right transplant kidney rejection. MEDICAL HISTORY : Hypercholesterolemia. Renal calculi. Epilepsy. Hyperlipidemia. HTN. GERD. Chronic renal failure. Gou t. Anemia. SURGICAL HISTORY : Tonsillectomy. Epilepsy space on brain closed. Gastric sleeve. Dialysis. Lithrotripsy. Nephreostomy tube as a child. Kidney transplant. Fistula. ENCOUNTER: Initial ACUITY: 1 day PAIN SCORE: 0/10 LOCATION: Right lower quadrant ORGAN: Right transplanted kidney SPECIMENS: Two core specimen(s) submitted for pathologic evaluation. DEVICE: 18 gauge Temno needle Post procedure scanning reveals no hematoma or other complication. The possibility does exist that the tissue obtained will be non-diagnostic. If the sample is non-wilder gnostic a repeat biopsy or surgical biopsy may need to be performed. TECHNIQUE: 1. Ultrasound guidance for needle biopsy. 2. Needle biopsy. The risks, benefits and alternatives to the procedure were explained and verbal and written consent w as obtained. The site was prepped in sterile fashion. Full sterile technique was used, including ca p, mask, sterile gloves and gown and a large sterile sheet. Hand hygiene and 2% chlorhexidine and/or betadine/alcohol prep was utilized per protocol for cutaneous antisepsis. The skin and subcutaneous tissues were infiltrated with local anesthetic solution. Sterile gel and sterile probe cover were u tilized for ultrasound guidance. With the patient on the ultrasound table, images were obtained. A needle was advanced into the identified target and the number of specimens as above obtained and stout bmitted for pathologic evaluation. The patient tolerated the procedure well and left the ultrasound suite in stable condition. CONCLUSION: Uncomplicated ultrasound guided needle biopsy. Howard Escamilla MD on November 11, 2017 at 13:45 Board Certified Radiologist. This report was verified electronically.
--- NOTE | 2017-11-11 15:37 | PD.CONS ---
HPI History of Present Illness This is a 42 year old male s/p gastric sleeve 06/2017, kidney transplant 2 months ago, who was sent to hospital by his machine rebuilder for elevated creatinine. GI has been consulted for n/v. He has had n/v after meals and early satiety since his gastric sleeve procedure but it has been worse in the last 2 months since his kidney transplant. He has been subsiding on protein bars. Denies blood in emesis, blood in stool or black tarry stool. he has preprocedure EGD 06/[address] Ornelas and findings were "I was ok to have the surgery." Pt is reluctant historian. (Zuleima Boykin) PFSH Past Medical History ESRD obesity epilepsy Past Surgical History vertical sleeve kidney transplant craniotomy? for epilepsy (Zuleima Boykin) Coded Allergies: lisinopril (Unverified Adverse Reaction, Severe, 10/16/17) Angioedema Family History denies Social History denies toxic habits (Zuleima Boykin) Review of Systems Constitutional: DENIES: Fever Endocrine: DENIES: Polydipsia Eyes: DENIES: Blurred vision Ears, nose, mouth, throat: DENIES: Hearing loss Respiratory: DENIES: Cough Cardiovascular: DENIES: Chest pain Gastrointestinal: COMPLAINS OF: Nausea, Vomiting, DENIES: Abdominal pain, Black stools, Bloody stools, Constipation, Diarrhea Genitourinary: DENIES: Hematuria Musculoskeletal: DENIES: Joint Swelling Integumentary: DENIES: Pruritus Hematologic/lymphatic: DENIES: Bruising Neurologic: DENIES: Abnormal gait Psychiatric: DENIES: Confusion (Zuleima Boykin) GI Exam Vitals I&O Vital Signs Date Time Temp Pulse Resp B/P (MAP) Pulse Ox O2 Delivery O2 Flow Rate FiO2 11/11/17 14:00 136/72 (93) 11/11/17 14:00 64 11/11/17 13:30 133/70 (91) 11/11/17 13:00 63 11/11/17 13:00 138/70 (92) 11/11/17 12:30 98.0 66 18 144/74 (97) 100 11/11/17 12:30 64 11/11/17 11:17 97.7 62 18 136/77 (96) 97 1/9/18 11:00 97.9 66 18 128/68 (88) 100 11/11/17 11:00 66 11/11/17 10:00 61 11/11/17 09:00 63 11/11/17 08:00 60 11/11/17 08:00 97.7 59 18 135/69 (91) 100 11/11/17 07:00 58 11/11/17 06:00 61 11/11/17 05:00 54 11/11/17 04:00 98.4 70 18 124/69 (87) 100 11/11/17 04:00 61 11/11/17 02:00 63 11/11/17 01:03 57 11/11/17 00:00 62 11/10/17 23:09 98.4 59 18 135/82 (99) 100 11/10/17 23:00 58 11/10/17 22:00 64 11/10/17 21:00 76 11/10/17 20:00 60 11/10/17 20:00 98.5 69 18 134/78 (96) 100 11/10/17 19:00 62 11/10/17 18:00 55 11/10/17 17:00 66 11/10/17 16:00 67 11/10/17 16:00 98.4 69 16 116/70 (85) 100 I/O 11/10/17 11/10/17 11/10/17 11/11/17 11/11/17 11/11/17 06:59 14:59 22:59 06:59 14:59 22:59 Intake Total 920 ml 1920 ml Output Total 500 ml 950 ml Balance 420 ml 970 ml Intake Oral 620 ml 720 ml IV Total 300 ml 1200 ml Output Urine Total 500 ml 950 ml # Voids 3 # Bowel Movements 0 Imaging Last Impressions Renal Biopsy Ultrasound 11/11/17 0600 Signed Impressions: Service Date/Time: Saturday, November 11, 2017 10:27 - CONCLUSION: Uncomplicated ultrasound guided needle biopsy. Howard Escamilla MD Renal Ultrasound 11/10/17 0000 Signed Impressions: Service Date/Time: Friday, November 10, 2017 14:04 - CONCLUSION: 1. Mild right hydronephrosis. Resistive indices are unchanged and within normal limits. Eugene Lewis MD Laboratory Test 11/10/17 16:40 11/11/17 04:24 11/11/17 12:38 Urine Color YELLOW Urine Turbidity CLEAR Urine pH 5.5 Urine Specific [place] 1.012 Urine Protein 30 mg/dL Urine Glucose (UA) NEG mg/dL Urine Ketones NEG mg/dL Urine Occult Blood NEG Urine Nitrite NEG Urine Bilirubin NEG Urine Urobilinogen LESS THAN 2.0 MG/DL Urine Leukocyte Esterase LARGE Urine RBC 1 /hpf Urine WBC 16 /hpf Urine Mucus FEW /lpf Microscopic Urinalysis Comment CULTURE INDICATED White Blood Count 3.2 TH/MM3 Red Blood Count 3.40 MIL/MM3 Hemoglobin 9.3 GM/DL Hematocrit 29.0 % Mean Corpuscular Volume 85.4 FL Mean Corpuscular Hemoglobin 27.5 PG Mean Corpuscular Hemoglobin Concent 32.2 % Red Cell Distribution Width 13.4 % Platelet Count 232 TH/MM3 Mean Platelet Volume 8.6 FL Neutrophils (%) (Auto) 67.1 % Lymphocytes (%) (Auto) 14.4 % Monocytes (%) (Auto) 12.4 % Eosinophils (%) (Auto) 5.0 % Basophils (%) (Auto) 1.1 % Neutrophils # (Auto) 2.1 TH/MM3 Lymphocytes # (Auto) 0.5 TH/MM3 Monocytes # (Auto) 0.4 TH/MM3 Eosinophils # (Auto) 0.2 TH/MM3 Basophils # (Auto) 0.0 TH/MM3 CBC Comment DIFF FINAL Differential Comment Prothrombin Time 11.1 SEC Prothromb Time International Ratio 1.1 RATIO Blood Urea Nitrogen 33 MG/DL Creatinine 2.99 MG/DL Random Glucose 82 MG/DL Total Protein 6.3 GM/DL Albumin 3.2 GM/DL Calcium Level 8.9 MG/DL Phosphorus Level 3.6 MG/DL Magnesium Level 2.2 MG/DL Alkaline Phosphatase 129 U/L Aspartate Amino Transf (AST/SGOT) 6 U/L Alanine Aminotransferase (ALT/SGPT) 17 U/L Total Bilirubin 0.3 MG/DL Sodium Level 142 MEQ/L Potassium Level 4.8 MEQ/L Chloride Level 112 MEQ/L Carbon Dioxide Level 22.3 MEQ/L Anion Gap 8 MEQ/L Estimat Glomerular Filtration Rate 23 ML/MIN Lipase 234 U/L Tacrolimus (Prograf) Level 8.5 NG/ML Date/Time Source Procedure Growth Status 11/10/17 16:40 Urine Clean Catch Urine Culture - Preliminary NO GROWTH IN 24 HOURS. Resulted Physical Examination HEENT: PERRL; normocephalic; atraumatic; no jaundice. CHEST: CTA CARDIAC: RRR ABDOMEN: Soft, nondistended, nontender; no hepatosplenomegaly; bowel sounds are present in all four quadrants. EXTREMITIES: No clubbing, cyanosis, or edema. SKIN: Normal; no rash; no jaundice. 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 (Zuleima Boykin) Assessment and Plan Plan ASSESSMENT - n/v, early satiety - unk etiology. hx vertical sleeve procedure 06/2017. EGD 06/2017 recalls no abn findings. n/v after every meal. GS is seeing and has ordered imaging studies, EGD tomorrow - elevated creatinine, s/p renal transplant- nephrology, transplant surgery following PLAN - already orders in for EGD tomorrow with Dr Rivera - Dr Howell following - further mgmt per surgery - GI will sign off please reconsult if needed Pt seen by Dr Billy and myself and this note is written on her behalf (Zuleima Boykin) Physician Comments seen, examined agree with above patient had endoscopy in 2016-egd showed gastritis- h.pylori positive-not sure if he took medications or not - we will ask to do biopsy during egd , also biopsy from esophagus showed esophagitis secondary reflux, goblet cells present -will need rebiopsy also old ct report showed calcified gallstone -we will check ruq us , if no cause for nausea , consider hida scan elevated ALP-most likely secondary fatty liver, renal insufficiency patients states he is not drinking fluids , does not feel thirsty , also eats only protein bars duefollowing for both to severe nausea, possible the above contributing factors to his elevated bun/cr dr Rivera following call gi as needed we will sign off for now (Viv Billy MD) Zuleima Boykin Nov 11, 2017 15:37 Viv Billy MD Nov 11, 2017 18:19
[2017-11-11 16:04] LABS: HEMATOCRIT 31.2 % (39.0-51.0); HEMOGLOBIN 9.7 GM/DL (13.0-17.0)
[2017-11-11] MEDS ORDERED: DIATRIZOATE MEGLUM/DIATRIZOATE SOD 120 ML BTL (for RAD DIAG) PO ONE (16:15)
--- NOTE | 2017-11-11 16:47 | PD.CONS ---
HPI Consult Requested By Dr. Villavicencio Reason for Consult Persistent nausea and vomiting, s/p sleeve gastrectomy June 2016 Primary Care Physician Non-Staff History of Present Illness This is a 42 year old male s/p gastric sleeve 06/2016, kidney transplant 2 months ago, who was sent to hospital by his comber tender for elevated creatinine. Dr Howell was consulted because of persistent nausea and vomiting revolving around meals. The patient is somewhat of a poor historian but states he has early satiety that quickly turns into nausea with small amounts of emesis with every meal. He states this has been getting worse over the last 2 months. He originally stated it happens when he eats and drinks at the same time. Later in the interview he stated he is not eating and drinking together. Denies eating too fast or taking too large of a bite. States he has been eating protein bars Review of Systems Constitutional: DENIES: Diaphoretic episodes, Fatigue, Fever, Weight gain, Weight loss, Chills, Dizziness, Change in appetite, Night Sweats Respiratory: DENIES: Apneas, Cough, Snoring, Wheezing, Hemoptysis, Sputum production, Shortness of breath Cardiovascular: DENIES: Chest pain, Palpitations, Syncope, Dyspnea on Exertion , PND, Lower Extremity Edema, Orthopnea, Claudication Gastrointestinal: COMPLAINS OF: Nausea, Vomiting, DENIES: Abdominal pain, Black stools, Bloody stools, Constipation, Diarrhea, Difficulty Swallowing, Anorexia Musculoskeletal: DENIES: Joint pain, Muscle aches, Stiffness, Joint Swelling, Back pain, Neck pain Neurologic: DENIES: Abnormal gait, Headache, Localized weakness, Paresthesias, Seizures, Speech Problems, Tremor, Poor Balance Past Family Social History Past Medical History ESRD obesity epilepsy Past Surgical History vertical sleeve kidney transplant craniotomy Reported Medications Current Medications Medications (Trade) Dose Ordered Sig/Gabriella Route PRN Reason Start Time Stop Time Status Last Admin Dose Admin Sodium Chloride 1,000 ml @ 100 mls/hr Q10H IV 11/10/17 14:30 11/11/17 01:06 Sodium Chloride (NS Flush) 2 ml UNSCH PRN IV FLUSH FLUSH AFTER USING IV ACCESS 11/10/17 14:00 Sodium Chloride (NS Flush) 2 ml BID IV FLUSH 11/10/17 14:00 11/11/17 08:11 Acetaminophen (Tylenol) 650 mg Q4H PRN PO TEMP > 100.4 11/10/17 14:00 Metoclopramide HCl (Reglan Inj) 5 mg Q6H PRN IV PUSH NAUSEA OR VOMITING 11/10/17 14:00 Zolpidem Tartrate (Ambien) 5 mg HS PRN PO INSOMNIA 11/10/17 21:00 Naloxone HCl (Narcan Inj) 0.4 mg UNSCH PRN IV PUSH SEE LABEL COMMENTS 11/10/17 14:00 Senna/Docusate Sodium (Ruth-Colace) 1 tab BID PO 11/10/17 21:00 Sennosides (Senokot) 17.2 mg Q12H PRN PO Moderate constipation 11/10/17 14:00 Bisacodyl (Dulcolax Supp) 10 mg DAILY PRN RECTAL SEVERE CONSITIPATION 11/10/17 14:00 Lactulose (Lactulose Liq) 30 ml DAILY PRN PO SEVERE CONSITIPATION 11/10/17 14:00 Calcium Carbonate (Tums Chew) 500 mg BID CHEW 11/10/17 21:00 11/11/17 08:11 Lacosamide (Vimpat) 100 mg TID@0600,1400,2100 PO 11/10/17 21:00 11/11/17 14:36 Metoprolol Tartrate (Lopressor) 12.5 mg DAILY@1800 PO 11/10/17 18:00 11/10/17 17:44 Mycophenolate Mofetil (Cellcept) 500 mg BID PO 11/10/17 21:00 11/11/17 08:12 Pantoprazole Sodium (Protonix) 20 mg DAILY PO 11/11/17 09:00 11/11/17 08:12 Prednisone (Deltasone) 5 mg DAILY PO 11/11/17 09:00 11/11/17 09:23 Trimethoprim/ Sulfamethoxazole (Bactrim Ds 800-160 Mg) 1 tab MoWeFr PO 11/10/17 15:00 Tacrolimus (Prograf) 4 mg BID@0800,2000 PO 11/10/17 20:00 11/11/17 08:17 Tacrolimus (Prograf) 5 mg BID@0800,2000 PO 11/10/17 20:00 11/11/17 08:15 Tamsulosin HCl (Flomax) 0.4 mg DAILY PO 11/11/17 09:00 11/11/17 08:11 Metoclopramide HCl (Reglan) 5 mg TIDAC PO 11/10/17 17:00 11/11/17 08:12 Multivitamins (Theragran) 1 tab DAILY PO 11/11/17 09:00 11/11/17 08:11 Miscellaneous (Pill Splitter) 1 ea UNSCH PRN OTHER SEE LABEL COMMENTS 11/10/17 14:30 Ondansetron HCl (Zofran Inj) 4 mg Q6HR PRN IV PUSH NAUSEA OR VOMITING 11/10/17 21:45 11/10/17 21:43 Allergies: Coded Allergies: lisinopril (Unverified Adverse Reaction, Severe, 10/16/17) Angioedema Active Ordered Medications Current Medications Medications (Trade) Dose Ordered Sig/Gabriella Route Start Time Stop Time Status Last Admin Sodium Chloride 1,000 ml @ 100 mls/hr Q10H IV 11/10/17 14:30 11/11/17 01:06 (NS Flush) 2 ml UNSCH PRN IV FLUSH 11/10/17 14:00 (NS Flush) 2 ml BID IV FLUSH 11/10/17 14:00 11/11/17 08:11 (Tylenol) 650 mg Q4H PRN PO 11/10/17 14:00 (Reglan Inj) 5 mg Q6H PRN IV PUSH 11/10/17 14:00 (Ambien) 5 mg HS PRN PO 11/10/17 21:00 (Narcan Inj) 0.4 mg UNSCH PRN IV PUSH 11/10/17 14:00 (Ruth-Colace) 1 tab BID PO 11/10/17 21:00 (Senokot) 17.2 mg Q12H PRN PO 11/10/17 14:00 (Dulcolax Supp) 10 mg DAILY PRN RECTAL 11/10/17 14:00 (Lactulose Liq) 30 ml DAILY PRN PO 11/10/17 14:00 (Tums Chew) 500 mg BID CHEW 11/10/17 21:00 11/11/17 08:11 (Vimpat) 100 mg TID@0600,1400,2100 PO 11/10/17 21:00 11/11/17 14:36 (Lopressor) 12.5 mg DAILY@1800 PO 11/10/17 18:00 11/10/17 17:44 (Cellcept) 500 mg BID PO 11/10/17 21:00 11/11/17 08:12 (Protonix) 20 mg DAILY PO 11/11/17 09:00 11/11/17 08:12 (Deltasone) 5 mg DAILY PO 11/11/17 09:00 11/11/17 09:23 (Bactrim Ds 800-160 Mg) 1 tab MoWeFr PO 11/10/17 15:00 (Prograf) 4 mg BID@08,1999 PO 11/10/17 20:00 11/11/17 08:17 (Prograf) 5 mg BID@0800,1999 PO 11/10/17 20:00 11/11/17 08:15 (Flomax) 0.4 mg DAILY PO 11/11/17 09:00 11/11/17 08:11 (Reglan) 5 mg TIDAC PO 11/10/17 17:00 11/11/17 08:12 (Theragran) 1 tab DAILY PO 11/11/17 09:00 11/11/17 08:11 (Pill Splitter) 1 ea UNSCH PRN OTHER 11/10/17 14:30 (Zofran Inj) 4 mg Q6HR PRN IV PUSH 11/10/17 21:45 11/10/17 21:43 Physical Exam Vital Signs Vital Signs Date Time Temp Pulse Resp B/P (MAP) Pulse Ox O2 Delivery O2 Flow Rate FiO2 11/11/17 15:00 66 11/11/17 14:00 136/72 (93) 11/11/17 14:00 64 11/11/17 13:30 133/70 (91) 11/11/17 13:00 63 11/11/17 13:00 138/70 (92) 11/11/17 12:30 98.0 66 18 144/74 (97) 100 11/11/17 12:30 64 11/11/17 11:17 97.7 62 18 136/77 (96) 97 11/11/17 11:00 97.9 66 18 128/68 (88) 100 11/11/17 11:00 66 11/11/17 10:00 61 11/11/17 09:00 63 11/11/17 08:00 60 11/11/17 08:00 97.7 59 18 135/69 (91) 100 11/11/17 07:00 58 11/11/17 06:00 61 11/11/17 05:00 54 11/11/17 04:00 98.4 70 18 124/69 (87) 100 11/11/17 04:00 61 11/11/17 02:00 63 11/11/17 01:03 57 11/11/17 00:00 62 11/10/17 23:09 98.4 59 18 135/82 (99) 100 11/10/17 23:00 58 11/10/17 22:00 64 11/10/17 21:00 76 11/10/17 20:00 60 11/10/17 20:00 98.5 69 18 134/78 (96) 100 11/10/17 19:00 62 11/10/17 18:00 55 11/10/17 17:00 66 Physical Exam SKIN: Warm and dry. CARDIOVASCULAR: Regular rate and rhythm without murmurs, gallops, or rubs. RESPIRATORY: Breath sounds equal bilaterally. No accessory muscle use. GASTROINTESTINAL: Abdomen soft, non-tender, nondistended. MUSCULOSKELETAL: No cyanosis, or edema. Laboratory Laboratory Tests Test 11/10/17 16:40 11/11/17 04:24 11/11/17 12:38 11/11/17 15:46 Urine Color YELLOW Urine Turbidity CLEAR Urine pH 5.5 Urine Specific [place] 1.012 Urine Protein 30 Urine Glucose (UA) NEG Urine Ketones NEG Urine Occult Blood NEG Urine Nitrite NEG Urine Bilirubin NEG Urine Urobilinogen LESS THAN 2.0 Urine Leukocyte Esterase LARGE Urine RBC 1 Urine WBC 16 Urine Mucus FEW Microscopic Urinalysis Comment CULTURE INDICATED White Blood Count 3.2 Red Blood Count 3.40 Hemoglobin 9.3 9.7 Hematocrit 29.0 31.2 Mean Corpuscular Volume 85.4 Mean Corpuscular Hemoglobin 27.5 Mean Corpuscular Hemoglobin Concent 32.2 Red Cell Distribution Width 13.4 Platelet Count 232 Mean Platelet Volume 8.6 Neutrophils (%) (Auto) 67.1 Lymphocytes (%) (Auto) 14.4 Monocytes (%) (Auto) 12.4 Eosinophils (%) (Auto) 5.0 Basophils (%) (Auto) 1.1 Neutrophils # (Auto) 2.1 Lymphocytes # (Auto) 0.5 Monocytes # (Auto) 0.4 Eosinophils # (Auto) 0.2 Basophils # (Auto) 0.0 CBC Comment DIFF FINAL Differential Comment Prothrombin Time 11.1 Prothromb Time International Ratio 1.1 Blood Urea Nitrogen 33 Creatinine 2.99 Random Glucose 82 Total Protein 6.3 Albumin 3.2 Calcium Level 8.9 Phosphorus Level 3.6 Magnesium Level 2.2 Alkaline Phosphatase 129 Aspartate Amino Transf (AST/SGOT) 6 Alanine Aminotransferase (ALT/SGPT) 17 Total Bilirubin 0.3 Sodium Level 142 Potassium Level 4.8 Chloride Level 112 Carbon Dioxide Level 22.3 Anion Gap 8 Estimat Glomerular Filtration Rate 23 Lipase 234 Tacrolimus (Prograf) Level 8.5 Date/Time Source Procedure Growth Status 11/10/17 16:40 Urine Clean Catch Urine Culture - Preliminary NO GROWTH IN 24 HOURS. Resulted Result Diagram: 11/11/17 1546 11/11/17 0424 Imaging Last Impressions Renal Biopsy Ultrasound 11/11/17 0600 Signed Impressions: Service Date/Time: Saturday, November 11, 2017 10:27 - CONCLUSION: Uncomplicated ultrasound guided needle biopsy. Howard Escamilla MD Renal Ultrasound 11/10/17 0000 Signed Impressions: Service Date/Time: Friday, November 10, 2017 14:04 - CONCLUSION: 1. Mild right hydronephrosis. Resistive indices are unchanged and within normal limits. Eugene Lewis MD Assessment and Plan Assessment and Plan 42yo M with persistent nausea and vomiting with hx of renal transplant and sleeve gastrectomy Will get UGI and abd u/s Possible EGD with Dr. Rivera Further recommendations will be made following results This patient was seen by Dr. Howell and myself and this note was written on his behalf Code Status Full Naida Garcia Nov 11, 2017 16:47
--- NOTE | 2017-11-11 16:51 | RADRPT ---
EXAM DATE/TIME: 11/11/2017 15:43 [facility] COMPARISON: GASTROGRAFIN GI SERIES, June 27, 2016, 9:54. INDICATIONS : Vomiting when eating since sleeve gastrectomy. FLUORO TIME: 1.12 minutes IMAGE COUNT: 12 CONTRAST: 1. MD Tapia MEDICAL HISTORY : Hypertension. Gastroesophageal reflux disease. Hypercholesterolemia. Epilepsy. Chronic remal failure. Dialysis. Kidney stone removal. Gout. Anemia. SURGICAL HISTORY : Tonsillectomy. Gastric sleeve. Transplant kidney. Fistula surgery ENCOUNTER: Initial ACUITY: 1 day PAIN SCORE: 0/10 LOCATION: Bilateral Abdomen FINDINGS: The preliminary cook helper preserves film demonstrates an unremarkable bowel gas pattern. There is mild to moderate scoliosis of the thoracic and lumbar spine with degenerative change. Examination of the swallowing f unction demonstrates no evidence of aspiration. The body of the esophagus is grossly unremarkable. No reflux or hiatal hernia is identified. Examination of the stomach demonstrates post surgical changes status post gastric sleeve procedure. There is residual food in the stomach. There is no evidence of leakage or obstruction. There is no ev idence of ulceration. The mucosal pattern appears normal. There is prompt passage of contrast into t he small bowel. CONCLUSION: Postsurgical changes status post gastric sleeve procedure with no evidence of obstruc tion or leakage. Fritz Nagy MD on November 11, 2017 at 16:40 Board Certified Radiologist. This report was verified electronically.
[2017-11-11] MEDS: METOPROLOL TARTRATE 25 MG TAB PO SCH (17:43)
[2017-11-11] MEDS: oxyCODONE/ACETAMINOPHEN 5 MG/325 MG TAB PO PRN (22:29)
[2017-11-12] VITALS (27 sets, daily range): BP systolic 116–143; BP diastolic 58–79; PULSE 54–92; RESP 16–18; TEMP 97.7–98.6; O2SAT 99–100
[2017-11-12] MEDS: LACOSAMIDE 100 MG TAB PO SCH ×3 (05:49→21:26)
[2017-11-12] MEDS: SODIUM CHLOR 0.9% 1000 ML INJ 1,000 ML IV SCH ×2 (05:51→21:30)
--- NOTE | 2017-11-12 08:26 | RADRPT ---
EXAM DATE/TIME: 11/12/2017 07:55 [facility] COMPARISON: CT ABDOMEN & PELVIS W CONTRAST, July 03, 2017, 14:14. [facility], MRI ABDOMEN W/O CONTRAST, August 11, 2017 INDICATIONS : Vomiting. MEDICAL HISTORY : Hypercholesterolemia. Dialysis. Renal calculi. Epilepsy. Hyperlipidemia. HTN. GERD. Chronic renal viktor lure. Gout. Anemia. SURGICAL HISTORY : Tonsillectomy. Epilepsy space on brain closed. Gastric sleeve. Lithrotripsy. Nephreostomy tube as a c hild. Kidney transplant. Fistula. ENCOUNTER: Initial ACUITY: 1 day PAIN SCORE: 2/10 LOCATION: Right upper quadrant MEASUREMENTS: LIVER: 22.0 cm length COMMON DUCT: 4 mm RIGHT KIDNEY: 10.5 x 6.6 x 7.0 cm FINDINGS: LIVER: Normal echotexture without focal lesion or ductal dilatation. COMMON DUCT: No intraluminal mass or stone visualized. GALLBLADDER: Contains several gallstones including non-mobile stone in the neck, demonstrates no wall thickening o r pericholecystic fluid. PANCREAS: The visualized portions are within normal limits. RIGHT KIDNEY: Atrophic [place] right kidney hypoechoic lesion in the mid region measuring 3.3 x 3.3 x 3.1 cm.. Patie nt has a transplanted kidney in the right lower quadrant CONCLUSION: 1. Cholelithiasis including non-mobile stone in the gallbladder neck. No gallbladder wall thickening or pericholecystic fluid. HIDA scan may be warranted. 2. Hypoechoic lesion in the right mid kidney is nonspecific but found to be a cyst on previous outpat ient MRI from August of 2017. Aric Harry MD on November 12, 2017 at 8:16 Board Certified Radiologist. This report was verified electronically.
[2017-11-12] MEDS: DOCUSATE SODIUM 50 MG/SENNA 8.6 MG TAB PO SCH ×2 (09:00→21:00)
[2017-11-12] MEDS: SODIUM CHLORIDE 0.9% FLUSH 10 ML FLUSH IV FLUSH SCH ×2 (09:00→21:00)
--- NOTE | 2017-11-12 09:15 | HHI.PR ---
Subjective Subjective Notes no acute issues, npo Objective Vitals/I&O Vital Signs Date Time Temp Pulse Resp B/P (MAP) Pulse Ox O2 Delivery O2 Flow Rate FiO2 11/12/17 08:30 98.6 61 18 143/79 (100) 100 Labs Laboratory Tests Test 11/11/17 12:38 11/11/17 15:46 Hemoglobin 9.7 Hematocrit 31.2 Date/Time Source Procedure Growth Status 11/10/17 16:40 Urine Clean Catch Urine Culture - Preliminary NO GROWTH IN 24 HOURS. Resulted Radiology Last Impressions Renal Biopsy Ultrasound 11/11/17 0600 Signed Impressions: Service Date/Time: Saturday, November 11, 2017 10:27 - CONCLUSION: Uncomplicated ultrasound guided needle biopsy. Howard Escamilla MD Renal Ultrasound 11/10/17 0000 Signed Impressions: Service Date/Time: Friday, November 10, 2017 14:04 - CONCLUSION: 1. Mild right hydronephrosis. Resistive indices are unchanged and within normal limits. Eugene Lewis MD Abdomen: Other (soft nd) A/P Assessment and Plan hx of sleeve gastrectomy, multiple vomiting episodes PLAN GBUS reviewed: multiple large gb stones, ugi sleeve patent, no obstruction of flow will plan for lap chase, discussed with patient risks, benefits. Gio Rivera MD Nov 12, 2017 09:15
[2017-11-12] MEDS: TACROLIMUS 1 MG CAP PO SCH ×2 (09:24→21:26)
[2017-11-12] MEDS: predniSONE 5 MG TAB PO SCH (09:25)
[2017-11-12] MEDS: TACROLIMUS 5 MG CAP PO SCH ×2 (09:25→21:26)
[2017-11-12] MEDS: MYCOPHENOLATE MOFETIL 250 MG CAP PO SCH ×2 (09:25→21:26)
[2017-11-12] MEDS: CALCIUM CARBONATE 500 MG CHEWABLE TAB CHEW SCH ×2 (09:25→21:26)
[2017-11-12] MEDS: MULTIVITAMIN TAB PO SCH (09:25)
[2017-11-12] MEDS: TAMSULOSIN HCL 0.4 MG CAP PO SCH (09:25)
[2017-11-12] MEDS: METOCLOPRAMIDE HCL 10 MG TAB PO SCH ×3 (09:25→17:44)
[2017-11-12] MEDS: PANTOPRAZOLE SOD 20 MG DELAYED RELEASE TAB PO SCH (09:25)
--- NOTE | 2017-11-12 09:42 | HHI.PR ---
Subjective Remarks No new c/o. Objective Vital Signs Date Time Temp Pulse Resp B/P (MAP) Pulse Ox O2 Delivery O2 Flow Rate FiO2 11/12/17 08:30 98.6 61 18 143/79 (100) 100 11/12/17 07:01 61 11/12/17 06:19 60 11/12/17 05:08 61 11/12/17 05:07 64 11/12/17 04:15 54 11/12/17 03:56 98.0 66 17 126/72 (90) 99 11/12/17 03:05 57 11/12/17 02:02 58 11/12/17 01:00 63 11/12/17 00:28 62 11/12/17 00:05 62 11/11/17 23:52 97.7 63 16 130/77 (94) 100 11/11/17 23:50 16 11/11/17 23:10 59 11/11/17 22:00 59 11/11/17 21:00 61 11/11/17 20:06 73 11/11/17 19:57 98.0 76 18 144/65 (91) 100 11/11/17 19:00 59 11/11/17 18:00 64 11/11/17 16:00 98.2 66 18 138/72 (94) 100 11/11/17 15:00 66 11/11/17 14:00 136/72 (93) 11/11/17 14:00 64 11/11/17 13:30 133/70 (91) 11/11/17 13:00 63 11/11/17 13:00 138/70 (92) 11/11/17 12:30 98.0 66 18 144/74 (97) 100 11/11/17 12:30 64 11/11/17 11:17 97.7 62 18 136/77 (96) 97 11/11/17 11:00 97.9 66 18 128/68 (88) 100 11/11/17 11:00 66 11/11/17 10:00 61 I/O 11/11/17 11/11/17 11/11/17 11/12/17 11/12/17 11/12/17 06:59 14:59 22:59 06:59 14:59 22:59 Intake Total 1920 ml 1950 ml 480 ml Output Total 950 ml 700 ml Balance 970 ml 1250 ml 480 ml Intake Oral 720 ml 875 ml 480 ml IV Total 1200 ml 1075 ml Output Urine Total 950 ml 700 ml # Voids 3 2 # Bowel Movements 0 Result Diagram: 11/11/17 1546 11/11/17 0424 Imaging Abd US and UGI reviewed Objective Remarks Resp- CTAB [id number] Abd- + bs, soft, nontender, nondistended Ext- Calves, soft, nontender bilaterally. No palpable cords Assessment and Plan Problem List: (1) Kidney transplant status, cadaveric ICD Codes: Z94.0 - Kidney transplant status Status: Acute (2) Acute renal failure ICD Codes: N17.9 - Acute renal failure Status: Acute Assessment and Plan Patient s/p RLQ cadaveric renal transplant 09/01/2017. Transplant renal biopsy pending. Appreciate Bariatric surgery input. patient for lap chase today. AM labs ordered. Will start monitoring prograf again tomorrow AM. Alvaro Villavicencio Jr., MD Nov 12, 2017 09:42
[2017-11-12] MEDS ORDERED: BUPIVACAINE/EPINEPHRINE 0.25% 50 ML VIAL ONE (09:59)
[2017-11-12] MEDS ORDERED: ACETAMINOPHEN 1000 MG/100 ML 100 ML IV ONE (10:15)
[2017-11-12] MEDS ORDERED: FAMOTIDINE 20 MG/2 ML VIAL ONE (10:15)
[2017-11-12] MEDS ORDERED: methylPREDNISolone SOD SUCC 125 MG/2 ML VIAL ONE (10:15)
[2017-11-12] MEDS ORDERED: MIDAZOLAM HCL 2 MG/2 ML VIAL ONE (10:15)
--- NOTE | 2017-11-12 10:37 | HHI.PR ---
Immediate Post Op Note Procedure Date: Nov 12, 2017 Pre Op Diagnosis: symptomatic cholelithiasis Post Op Diagnosis: same Surgeon: Gio Rivera MD Bag Press Operator(s): see or sheet Procedure: lap chase Findings: gallbladder with multiple gallstones Complications: none Specimen(s) removed: gallbladder Estimated blood loss: 5cc Anesthesia: General Drains: None Patient to: PACU Patient Condition: Good Gio Rivera MD Nov 12, 2017 10:36
--- NOTE | 2017-11-12 10:49 | MB ---
cc: DARCIE DUFF MD DATE OF CONSULTATION: 11/12/2017 REASON FOR CONSULTATION Nausea, vomiting, history of sleeve gastrectomy. HISTORY OF PRESENT ILLNESS The patient is a 42-year-old male with history of sleeve gastrectomy 06/2016. The patient did relatively well following surgery. However, developed nausea, vomiting, and states has been going on for a prolonged period. He has also history of renal transplant several months ago and developed worsening and persistence of his nausea and vomiting initially following meals including solids and soft solids. The patient does state he is able to tolerate protein bars and typically tolerates protein shakes. The patient has had a 160-pound weight loss. He does state he is taking his vitamins and has been following up in bariatric surgery clinic. He denies significant pain but does confirm that he has had multiple bouts of nausea, vomiting following certain foods. He also states he does not drink fast and separates fluids and solids when eating. He was admitted to the hospital initially undergoing renal workup including ultrasound showing some hydronephrosis and he is pending biopsy of his kidney. PAST MEDICAL HISTORY 1. End-stage renal disease. 2. Morbid obesity. 3. Epilepsy. PAST SURGICAL HISTORY 1. Vertical sleeve gastrectomy 06/2016. 2. Kidney transplant x2. 3. Craniotomy. MEDICATIONS See EMR. ALLERGIES LISINOPRIL. SOCIAL HISTORY Denies smoking, ETOH or IVDA. FAMILY HISTORY Denies diabetes or hypertension. REVIEW OF SYSTEMS GENERAL: Denies fevers and chills. HEENT: Denies eye pain, ear pain. NECK: Denies swelling or pain. LUNGS: Denies cough, wheeze. HEART: Denies palpitations or chest pain. ABDOMEN: Complains of nausea, vomiting. : Denies dysuria, hematuria. ENDOCRINE: Denies polyuria, polydipsia. NEUROLOGIC: Denies numbness or tingling. INTEGUMENT: Denies any new masses or lesions. PHYSICAL EXAMINATION GENERAL: The patient is in no acute distress. VITAL SIGNS: Temperature 98.6. Pulse 66, respirations 17, blood pressure 126/72, saturation 99% on room air. HEENT: Pupils equal, round and reactive. NECK: Supple. Trachea midline. LUNGS: Clear to auscultation bilateral. Bilateral expansion. HEART: S1-S2, regular. ABDOMEN: Soft and nontender. Healed surgical scars. Dressing over biopsy site. EXTREMITIES: Warm, well-perfused. NEUROLOGIC: GCS 15, 5/5 motor all extremities. INTEGUMENT: No obvious masses or lesions. PSYCHE: Appropriate mood and appropriate insight. LABORATORY DIAGNOSTIC DATA WBC 3.2, hemoglobin 9.3, hematocrit 29, platelets 232. Sodium of 142, potassium 4.8, BUN 33, creatinine 2.9, AST 6, AST 17, alkaline phosphatase 129, lipase 234. INR is 1.1. IMAGING STUDIES Reviewed by myself. Upper GI series showing a patent nonobstructive gastric sleeve. Gallbladder ultrasound obtained showing multiple gallstones with gallstones stuck in the gallbladder neck. ASSESSMENT The patient is a 42-year-old male, morbid obesity, history of sleeve gastrectomy, multiple episodes of nausea, vomiting. Ultrasound with multiple impacted gallstones in gallbladder. The patient with end-stage renal disease status post kidney transplant on immunosuppression. PLAN After full clinical and radiologic laboratory workup the patient with above-named issues includin. The patient to undergo workup for possible transplant rejection, is on appropriate medication for this. 2. The patient needs workup for his sleeve gastrectomy and vomiting. At this point my concern leans toward an issue with his gallbladder and multiple impacted gallstones contributing to his nausea, vomiting, upper GI shows a patent sleeve with a little bit of residual food debris. We will plan to do operative intervention including laparoscopic cholecystectomy. This was discussed with the patient. Also would consider EGD if warranted. MD BERTIN Lawler/YI /10:05 AM /10:17 AM
[2017-11-12] MEDS ORDERED: ceFAZolin 2 GM PREMIX 50 ML ONE (10:57)
[2017-11-12] MEDS ORDERED: LIDOCAINE HCL 1% PF 5 ML SYRINGE OTHER ONE (12:00)
[2017-11-12] MEDS ORDERED: PROPOFOL 200 MG/20 ML AMP IV ONE (12:00)
[2017-11-12] MEDS ORDERED: GLYCOPYRROLATE 1 MG/5 ML SYRINGE IV PUSH ONE (12:00)
[2017-11-12] MEDS ORDERED: ROCURONIUM INJ 50 MG/5 ML SYRINGE IV PUSH ONE (12:00)
[2017-11-12] MEDS ORDERED: NEOSTIGMINE 5 MG/5 ML SYRINGE IV PUSH ONE (12:00)
[2017-11-12] MEDS ORDERED: ONDANSETRON HCL 4 MG/2 ML VIAL IV ONE (12:00)
[2017-11-12] MEDS ORDERED: PHENYLEPH/NS 1000 MCG/10 ML SYR IV ONE (12:00)
[2017-11-12] MEDS ORDERED: DO NOT ADM ANY ANTICOAGULANT DRUGS PRN (12:02)
[2017-11-12] MEDS ORDERED: MORPHINE SULFATE 4 MG/ML INJ ONE (12:13)
[2017-11-12] MEDS ORDERED: *morphine SULFATE 10 MG/ML PERIprocedure ONLY ONE (12:21)
[2017-11-12] MEDS ORDERED: *HYDROmorphone PF 1 MG VIAL PERIprocedural Use ONLY ONE (13:05)
[2017-11-12] MEDS: ONDANSETRON HCL 4 MG/2 ML VIAL IV PUSH PRN (13:34)
--- NOTE | 2017-11-12 14:09 | HHI.NPPN ---
Subjective History of Present Illness 42 year old with kidney transplant with ARF it did improve with hydration Cr 2.99 s/p kidney biopsy Additional Remarks had Lap cholecystectomy Review of Systems Gastrointestinal Gastrointestinal: Abdominal Pain, Nausea & Vomiting Objective Data Data 11/12/17 11/13/17 19:00 07:00 Intake Total 50 ml Balance 50 ml IV Total 50 ml Vital Signs Date Time Temp Pulse Resp B/P (MAP) Pulse Ox O2 Delivery O2 Flow Rate FiO2 11/12/17 09:00 66 11/12/17 08:30 98.6 61 18 143/79 (100) 100 11/12/17 08:00 60 11/12/17 07:01 61 11/12/17 06:19 60 11/12/17 05:08 61 11/12/17 05:07 64 11/12/17 04:15 54 11/12/17 03:56 98.0 66 17 126/72 (90) 99 11/12/17 03:05 57 11/12/17 02:02 58 11/12/17 01:00 63 11/12/17 00:28 62 11/12/17 00:05 62 11/11/17 23:52 97.7 63 16 130/77 (94) 100 11/11/17 23:50 16 11/11/17 23:10 59 11/11/17 22:00 59 11/11/17 21:00 61 11/11/17 20:06 73 11/11/17 19:57 98.0 76 18 144/65 (91) 100 11/11/17 19:00 59 11/11/17 18:00 64 11/11/17 16:00 98.2 66 18 138/72 (94) 100 11/11/17 15:00 66 -: 11/11/17 1546 11/11/17 0424 Physical Exam General Appearance: Well Developed, Well Nourished Neck Neck Exam: Neck Supple Pulmonary Resp Exam: Clear Bilaterally, Breath Sounds Equal Cardiology CV Exam: Regular, Normal Sinus Rhythm Gastrointestinal/Abdomen GI Exam: Bowel Sounds Present GI Remarks post surgical Extremeties Extremities Exam: No Edema Neurologic Neuro Exam: Alert, Awake Assessment/Plan Problem List: (1) Kidney transplant status, cadaveric ICD Codes: Z94.0 - Kidney transplant status Status: Acute Plan: await kidney biopsy result pending had Lap cholecystectomy continue to monitor his progress follow labs cr on oral medications resume this evening 1730PM Discussed with Dr. Villavicencio trial of Leflunomide, Kidney biopsy improved no BK virus, Mild ATN Jose Antonio Shin MD Nov 12, 2017 14:09
[2017-11-12] MEDS: SULFAMETHOXAZOLE-TRIMETHOPRIM DS 800-160 MG TAB PO SCH (15:08)
[2017-11-12] MEDS: MORPHINE SULFATE 2 MG/ML INJ IV PUSH PRN ×2 (15:09→22:17)
[2017-11-12 16:27] LABS: AUTOMATED NEUTROPHIL # 6.5 TH/MM3 (1.8-7.7); BASOPHIL % 0.3 % (0.0-2.0); EOSINOPHIL % 0.1 % (0.0-4.0); HEMOGLOBIN 10.7 GM/DL (13.0-17.0); LYMPH % 1.6 % (9.0-44.0); LYMPHOCYTE # 0.1 TH/MM3 (1.0-4.8); MEAN CELL VOLUME 86.6 FL (80.0-100.0); MEAN CORPUSCULAR HEMOGLOBIN 27.2 PG (27.0-34.0); MEAN CORPUSCULAR HGB CONC 31.4 % (32.0-36.0); MEAN PLATELET VOLUME 8.7 FL (7.0-11.0); MONO % 1.3 % (0.0-8.0); MONOCYTE # 0.1 TH/MM3 (0-0.9); NEUT % 96.7 % (16.0-70.0); PLATELET COUNT 218 TH/MM3 (150-450); RED BLOOD COUNT 3.93 MIL/MM3 (4.50-5.90); RED CELL DISTRIBUTION WIDTH 13.7 % (11.6-17.2); WHITE BLOOD COUNT 6.8 TH/MM3 (4.0-11.0)
[2017-11-12 16:41] LABS: BICARBONATE 22.1 MEQ/L (21.0-32.0); CALCIUM 8.8 MG/DL (8.5-10.1); CREATININE 2.96 MG/DL (0.60-1.30)
[2017-11-12] MEDS: METOPROLOL TARTRATE 25 MG TAB PO SCH (17:44)
[2017-11-12] MEDS: LEFLUNOMIDE 20 MG TAB PO SCH (18:00)
[2017-11-13] VITALS (28 sets, daily range): BP systolic 145–155; BP diastolic 68–86; PULSE 59–97; RESP 16–18; TEMP 97.6–98.3; O2SAT 100
[2017-11-13] MEDS: SODIUM CHLOR 0.9% 1000 ML INJ 1,000 ML IV SCH ×2 (02:30→20:19)
[2017-11-13] MEDS: MORPHINE SULFATE 2 MG/ML INJ IV PUSH PRN ×2 (03:40→21:00)
[2017-11-13] MEDS: LACOSAMIDE 100 MG TAB PO SCH ×3 (05:52→21:59)
--- NOTE | 2017-11-13 07:57 | MP ---
cc: DARCIE RIVERA MD DATE OF SURGERY 11/12/2017 PREOPERATIVE DIAGNOSIS Symptomatic cholelithiasis. POSTOPERATIVE DIAGNOSIS Symptomatic cholelithiasis. PROCEDURE PERFORMED Laparoscopic cholecystectomy. SURGEON Dr. Darcie Rivera [employer] See OR sheet. ANESTHESIA GETA. IV FLUIDS See anesthesia sheet. Abdominal 5 cc. DRAINS None. COMPLICATIONS None. WOUND CLASSIFICATION clean/contaminated. SPECIMENS Gallbladder. FINDINGS Distended gallbladder and multiple gallstones. Minimal adhesions to the lower abdomen. INDICATION The patient is 42-year-old male who presents with nausea, vomiting and concern for kidney rejection. He had further workup including upper GI series because the patient had a history of sleeve gastrectomy showing a patent sleeve gastrectomy with no evidence of obstruction. Gallbladder ultrasound further workup shows multiple gallstones including gallbladder stone stuck in the neck. Therefore decision was made for laparoscopic cholecystectomy. DETAILS OF PROCEDURE The patient was taken to the operating suite, placed in supine position, prepped and draped in the usual sterile fashion after induction of general endotracheal anesthesia. A brief time-out was done stating the correct patient, procedure, surgical site. We were all in agreement with this. Due to the patient's history of kidney surgeries and concern for adhesions, a stab-finn incision made and left upper quadrant, local anesthetic injected. Veress needle placed, intraabdominal placement confirmed with saline drop test. The abdomen was insufflated to 15 mm pneumoperitoneum. A 5-mm Visiport with a 5-mm scope entered. On entrance there was no evidence of injury. There was noted be several scattered adhesions in the lower abdomen. A local anesthetic was injected at four other ports, one infraumbilical port a 5-mm trocar placed, a 12-mm placed in the epigastric area and two right subcostal 5-mm ports also placed. The patient was placed in reverse Trendelenburg, airplaned to the left. The gallbladder was grasped to the fundus and retracted cephalad. The [place] dissector was used to dissect the cystic duct and cystic artery in the usual fashion, as noted the only structures going to the gallbladder. Two clips were placed proximal and one distal on both the cystic duct and cystic artery. Small other cystic artery noted where two clips were placed proximal and one distal, again noted to be only structures going to the gallbladder. Endoshears were used to transect the structures. The gallbladder was removed and with a hook electro Bovie cautery. Hemostasis was obtained and a hook electro Bovie cautery. The gallbladder was placed in the EndoCatch bag and removed from the epigastric port. Hemostasis was obtained with electro Bovie cautery. Next the abdomen was desufflated, the ports removed under direct visualization. 0 Vicryl was used to close the fascia of the epigastric port. All ports were closed with a 4-0 Monocryl subcuticular suture. Sterile dressings including Mastisol and Steri-Strips were placed. The patient tolerated the procedure well. There was no intraoperative complication. All lap and instrument counts were correct at the end of the procedure. The patient was extubated and taken in stable condition to the PACU. MD BERTIN Lawler/CARL[place] /3:38 PM /7:41 AM
[2017-11-13] MEDS: MYCOPHENOLATE MOFETIL 250 MG CAP PO SCH ×2 (08:20→21:57)
[2017-11-13] MEDS: predniSONE 5 MG TAB PO SCH (08:21)
[2017-11-13] MEDS: TAMSULOSIN HCL 0.4 MG CAP PO SCH (08:21)
[2017-11-13] MEDS: PANTOPRAZOLE SOD 20 MG DELAYED RELEASE TAB PO SCH (08:21)
[2017-11-13] MEDS: METOCLOPRAMIDE HCL 10 MG TAB PO SCH ×3 (08:21→15:54)
[2017-11-13] MEDS: MULTIVITAMIN TAB PO SCH (08:21)
[2017-11-13] MEDS: DOCUSATE SODIUM 50 MG/SENNA 8.6 MG TAB PO SCH ×2 (08:22→21:57)
[2017-11-13] MEDS: CALCIUM CARBONATE 500 MG CHEWABLE TAB CHEW SCH (08:22)
[2017-11-13] MEDS: LEFLUNOMIDE 20 MG TAB PO SCH (08:22)
[2017-11-13] MEDS: SODIUM CHLORIDE 0.9% FLUSH 10 ML FLUSH IV FLUSH SCH ×2 (09:00→21:01)
--- NOTE | 2017-11-13 09:25 | HHI.PR ---
Subjective Remarks Transplant Surgery Progress Note: No new c/o. Postop pain well controlled. No current nausea. Marlin clears Objective Vital Signs Date Time Temp Pulse Resp B/P (MAP) Pulse Ox O2 Delivery O2 Flow Rate FiO2 11/13/17 08:30 97.6 66 18 145/80 (101) 100 11/13/17 07:01 72 11/13/17 06:04 74 11/13/17 05:20 59 11/13/17 04:01 74 11/13/17 03:53 98.2 69 16 148/86 (106) 100 11/13/17 03:53 60 11/13/17 02:14 97 11/13/17 01:22 68 11/13/17 00:33 80 11/12/17 23:42 65 11/12/17 23:25 98.0 69 17 130/61 (84) 99 11/12/17 22:15 90 11/12/17 21:15 71 11/12/17 20:15 82 11/12/17 19:25 97.9 64 16 133/74 (93) 100 11/12/17 19:25 73 11/12/17 18:01 92 11/12/17 17:00 82 11/12/17 16:01 69 11/12/17 15:01 97.7 71 18 130/68 (88) 100 11/12/17 15:00 70 11/12/17 14:01 69 11/12/17 13:45 98.2 56 18 116/58 (77) 100 11/12/17 13:00 56 12 116/56 (76) 99 Room Air 11/12/17 12:45 59 12 113/55 (74) 99 Room Air 11/12/17 12:30 54 13 113/56 (75) 99 Room Air 11/12/17 12:15 59 12 118/58 (78) 100 Room Air 11/12/17 12:02 97.7 66 14 128/66 (86) 100 I/O 11/12/17 11/12/17 11/12/17 11/13/17 11/13/17 11/13/17 07:00 15:00 23:00 07:00 15:00 23:00 Intake Total 480 ml 50 ml 480 ml 480 ml Output Total 300 ml Balance 480 ml 50 ml 480 ml 180 ml Intake Oral 480 ml 480 ml 480 ml IV Total 50 ml Output Urine Total 300 ml # Voids 2 4 2 # Bowel Movements 0 0 Result Diagram: 11/12/17 1548 11/12/17 1548 Objective Remarks Resp- CTAB CV-S1S2 Abd- + bs, soft, nontender, nondistended. Wounds without drainage or signs of infection. Renal transplant biopsy site without obvious hematoma or signs of infection Ext- Calves, soft, nontender bilaterally. No palpable cords Assessment and Plan Problem List: (1) Kidney transplant status, cadaveric ICD Codes: Z94.0 - Kidney transplant status Status: Acute (2) Acute renal failure ICD Codes: N17.9 - Acute renal failure Status: Acute Assessment and Plan Patient s/p RLQ cadaveric renal transplant 09/01/2017. Transplant renal biopsy official report pending , but reportedly showed improved, with no acute rejection or BK virus changes noted. pending. Appreciate Bariatric surgery input. patient POD#1 s/p lap chase. AM labs not yet done due to patient reportedly being a difficult "stick". Vascular access team consult placed for mid line placement. Await lab results. Meds adjusted (Arava started last night. Prograf reduced to 7 mg bid. Will stop cellcept tomorrow). Alvaro Villavicencio Jr., MD Nov 13, 2017 09:25
[2017-11-13] MEDS: TACROLIMUS 1 MG CAP PO SCH ×2 (09:27→20:17)
[2017-11-13] MEDS: TACROLIMUS 5 MG CAP PO SCH ×2 (09:28→20:17)
[2017-11-13 09:50] LABS: AUTOMATED NEUTROPHIL # 5.6 TH/MM3 (1.8-7.7); BASOPHIL % 0.5 % (0.0-2.0); EOSINOPHIL % 0.6 % (0.0-4.0); HEMATOCRIT 33.6 % (39.0-51.0); HEMOGLOBIN 10.6 GM/DL (13.0-17.0); LYMPH % 6.8 % (9.0-44.0); LYMPHOCYTE # 0.5 TH/MM3 (1.0-4.8); MEAN CORPUSCULAR HEMOGLOBIN 26.9 PG (27.0-34.0); MEAN CORPUSCULAR HGB CONC 31.6 % (32.0-36.0); MEAN PLATELET VOLUME 8.2 FL (7.0-11.0); MONO % 9.4 % (0.0-8.0); MONOCYTE # 0.6 TH/MM3 (0-0.9); NEUT % 82.7 % (16.0-70.0); PLATELET COUNT 236 TH/MM3 (150-450); RED BLOOD COUNT 3.95 MIL/MM3 (4.50-5.90); WHITE BLOOD COUNT 6.7 TH/MM3 (4.0-11.0)
[2017-11-13 10:09] LABS: BICARBONATE 22.3 MEQ/L (21.0-32.0); CALCIUM 9.1 MG/DL (8.5-10.1); CREATININE 2.92 MG/DL (0.60-1.30)
[2017-11-13] MEDS: oxyCODONE/ACETAMINOPHEN 5 MG/325 MG TAB PO PRN ×3 (11:26→21:57)
--- NOTE | 2017-11-13 15:00 | HHI.NPPN ---
Subjective History of Present Illness 42 year old with kidney transplant with ARF it did improve with hydration Cr 2.99 s/p kidney biopsy Additional Remarks had Lap cholecystectomy doing better Review of Systems Gastrointestinal Gastrointestinal: Abdominal Pain, Nausea & Vomiting Objective Data Data Vital Signs Date Time Temp Pulse Resp B/P (MAP) Pulse Ox O2 Delivery O2 Flow Rate FiO2 11/13/17 14:00 66 11/13/17 13:00 70 11/13/17 12:01 84 11/13/17 11:30 98.3 89 18 155/68 (97) 100 11/13/17 11:00 75 11/13/17 10:01 76 11/13/17 09:00 66 11/13/17 08:30 97.6 66 18 145/80 (101) 100 11/13/17 08:00 80 11/13/17 07:01 72 11/13/17 06:04 74 11/13/17 05:20 59 11/13/17 04:01 74 11/13/17 03:53 98.2 69 16 148/86 (106) 100 11/13/17 03:53 60 11/13/17 02:14 97 11/13/17 01:22 68 11/13/17 00:33 80 11/12/17 23:42 65 11/12/17 23:25 98.0 69 17 130/61 (84) 99 11/12/17 22:15 90 11/12/17 21:15 71 11/12/17 20:15 82 11/12/17 19:25 97.9 64 16 133/74 (93) 100 11/12/17 19:25 73 11/12/17 18:01 92 11/12/17 17:00 82 11/12/17 16:01 69 11/12/17 15:01 97.7 71 18 130/68 (88) 100 11/12/17 15:00 70 -: 11/13/17 0925 11/13/17 09 Physical Exam General Appearance: Well Developed, Well Nourished Neck Neck Exam: Neck Supple Pulmonary Resp Exam: Clear Bilaterally, Breath Sounds Equal Cardiology CV Exam: Regular, Normal Sinus Rhythm Gastrointestinal/Abdomen GI Exam: Bowel Sounds Present GI Remarks post surgical Extremeties Extremities Exam: No Edema Neurologic Neuro Exam: Alert, Awake Assessment/Plan Problem List: (1) Kidney transplant status, cadaveric ICD Codes: Z94.0 - Kidney transplant status Status: Acute Plan: await kidney biopsy result pending post Lap cholecystectomy continue to monitor his progress follow labs cr 2.92 Kidney biopsy negative for rejection, improved follow BMP Jose Antonio Shin MD Nov 13, 2017 15:00
[2017-11-13] MEDS: METOPROLOL TARTRATE 25 MG TAB PO SCH (18:45)
[2017-11-13] MEDS ORDERED: CALCIUM CARBONATE 500 MG CHEWABLE TAB CHEW SCH (23:00)
[2017-11-14] VITALS (12 sets, daily range): BP systolic 139–148; BP diastolic 70–77; PULSE 62–82; RESP 18; TEMP 98–98.1; O2SAT 99–100
[2017-11-14] MEDS: MORPHINE SULFATE 2 MG/ML INJ IV PUSH PRN ×2 (01:33→05:35)
[2017-11-14] MEDS: LACOSAMIDE 100 MG TAB PO SCH (06:00)
[2017-11-14 07:47] LABS: AUTOMATED NEUTROPHIL # 2.1 TH/MM3 (1.8-7.7); BASOPHIL % 1.4 % (0.0-2.0); EOSINOPHIL # 0.1 TH/MM3 (0-0.4); EOSINOPHIL % 2.3 % (0.0-4.0); HEMATOCRIT 29.2 % (39.0-51.0); HEMOGLOBIN 9.4 GM/DL (13.0-17.0); LYMPH % 13.2 % (9.0-44.0); LYMPHOCYTE # 0.4 TH/MM3 (1.0-4.8); MEAN CELL VOLUME 85.6 FL (80.0-100.0); MEAN CORPUSCULAR HEMOGLOBIN 27.4 PG (27.0-34.0); MEAN PLATELET VOLUME 8.4 FL (7.0-11.0); MONOCYTE # 0.4 TH/MM3 (0-0.9); NEUT % 70.1 % (16.0-70.0); PLATELET COUNT 195 TH/MM3 (150-450); RED BLOOD COUNT 3.41 MIL/MM3 (4.50-5.90); RED CELL DISTRIBUTION WIDTH 13.6 % (11.6-17.2)
[2017-11-14] MEDS: METOCLOPRAMIDE HCL 10 MG TAB PO SCH (08:00)
[2017-11-14] MEDS: TACROLIMUS 1 MG CAP PO SCH (08:33)
[2017-11-14] MEDS: TAMSULOSIN HCL 0.4 MG CAP PO SCH (08:33)
[2017-11-14] MEDS: MULTIVITAMIN TAB PO SCH (08:33)
[2017-11-14] MEDS: LEFLUNOMIDE 20 MG TAB PO SCH (08:33)
[2017-11-14] MEDS: TACROLIMUS 5 MG CAP PO SCH (08:33)
[2017-11-14] MEDS: predniSONE 5 MG TAB PO SCH (08:33)
[2017-11-14] MEDS: PANTOPRAZOLE SOD 20 MG DELAYED RELEASE TAB PO SCH (08:33)
[2017-11-14] MEDS: MYCOPHENOLATE MOFETIL 250 MG CAP PO SCH (08:33)
[2017-11-14] MEDS: SODIUM CHLORIDE 0.9% FLUSH 10 ML FLUSH IV FLUSH SCH (08:34)
[2017-11-14] MEDS: DOCUSATE SODIUM 50 MG/SENNA 8.6 MG TAB PO SCH (09:00)
--- NOTE | 2017-11-14 09:34 | HHI.PR ---
Subjective Remarks Transplant Surgery Progress Note: No new c/o. Postop pain well controlled. No nausea. Marlin po Objective Vital Signs Date Time Temp Pulse Resp B/P (MAP) Pulse Ox O2 Delivery O2 Flow Rate FiO2 11/14/17 08:30 98.0 77 18 139/74 (95) 99 11/14/17 07:01 82 11/14/17 06:00 68 11/14/17 05:00 76 11/14/17 04:00 98.1 65 18 148/77 (100) 99 11/14/17 04:00 62 11/14/17 03:00 65 11/14/17 02:00 72 11/14/17 01:00 70 11/14/17 00:00 98.0 79 18 140/70 (93) 100 11/14/17 00:00 68 11/13/17 23:00 59 11/13/17 22:00 64 11/13/17 21:00 62 11/13/17 20:15 98.0 72 18 155/82 (106) 100 11/13/17 20:00 66 11/13/17 19:00 75 11/13/17 18:01 65 11/13/17 17:00 68 11/13/17 16:01 62 11/13/17 15:30 97.9 69 18 153/70 (97) 100 11/13/17 15:00 68 11/13/17 14:00 66 11/13/17 13:00 70 11/13/17 12:01 84 11/13/17 11:30 98.3 89 18 155/68 (97) 100 11/13/17 11:00 75 11/13/17 10:01 76 I/O 11/13/17 11/13/17 11/13/17 11/14/17 11/14/17 11/14/17 07:00 15:00 23:00 07:00 15:00 23:00 Intake Total 480 ml 840 ml 480 ml Output Total 300 ml Balance 180 ml 840 ml 480 ml Intake Oral 480 ml 840 ml 480 ml Output Urine Total 300 ml # Voids 2 6 3 # Bowel Movements 0 0 0 Result Diagram: 11/14/17 0727 11/13/17 0925 Objective Remarks Resp- CTAB CV-S1S2 Abd- + BS, soft, nontender, nondistended. Wounds without drainage or signs of infection. Renal transplant biopsy site without obvious hematoma or signs of infection Ext- Calves, soft, nontender bilaterally. No palpable cords Assessment and Plan Problem List: (1) Kidney transplant status, cadaveric ICD Codes: Z94.0 - Kidney transplant status Status: Acute (2) Acute renal failure ICD Codes: N17.9 - Acute renal failure Status: Acute Assessment and Plan Patient s/p RLQ cadaveric renal transplant 09/01/2017. Transplant renal biopsy with no acute rejection or BK virus changes noted. Appreciate Bariatric surgery assistance. patient POD#2 s/p lap chase. No significant change in creat. WBC dropped to 3 (ANC 2100). Monitor for now. Alvaro Villavicencio Jr., MD Nov 14, 2017 09:34
[2017-11-14] MEDS ORDERED: OXYC1TAB63 PO (10:26)
[2017-11-14] MEDS ORDERED: LEFL20 PO (10:26)
--- NOTE | 2017-11-14 10:35 | HHI.DS ---
Discharge Summary Admission Date Nov 10, 2017 at 13:56 Admitting Diagnosis Acute renal failure (1) Acute renal failure Diagnosis: Principal Plan: I will hydrate him and repeat labs in the morning and continue with Prograf and prednisone and CellCept Differential includes acute renal failure due to rejection versus BK virus versus acute tubular necrosis rule out mechanical obstruction Follow ultrasound of the kidney results ICD Codes: N17.9 - Acute renal failure Status: Acute (2) Kidney transplant status, cadaveric Diagnosis: Secondary Plan: Ultrasound of the kidney ordered biopsy ordered for tomorrow ICD Codes: Z94.0 - Kidney transplant status Status: Acute Brief History Patient is a 42-year-old male with history of cadaveric kidney transplant 2 months ago at [facility] who was coming in for routine visit he has been working long hours keeping up with fluids he states that his appetite is not too good status post gastric bypass surgery and his creatinine gradually climbing up is 3.3, his BK titers were positive CellCept will decrease remains on prednisone 5 mg and Prograf 9 mg twice a day, he denies any other complaints he said he has been passing urine in did not notice any pain is any dysuria burning any fever or chills. He has history of ARF Biopsy showed mild early Rejection and ATN. CBC/BMP: 11/14/17 0727 11/13/17 0925 Significant Findings Laboratory Tests Test 11/11/17 12:38 11/11/17 15:46 11/12/17 15:48 11/13/17 09:25 Hemoglobin 9.7 GM/DL (13.0-17.0) 10.7 GM/DL (13.0-17.0) 10.6 GM/DL (13.0-17.0) Hematocrit 31.2 % (39.0-51.0) 34.0 % (39.0-51.0) 33.6 % (39.0-51.0) Red Blood Count 3.93 MIL/MM3 (4.50-5.90) 3.95 MIL/MM3 (4.50-5.90) Mean Corpuscular Hemoglobin Concent 31.4 % (32.0-36.0) 31.6 % (32.0-36.0) Neutrophils (%) (Auto) 96.7 % (16.0-70.0) 82.7 % (16.0-70.0) Lymphocytes (%) (Auto) 1.6 % (9.0-44.0) 6.8 % (9.0-44.0) Lymphocytes # (Auto) 0.1 TH/MM3 (1.0-4.8) 0.5 TH/MM3 (1.0-4.8) Blood Urea Nitrogen 29 MG/DL (7-18) 26 MG/DL (7-18) Creatinine 2.96 MG/DL (0.60-1.30) 2.92 MG/DL (0.60-1.30) Random Glucose 143 MG/DL (74-106) Chloride Level 111 MEQ/L (98-107) 108 MEQ/L (98-107) Estimat Glomerular Filtration Rate 24 ML/MIN (>89) 24 ML/MIN (>89) Mean Corpuscular Hemoglobin 26.9 PG (27.0-34.0) Monocytes (%) (Auto) 9.4 % (0.0-8.0) Test 11/13/17 20:00 11/14/17 07:27 White Blood Count 3.0 TH/MM3 (4.0-11.0) Red Blood Count 3.41 MIL/MM3 (4.50-5.90) Hemoglobin 9.4 GM/DL (13.0-17.0) Hematocrit 29.2 % (39.0-51.0) Neutrophils (%) (Auto) 70.1 % (16.0-70.0) Monocytes (%) (Auto) 13.0 % (0.0-8.0) Lymphocytes # (Auto) 0.4 TH/MM3 (1.0-4.8) Imaging Last Impressions Gall Bladder Ultrasound 11/12/17 0000 Signed Impressions: Service Date/Time: Sunday, November 12, 2017 07:55 - CONCLUSION: 1. Cholelithiasis including non-mobile stone in the gallbladder neck. No gallbladder wall thickening or pericholecystic fluid. HIDA scan may be warranted. 2. Hypoechoic lesion in the right mid kidney is nonspecific but found to be a cyst on previous outpatient MRI from August of 2017. Aric Harry MD Renal Biopsy Ultrasound 11/11/17 0600 Signed Impressions: Service Date/Time: Saturday, November 11, 2017 10:27 - CONCLUSION: Uncomplicated ultrasound guided needle biopsy. Howard Escamilla MD Upper GI Series 11/11/17 0000 Signed Impressions: Service Date/Time: Saturday, November 11, 2017 15:43 - CONCLUSION: Postsurgical changes status post gastric sleeve procedure with no evidence of obstruction or leakage. Fritz Nagy MD Renal Ultrasound 11/10/17 0000 Signed Impressions: Service Date/Time: Friday, November 10, 2017 14:04 - CONCLUSION: 1. Mild right hydronephrosis. Resistive indices are unchanged and within normal limits. Eugene Lewis MD PE at Discharge GENERAL: Well-nourished, well-developed patient. SKIN: Warm and dry. HEAD: Normocephalic. EYES: No scleral icterus. No injection or drainage. NECK: Supple, trachea midline. No JVD or lymphadenopathy. CARDIOVASCULAR: Regular rate and rhythm without murmurs, gallops, or rubs. RESPIRATORY: Breath sounds equal bilaterally. No accessory muscle use. GASTROINTESTINAL: Abdomen soft, non-tender, nondistended. Incisions healing well EXTREMITIES: No cyanosis, or edema. NEUROLOGICAL: Awake, alert, and oriented x 3. Non-focal. Hospital Course Patient had Nausea/vomiting, difficulty in eating, he had hydration creatinine declined to 2.99, he had a transplant kidney biopsy, Patient was seen by Surgery , advised Cholecystectomy, this was done and he did recovered well, his Kidney biopsy as compared to last Biopsy showed improvement and only ATN was seen. He was tolerating food well and his nausea/vomiting subsided. He was started on Leflunomide 20 mg as BK virus was positive in blood although his kidney transplant showed negative BK virus. his WBC was 3, ANC in 2.1 it was discussed with Dr. Villavicencio and rest of the team, everyone agreed that he can be discharged and follow up as out patient. His creatinine was gradually improving to 2.92. Pt Condition on Discharge: Good Discharge Disposition: Discharge Home Discharge Instructions DIET: Follow Instructions for: As Tolerated, No Restrictions Activities you can perform: Weight Bearing as Marlin, Shower Only-No Bath Activities to Avoid: Bathing New Medications: Leflunomide (Arava) 20 Mg Tab 20 MG PO DAILY for TXP for 30 Days, #30 TAB 3 Refills Oxycodone HCl/Acetaminophen (Oxycodone-Acetaminophen 5-325) 5 Mg-325 Mg Tablet 1 TAB PO Q6H PRN for PAIN SCALE 1-10 for 10 Days, #40 TAB Continued Medications: Calcium Carbonate (Antacid) (Tums) 500 Mg Chew 500 MG CHEW BID, TAB 0 Refills take at 1300 and 1800 Docusate Sodium (Colace) 100 Mg Capsule 100 MG PO BID Lacosamide (Vimpat) 100 Mg Tab 100 MG PO TID for SZ for 30 Days, #90 TAB 5 Refills Metoclopramide (Reglan) 5 Mg Tab 5 MG PO TIDAC, TAB 0 Refills Metoprolol Tartrate (Metoprolol Tartrate) 25 Mg Tab 12.5 MG PO DAILY, #30 TAB 0 Refills 2000 Multiple Vitamin (Multi-Vitamin Daily) 1 Tab Tab 1 TAB PO DAILY for Nutritional Supplement, TAB 0 Refills Mycophenolate (Cellcept) 250 Mg Cap 500 MG PO BID for Immunosuppression, #240 CAP 0 Refills 0500 and 1800 Polyethylene Glycol 3350 Powder (Miralax Powder) 17 Gm Powd 17 GM PO BID for Constipation, #1 CAN 0 Refills Mix and dissolve one measuring cap-ful (17 grams) in water or juice. Prednisone (Prednisone) 20 Mg Tab 5 MG PO DAILY, TAB 0 Refills Sulfamethoxazole-Trimethoprim (Bactrim DS) 800-160 Mg Tab 1 TAB PO MoWeFr for Infection, TAB 0 Refills Tacrolimus (Prograf) 1 Mg Cap 4 MG PO DAILY@06,18 for TXP for 30 Days, #240 CAP 5 Refills Tacrolimus (Prograf) 5 Mg Cap 5 MG PO DAILY@06,18 for TXP for 30 Days, #60 CAP 5 Refills Tamsulosin (Flomax) 0.4 Mg Cap 0.4 MG PO DAILY for Manage Prostate Problems, #30 CAP 0 Refills Jose Antonio Shin MD Nov 14, 2017 10:35
--- NOTE | 2017-11-14 15:50 | HHI.PR ---
Subjective Subjective Notes no acute issues, tolerating diet, no vomiting Objective Vitals/I&O Vital Signs Date Time Temp Pulse Resp B/P (MAP) Pulse Ox O2 Delivery O2 Flow Rate FiO2 11/14/17 10:01 73 11/14/17 08:30 98.0 18 139/74 (95) 99 11/12/17 13:00 Room Air Labs Laboratory Tests Test 11/13/17 20:00 11/14/17 07:27 Tacrolimus (Prograf) Level 9.5 10.9 White Blood Count 3.0 Red Blood Count 3.41 Hemoglobin 9.4 Hematocrit 29.2 Mean Corpuscular Volume 85.6 Mean Corpuscular Hemoglobin 27.4 Mean Corpuscular Hemoglobin Concent 32.0 Red Cell Distribution Width 13.6 Platelet Count 195 Mean Platelet Volume 8.4 Neutrophils (%) (Auto) 70.1 Lymphocytes (%) (Auto) 13.2 Monocytes (%) (Auto) 13.0 Eosinophils (%) (Auto) 2.3 Basophils (%) (Auto) 1.4 Neutrophils # (Auto) 2.1 Lymphocytes # (Auto) 0.4 Monocytes # (Auto) 0.4 Eosinophils # (Auto) 0.1 Basophils # (Auto) 0.0 CBC Comment DIFF FINAL Differential Comment Date/Time Source Procedure Growth Status 11/10/17 16:40 Urine Clean Catch Urine Culture - Final NO GROWTH IN 48 HOURS. Complete Radiology Last Impressions Renal Biopsy Ultrasound 11/11/17 0600 Signed Impressions: Service Date/Time: Saturday, November 11, 2017 10:27 - CONCLUSION: Uncomplicated ultrasound guided needle biopsy. Howard Escamilla MD Renal Ultrasound 11/10/17 0000 Signed Impressions: Service Date/Time: Friday, November 10, 2017 14:04 - CONCLUSION: 1. Mild right hydronephrosis. Resistive indices are unchanged and within normal limits. Eugene Lewis MD Abdomen: Other (soft incision c/d/i) A/P Assessment and Plan hx of sleeve gastrectomy, symptomatic cholelithiasis s/p lap chase PLAN advance renal diet as tolerated pain control oob general surgery will follow peripherally d/c planning continue medical Gio Munoz MD Nov 14, 2017 15:50
[2017-11-14] MEDS ORDERED: MYCOPHENOLATE MOFETIL 500 MG TAB PO SCH (21:00)
== END 2017-11-14 11:19 | disposition home or self-care (01) | DRG 987 ==
LOC: HCPC 13:19 → OBSVTOIN 13:56
PROVIDERS: ADMIT Internal Medicine Nephrology; ATTEND Internal Medicine Nephrology
PROC: 0FT44ZZ Resection of Gallbladder, Percutaneous Endoscopic Approach (ICD-10-PCS; principal; 2017-11-11)
PROC: 0TB33ZX Excision of Right Kidney Pelvis, Percutaneous Approach, Diagnostic (ICD-10-PCS; 2017-11-11)
DX: T86.19 Other complication of kidney transplant (principal); N17.0 Acute kidney failure with tubular necrosis; K80.12 Calculus of gallbladder with acute and chronic cholecystitis without obstruction; N13.30 Unspecified hydronephrosis; K76.0 Fatty (change of) liver, not elsewhere classified; I10 Essential (primary) hypertension; G40.909 Epilepsy, unspecified, not intractable, without status epilepticus; M10.9 Gout, unspecified; K21.9 Gastro-esophageal reflux disease without esophagitis; E78.00 Pure hypercholesterolemia, unspecified; R68.81 Early satiety; Y83.0 Surgical operation with transplant of whole organ as the cause of abnormal reaction of the patient, or of later complication, without mention of misadventure at the time of the procedure; Z98.84 Bariatric surgery status
CPT/HCPCS: 36569; 74240; 76705; 76776; 76937; 76942; 80048; 80053; 80197; 81001; 82948; 83690; 83735; 84100; 85014; 85018; 85025; 85610; 87086; 88304; 88305; 88313; 88346; 88348; 88350; J0131; J0690; J1170; J2250; J2270; J2370; J2405; J2710; J2930; J3010; J7030; J7507; J7512; J7517; Q9963

== ENCOUNTER 2018-02-09 01:33 | Observation (INO) | payer OTHER, MEDICAID ==
[2018-02-09] VITALS (8 sets, daily range): BP systolic 119–156; BP diastolic 67–89; PULSE 60–78; RESP 15–19; TEMP 96.9–98.2; O2SAT 98–99
[~2018-02-09] VITALS: Ht 180.3 cm; Wt 92.0 kg
[~2018-02-09 01:33] MED LIST changes: +LEFL20 PO; +MIRA3350 PO; +MULT-65 PO; -MULTIVITAMIN PO; +OXYC1TAB63 PO; +REGL5TAB PO
[2018-02-09 02:09] LABS: AUTOMATED NEUTROPHIL # 3.4 TH/MM3 (1.8-7.7); BASOPHIL % 0.7 % (0.0-2.0); EOSINOPHIL # 0.1 TH/MM3 (0-0.4); EOSINOPHIL % 3.3 % (0.0-4.0); HEMATOCRIT 34.2 % (39.0-51.0); HEMOGLOBIN 10.9 GM/DL (13.0-17.0); LYMPH % 7.9 % (9.0-44.0); LYMPHOCYTE # 0.4 TH/MM3 (1.0-4.8); MEAN CELL VOLUME 82.2 FL (80.0-100.0); MEAN CORPUSCULAR HEMOGLOBIN 26.2 PG (27.0-34.0); MEAN CORPUSCULAR HGB CONC 31.9 % (32.0-36.0); MEAN PLATELET VOLUME 8.6 FL (7.0-11.0); MONO % 13.1 % (0.0-8.0); MONOCYTE # 0.6 TH/MM3 (0-0.9); PLATELET COUNT 202 TH/MM3 (150-450); RED BLOOD COUNT 4.16 MIL/MM3 (4.50-5.90); RED CELL DISTRIBUTION WIDTH 15.5 % (11.6-17.2); WHITE BLOOD COUNT 4.6 TH/MM3 (4.0-11.0)
--- NOTE | 2018-02-09 02:18 | PD ---
HPI Chief Complaint: Fall Time Seen by Provider: 01:46 Travel History International Travel<30 days: No Contact w/Intl Traveler<30days: No History of Present Illness HPI The patient is a 42 year old male who presents to the [facility] emergency department with a history of syncopal event that occurred prior to arrival. The patient was reportedly unconscious for approximately 5 minutes. The patient reportedly was at a [employer] when this occurred. At the time ambulance services arrived the patient was awake and alert. The patient does have a history of seizure disorder, however he has not had a seizure in years. He reports that he does take Vimpat on a regular basis. He did not bite his tongue. He did not lose control of bowel or bladder. He was not postictal. He did not have any witnessed seizure-like activity. The patient on arrival repeatedly asked for his cervical collar to be removed. The patient reports having a headache and reportedly did strike the back of his head. The patient on review of systems denies having any help with patient's, chest pain, chest pressure, or shortness of breath. He denies having any recent fevers, cough, congestion, neck pain, abdominal pain, vomiting, diarrhea, urinary symptoms, or other neurologic symptoms. [facility] Past Medical History Narrative Medical The patient's past medical history is significant for renal failure status post renal transplant in August 2017, followed by Dr. Shin. The patient has a history of hypertension, hyperlipidemia, seizure disorder. Anemia: Yes Blood Disorders: No Heart Rhythm Problems: Yes (PT DENIES) Cancer: No Cardiovascular Problems: Yes (HYPERCHOLESTEROLEMIA) High Cholesterol: Yes Diabetes: No Dialysis: Yes (, , SAT) Diminished Hearing: No Endocrine: No Gastrointestinal Disorders: No GERD: Yes Gout: Yes (PT DENIES) Genitourinary: Yes Hepatitis: No Hiatal Hernia: No Hypertension: Yes Immune Disorder: No Implanted Vascular Access Dvce: Yes (FISTULA L UPPER ARM ) Kidney Stones: Yes Musculoskeletal: No Neurologic: Yes (EPILEPSY) Psychiatric: No Reproductive: No Respiratory: No Immunizations Current: Yes Renal Failure: Yes Seizures: Yes Thyroid Disease: No Influenza Vaccination: Yes ?: Not Past Surgical History Narrative Surgical The patient's past surgical history is significant for gastric sleeve, kidney transplant, left upper extremity AV fistula placement, cholecystectomy, craniotomy, tonsillectomy. Abdominal Surgery: Yes (GASTRIC SLEEVE ) AICD: No Cardiac Surgery: No Ear Surgery: No Endocrine Surgery: No Eye Surgery: No Genitourinary Surgery: Yes (KIDNEY STONES REMOVAL, NEPHROSTOMY TUBE A CHILD) Gynecologic Surgery: No Joint Replacement: No Neurologic Surgery: Yes (EPILEPSY SPACE ON BRAIN CLOSED 2006) Oral Surgery: Yes (TONSILLECTOMY) Pacemaker: No Thoracic Surgery: No Tonsillectomy: Yes Other Surgery: Yes (KIDNEY TRANSPLANT 2016) Social History Alcohol Use: No Tobacco Use: No Substance Use: No Allergies-Medications (Allergen,Severity, Reaction): Coded Allergies: lisinopril (Unverified Adverse Reaction, Severe, 02/09/18) Angioedema Reported Meds & Prescriptions Reported Meds & Active Scripts Active Oxycodone-Acetaminophen 5-325 (Oxycodone HCl/Acetaminophen) 5 Mg-325 Mg Tablet 1 Tab PO Q6H PRN 10 Days Vimpat (Lacosamide) 100 Mg Tab 100 Mg PO TID 30 Days Reported Prograf (Tacrolimus) 5 Mg Cap 6 Mg PO BID Arava (Leflunomide) 20 Mg Tab 25 Mg PO BID Multi-Vitamin Daily (Multiple Vitamin) 1 Tab Tab 1 Tab PO DAILY Flomax (Tamsulosin HCl) 0.4 Mg Cap 0.4 Mg PO DAILY Metoprolol Tartrate 25 Mg Tab 12.5 Mg PO DAILY 2000 Tums (Calcium Carbonate (Antacid)) 500 Mg Chew 500 Mg CHEW BID take at 1300 and 1800 Prednisone 20 Mg Tab 5 Mg PO DAILY Pantoprazole (Pantoprazole Sodium) 20 Mg Tab 20 Mg PO DAILY Review of Systems Except as stated in HPI: all other systems reviewed are Neg General / Constitutional: No: Fever Eyes: No: Visual changes HENT: Positive: Lightheadedness, No: Headaches Cardiovascular: Positive: Syncope, No: Chest Pain or Discomfort, Dyspnea on exertion Respiratory: No: Shortness of Breath Gastrointestinal: No: Abdominal Pain Genitourinary: No: Dysuria Musculoskeletal: No: Pain Skin: No Rash Neurologic: Positive: Syncope, No: Weakness, Focal Abnormalities, Change in Mentation, Slurred Speech, Sensory Disturbance Psychiatric: No: Depression Endocrine: No: Polydipsia Hematologic/Lymphatic: No: Easy Bruising Physical Exam Narrative General: The patient is a well-developed well-nourished male in no acute distress. Head and Neck exam: Head is normocephalic, with tenderness on palpation of the posterior scalp without any significant hematoma. No step-off or crepitus. Eyes: EOMI, pupils are equal round and reactive to light. Nose: Midline septum with pink mucous membranes Mouth: Dentition unremarkable. Moist mucus membranes. Posterior oropharynx is not erythematous. No tonsillar hypertrophy. Uvula midline. Airway patent. No evidence of trauma to his tongue. Neck: The patient has a cervical collar in place. The patient has a trachea is midline. Cardiovascular: Regular rate and rhythm without murmurs, gallops, or rubs. No pulse deficit to the extremities on simultaneous auscultation and palpation of his radial artery. Lungs: Clear to auscultation bilaterally. No wheezes, rhonchi, or rales. Abdomen: Soft, without tenderness to palpation in all 4 quadrants of the abdomen. No guarding, rebound, or rigidity. Normal bowel sounds are audible. No tenderness on palpation of McBurney's point. Negative Vargas sign. Extremities: No clubbing, cyanosis, or edema. 2+ pulses in all 4 extremities. No calf tenderness on palpation peer Back: No spinous process tenderness to palpation. No step-off or crepitus. No erythema or ecchymosis. No costovertebral angle tenderness to palpation. Neurologic Exam: Grossly nonfocal. Skin Exam: No rash noted. Intact skin that is warm and dry. Data Data Last Documented VS Vital Signs Date Time Temp Pulse Resp B/P (MAP) Pulse Ox O2 Delivery O2 Flow Rate FiO2 02/09/18 03:48 70 16 149/89 (109) 75 16 151/86 (107) 83 16 153/85 (107) 02/09/18 01:49 98 Room Air 02/09/18 01:38 98.2 Orders Orders Electrocardiogram (02/09/18 01:46) Complete Blood Count With Diff (02/09/18 01:46) Comprehensive Metabolic Panel (02/09/18 01:46) Ckmb (Isoenzyme) Profile (02/09/18 01:46) Troponin I (02/09/18 01:46) B-Type Natriuretic Peptide (02/09/18 01:46) Prothrombin Time / Inr (Pt) (02/09/18 01:46) Act Partial Throm Time (Ptt) (02/09/18 01:46) Urinalysis - C+S If Indicated (02/09/18 01:46) Magnesium (Mg) (02/09/18 01:46) Chest, Single Ap (02/09/18 01:46) Ct Brain W/O Iv Contrast(Rout) (02/09/18 01:46) Iv Access Insert/Monitor (02/09/18 01:46) Ecg Monitoring (02/09/18 01:46) Oximetry (02/09/18 01:46) Ct Cerv Spine W/O Contrast (02/09/18 ) Sodium Chlor 0.9% 250 Ml Inj (Ns 250 Ml (02/09/18 02:45) Orthostatic Vital Signs (02/09/18 02:55) Admit Order (Ed Use Only) (02/09/18 04:11) Consult Nephrology (02/09/18 ) Labs Laboratory Tests Test 02/09/18 01:58 02/09/18 03:45 White Blood Count 4.6 TH/MM3 Red Blood Count 4.16 MIL/MM3 Hemoglobin 10.9 GM/DL Hematocrit 34.2 % Mean Corpuscular Volume 82.2 FL Mean Corpuscular Hemoglobin 26.2 PG Mean Corpuscular Hemoglobin Concent 31.9 % Red Cell Distribution Width 15.5 % Platelet Count 202 TH/MM3 Mean Platelet Volume 8.6 FL Neutrophils (%) (Auto) 75.0 % Lymphocytes (%) (Auto) 7.9 % Monocytes (%) (Auto) 13.1 % Eosinophils (%) (Auto) 3.3 % Basophils (%) (Auto) 0.7 % Neutrophils # (Auto) 3.4 TH/MM3 Lymphocytes # (Auto) 0.4 TH/MM3 Monocytes # (Auto) 0.6 TH/MM3 Eosinophils # (Auto) 0.1 TH/MM3 Basophils # (Auto) 0.0 TH/MM3 CBC Comment DIFF FINAL Differential Comment Prothrombin Time 10.8 SEC Prothromb Time International Ratio 1.1 RATIO Activated Partial Thromboplast Time 23.2 SEC Blood Urea Nitrogen 33 MG/DL Creatinine 3.01 MG/DL Random Glucose 78 MG/DL Total Protein 6.7 GM/DL Albumin 3.4 GM/DL Calcium Level 8.3 MG/DL Magnesium Level 2.3 MG/DL Alkaline Phosphatase 128 U/L Aspartate Amino Transf (AST/SGOT) 11 U/L Alanine Aminotransferase (ALT/SGPT) 20 U/L Total Bilirubin 0.3 MG/DL Sodium Level 141 MEQ/L Potassium Level 4.5 MEQ/L Chloride Level 109 MEQ/L Carbon Dioxide Level 23.4 MEQ/L Anion Gap 9 MEQ/L Estimat Glomerular Filtration Rate 23 ML/MIN Total Creatine Kinase 59 U/L Troponin I LESS THAN 0.02 NG/ML B-Type Natriuretic Peptide 84 PG/ML Urine Color LIGHT-YELLOW Urine Turbidity CLEAR Urine pH 5.5 Urine Specific [place] 1.009 Urine Protein TRACE mg/dL Urine Glucose (UA) NEG mg/dL Urine Ketones NEG mg/dL Urine Occult Blood NEG Urine Nitrite NEG Urine Bilirubin NEG Urine Urobilinogen LESS THAN 2.0 MG/DL Urine Leukocyte Esterase NEG Urine RBC 1 /hpf Urine WBC 2 /hpf Urine Squamous Epithelial Cells <1 /hpf Urine Bacteria RARE /hpf Urine Mucus FEW /lpf Microscopic Urinalysis Comment CULT NOT INDICATED MDM Medical Decision Making Medical Screen Exam Complete: Yes Emergency Medical Condition: Yes Medical Record Reviewed: Yes Interpretation(s) Last Impressions Head CT 02/09/18145 Signed Impressions: Service Date/Time: Friday, February 09, 2018 02:34 - CONCLUSION: Stable CT brain. No acute intracranial abnormality Aric Harry MD Chest X-Ray 02/09/18145 Signed Impressions: Service Date/Time: Friday, February 09, 2018 01:56 - CONCLUSION: No acute disease. Aric Harry MD Thoracic Spine X-Ray 02/09/18 0000 Signed Impressions: Service Date/Time: Friday, February 09, 2018 11:16 - CONCLUSION: 1. Multiple chronic compression deformities involving the lower thoracic and upper lumbar spine are stable. 2. Degenerative changes, kyphosis and scoliosis of the thoraco-lumbar spine. Conner Alvarado MD Lumbar Spine X-Ray 02/09/18 0000 Signed Impressions: Service Date/Time: Friday, February 09, 2018 11:11 - CONCLUSION: 1. Multiple chronic compression deformities involving the lower thoracic and upper lumbar spine are stable. 2. Degenerative changes, kyphosis and scoliosis of the thoraco-lumbar spine. Conner Alvarado MD Cervical Spine CT 02/09/18 0000 Signed Impressions: Service Date/Time: Friday, February 09, 2018 02:34 - CONCLUSION: 1. No fracture or subluxation Aric Harry MD Carotid Artery Ultrasound 02/09/18 0000 Signed Impressions: Service Date/Time: Friday, February 09, 2018 17:20 - CONCLUSION: 1. Minimal carotid plaque without flow limiting stenosis. 2. Antegrade vertebral artery flow bilaterally. Sarabjit Perez MD Differential Diagnosis Vasovagal syncope, versus orthostasis, versus seizure activity, versus electrolyte derangements, versus cardiac arrhythmia Narrative Course During the course of the patient's emergency department visit, the patient's history, examination, and differential diagnosis were reviewed with the patient. The patient was placed on a manager cardiac cath with oximetry and frequent blood pressure monitoring. The patient had IV access obtained and blood work sent for analysis. The patient had an EKG done on arrival that shows a sinus rhythm heart rate 75, QRS duration 95 ms, QTC is 391 ms. The patient was initially provided normal saline 250 mL bolus 1. The patient's laboratory studies were reviewed and remarkable for a white count of 4.6, hemoglobin 10.9, platelets 202 with 75 neutrophils, lymphocytes 7.9, monocytes 13.1 CMP is remarkable for chloride of 109, BUN 33, creatinine 3.01, calcium 8.3, AST 11, alk phos 128, initial set of cardiac enzymes are negative, BNP is 84, PT PTT are unremarkable, urinalysis unremarkable Radiology studies were reviewed and remarkable for a chest x-ray that showed no evidence of acute cardiopulmonary disease, CT scan of the head and neck showed no acute abnormality. A call was placed out to the patient's sewing machine operator, Dr. Shin. He recommended that the patient be admitted to the hospitalist service and that he will see the patient in consultation regarding the syncope. Orthostatic vital signs were done in this patient and negative. The patient's results were discussed with the patient, including the plan of care. I explained that further testing and/ or monitoring is indicated based on the patient's history, examination, and/ or laboratory findings. Therefore, I recommended admission for additional evaluation. The patient expressed understanding and was agreeable with this plan. The patient was admitted to the hospital in stable condition and sent to a bed under the care of the [facility] hospitalist service. Physician Communication Physician Communication The patient's case including history, pertinent physical examination findings, and laboratory studies were discussed with Dr. Shin and Dr. Givens. It was agreed that the patient would be admitted to the [facility] Hospitalist service. Diagnosis Primary Impression: Syncope Adriane Urias MD Feb 09, 2018 02:18
--- NOTE | 2018-02-09 02:18 | RADRPT ---
EXAM DATE/TIME: 02/09/2018 01:56 [facility] COMPARISON: CHEST SINGLE AP, September 01, 2017, 20:13. INDICATIONS : Short of breath. MEDICAL HISTORY : None. SURGICAL HISTORY : None. ENCOUNTER: Initial ACUITY: 1 day PAIN SCORE: 0/10 LOCATION: Bilateral chest FINDINGS: A single view of the chest demonstrates the lungs to be symmetrically aerated without evidence of mas s, infiltrate or effusion. The cardiomediastinal contours are unremarkable. Osseous structures are intact. CONCLUSION: No acute disease. Aric Harry MD on February 09, 2018 at 2:16 Board Certified Radiologist. This report was verified electronically.
[2018-02-09 02:20] LABS: INTERNATIONAL NORMALIZED RATIO 1.1 RATIO; PROTHROMBIN TIME - PATIENT 10.8 SEC (9.8-11.6)
[2018-02-09] MEDS ORDERED: TACR5 PO (02:21)
[2018-02-09] MEDS ORDERED: LEFL20 PO (02:21)
[2018-02-09 02:22] LABS: ALBUMIN 3.4 GM/DL (3.4-5.0); ALT (GPT) 20 U/L (12-78); AST (GOT) 11 U/L (15-37); BICARBONATE 23.4 MEQ/L (21.0-32.0); BLOOD UREA NITROGEN 33 MG/DL (7-18); CALCIUM 8.3 MG/DL (8.5-10.1); CHLORIDE 109 MEQ/L (98-107); CREATININE 3.01 MG/DL (0.60-1.30); GLOMERULAR FILTRATION RATE 23 ML/MIN (>89); GLUCOSE,RANDOM 78 MG/DL (74-106); MAGNESIUM 2.3 MG/DL (1.5-2.5); SODIUM (NA) 141 MEQ/L (136-145)
[2018-02-09 02:26] LABS: ALKALINE PHOSPHATASE 128 U/L (45-117); TOTAL BILIRUBIN ADULT 0.3 MG/DL (0.2-1.0); TOTAL PROTEIN 6.7 GM/DL (6.4-8.2); TROPONIN I LESS THAN 0.02 NG/ML (0.02-0.05)
[2018-02-09] MEDS ORDERED: SODIUM CHLOR 0.9% 250 ML INJ 250 ML IV ONE (02:45)
--- NOTE | 2018-02-09 03:02 | RADRPT ---
EXAM DATE/TIME: 02/09/2018 02:34 [facility] COMPARISON: CT BRAIN W/O CONTRAST, August 21, 2017, 12:57. INDICATIONS : Trauma, fall. RADIATION DOSE: 39.71 CTDIvol (mGy) MEDICAL HISTORY : Cardiovascular disease. Hypertension. Renal failure, chronic.Epilepsy SURGICAL HISTORY : Renal transplant. ENCOUNTER: Initial ACUITY: 1 day PAIN SCALE: 5/10 LOCATION: cranial TECHNIQUE: Multiple contiguous axial images were obtained of the head. Using automated exposure control and adj ustment of the mA and/or kV according to patient size, radiation dose was kept as low as reasonably a chievable to obtain optimal diagnostic quality images. DICOM format image data is available electro nically for review and comparison. FINDINGS: CEREBRUM: Encephalomalacia left temporal lobe. The ventricles are normal for age. No evidence of midline shift , mass lesion, hemorrhage or acute infarction. No extra-axial fluid collections are seen. POSTERIOR FOSSA: The cerebellum and brainstem are intact. The 4th ventricle is midline. The cerebellopontine angle i s unremarkable. EXTRACRANIAL: The visualized portion of the orbits is intact. SKULL: Previous left temporal craniotomy. No evidence of skull fracture. CONCLUSION: Stable CT brain. No acute intracranial abnormality Aric Harry MD on February 09, 2018 at 3:00 Board Certified Radiologist. This report was verified electronically.
--- NOTE | 2018-02-09 03:03 | RADRPT ---
EXAM DATE/TIME: 02/09/2018 02:34 [facility] COMPARISON: CT CERVICAL SPINE W/O CONTRAST, July 03, 2017, 13:59. INDICATIONS : Trauma, fall. RADIATION DOSE: 20.93 CTDIvol (mGy) MEDICAL HISTORY : Cardiovascular disease. Hypertension. Renal failure, chronic.Epilepsy. SURGICAL HISTORY : Renal transplant. ENCOUNTER: Initial ACUITY: 1 day PAIN SCALE: 5/10 LOCATION: neck TECHNIQUE: Volumetric scanning of the cervical spine was performed. Multiplanar reconstructions in the sagittal, coronal and oblique axial planes were performed. Using automated exposure control and adjustment o f the mA and/or kV according to patient size, radiation dose was kept as low as reasonably achievable to obtain optimal diagnostic quality images. DICOM format image data is available electronically f or review and comparison. FINDINGS: VERTEBRAE: Normal vertebral body height. ALIGNMENT: No evidence of subluxation. C2-C3: The bony spinal canal is normal in size. No evidence of disc bulge or herniation. The neural forami na are bilaterally patent. C3-C4: The bony spinal canal is normal in size. No evidence of disc bulge or herniation. The neural forami na are bilaterally patent. C4-C5: The bony spinal canal is normal in size. No evidence of disc bulge or herniation. The neural forami na are bilaterally patent. C5-C6: The bony spinal canal is normal in size. No evidence of disc bulge or herniation. The neural forami na are bilaterally patent. C6-C7: The bony spinal canal is normal in size. No evidence of disc bulge or herniation. The neural forami na are bilaterally patent. C7-T1: The bony spinal canal is normal in size. No evidence of disc bulge or herniation. The neural forami na are bilaterally patent. CONCLUSION: 1. No fracture or subluxation Aric Harry MD on February 09, 2018 at 3:01 Board Certified Radiologist. This report was verified electronically.
[2018-02-09 04:07] LABS: BACTERIA, URINE RARE /hpf; BILIRUBIN, URINE NEG (NEG); BLOOD, URINE NEG (NEG); GLUCOSE,URINE NEG (NEG); KETONE, URINE NEG (NEG); MUCUS URINE FEW /lpf (OCC); NITRITE,URINE NEG (NEG); PH, URINE 5.5 (5.0-8.5); SQUAMOUS EPITHELIAL CELL URINE <1 /hpf (0-5); URINE COLOR LIGHT-YELLOW (YELLW/STRAW); URINE LEUKOCYTE ESTERASE NEG (NEG)
[2018-02-09] MEDS ORDERED: ONDANSETRON HCL 4 MG/2 ML VIAL IVP PRN (04:15)
[2018-02-09] MEDS ORDERED: MAGNESIUM HYDROXIDE SUSP 30 ML CUP PO PRN (04:15)
[2018-02-09] MEDS ORDERED: SENNOSIDES 8.6 MG TAB PO PRN (04:15)
[2018-02-09] MEDS ORDERED: BISACODYL 10 MG SUPP RECTAL PRN (04:15)
[2018-02-09] MEDS ORDERED: LACTULOSE SYRUP 20 GM/30 ML CUP PO PRN (04:15)
[2018-02-09] MEDS ORDERED: ACETAMINOPHEN 325 MG TAB PO PRN (04:15)
[2018-02-09] MEDS ORDERED: ACETAMINOPHEN/HYDROcodone 325 MG/5 MG TAB PO PRN (04:15)
[2018-02-09] MEDS ORDERED: SODIUM CHLORIDE 0.9% FLUSH 10 ML FLUSH IV FLUSH PRN (04:15)
--- NOTE | 2018-02-09 04:49 | HHI.HP ---
[facility]Staff Admission Diagnosis syncope Diagnoses: (1) Syncope Diagnosis: Principal (2) Renal transplant, status post Diagnosis: Principal (3) Seizure disorder Diagnosis: Principal Travel History International Travel<30 Days: No Contact w/Intl Traveler <30 Da: No History of Present Illness This is a 42 year-old male w/ a PMH of CKD, Renal Transplant, HTN, Hyperlipidemia and Seizure Disorder who was brought to the ER by EMS after an apparent syncopal event while at [facility]. Per report, pt found lying on the floor in an aisle of [facility], down for approx 5min. No seizure like activity reported. Pt denies dizziness/lightheadedness. No incontinence, no tongue biting. +head laceration. On arrival, BP 156/87, HR 78, O2 sat 99% RA, Afebrile. CBC at baseline. Chemistry essentially at baseline, creatinine 3.01 , previously 2.73 on 02/02/18. INR 1.1. UA negative. CT Head with no acute findings. CT C-spine no fracture or subluxation. CXR no acute findings. Dr. Shin consulted, will see in am. Review of Systems Except as stated in HPI: all other systems reviewed are Neg ROS: 14 point review of systems otherwise negative. Past Family Social History Past Medical History PMH: Gastric Sleeve, Cholecystectomy, Craniotomy, Tonsillectomy, Nephrostomy Tube Placement, Renal Transplant, AV Fistula Allergies: Coded Allergies: lisinopril (Unverified Adverse Reaction, Severe, 02/09/18) Angioedema Family History PAST FAMILY HISTORY: Reviewed. No h/o DM or CAD Social History PAST SOCIAL HISTORY: Negative for alcohol, tobacco or drugs. Physical Exam Vital Signs Vital Signs Date Time Temp Pulse Resp B/P (MAP) Pulse Ox O2 Delivery O2 Flow Rate FiO2 02/09/18 03:48 70 16 149/89 (109) 75 16 151/86 (107) 83 16 153/85 (107) 02/09/18 01:49 98 Room Air 02/09/18 01:38 98.2 78 15 156/87 (110) 99 Physical Exam PE: GENERAL: Pleasant middle-age male in no acute distress. HEENT: PERRLA, EOMI. No scleral icterus or conjunctival pallor. No lid lag or facial droop. CARDIOVASCULAR: Regular rate and rhythm. No obvious murmurs to auscultation. No chest tenderness to palpation. RESPIRATORY: No obvious rhonchi or wheezing. Clear to auscultation. Breath sounds equal bilaterally. GASTROINTESTINAL: Abdomen soft, non-tender, nondistended. BS normal. MUSCULOSKELETAL: Extremities without clubbing, cyanosis, or edema. No obvious deformities. NEUROLOGICAL: Awake, alert and oriented x4. No focal neurologic deficits. Moving both upper and lower extremities spontaneously. Laboratory Laboratory Tests Test 02/09/18 01:58 02/09/18 03:45 White Blood Count 4.6 Red Blood Count 4.16 Hemoglobin 10.9 Hematocrit 34.2 Mean Corpuscular Volume 82.2 Mean Corpuscular Hemoglobin 26.2 Mean Corpuscular Hemoglobin Concent 31.9 Red Cell Distribution Width 15.5 Platelet Count 202 Mean Platelet Volume 8.6 Neutrophils (%) (Auto) 75.0 Lymphocytes (%) (Auto) 7.9 Monocytes (%) (Auto) 13.1 Eosinophils (%) (Auto) 3.3 Basophils (%) (Auto) 0.7 Neutrophils # (Auto) 3.4 Lymphocytes # (Auto) 0.4 Monocytes # (Auto) 0.6 Eosinophils # (Auto) 0.1 Basophils # (Auto) 0.0 CBC Comment DIFF FINAL Differential Comment Prothrombin Time 10.8 Prothromb Time International Ratio 1.1 Activated Partial Thromboplast Time 23.2 Blood Urea Nitrogen 33 Creatinine 3.01 Random Glucose 78 Total Protein 6.7 Albumin 3.4 Calcium Level 8.3 Magnesium Level 2.3 Alkaline Phosphatase 128 Aspartate Amino Transf (AST/SGOT) 11 Alanine Aminotransferase (ALT/SGPT) 20 Total Bilirubin 0.3 Sodium Level 141 Potassium Level 4.5 Chloride Level 109 Carbon Dioxide Level 23.4 Anion Gap 9 Estimat Glomerular Filtration Rate 23 Total Creatine Kinase 59 Troponin I LESS THAN 0.02 B-Type Natriuretic Peptide 84 Urine Color LIGHT-YELLOW Urine Turbidity CLEAR Urine pH 5.5 Urine Specific [place] 1.009 Urine Protein TRACE Urine Glucose (UA) NEG Urine Ketones NEG Urine Occult Blood NEG Urine Nitrite NEG Urine Bilirubin NEG Urine Urobilinogen LESS THAN 2.0 Urine Leukocyte Esterase NEG Urine RBC 1 Urine WBC 2 Urine Squamous Epithelial Cells <1 Urine Bacteria RARE Urine Mucus FEW Microscopic Urinalysis Comment CULT NOT INDICATED Result Diagram: 02/09/1815702/09/18157 Caprini VTE Risk Assessment Caprini VTE Risk Assessment: No/Low Risk (score <= 1) Caprini Risk Assessment Model Point Value = 1 Point Value = 2 Point Value = 3 Point Value = 5 Age 41-60 Minor surgery BMI > 25 kg/m2 Swollen legs Varicose veins or History of unexplained or recurrent spontaneous Oral contraceptives or hormone replacement Sepsis (< 1 month) Serious lung disease, including pneumonia (< 1 month) Abnormal pulmonary function Acute myocardial infarction Congestive heart failure (< 1 month) History of inflammatory bowel disease Medical patient at bed rest Age 61-74 Arthroscopic surgery Major open surgery (> 45 min) Laparoscopic surgery (> 45 min) Malignancy Confined to bed (> 72 hours) Immobilizing plaster cast Central venous access Age >= 75 History of VTE Family history of VTE Factor V Leiden Prothrombin [id number] Lupus anticoagulant Anticardiolipin antibodies Elevated serum homocysteine Heparin-induced thrombocytopenia Other congenital or acquired thrombophilia Stroke (< 1 month) Elective arthroplasty Hip, pelvis, or leg fracture Acute spinal cord injury (< 1 month) Prophylaxis Regimen Total Risk Factor Score Risk Level Prophylaxis Regimen 0-1 Low Early ambulation 2 Moderate Order ONE of the following: *Sequential Compression Device (SCD) *Heparin 5000 units SQ BID 3-4 Higher Order ONE of the following medications: *Heparin 5000 units SQ TID *Enoxaparin/Lovenox 40 mg SQ daily (WT < 150 kg, CrCl > 30 mL/min) *Enoxaparin/Lovenox 30 mg SQ daily (WT < 150 kg, CrCl > 10-29 mL/min) *Enoxaparin/Lovenox 30 mg SQ BID (WT < 150 kg, CrCl > 30 mL/min) AND/OR *Sequential Compression Device (SCD) 5 or more Highest Order ONE of the following medications: *Heparin 5000 units SQ TID (Preferred with Epidurals) *Enoxaparin/Lovenox 40 mg SQ daily (WT < 150 kg, CrCl > 30 mL/min) *Enoxaparin/Lovenox 30 mg SQ daily (WT < 150 kg, CrCl > 10-29 mL/min) *Enoxaparin/Lovenox 30 mg SQ BID (WT < 150 kg, CrCl > 30 mL/min) AND *Sequential Compression Device (SCD) Assessment and Plan Problem List: (1) Syncope ICD Code: R55 - Syncope and collapse (2) Seizure disorder ICD Code: G40.909 - Epilepsy, unspecified, not intractable, without status epilepticus Status: Chronic (3) Renal transplant, status post ICD Code: Z94.0 - Kidney transplant status Assessment and Plan A/P: 1. Syncope: acute syncopal event, no lightheadedness/dizziness prior, no reported seizure activity. CT Head/C-Spine w/ no acute findings, images reviewed by me. Admit to Observation, telemetry, check serial cardiac enzymes to eval for underlying ischemia. Check Echo to eval for valvular abnormalities/ cardiomyopathy. 2. Seizure Disorder: no recent seizure reported, will resume home Vimpat. Seizure Precautions. 3. Renal Transplant: Following w/ Dr. Shin, has appt in am, however Dr. Shin consulted by ER doc, will see during hospitalization. Resume home Prograf and Prednisone. 4. DVT Prophylaxis: SCD/Teds 5. Social work for d/c planning as needed. 6. Case discussed w/ ER physician at length, labs/records/imaging reviewed by me. Dara Givens MD Feb 09, 2018 04:49
[2018-02-09] MEDS ORDERED: LEFLUNOMIDE 20 MG TAB PO SCH (09:00)
[2018-02-09] MEDS: DOCUSATE SODIUM 50 MG/SENNA 8.6 MG TAB PO SCH ×2 (09:00→21:52)
[2018-02-09] MEDS ORDERED: LEFLUNOMIDE 20 MG PO SCH (09:00)
[2018-02-09] MEDS: TACROLIMUS 5 MG CAP PO SCH ×2 (09:35→21:52)
[2018-02-09] MEDS: TACROLIMUS 1 MG CAP PO SCH ×2 (09:35→21:52)
[2018-02-09] MEDS: LACOSAMIDE 100 MG TAB PO SCH ×3 (09:36→17:42)
[2018-02-09] MEDS: SODIUM CHLORIDE 0.9% FLUSH 10 ML FLUSH IV FLUSH SCH ×2 (09:36→21:52)
[2018-02-09] MEDS: predniSONE 5 MG TAB PO SCH (09:36)
[2018-02-09] MEDS: CALCIUM CARBONATE 500 MG CHEWABLE TAB CHEW SCH ×2 (09:36→21:52)
[2018-02-09] MEDS: TAMSULOSIN HCL 0.4 MG CAP PO SCH (09:36)
[2018-02-09] MEDS: PANTOPRAZOLE SOD 20 MG DELAYED RELEASE TAB PO SCH (09:36)
[2018-02-09] MEDS: MULTIVITAMIN TAB PO SCH (09:36)
--- NOTE | 2018-02-09 10:31 | HHI.PR ---
Subjective Remarks Follow up for syncope. The patient reports feeling better today. He complains of diffuse lower thoracic and upper lumbar back pain since his syncopal episode. Denies any lower extremity numbness or weakness. Denies any dysuria or incontinence. He states he believes his blood pressure was low on the scene however there is no report of this in the EMR. He denies any recent vomiting or diarrhea. He denies any other medical complaints at this time including no headache, lightheadedness, dizziness, chest pain, palpitations, shortness of breath, or abdominal pains. Objective Vitals Vital Signs Date Time Temp Pulse Resp B/P (MAP) Pulse Ox O2 Delivery O2 Flow Rate FiO2 02/09/18 08:09 97.6 66 18 132/73 (92) 98 02/09/18 06:02 02/09/18 03:48 70 16 149/89 (109) 75 16 151/86 (107) 83 16 153/85 (107) 02/09/18 01:49 98 Room Air 02/09/18 01:38 98.2 78 15 156/87 (110) 99 I/O 02/08/18 02/08/18 02/08/18 02/09/18 02/09/18 02/09/18 07:00 15:00 23:00 07:00 15:00 23:00 Intake Total 250 ml Balance 250 ml Intake IV Total 250 ml # Voids 1 Result Diagram: 02/09/18 0158 02/09/18 0158 Imaging Last Impressions Head CT 02/09/18145 Signed Impressions: Service Date/Time: Friday, February 09, 2018 02:34 - CONCLUSION: Stable CT brain. No acute intracranial abnormality Aric Harry MD Chest X-Ray 02/09/18 0146 Signed Impressions: Service Date/Time: Friday, February 09, 2018 01:56 - CONCLUSION: No acute disease. Aric Harry MD Thoracic Spine X-Ray 02/09/18 0000 Signed Impressions: Service Date/Time: Friday, February 09, 2018 11:16 - CONCLUSION: 1. Multiple chronic compression deformities involving the lower thoracic and upper lumbar spine are stable. 2. Degenerative changes, kyphosis and scoliosis of the thoraco-lumbar spine. Conner Alvarado MD Lumbar Spine X-Ray 02/09/18 0000 Signed Impressions: Service Date/Time: Friday, February 09, 2018 11:11 - CONCLUSION: 1. Multiple chronic compression deformities involving the lower thoracic and upper lumbar spine are stable. 2. Degenerative changes, kyphosis and scoliosis of the thoraco-lumbar spine. Conner Alvarado MD Cervical Spine CT 02/09/18 0000 Signed Impressions: Service Date/Time: Friday, February 09, 2018 02:34 - CONCLUSION: 1. No fracture or subluxation Aric Harry MD Objective Remarks GENERAL: Well-nourished, well-developed middle aged male patient in NAD. SKIN: Warm and dry. No rash. LUE fistula. HEENT: Normocephalic. Occipital scalp with hematoma. Pupils equal and round. Mucous membranes pink and moist. NECK: Supple. Trachea midline. CARDIOVASCULAR: Regular rate and rhythm. No murmur appreciated. RESPIRATORY: No accessory muscle use. Clear to auscultation. Breath sounds equal bilaterally. GASTROINTESTINAL: Abdomen soft, non-tender, nondistended. Normoactive bowel sounds x4. MUSCULOSKELETAL: No obvious deformities. Extremities without clubbing, cyanosis , or edema. Lower thoracic and upper lumbar diffuse paraspinous muscle tenderness, worse on the right lower thoracic with palpable hematoma; no overlying ecchymosis. NEUROLOGICAL: Awake and alert. No obvious cranial nerve deficits. Motor grossly within normal limits. 5/5 muscle strength in bilateral upper and lower extremities. Normal speech. PSYCHIATRIC: Appropriate mood and affect; insight and judgment normal. Medications and IVs Current Medications Medications (Trade) Dose Ordered Sig/Gabriella Route Start Time Stop Time Status Last Admin (NS Flush) 2 ml UNSCH PRN IV FLUSH 02/09/18 04:15 (NS Flush) 2 ml BID IV FLUSH 02/09/18 09:00 02/09/18 09:36 (Zofran Inj) 4 mg Q6H PRN IVP 02/09/18 04:15 (Tylenol) 650 mg Q6H PRN PO 02/09/18 04:15 (Douglas 5-325 Mg) 1 tab Q4H PRN PO 02/09/18 04:15 (Douglas 10-325 Mg) 1 tab Q4H PRN PO 02/09/18 04:15 02/09/18 11:28 (Ruth-Colace) 1 tab BID PO 02/09/18 09:00 (Milk Of Magnesia Liq) 30 ml Q12H PRN PO 02/09/18 04:15 (Senokot) 17.2 mg Q12H PRN PO 02/09/18 04:15 (Dulcolax Supp) 10 mg DAILY PRN RECTAL 02/09/18 04:15 (Lactulose Liq) 30 ml DAILY PRN PO 02/09/18 04:15 (Tums Chew) 500 mg BID CHEW 02/09/18 09:00 02/09/18 09:36 (Vimpat) 100 mg TID PO 02/09/18 09:00 02/09/18 11:29 (Protonix) 20 mg DAILY PO 02/09/18 09:00 02/09/18 09:36 (Deltasone) 5 mg DAILY PO 02/09/18 09:00 02/09/18 09:36 (Prograf) 5 mg BID PO 02/09/18 09:00 02/09/18 09:35 (Flomax) 0.4 mg DAILY PO 02/09/18 09:00 02/09/18 09:36 (Theragran) 1 tab DAILY PO 02/09/18 09:00 02/09/18 09:36 (Prograf) 1 mg BID PO 02/09/18 09:00 02/09/18 09:35 Patient Own Medication PT OWN MED: LEFLUNOM... BID PO 02/09/18 09:00 Future Hold A/P Problem List: (1) Syncope ICD Code: R55 - Syncope and collapse (2) Seizure disorder ICD Code: G40.909 - Epilepsy, unspecified, not intractable, without status epilepticus Status: Chronic (3) Renal transplant, status post ICD Code: Z94.0 - Kidney transplant status Assessment and Plan 42 year-old male w/ a PMH of CKD, Renal Transplant, HTN, Hyperlipidemia and Seizure Disorder who was brought to the ER by EMS after an apparent syncopal event while at [facility]. Syncope: acute syncopal event, no lightheadedness/dizziness prior, no reported seizure activity. Patient without much recollection of event however reportedly had low BP on scene. Suspect episode vasovagal vs hypotension. -CT Head/C-Spine w/ no acute findings, images reviewed by me. -Monitor on telemetry -Orthostatics negative -ACS ruled out with negative serial cardiac enzymes, EKG without acute ischemic changes -Check Echo to eval for valvular abnormalities/cardiomyopathy. -Check EEG to eval for seizure activity -Monitor neuro checks -Check carotid U/S Seizure Disorder: no recent seizure reported, patient reports compliance with antiepileptics -resume home Vimpat. -Seizure Precautions. -Check EEG as above Renal Transplant: done -Following w/ Dr. Shin, has appt in am, however Dr. Shin consulted by ER doc, will see during hospitalization. -Resume home Prograf and Prednisone. Back Pain: s/p fall with syncopal episode as above. Palpable lower thoracic paraspinous hematoma with TTP. -check thoracic and lumbar spine xrays -pain control with norco prn -consult PT DVT Prophylaxis: SCD/Daina Pagan PA-C Feb 09, 2018 10:31 am
[2018-02-09] MEDS: ACETAMINOPHEN/HYDROcodone 325 MG/10 MG TAB PO PRN ×2 (11:28→21:51)
--- NOTE | 2018-02-09 11:44 | RADRPT ---
EXAM DATE/TIME: 02/09/2018 11:16 [place] COMPARISON: CHEST PA & LAT, September 01, 2017, 15:20. INDICATIONS : Fell yesterday at [facility]. MEDICAL HISTORY : Cardiovascular disease. Hypertension Renal failure, chronic. epilepsy SURGICAL HISTORY : renal transplant ENCOUNTER: Initial ACUITY: 2 days PAIN SCORE: 6/10 LOCATION: Bilateral thoracic spine FINDINGS: Multiple chronic compression deformities are noted involving the lower thoracic and upper lumbar spin e and are stable compared to previous examination in August of 2017. Kyphosis of the thoracolumbar s pine is noted. Scoliosis of the thoraco-lumbar spine is also noted. Degenerative changes are noted th roughout the thoraco-lumbar spine. CONCLUSION: 1. Multiple chronic compression deformities involving the lower thoracic and upper lumbar spine are s table. 2. Degenerative changes, kyphosis and scoliosis of the thoraco-lumbar spine. Conner Alvarado MD on February 09, 2018 at 11:38 Board Certified Radiologist. This report was verified electronically.
--- NOTE | 2018-02-09 11:44 | RADRPT ---
EXAM DATE/TIME: 02/09/2018 11:11 [place] COMPARISON: CHEST PA & LAT, September 01, 2017, 15:20. INDICATIONS : Fell yesterday at [facility]. MEDICAL HISTORY : Cardiovascular disease. Hypertension Renal failure, chronic. epilepsy SURGICAL HISTORY : renal transplant ENCOUNTER: Initial ACUITY: 2 days PAIN SCORE: 6/10 LOCATION: Bilateral thoracic spine FINDINGS: Multiple chronic compression deformities are noted involving the lower thoracic and upper lumbar spin e and are stable compared to previous examination in August of 2017. Kyphosis of the thoracolumbar s pine is noted. Scoliosis of the thoraco-lumbar spine is also noted. Degenerative changes are noted th roughout the thoraco-lumbar spine. CONCLUSION: 1. Multiple chronic compression deformities involving the lower thoracic and upper lumbar spine are s table. 2. Degenerative changes, kyphosis and scoliosis of the thoraco-lumbar spine. Conner Alvarado MD on February 09, 2018 at 11:38 Board Certified Radiologist. This report was verified electronically.
--- NOTE | 2018-02-09 15:20 | EKG ---
Date Performed: 02/09/2018 Time Performed: 01:46:00 PTAGE: 42 years EKG: Sinus rhythm Since the previous tracing, no significant change noted NORMAL ECG PREVIOUS TRACING : 09/01/17 @ 1707 DOCTOR: eGmma Oliveira Interpretating Date/Time 02/09/2018 15:13:29
--- NOTE | 2018-02-09 15:52 | PD.CONS ---
HPI Service Nephrology Consult Requested By Dr. Givens Reason for Consult Status post kidney transplant Primary Care Physician Non-Staff History of Present Illness Patient is a 42-year-old white male with history of IgA nephropathy, kidney stones, he has previous surgical nephrostomy, underwent kidney transplant in 2017, his postoperative course was completed by delayed graft function, his creatinine remains elevated and he was at 2.7 currently at 3 on he has been not eating too well after his gastric sleeve surgery and has several admissions, he did have cholecystectomy at one-point, he denies any nausea vomiting, said he was at [facility] when suddenly he passed out for approximately 5 minutes, patient did bump his head and has back bruise as well, he was brought in the ambulance and in the emergency he was alert and responsive, patient has history of seizure disorder. Review of Systems Constitutional: COMPLAINS OF: Fatigue Neurologic: COMPLAINS OF: Headache (From the fall the back of head) Past Family Social History Allergies: Coded Allergies: lisinopril (Unverified Adverse Reaction, Severe, 02/09/18) Angioedema Past Medical History Kidney transplant Hypertension Craniotomy Seizure disorder AV fistula Anemia Gastric sleeve History of nephrostomy Past Surgical History History of nephrotic Kidney transplant Gastric sleep Craniotomy Reported Medications Reported Meds & Active Scripts Active Oxycodone-Acetaminophen 5-325 (Oxycodone HCl/Acetaminophen) 5 Mg-325 Mg Tablet 1 Tab PO Q6H PRN 10 Days Vimpat (Lacosamide) 100 Mg Tab 100 Mg PO TID 30 Days Reported Prograf (Tacrolimus) 5 Mg Cap 6 Mg PO BID Arava (Leflunomide) 20 Mg Tab 25 Mg PO BID Multi-Vitamin Daily (Multiple Vitamin) 1 Tab Tab 1 Tab PO DAILY Flomax (Tamsulosin HCl) 0.4 Mg Cap 0.4 Mg PO DAILY Metoprolol Tartrate 25 Mg Tab 12.5 Mg PO DAILY 2000 Tums (Calcium Carbonate (Antacid)) 500 Mg Chew 500 Mg CHEW BID take at 1300 and 1800 Prednisone 20 Mg Tab 5 Mg PO DAILY Pantoprazole (Pantoprazole Sodium) 20 Mg Tab 20 Mg PO DAILY Active Ordered Medications Current Medications Medications (Trade) Dose Ordered Sig/Gabriella Route Start Time Stop Time Status Last Admin (NS Flush) 2 ml UNSCH PRN IV FLUSH 02/09/18 04:15 (NS Flush) 2 ml BID IV FLUSH 02/09/18 09:00 02/09/18 09:36 (Zofran Inj) 4 mg Q6H PRN IVP 02/09/18 04:15 (Tylenol) 650 mg Q6H PRN PO 02/09/18 04:15 (Elizabeth 5-325 Mg) 1 tab Q4H PRN PO 02/09/18 04:15 (Elizabeth 10-325 Mg) 1 tab Q4H PRN PO 02/09/18 04:15 02/09/18 11:28 (Ruth-Colace) 1 tab BID PO 02/09/18 09:00 (Milk Of Magnesia Liq) 30 ml Q12H PRN PO 02/09/18 04:15 (Senokot) 17.2 mg Q12H PRN PO 02/09/18 04:15 (Dulcolax Supp) 10 mg DAILY PRN RECTAL 02/09/18 04:15 (Lactulose Liq) 30 ml DAILY PRN PO 02/09/18 04:15 (Tums Chew) 500 mg BID CHEW 02/09/18 09:00 02/09/18 09:36 (Vimpat) 100 mg TID PO 02/09/18 09:00 02/09/18 11:29 (Protonix) 20 mg DAILY PO 02/09/18 09:00 02/09/18 09:36 (Deltasone) 5 mg DAILY PO 02/09/18 09:00 02/09/18 09:36 (Prograf) 5 mg BID PO 02/09/18 09:00 02/09/18 09:35 (Flomax) 0.4 mg DAILY PO 02/09/18 09:00 02/09/18 09:36 (Theragran) 1 tab DAILY PO 02/09/18 09:00 02/09/18 09:36 (Prograf) 1 mg BID PO 02/09/18 09:00 02/09/18 09:35 Patient Own Medication PT OWN MED: LEFLUNOM... BID PO 02/09/18 09:00 Future Hold Family History Noncontributory Social History Denies smoking or alcohol Physical Exam Vital Signs Vital Signs Date Time Temp Pulse Resp B/P (MAP) Pulse Ox O2 Delivery O2 Flow Rate FiO2 02/09/18 12:15 20 02/09/18 11:26 97.5 71 19 119/70 (86) 99 02/09/18 08:09 97.6 66 18 132/73 (92) 98 02/09/18 06:02 02/09/18 03:48 70 16 149/89 (109) 75 16 151/86 (107) 83 16 153/85 (107) 02/09/18 01:49 98 Room Air 02/09/18 01:38 98.2 78 15 156/87 (110) 99 Physical Exam GENERAL: Well-nourished, well-developed patient. SKIN: Warm and dry. HEAD: Normocephalic. EYES: No scleral icterus. No injection or drainage. NECK: Supple, trachea midline. No JVD or lymphadenopathy. CARDIOVASCULAR: Regular rate and rhythm without murmurs, gallops, or rubs. RESPIRATORY: Breath sounds equal bilaterally. No accessory muscle use. GASTROINTESTINAL: Abdomen soft, non-tender, nondistended. EXTREMITIES: No cyanosis, or edema. NEUROLOGICAL: Awake, alert, and oriented x 3. Non-focal. Laboratory Laboratory Tests Test 02/09/18 01:58 02/09/18 03:45 02/09/18 09:26 White Blood Count 4.6 Red Blood Count 4.16 Hemoglobin 10.9 Hematocrit 34.2 Mean Corpuscular Volume 82.2 Mean Corpuscular Hemoglobin 26.2 Mean Corpuscular Hemoglobin Concent 31.9 Red Cell Distribution Width 15.5 Platelet Count 202 Mean Platelet Volume 8.6 Neutrophils (%) (Auto) 75.0 Lymphocytes (%) (Auto) 7.9 Monocytes (%) (Auto) 13.1 Eosinophils (%) (Auto) 3.3 Basophils (%) (Auto) 0.7 Neutrophils # (Auto) 3.4 Lymphocytes # (Auto) 0.4 Monocytes # (Auto) 0.6 Eosinophils # (Auto) 0.1 Basophils # (Auto) 0.0 CBC Comment DIFF FINAL Differential Comment Prothrombin Time 10.8 Prothromb Time International Ratio 1.1 Activated Partial Thromboplast Time 23.2 Blood Urea Nitrogen 33 Creatinine 3.01 Random Glucose 78 Total Protein 6.7 Albumin 3.4 Calcium Level 8.3 Magnesium Level 2.3 Alkaline Phosphatase 128 Aspartate Amino Transf (AST/SGOT) 11 Alanine Aminotransferase (ALT/SGPT) 20 Total Bilirubin 0.3 Sodium Level 141 Potassium Level 4.5 Chloride Level 109 Carbon Dioxide Level 23.4 Anion Gap 9 Estimat Glomerular Filtration Rate 23 Total Creatine Kinase 59 Troponin I LESS THAN 0.02 LESS THAN 0.02 B-Type Natriuretic Peptide 84 Urine Color LIGHT-YELLOW Urine Turbidity CLEAR Urine pH 5.5 Urine Specific [place] 1.009 Urine Protein TRACE Urine Glucose (UA) NEG Urine Ketones NEG Urine Occult Blood NEG Urine Nitrite NEG Urine Bilirubin NEG Urine Urobilinogen LESS THAN 2.0 Urine Leukocyte Esterase NEG Urine RBC 1 Urine WBC 2 Urine Squamous Epithelial Cells <1 Urine Bacteria RARE Urine Mucus FEW Microscopic Urinalysis Comment CULT NOT INDICATED Result Diagram: 02/09/18 0158 02/09/188 Imaging Last Impressions Head CT 02/09/18145 Signed Impressions: Service Date/Time: Friday, February 09, 2018 02:34 - CONCLUSION: Stable CT brain. No acute intracranial abnormality Aric Harry MD Chest X-Ray 02/09/186 Signed Impressions: Service Date/Time: Friday, February 09, 2018 01:56 - CONCLUSION: No acute disease. Aric Harry MD Thoracic Spine X-Ray 02/09/18 0000 Signed Impressions: Service Date/Time: Friday, February 09, 2018 11:16 - CONCLUSION: 1. Multiple chronic compression deformities involving the lower thoracic and upper lumbar spine are stable. 2. Degenerative changes, kyphosis and scoliosis of the thoraco-lumbar spine. Conner Alvarado MD Lumbar Spine X-Ray 02/09/18 0000 Signed Impressions: Service Date/Time: Friday, February 09, 2018 11:11 - CONCLUSION: 1. Multiple chronic compression deformities involving the lower thoracic and upper lumbar spine are stable. 2. Degenerative changes, kyphosis and scoliosis of the thoraco-lumbar spine. Conner Alvarado MD Cervical Spine CT 02/09/18 0000 Signed Impressions: Service Date/Time: Friday, February 09, 2018 02:34 - CONCLUSION: 1. No fracture or subluxation Aric Harry MD Assessment and Plan Problem List: (1) Kidney transplant status, cadaveric ICD Codes: Z94.0 - Kidney transplant status Status: Acute Plan: Patient states that he felt like he dropped his blood pressure However his blood pressure is stable now Creatinine is elevated BK virus in blood IV fluid was given Follow BMP Check kidney ultrasound Continue with tacrolimus, leflunomide and prednisone He had a back injury as well He has been diagnosed with BK virus viremia (2) HTN (hypertension) ICD Codes: I10 - HTN (hypertension) Status: Chronic Plan: Continue to monitor (3) Epilepsy ICD Codes: G40.909 - Epilepsy Status: Chronic Plan: Seizure disorder (4) Syncope ICD Codes: R55 - Syncope and collapse Plan: Being worked up Jose Antonio Shin MD Feb 09, 2018 15:52
[2018-02-09] MEDS ORDERED: LEFLUNOMIDE PO SCH (16:00)
--- NOTE | 2018-02-09 17:02 | ECHRPT ---
Indication: cARDIOMYOPATHY CONCLUSIONS The left ventricular systolic function is hyperdynamic with an estimated ejection fraction in the ra nge of 65- 70%. Normal left ventricular size. Wall thickness is normal. No regional wall motion abnormalities are present. BP: / HR: Rhythm: MEASUREMENTS (Male / Female) Normal Values Technical Quality: 2D ECHO LV Diastolic Diameter PLAX 5.2 cm 4.2 - 5.9 / 3.9 - 5.3 cm LV Systolic Diameter PLAX 3.6 cm IVS Diastolic Thickness 1.3 cm 0.6 - 1.0 / 0.6 - 0.9 cm LVPW Diastolic Thickness 1.4 cm 0.6 - 1.0 / 0.6 - 0.9 cm LV Relative Wall Thickness 0.5 RV Internal Dim ED PLAX 2.7 cm LVOT Diameter 2.2 cm LA Systolic Diameter LX 4.0 cm 3.0 - 4.0 / 2.7 - 3.8 cm LV Ejection Fraction MOD 4C 71.4 % LV Ejection Fraction 4C AL 71.5 % M-MODE Aortic Root Diameter MM 3.5 cm LA Systolic Diameter MM 3.9 cm LA Ao Ratio MM 1.1 AV Cusp Separation MM 2.2 cm DOPPLER AV Peak Velocity 129.0 cm/s AV Peak Gradient 6.7 mmHg LVOT Peak Velocity 104.0 cm/s LVOT Peak Gradient 4.3 mmHg AV Area Cont Eq pk 3.1 cm MV Area PHT 3.9 cm Mitral E Point Velocity 83.4 cm/s Mitral A Point Velocity 54.8 cm/s Mitral E to A Ratio 1.5 LV E' Lateral Velocity 6.6 cm/s Mitral E to LV E' Lateral Ratio 12.6 LV E' Septal Velocity 6.9 cm/s Mitral E to LV E' Septal Ratio 12.2 PV Peak Velocity 113.0 cm/s PV Peak Gradient 5.1 mmHg FINDINGS LEFT VENTRICLE The left ventricular systolic function is hyperdynamic with an estimated ejection fraction in the ra nge of 65- 70%. Normal left ventricular size. Wall thickness is normal. No regional wall motion abnormalities are present. RIGHT VENTRICLE Normal right ventricular size and systolic function. LEFT ATRIUM The left atrial size is upper normal. RIGHT ATRIUM The right atrial size is normal. ATRIAL SEPTUM Normal atrial septal thickness without atrial level shunting by limited color doppler interrogation. AORTA The aortic root and proximal ascending aorta are normal in size on limited imaging. MITRAL VALVE Structurally normal mitral valve. No mitral valve stenosis or regurgitation. AORTIC VALVE Trileaflet aortic valve. No aortic valve stenosis or regurgitation. TRICUSPID VALVE Structurally normal tricuspid valve. No tricuspid valve stenosis or regurgitation. PULMONARY VALVE The pulmonary valve is not well visualized. VESSELS The inferior vena cava is normal in size. PERICARDIUM No pericardial effusion. Thanh Urias MD (Electronically Signed) Final Date:09 February 2018 17:01
[2018-02-09] MEDS: SODIUM CHLOR 0.9% 1000 ML INJ 1,000 ML IV SCH (17:42)
--- NOTE | 2018-02-09 17:54 | RADRPT ---
EXAM DATE/TIME: 02/09/2018 17:20 [facility] COMPARISON: No previous studies available for comparison. INDICATIONS : Syncope. MEDICAL HISTORY : Hypercholesterolemia. Dialysis. Renal calculi. Epilepsy. Hyperlipidemia. HTN. GERD. Chronic renal fa ilure. Gout. Anemia. SURGICAL HISTORY : Tonsillectomy. Epilepsy space on brain closed. Gastric sleeve. Lithrotripsy. Nephreostomy tube as a c hild. Kidney transplant. Fistula. ENCOUNTER: Initial ACUITY: 1 day PAIN SCORE: 0/10 LOCATION: Bilateral neck PEAK SYSTOLIC VELOCITIES (cm/sec): ICA/CCA RATIO: Right: 0.8 Left: 0.6 ICA: Right: 97.3 Left: 82.2 CCA: Right: 114.5 Left: 134.9 ECA: Right: 74.2 Left: 77.4 VERTEBRAL: Right: 94.3 antegrade Left: 77.4 antegrade Elevated flow velocities and ICA/CCA ratios have been found to correlate with increased degrees of vessel stenosis, calculated as percentage of diameter relative to a normal segment of distal ICA/CCA FINDINGS: RIGHT CAROTID: No significant stenosis is visualized. The waveforms are within normal limits. LEFT CAROTID: No significant stenosis is visualized. The waveforms are within normal limits. VERTEBRAL ARTERIES: Antegrade flow is seen in both vertebral arteries. MISCELLANEOUS: None. CONCLUSION: 1. Minimal carotid plaque without flow limiting stenosis. 2. Antegrade vertebral artery flow bilaterally. Sarabjit Perez MD on February 09, 2018 at 17:51 Board Certified Radiologist. This report was verified electronically.
--- NOTE | 2018-02-09 20:52 | MG ---
cc: Don Cruz MD EEG RECORD NUMBER: [id number] A 42-year-old, history of seizures, craniotomy, admitted for syncopal episode. A 7-8 Hz posterior rhythm, 20-40 microvolts, low-amplitude beta in the frontal channels, followed by generalized slowing. Transition into drowsy state with bursts of 2-3 Hz delta activity occurring, attenuation of background. Reduced driving with photic stimulation. A couple tiny sharp waves occurring at epoch 28, frontal central region. Hyperventilation performed without any abnormal response. Good EEG variability and reactivity. Slight phase reversal, left frontal central, epoch 65. Tiny sharp transients C3, epoch 75. Generalized slowing, K complexes, spindles suggesting stage II sleep. Single lead EKG showing sinus rhythm, sharp wave phase reversal C3, epoch 121. INTERPRETATION: Possible irritability, left frontal central region, possibly related to a structural lesion. No active seizure activity. Awake, sleep electroencephalogram. Clinical correlation. Don Cruz MD MG/SB , 08:18 PM , 08:51 PM
[2018-02-10] VITALS (8 sets, daily range): BP systolic 111–136; BP diastolic 63–78; PULSE 54–73; RESP 16–20; TEMP 97.3–98; O2SAT 97–99
[2018-02-10] MEDS: SODIUM CHLOR 0.9% 1000 ML INJ 1,000 ML IV SCH ×2 (06:00→15:50)
[2018-02-10 06:38] LABS: AUTOMATED NEUTROPHIL # 2.2 TH/MM3 (1.8-7.7); BASOPHIL % 1.2 % (0.0-2.0); EOSINOPHIL # 0.1 TH/MM3 (0-0.4); EOSINOPHIL % 3.7 % (0.0-4.0); HEMATOCRIT 31.9 % (39.0-51.0); HEMOGLOBIN 10.1 GM/DL (13.0-17.0); LYMPH % 13.4 % (9.0-44.0); LYMPHOCYTE # 0.4 TH/MM3 (1.0-4.8); MEAN CELL VOLUME 82.4 FL (80.0-100.0); MEAN CORPUSCULAR HEMOGLOBIN 26.2 PG (27.0-34.0); MEAN CORPUSCULAR HGB CONC 31.8 % (32.0-36.0); MONO % 11.1 % (0.0-8.0); MONOCYTE # 0.3 TH/MM3 (0-0.9); NEUT % 70.6 % (16.0-70.0); PLATELET COUNT 190 TH/MM3 (150-450); RED BLOOD COUNT 3.87 MIL/MM3 (4.50-5.90); RED CELL DISTRIBUTION WIDTH 15.4 % (11.6-17.2); WHITE BLOOD COUNT 3.1 TH/MM3 (4.0-11.0)
[2018-02-10 07:03] LABS: ALKALINE PHOSPHATASE 145 U/L (45-117); ALT (GPT) 28 U/L (12-78); AST (GOT) 31 U/L (15-37); BICARBONATE 22.8 MEQ/L (21.0-32.0); BLOOD UREA NITROGEN 32 MG/DL (7-18); CALCIUM 8.4 MG/DL (8.5-10.1); CHLORIDE 114 MEQ/L (98-107); CREATININE 2.74 MG/DL (0.60-1.30); GLOMERULAR FILTRATION RATE 26 ML/MIN (>89); GLUCOSE,RANDOM 74 MG/DL (74-106); MAGNESIUM 2.1 MG/DL (1.5-2.5); PHOSPHORUS 3.4 MG/DL (2.5-4.9); SODIUM (NA) 143 MEQ/L (136-145); TOTAL BILIRUBIN ADULT 0.4 MG/DL (0.2-1.0); TOTAL PROTEIN 6.2 GM/DL (6.4-8.2)
[2018-02-10] MEDS: ACETAMINOPHEN/HYDROcodone 325 MG/10 MG TAB PO PRN ×2 (08:10→17:04)
[2018-02-10] MEDS: CALCIUM CARBONATE 500 MG CHEWABLE TAB CHEW SCH (08:10)
[2018-02-10] MEDS: predniSONE 5 MG TAB PO SCH (08:10)
[2018-02-10] MEDS: TACROLIMUS 5 MG CAP PO SCH (08:10)
[2018-02-10] MEDS: LACOSAMIDE 100 MG TAB PO SCH ×3 (08:10→17:04)
[2018-02-10] MEDS: MULTIVITAMIN TAB PO SCH (08:10)
[2018-02-10] MEDS: TAMSULOSIN HCL 0.4 MG CAP PO SCH (08:10)
[2018-02-10] MEDS: PANTOPRAZOLE SOD 20 MG DELAYED RELEASE TAB PO SCH (08:10)
[2018-02-10] MEDS: TACROLIMUS 1 MG CAP PO SCH (08:10)
[2018-02-10] MEDS: SODIUM CHLORIDE 0.9% FLUSH 10 ML FLUSH IV FLUSH SCH (08:11)
[2018-02-10] MEDS: DOCUSATE SODIUM 50 MG/SENNA 8.6 MG TAB PO SCH (08:11)
[2018-02-10] MEDS ORDERED: LEFLUNOMIDE 20 MG PO SCH (09:00)
--- NOTE | 2018-02-10 09:31 | HHI.PR ---
Subjective Remarks Follow-up for syncope. Patient reports feeling well again today. He denies any specific medical complaints including no headache, lightheadedness, dizziness, blurred vision, chest pain, palpitations, shortness of breath, or abdominal complaints. He reports continued mid to low back pain however improved compared to yesterday. Denies any distal extremity numbness/tingling or weakness. He wants to go home today. Objective Vitals Vital Signs Date Time Temp Pulse Resp B/P (MAP) Pulse Ox O2 Delivery O2 Flow Rate FiO2 02/10/18 09:06 20 02/10/18 08:00 97.3 63 16 129/75 (93) 99 02/10/18 04:24 56 02/10/18 03:59 97.8 59 18 136/78 (97) 99 02/10/18 00:17 97.8 63 18 125/72 (89) 99 02/10/18 00:11 54 02/09/18 21:04 97.8 66 18 124/72 (89) 99 02/09/18 20:18 67 02/09/18 15:48 96.9 60 18 124/67 (86) 98 02/09/18 11:26 97.5 71 19 119/70 (86) 99 I/O 02/09/18 02/09/18 02/09/18 02/10/18 02/10/18 02/10/18 07:00 15:00 23:00 07:00 15:00 23:00 Intake Total 250 ml 1000 ml Output Total 300 ml 600 ml Balance 250 ml -300 ml -600 ml 1000 ml Intake IV Total 250 ml 1000 ml Output Urine Total 300 ml 600 ml # Voids 1 2 Result Diagram: 02/10/18 0523 02/10/18 0523 Imaging Last Impressions Brain MRI 02/10/18 0000 Signed Impressions: Service Date/Time: Saturday, February 10, 2018 09:19 - CONCLUSION: 1. No evidence of acute intracranial pathology. No masses are identified. 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 Leonid Montemayor MD Head CT 02/09/18 0146 Signed Impressions: Service Date/Time: Friday, February 09, 2018 02:34 - CONCLUSION: Stable CT brain. No acute intracranial abnormality Aric Harry MD Chest X-Ray 02/09/18145 Signed Impressions: Service Date/Time: Friday, February 09, 2018 01:56 - CONCLUSION: No acute disease. Aric Harry MD Thoracic Spine X-Ray 02/09/18 0000 Signed Impressions: Service Date/Time: Friday, February 09, 2018 11:16 - CONCLUSION: 1. Multiple chronic compression deformities involving the lower thoracic and upper lumbar spine are stable. 2. Degenerative changes, kyphosis and scoliosis of the thoraco-lumbar spine. Conner Alvarado MD Lumbar Spine X-Ray 02/09/18 0000 Signed Impressions: Service Date/Time: Friday, February 09, 2018 11:11 - CONCLUSION: 1. Multiple chronic compression deformities involving the lower thoracic and upper lumbar spine are stable. 2. Degenerative changes, kyphosis and scoliosis of the thoraco-lumbar spine. Conner Alvarado MD Cervical Spine CT 02/09/18 0000 Signed Impressions: Service Date/Time: Friday, February 09, 2018 02:34 - CONCLUSION: 1. No fracture or subluxation Aric Harry MD Carotid Artery Ultrasound 02/09/18 0000 Signed Impressions: Service Date/Time: Friday, February 09, 2018 17:20 - CONCLUSION: 1. Minimal carotid plaque without flow limiting stenosis. 2. Antegrade vertebral artery flow bilaterally. Sarabjit Perez MD Objective Remarks GENERAL: Well-nourished, well-developed middle aged male patient in [facility]. SKIN: Warm and dry. No rash. LUE fistula. HEENT: Normocephalic. Occipital scalp hematoma. Pupils equal and round. Mucous membranes pink and moist. CARDIOVASCULAR: Regular rate and rhythm. No murmur appreciated. RESPIRATORY: No accessory muscle use. Clear to auscultation. Breath sounds equal bilaterally. GASTROINTESTINAL: Abdomen soft, non-tender, nondistended. Normoactive bowel sounds x4. MUSCULOSKELETAL: No obvious deformities. Extremities without clubbing, cyanosis , or edema. Lower thoracic and upper lumbar diffuse paraspinous muscle tenderness, worse on the right lower thoracic with palpable hematoma; no overlying ecchymosis. NEUROLOGICAL: Awake and alert. No obvious cranial nerve deficits. Motor grossly within normal limits. 5/5 muscle strength in bilateral upper and lower extremities. Normal speech. PSYCHIATRIC: Appropriate mood and affect; insight and judgment normal. Medications and IVs Current Medications Medications (Trade) Dose Ordered Sig/Gabriella Route Start Time Stop Time Status Last Admin (NS Flush) 2 ml UNSCH PRN IV FLUSH 02/09/18 04:15 (NS Flush) 2 ml BID IV FLUSH 02/09/18 09:00 02/10/18 08:11 (Zofran Inj) 4 mg Q6H PRN IVP 02/09/18 04:15 (Tylenol) 650 mg Q6H PRN PO 02/09/18 04:15 ([place] 5-325 Mg) 1 tab Q4H PRN PO 02/09/18 04:15 ([place] 10-325 Mg) 1 tab Q4H PRN PO 02/09/18 04:15 02/10/18 08:10 (Ruth-Colace) 1 tab BID PO 02/09/18 09:00 02/09/18 21:52 (Milk Of Magnesia Liq) 30 ml Q12H PRN PO 02/09/18 04:15 (Senokot) 17.2 mg Q12H PRN PO 02/09/18 04:15 (Dulcolax Supp) 10 mg DAILY PRN RECTAL 02/09/18 04:15 (Lactulose Liq) 30 ml DAILY PRN PO 02/09/18 04:15 (Tums Chew) 500 mg BID CHEW 02/09/18 09:00 02/10/18 08:10 (Vimpat) 100 mg TID PO 02/09/18 09:00 02/10/18 12:03 (Protonix) 20 mg DAILY PO 02/09/18 09:00 02/10/18 08:10 (Deltasone) 5 mg DAILY PO 02/09/18 09:00 02/10/18 08:10 (Prograf) 5 mg BID PO 02/09/18 09:00 02/10/18 08:10 (Flomax) 0.4 mg DAILY PO 02/09/18 09:00 02/10/18 08:10 (Theragran) 1 tab DAILY PO 02/09/18 09:00 02/10/18 08:10 (Prograf) 1 mg BID PO 02/09/18 09:00 02/10/18 08:10 Sodium Chloride 1,000 ml @ 84 mls/hr [id number] IV 02/09/18 16:00 02/10/18 06:00 Patient Own Medication PT OWN MED: ARAVA 20 MG... DAILY PO 02/10/18 09:00 Future Hold A/P Problem List: (1) Syncope ICD Code: R55 - Syncope and collapse (2) Seizure disorder ICD Code: G40.909 - Epilepsy, unspecified, not intractable, without status epilepticus Status: Chronic (3) Renal transplant, status post ICD Code: Z94.0 - Kidney transplant status Assessment and Plan 42 year-old male w/ a PMH of CKD, Renal Transplant, HTN, Hyperlipidemia and Seizure Disorder who was brought to the ER by EMS after an apparent syncopal event while at [facility]. Syncope: acute syncopal event, no lightheadedness/dizziness prior, no reported seizure activity. Patient without much recollection of event however reportedly had low BP on scene. Suspect episode vasovagal vs hypotension. -CT Head/C-Spine w/ no acute findings, images reviewed by me. 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 -Seizure Precautions. -EEG as above KENNETH on CKD stage IV: with hx of Renal Transplant -Dr. Shin consulted and following, appreciate assistance -Resume home Prograf and Prednisone. -Renal U/S ordered and pending Back Pain: s/p fall with syncopal episode as above. Palpable lower thoracic paraspinous hematoma with TTP. -thoracic and lumbar spine xrays shows old compression deformities with no acute fractures -pain control with norco prn -consult PT, recommended outpatient PT if patient prefers; otherwise no other PT needed DVT Prophylaxis: SCD/Teds Discharge Planning Likely discharge later today if cleared by nephrology and neurology. Awaiting renal U/S. ADDENDUM: 1750hrs: Patient seen by neurology Dr. Cruz, recommended Lamictal 25mg bid in addition to patient's Vimpat. Cleared for discharge by neurology. No driving , seizure precautions. Patient also seen and cleared for discharge by nephrology, recommended outpatient f/up. Will discharge home. Discharge patient to home Condition on discharge: Stable Renal Failure Diet as tolerated Ad Samara activity, no driving, seizure precautions Rx written: Lamictal 25mg bid Follow-up with primary care physician, nephrology, and neurology Daina Baez PA-C Feb 10, 2018 9:31 am
--- NOTE | 2018-02-10 10:09 | RADRPT ---
EXAM DATE/TIME: 02/10/2018 09:19 [facility] COMPARISON: CT BRAIN W/O CONTRAST, February 09, 2018, 2:34. INDICATIONS : Abnormal CT. MEDICAL HISTORY : Hypertension. Seizures. Kidney transplant SURGICAL HISTORY : Tonsillectomy. Craniotomy. gastric sleeve, kidney removal and transplant ENCOUNTER: Subsequent ACUITY: 2 day PAIN SCORE: 0/10 LOCATION: cranial TECHNIQUE: Multiplanar, multisequence MRI of the brain was performed without contrast. FINDINGS: MRI of the brain is performed in sagittal, axial and coronal planes. The craniocervical junction and midline structures are unremarkable. Diffusion weighted images demonstrate no abnormality. There is n o evidence of acute cortical infarction, acute hemorrhage, mass effect or midline shift is seen. Ther e is old infarct in the anterior left temporal lobe. And this falls the anterior portion of the [facility]. There is an area encephalomalacia measuring 3 CM by 2.5 CM Posterior fossa structures are unr emarkable. CONCLUSION: 1. No evidence of acute intracranial pathology. No masses are identified. Old infarct anterior left t emporal lobe. Leonid Montemayor MD on February 10, 2018 at 10:02 Board Certified Radiologist. This report was verified electronically.
[2018-02-10 14:33] LABS: CHOLESTEROL/ HDL RATIO 5.26 RATIO; HDL CHOLESTEROL 26.6 MG/DL (40.0-60.0)
--- NOTE | 2018-02-10 15:49 | PD.CONS ---
History of Present Illness Service Neurology Consult Requested By medical Reason for Consult syncope Primary Care Physician Non-Staff History of Present Illness 42 year-old male w/ a PMH of CKD, Renal Transplant, HTN, Hyperlipidemia and Seizure Disorder who was brought to the ER by EMS after an apparent syncopal event while at [facility]. Per report, pt found lying on the floor in an aisle of [facility], down for approx 5min. No seizure like activity reported. Pt denies dizziness/lightheadedness. no cp, no dyspnea. No incontinence, no tongue biting. +head laceration. he does not recollect what happened. takes vimpat 100mg tid. On arrival, BP 156/87, HR 78, ct brain naicp. hx of sz that began at 14 y/o. no known cause. but imaging shows old lesion in left anterior temporal lobe on mri brain. no family hx of sz. states his last sz was 2-3 years ago. will usually get an aura of lightheadedness, weak feeling before sz. he does not recollect that occurring this occasion. feels well at present. Review of Systems Except as stated in HPI: all other systems reviewed are Neg ROS: 14 point review of systems otherwise negative. Past Family Social History Past Medical History PMH: Gastric Sleeve, Cholecystectomy, Craniotomy, Tonsillectomy, Nephrostomy Tube Placement, Renal Transplant, AV Fistula Allergies: Coded Allergies: lisinopril (Unverified Adverse Reaction, Severe, 02/09/18) Angioedema Family History PAST FAMILY HISTORY: Reviewed. No h/o DM or CAD Social History PAST SOCIAL HISTORY: Negative for alcohol, tobacco or drugs. Review of Systems All other ROS: ROS reviewed as documented in chart Past Family Social History Allergies: Coded Allergies: lisinopril (Unverified Adverse Reaction, Severe, 02/09/18) Angioedema Active Ordered Medications Current Medications Medications (Trade) Dose Ordered Sig/Gabriella Route Start Time Stop Time Status Last Admin (NS Flush) 2 ml UNSCH PRN IV FLUSH 02/09/18 04:15 (NS Flush) 2 ml BID IV FLUSH 02/09/18 09:00 02/10/18 08:11 (Zofran Inj) 4 mg Q6H PRN IVP 02/09/18 04:15 (Tylenol) 650 mg Q6H PRN PO 02/09/18 04:15 ([place] 5-325 Mg) 1 tab Q4H PRN PO 02/09/18 04:15 ([place] 10-325 Mg) 1 tab Q4H PRN PO 02/09/18 04:15 02/10/18 08:10 (Ruth-Colace) 1 tab BID PO 02/09/18 09:00 02/09/18 21:52 (Milk Of Magnesia Liq) 30 ml Q12H PRN PO 02/09/18 04:15 (Senokot) 17.2 mg Q12H PRN PO 02/09/18 04:15 (Dulcolax Supp) 10 mg DAILY PRN RECTAL 02/09/18 04:15 (Lactulose Liq) 30 ml DAILY PRN PO 02/09/18 04:15 (Tums Chew) 500 mg BID CHEW 02/09/18 09:00 02/10/18 08:10 (Vimpat) 100 mg TID PO 02/09/18 09:00 02/10/18 12:03 (Protonix) 20 mg DAILY PO 02/09/18 09:00 02/10/18 08:10 (Deltasone) 5 mg DAILY PO 02/09/18 09:00 02/10/18 08:10 (Prograf) 5 mg BID PO 02/09/18 09:00 02/10/18 08:10 (Flomax) 0.4 mg DAILY PO 02/09/18 09:00 02/10/18 08:10 (Theragran) 1 tab DAILY PO 02/09/18 09:00 02/10/18 08:10 (Prograf) 1 mg BID PO 02/09/18 09:00 02/10/18 08:10 Sodium Chloride 1,000 ml @ 84 mls/hr [id number] IV 02/09/18 16:00 02/10/18 06:00 Patient Own Medication PT OWN MED: ARAVA 20 MG... DAILY PO 02/10/18 09:00 Future Hold Exam I&O / VS 02/10/18 02/10/18 02/11/18 15:00 23:00 07:00 # Voids 1 Vital Signs Date Time Temp Pulse Resp B/P (MAP) Pulse Ox O2 Delivery O2 Flow Rate FiO2 4/10/18 11:51 97.8 73 16 111/63 (79) 97 02/10/18 09:06 20 02/10/18 08:00 97.3 63 16 129/75 (93) 99 02/10/18 04:24 56 02/10/18 03:59 97.8 59 18 136/78 (97) 99 02/10/18 00:17 97.8 63 18 125/72 (89) 99 02/10/18 00:11 54 02/09/18 21:04 97.8 66 18 124/72 (89) 99 02/09/18 20:18 67 02/09/18 15:48 96.9 60 18 124/67 (86) 98 General: Alert and Oriented, No acute distress Eye: EOMI Respiratory: Non-labored respirations Cardiology: Normal rate Musculoskeletal: ROM Neurologic: Alert, Oriented, Normal sensory, Normal motor, No focal defects, CN II-XII intact, Normal DTR's Psychiatric: Cooperative, Appropriate mood & affect Review/Management Diagnosis/Plan: (1) Epilepsy ICD Codes: G40.909 - Epilepsy Status: Chronic Plan: possible breakthrough sz eeg- abnormal recs on maximum dose of vimpat based on gfr will add lamictal 25mg bid; can be titrate up outpatient. s/b d/w pt d/c from neuro and outpatient f/u no driving/climbing heights/operating dangerous machinery (2) ESRD (end stage renal disease) on dialysis ICD Codes: N18.6 - ESRD (end stage renal disease) on dialysis; Z99.2 - Dependence on renal dialysis Status: Chronic Plan: per renal (3) Kidney transplant status, cadaveric ICD Codes: Z94.0 - Kidney transplant status Status: Chronic Plan: per renal Problem Qualifiers (1) Epilepsy: Don Cruz MD Feb 10, 2018 15:49
--- NOTE | 2018-02-10 17:36 | RADRPT ---
EXAM DATE/TIME: 02/10/2018 13:27 [facility] COMPARISON: US KIDNEY / TRANSPLANT, November 10, 2017, 14:04. INDICATIONS : Increased lab values. MEDICAL HISTORY : Hypercholesterolemia. Hypertension. Renal failure, chronic. Epilepsy. Headaches. Hyperlipidemia. GERD . Dialysis. Kidney stones. Gout. Anemia. SURGICAL HISTORY : Tonsillectomy. Craniotomy. Cholecystectomy. Gastric sleeve. Kidney stone removal. Nephrostomy tube. K idney transplant. ENCOUNTER: Subsequent ACUITY: 1 day PAIN SCORE: 0/10 LOCATION: Right flank MEASUREMENTS: TRANSPLANT KIDNEY: 10.0 x 4.3 x 5.8 cm LOCATION: Right lower quadrant. ARCUATE ARTERIES RESISTIVE INDEX: Upper - 0.7 Mid - 0.6 Lower - 0.7 MAIN RENAL ARTERY VELOCITY: (cm/sec): 77 MAIN RENAL VEIN: Patent EXTERNAL ILIAC ARTERY VELOCITY (cm/sec): 93 * NORMAL DOPPLER FINDINGS Arcuate arteries - RI = 0.6 - 0.8 Renal artery = under 200 cm/sec Renal vein = May be monophasic with continuous flow or demonstrate some pulsatility with cardiac cycl e FINDINGS: TRANSPLANT KIDNEY: Redemonstration of mild hydronephrosis similar to recent exam. The resistive indices are within daily l limits and not significantly changed. URINARY BLADDER: Within normal limits given the degree of distension. CONCLUSION: 1. Stable mild hydronephrosis with stable normal range resistive indices. Sarabjit Perez MD on February 10, 2018 at 17:32 Board Certified Radiologist. This report was verified electronically.
--- NOTE | 2018-02-10 17:44 | HHI.NPPN ---
Subjective History of Present Illness 42 year old male with history of kidney transplant and Syncopal episode Objective Data Data 02/10/18 02/11/18 19:00 07:00 # Voids 1 Vital Signs Date Time Temp Pulse Resp B/P (MAP) Pulse Ox O2 Delivery O2 Flow Rate FiO2 02/10/18 16:00 98.0 60 16 120/76 (91) 98 02/10/18 11:51 97.8 73 16 111/63 (79) 97 02/10/18 09:06 20 02/10/18 08:00 97.3 63 16 129/75 (93) 99 02/10/18 04:24 56 02/10/18 03:59 97.8 59 18 136/78 (97) 99 02/10/18 00:17 97.8 63 18 125/72 (89) 99 02/10/18 00:11 54 02/09/18 21:04 97.8 66 18 124/72 (89) 99 02/09/18 20:18 67 -: 02/10/18 0523 02/10/18 0523 Physical Exam General Appearance: Well Developed, Well Nourished Neck Neck Exam: Neck Supple Pulmonary Resp Exam: Clear Bilaterally, No Distress Cardiology CV Exam: Regular, Normal Sinus Rhythm Gastrointestinal/Abdomen GI Exam: Soft, Non-Tender, Bowel Sounds Present Extremeties Extremities Exam: No Edema Assessment/Plan Problem List: (1) Kidney transplant status, cadaveric ICD Codes: Z94.0 - Kidney transplant status Status: Chronic Plan: Patient is doing well Creatinine dropped to 2.7 Ultrasound showed mild hydronephrosis stable Continue with current immunosuppressive medical treatment Patient can be followed up as outpatient (2) HTN (hypertension) ICD Codes: I10 - HTN (hypertension) Status: Chronic Plan: Continue to monitor (3) Epilepsy ICD Codes: G40.909 - Epilepsy Status: Chronic Plan: Seizure disorder (4) Syncope ICD Codes: R55 - Syncope and collapse Plan: Being worked up Problem Qualifiers (1) Epilepsy: Jose Antonio Shin MD Feb 10, 2018 17:44
[2018-02-10] MEDS ORDERED: LAMO25 PO (17:49)
--- NOTE | 2018-02-10 17:51 | HHI.DCPOC ---
Discharge Care Plan Diagnosis: (1) Seizure disorder (2) Kidney transplant status, cadaveric Goals to Promote Your Health * To prevent worsening of your condition and complications * To maintain your health at the optimal level Directions to Meet Your Goals Take your medications as prescribed Follow your dietary instruction Follow activity as directed Keep your appointments as scheduled Take your immunizations and boosters as scheduled If your symptoms worsen call your PCP, if no PCP go to Urgent Care Center or Emergency Room Smoking is Dangerous to Your Health. Avoid second hand smoke Call the 24-hour hour crisis hotline for domestic abuse at Daina Baez PA-C Feb 10, 2018 17:51
[2018-02-10] MEDS ORDERED: lamoTRIgine 25 MG TAB PO SCH (21:00)
--- NOTE | 2018-02-16 12:36 | HHI.NPPN ---
Subjective History of Present Illness 42 year old male with history of kidney transplant and Syncopal episode Objective Data Data Blood pressure 139/87 pulse 63 temperature 97.8 weight 90 kg Physical Exam General Appearance: Well Developed, Well Nourished Neck Neck Exam: Neck Supple Pulmonary Resp Exam: Clear Bilaterally, No Distress Cardiology CV Exam: Regular, Normal Sinus Rhythm Gastrointestinal/Abdomen GI Exam: Soft, Non-Tender, Bowel Sounds Present Extremeties Extremities Exam: No Edema Assessment/Plan Problem List: (1) Kidney transplant status, cadaveric ICD Codes: Z94.0 - Kidney transplant status Status: Chronic Plan: Patient is doing well Creatinine 2.9 Ultrasound showed mild hydronephrosis stable Patient was recently discharged from the hospital his tacrolimus level of 7.7 I decreased the dose to 6 mg in the morning and 5 in the evening continue with leflunomide 40 mg daily, prednisone 5 mg daily The only side effect he is having from increased leflunomide his diarrhea he described with greenish bowel movement with a liquid once a day he used to have a bowel movement every 2-3 days At this time I was going to observe him Encourage water intake He is on Vimpat and Lamictal 25 mg twice daily (2) HTN (hypertension) ICD Codes: I10 - HTN (hypertension) Status: Chronic Plan: Continue to monitor (3) Epilepsy ICD Codes: G40.909 - Epilepsy Status: Chronic Plan: Seizure disorder (4) Syncope ICD Codes: R55 - Syncope and collapse Plan: Being worked up Problem Qualifiers (1) Epilepsy: Jose Antonio Shin MD Feb 16, 2018 12:36
== END 2018-02-10 18:25 | disposition home or self-care (01) ==
LOC: NEPE 01:33 → NEDA 04:14 → NEPFCDU 06:09
PROVIDERS: ADMIT Hospitalist; ATTEND Hospitalist
DX: R55 Syncope and collapse (principal); G40.909 Epilepsy, unspecified, not intractable, without status epilepticus; N13.30 Unspecified hydronephrosis; S20.229A Contusion of unspecified back wall of thorax, initial encounter; I12.9 Hypertensive chronic kidney disease with stage 1 through stage 4 chronic kidney disease, or unspecified chronic kidney disease; N18.4 Chronic kidney disease, stage 4 (severe); N17.9 Acute kidney failure, unspecified; B34.9 Viral infection, unspecified; R51 Headache; M41.85 Other forms of scoliosis, thoracolumbar region; E78.00 Pure hypercholesterolemia, unspecified; K21.9 Gastro-esophageal reflux disease without esophagitis; Z79.899 Other long term (current) drug therapy; Z94.0 Kidney transplant status; W19.XXXA Unspecified fall, initial encounter
CPT/HCPCS: 70450; 70551; 71045; 72072; 72100; 72125; 76776; 80053; 80061; 80197; 81001; 82550; 83735; 83880; 84100; 84484; 85025; 85610; 85730; 93005; 93306; 93880; 95819; 96360; 96361; 97161; 99285; G0378; G8987; G8988; G8989; J7030; J7050; J7507; J7512